=== PATIENT | female | born 1965 | race Caucasian/White ===

== ENCOUNTER → 2020-05-28 14:57 | Outpatient (BNVA) | payer MEDICAID, SELFPAY | PROVIDERS: PCP Student in an Organized Health Care Education/Training Program; Referring Provider Student in an Organized Health Care Education/Training Program; Visit Provider Nurse Practitioner | DX: R19.7 Diarrhea, unspecified (principal); R10.9 Unspecified abdominal pain; R31.9 Hematuria, unspecified; Z79.899 Other long term (current) drug therapy | CPT/HCPCS: 99212 ==

== ENCOUNTER → 2020-07-02 13:06 | Outpatient (BNVA) | payer MEDICAID, SELFPAY | PROVIDERS: PCP Student in an Organized Health Care Education/Training Program; Referring Provider Student in an Organized Health Care Education/Training Program; Visit Provider Urology | DX: R31.29 Other microscopic hematuria (principal) | CPT/HCPCS: 81002; 99202 ==

== ENCOUNTER 2020-07-02 13:30 | Outpatient (REF) | payer MEDICAID, SELFPAY | END 2020-07-02 23:59 | disposition home or self-care (01) | LOC: HO.LNP 13:30 | PROVIDERS: Visit Provider Urology | DX: R31.9 Hematuria, unspecified (principal) | CPT/HCPCS: 88112 ==

== ENCOUNTER → 2021-01-14 09:58 | Outpatient (BNVA) | payer MEDICAID, SELFPAY | PROVIDERS: PCP Student in an Organized Health Care Education/Training Program; Visit Provider Nurse Practitioner ==

== ENCOUNTER 2021-12-05 08:26 | Outpatient (REF) | payer MEDICAID, SELFPAY ==
--- NOTE | ~2021-12-05 | MM_ITS ---
EXAMINATION: MM SCREENING DIGITAL BREAST TOMOSYNTHESIS, BILATERAL CLINICAL INFORMATION: Screening. Asymptomatic. The lifetime risk of breast cancer based on the Tyrer-Cuzick Model is 16%. COMPARISON: Mammography: 01/19/2020, 04/22/2018, 10/30/2016; right breast ultrasound 05/20/2020 TECHNIQUE: Digital breast tomosynthesis is performed in both the craniocaudal and mediolateral oblique views along with computer-aided detection (CAD). Synthesized 2D images are generated from the tomosynthesis. Additional right CC view is provided. FINDINGS: There are scattered areas of fibroglandular density (ACR BI-RADS breast composition Category b). There are no significant masses, abnormal calcifications, or other abnormalities. No architectural abnormality. There is biopsy clip marker again noted central right breast. The axilla and skin contours are unremarkable. MM/MM tomosynthesis screening BI IMPRESSION: No mammographic evidence of malignancy. ASSESSMENT: BI-RADS 1: Negative RECOMMENDATION: Routine annual mammography screening. This patient's information was entered into a reminder system with a target due date for their next mammogram.
== END 2021-12-05 08:27 | disposition home or self-care (01) ==
LOC: HO.MAMMO 08:26
PROVIDERS: Visit Provider Student in an Organized Health Care Education/Training Program
DX: Z12.31 Encounter for screening mammogram for malignant neoplasm of breast (principal)
CPT/HCPCS: 77063; 77067

== ENCOUNTER 2021-12-07 09:51 | Outpatient (REF) | payer MEDICAID, SELFPAY ==
--- NOTE | ~2021-12-07 | MR_ITS ---
MR BRAIN WITHOUT AND WITH Fidel CONTRAST CLINICAL INFORMATION: Vertigo. Memory impairment. COMPARISON: None available. TECHNIQUE: Multiplanar, multisequence MRI of the brain was obtained before and after the intravenous administration of 10 mL of Gadavist. FINDINGS: There is no pathologic intracranial enhancement. There is mild chronic microangiopathy. There is global cerebral volume loss. There is no hydrocephalus, extra-axial surface collection, or herniation. The major flow voids at the skull base are preserved. There is no acute infarct on diffusion-weighted imaging. There is no intracranial hemorrhage on the gradient recalled echo acquisition. The midline structures are normal. The cerebellar tonsils are normally positioned. The cerebellum and brainstem are normal. The craniocervical junction is normal. Osseous marrow signal intensity is homogenous. The visualized soft tissues are unremarkable. MR/MR head/brain wo/w con IMPRESSION: - No acute intracranial findings. No enhancing lesions. - Mild chronic microangiopathy. There is global cerebral volume loss.
== END 2021-12-07 09:52 | disposition home or self-care (01) ==
LOC: HO.MRI 09:51
PROVIDERS: Visit Provider Family Medicine
DX: R41.3 Other amnesia (principal); R42 Dizziness and giddiness
CPT/HCPCS: 70553; A9585

== ENCOUNTER → 2021-12-12 12:49 | Outpatient (REF) | payer MEDICAID, SELFPAY ==
--- NOTE | 2021-12-12 12:53 | ECG_ITS ---
Hook-up date: 2021-12-12 12:02:00 Duration: 25:45:00 Test Indications: SVT, DIZZINESS Medications: 94645 QRS complexes 1 Ventricular ectopics which represent <1 % of total QRS comp. 1 Supraventricular ectopics which represent <1 % of total QRS comp. * Paced QRS complexs which represent % of total QRS comp. VENTRICULAR ECTOPY 1 Isolated 0 Bigeminal Cycles 0 Couplets 0 Runs 0 Beats in Runs * Beats LONGEST at * BPM at :: -- * Beats FASTEST at * BPM at :: -- SUPRAVENTRICULAR ECTOPY 1 Isolated 0 Couplets 0 Runs 0 Beats in Runs * Beats LONGEST at * BPM at :: -- * Beats FASTEST at * BPM at :: -- HEART RATES 51 MIN at 11:27:58 2021-12-13 65 AVG 90 MAX at 19:34:34 2021-12-12 LONGEST RR 1.1840 secs at 11:18:10 2021-12-13 S-T LEVELS Channel 1 - 128 mm at 12:02:00 2021-12-12 - 128 mm at 12:02:00 2021-12-12 Channel 2 - 128 mm at 12:02:00 2021-12-12 - 128 mm at 12:02:00 2021-12-12 Channel 3 - 128 mm at 03:12:11 -- - 128 mm at 03:12:11 Basic rhythm Normal sinus rhythm No long pause or profound bradycardia No dangerous dysrhythm periods Patient did not report any symptoms in the diary Referred By: Trang Philip Overread By: SULEMAN EUGENE MD
== END ==
LOC: HO.CARD 12:49
PROVIDERS: Visit Provider Family Medicine
DX: I47.1 Supraventricular tachycardia (principal)
CPT/HCPCS: 93225; 93226

== ENCOUNTER 2021-12-16 12:51 | Outpatient (REF) | payer MEDICAID, SELFPAY ==
--- NOTE | ~2021-12-16 | US_ITS ---
EXAMINATION: US ABDOMEN LIMITED CLINICAL INFORMATION: Elevated liver enzymes. COMPARISON: CT abdomen and pelvis 11/24/2019. Ultrasound abdomen complete 04/09/2013. TECHNIQUE: Real-time imaging of the right upper quadrant abdominal viscera. FINDINGS: PANCREAS: Normal. LIVER: The liver is normal in size. The liver contour is normal. Liver echotexture is increased. No focal hepatic lesion. There is no intrahepatic biliary duct dilatation seen. GALLBLADDER: There is mild ring down artifact suggestive of adenomyomatosis of the gallbladder wall. The gallbladder is physiologically distended without evidence of stones, sludge, polyps, wall thickening or pericholecystic fluid. COMMON BILE DUCT: Normal in caliber measuring 0.3 cm in diameter. RIGHT KIDNEY: Normal. No hydronephrosis. No renal calculi or focal parenchymal lesions. The kidney measures 9.1 cm in maximum dimension. FREE FLUID: None. US/US abdomen limited IMPRESSION: Echogenic liver probably representing fatty infiltration. Probable mild adenomyomatosis of the gallbladder wall.
== END 2021-12-16 12:52 | disposition home or self-care (01) ==
LOC: HO.US 12:51
PROVIDERS: Visit Provider Family Medicine
DX: E80.6 Other disorders of bilirubin metabolism (principal); R74.01 Elevation of levels of liver transaminase levels
CPT/HCPCS: 76705

== ENCOUNTER 2021-12-29 11:13 | Outpatient (REF) | payer MEDICAID, SELFPAY ==
--- NOTE | ~2021-12-29 | US_ITS ---
EXAMINATION: US VENOUS ULTRASOUND WITH DOPPLER LOWER EXTREMITY, RIGHT CLINICAL INFORMATION: Right lower extremity edema. COMPARISON: 04/14/2020. TECHNIQUE: Ultrasound of the deep veins is performed from the hip to the calf with compression sonography and color and pulse Doppler assessment. Spectral analysis with color-flow imaging is performed. FINDINGS: There is normal venous compression and respiratory variation and augmented flow. The visualized common femoral vein, superficial femoral vein, profunda femoral vein, popliteal vein, and the trifurcation region shows no evidence of deep venous thrombosis. There is no significant popliteal fossa cyst. If the patient's symptoms persist, followup ultrasound in 5 days 7 days might be of value to exclude proximal propagation from a non-visualized calf vein. US/US venous duplex LE RT IMPRESSION: No DVT demonstrated in the right lower extremity.
== END 2021-12-29 11:14 | disposition home or self-care (01) ==
LOC: HO.US 11:13
PROVIDERS: PCP Student in an Organized Health Care Education/Training Program; Visit Provider Student in an Organized Health Care Education/Training Program
DX: I83.891 Varicose veins of right lower extremity with other complications (principal); R60.0 Localized edema
CPT/HCPCS: 93971

== ENCOUNTER → 2022-01-17 09:52 | Outpatient (BNVA) | payer MEDICAID, SELFPAY | PROVIDERS: PCP Student in an Organized Health Care Education/Training Program; Visit Provider Surgery | DX: R10.11 Right upper quadrant pain (principal); K70.0 Alcoholic fatty liver | CPT/HCPCS: 99202 ==

== ENCOUNTER → 2022-02-08 07:33 | Outpatient (REF) | payer MEDICAID, SELFPAY ==
--- NOTE | ~2022-02-08 | NM_ITS ---
EXAMINATION: NM BILIARY TRACT WITH ORAL FATTY MEAL CLINICAL INFORMATION: Right upper quadrant pain. COMPARISON: No previous biliary scan is available for comparison. Abdominal ultrasound dated 12/16/[address] scan of the abdomen dated 11/24/2019 are available for comparison. TECHNIQUE: Serial gamma scintillation camera images were obtained over the abdomen for a total observation period of 120 minutes following the intravenous administration of 5 mCi Tc-99m Mebrofenin. FINDINGS: There is good concentration of activity in the liver by 5 minutes post injection. Biliary activity is visualized by 15 minutes. The gallbladder is well visualized by 30 minutes. Small bowel is well visualized by 50 minutes. At 60 minutes post Mebrofenin injection, 8 ounces of Ensure-plus Brand was administered orally and an additional 60 minutes of images were obtained. There is good emptying of the gallbladder following ingestion of the fatty meal. At the end of the study there is good clearance of activity from the liver and visualization of diffuse small bowel activity. The calculated gallbladder ejection fraction is 95% (normal gallbladder ejection fraction using Ensure supplement orally is greater than 33%). NM/NM hepatobiliary wo pharm IMPRESSION: Visualization of the gallbladder is evidence of a patent cystic duct and strong evidence against the diagnosis of acute cholecystitis. The common bile duct is patent. Gallbladder emptying and ejection fraction are normal. Liver function appears normal.
== END ==
LOC: HO.NUCMED 07:33
PROVIDERS: PCP Student in an Organized Health Care Education/Training Program; Visit Provider Surgery
DX: R10.11 Right upper quadrant pain (principal)
CPT/HCPCS: 78226; A9537

== ENCOUNTER → 2022-02-09 09:49 | Outpatient (BNVA) | payer MEDICAID, SELFPAY | PROVIDERS: PCP Student in an Organized Health Care Education/Training Program; Visit Provider Surgery | DX: R10.11 Right upper quadrant pain (principal); K70.0 Alcoholic fatty liver | CPT/HCPCS: 99212 ==

== ENCOUNTER → 2022-02-16 10:29 | Outpatient (BNVA) | payer MEDICAID, SELFPAY | PROVIDERS: PCP Student in an Organized Health Care Education/Training Program; Visit Provider Nurse Practitioner | DX: Z01.818 Encounter for other preprocedural examination (principal); I47.1 Supraventricular tachycardia; R10.9 Unspecified abdominal pain; R19.7 Diarrhea, unspecified; Z80.0 Family history of malignant neoplasm of digestive organs | CPT/HCPCS: 99202; 99212 ==

== ENCOUNTER → 2022-03-23 08:58 | Outpatient (BNVA) | payer MEDICAID, SELFPAY | PROVIDERS: PCP Student in an Organized Health Care Education/Training Program; Visit Provider Surgery Vascular Surgery | DX: I83.12 Varicose veins of left lower extremity with inflammation (principal) | CPT/HCPCS: 99202 ==

== ENCOUNTER 2022-05-22 12:55 | Outpatient (REF) | payer MEDICAID, SELFPAY ==
--- NOTE | ~2022-05-22 | US_ITS ---
EXAMINATION: US LOWER EXTREMITY VENOUS (REFLUX EXAM), BILATERAL CLINICAL INDICATION: This is a 57-year-old female with venous insufficiency and varicose veins. Leg swelling. Inflammation. COMPARISON: None. TECHNIQUE: Color flow triplex imaging and compression Doppler was performed to evaluate both the deep and the superficial systems bilaterally. To evaluate the superficial system, the examination was performed in the upright position. Color-flow Doppler ultrasound and compression ultrasound were utilized. In addition, maneuvers were utilized to demonstrate reflux. FINDINGS: 1. DEEP VENOUS ULTRASOUND OF THE RIGHT LOWER EXTREMITY: Common Femoral Vein: Compressible, normal respiratory variation and augmented flow. Femoral vein: Compressible, normal color flow and augmentation. Popliteal Vein: Compressible, normal augmentation. Deep Reflux: There is no evidence of reflux in the deep system in either the common femoral vein or the popliteal vein. There is no evidence of a Tan's cyst. 2. SUPERFICIAL ULTRASOUND WITH DOPPLER OF RIGHT LOWER EXTREMITY: GREAT SAPHENOUS VEIN: Saphenofemoral Junction: 0.6 cm. There is no reflux. Mid Thigh: 0.4 cm Above Knee: 0.4 cm. There is no reflux at this level and above. Below Knee: 0.3 cm. The reflux time is 3344 ms. Mid Calf: 0.3 cm. The reflux time is 3264 ms. Ankle: Not seen. GSV REFLUX: There is isolated reflux below the knee. DUPLICATED GREAT SAPHENOUS VEIN: There is a 0.5 cm duplicated lateral great saphenous vein without reflux. SMALL SAPHENOUS VEIN: Proximal: 0.4 cm Distal: 0.3 cm SSV REFLUX: No evidence of reflux. VEIN OF GIACOMINI: None Imaged. PERFORATORS: None Imaged VARICOSITIES: There are multiple 0.3 cm 0.4 cm varicose veins with reflux of greater than 3 seconds. 3. DEEP VENOUS ULTRASOUND OF THE LEFT LOWER EXTREMITY: Common Femoral Vein: Compressible, normal respiratory variation and augmented flow. Femoral Vein: Compressible, normal color flow and augmentation. Popliteal Vein: Compressible, normal augmentation. Deep Reflux: There is no evidence of reflux in the deep system in either the common femoral vein or the popliteal vein. There is no evidence of a Tan's cyst. 4. SUPERFICIAL ULTRASOUND WITH DOPPLER OF LEFT LOWER EXTREMITY: GREAT SAPHENOUS VEIN: Saphenofemoral Junction: 0.9 cm Mid Thigh: 0.4 cm Above Knee: 0.5 cm Below Knee: 0.4 cm. There is no reflux at this level and above. Mid Calf: 0.1 cm. The reflux time is 2768 ms. Ankle: 0.4 cm. There is no reflux. GSV REFLUX: There is isolated reflux in the mid calf but not at the junction. DUPLICATED GREAT SAPHENOUS VEIN: There is a duplicated medial great saphenous vein measuring 0.6 cm without reflux. There is a 0.4 cm duplicated lateral great saphenous vein without reflux. SMALL SAPHENOUS VEIN: Proximal: 0.4 cm Distal: 0.3 cm SSV REFLUX: No evidence of reflux. VEIN OF GIACOMINI: None Imaged. PERFORATORS: There is a 0.3 cm proximal calf clinical technologist without reflux. VARICOSITIES: There are 0.3 cm and 0.5 cm varicose veins in the calf without reflux. US/US venous duplex LE BI IMPRESSION: 1. There are patent bilateral great saphenous veins and small saphenous veins without evidence of reflux at the junctions, respectively. 2. There are bilateral varicose veins present measuring 0.3 cm, 0.47 m, 0.5 cm respectively. Reflux is seen in the right calf varicose veins.
== END 2022-05-22 12:56 | disposition home or self-care (01) ==
LOC: HO.US 12:55
PROVIDERS: Visit Provider Surgery Vascular Surgery
DX: I83.12 Varicose veins of left lower extremity with inflammation (principal)
CPT/HCPCS: 93970

== ENCOUNTER 2022-07-10 09:03 | Day surgery (SDC) | payer MEDICAID, SELFPAY ==
[2022-07-04 12:04] VITALS: BMI 37.4
--- NOTE | 2022-07-10 09:48 | P.HPSUR_ITS ---
Pre-Procedural Eval Section A Date of Service: 07/10/22 The patient is an INPATIENT: No The History & Physical has been completed within 30 days and I have reviewed it.: No Section B Chief Complaint: Colon cancer screening, diarrhea,abd pain Details of Present Illness: Colon cancer screening, abdominal pain and diarrhea Relevant Family History (Specify if Yes): No Relevant Social History: None Present Medications: see Short Stay Collaborative assessment Medical History: Significant History (Anxiety Bipolar disorder Depression P arkinson disease Recovering alcoholic) History of Previous Operations: Relevant previous surgery/procedure and date(s) (History of right breast biopsy) Allergies: Allergies Allergy/AdvReac Type Severity Reaction Status Date / Time azithromycin [From ZITHROMAX] Allergy Intermediate SWELLING Verified 02/16/22 10:38 Penicillins [PENICILLINS] Allergy Intermediate SWELLING Verified 02/16/22 10:38 Sulfa (Sulfonamide Allergy Intermediate SWELLING Verified 02/16/22 10:38 Antibiotics) [SULFA(SULFONAMIDE ANTIBIOTICS)] dicyclomine AdvReac Unknown Itching Verified 02/16/22 10:38 BLUE CAPSELS FOR ABD PAIN Allergy Unknown COULDN'T Uncoded 02/16/22 10:38 PEE Review of Systems Sugical H&P ROS: Negative: Constitution, Cardiovascular and Respiratory and Yes, Specify: Gastrointestinal (abdominal pain, diarrhea) Exam Surgical H&P Exam: Normal: Heart, Normal: Lungs, Normal: Extremities and Normal: Abdomen Plan Diagnosis/Plan: Unchanged I have reviewed the history and physical and performed a pertinent physical examination on my patient. No changes have occurred unless specified. Time Spent With Patient Time: Total time managing care of this patient today ____ minutes.
--- NOTE | 2022-07-10 09:50 | PM.OP ---
Brief Operative Note Date of Service: 07/10/22 Pre-op diagnosis: Colon cancer screening, abdominal pain, diarrhea, family history of colon cancer (sister in her 50's) Post-op diagnosis: other (Colon polyps, diverticulosis) Procedure: COLONOSCOPY TO CECUM WITH BIOPSIES Surgeon: Adelfo Pollard MD Anesthesia: MAC Was an Cable Television Line Technician used for this Procedure?: Yes Cable Television Line Technician: Emile Kathleen Estimated blood loss (mL): 0 Pathology: other (A) BX Right Colon (R/O Microscopic Colitis) B) BX Left Colon (R/O Microscopic Colitis) C) Polyp Descending Colon D) Polyp Sigmoid Colon) Condition: stable Disposition: PACU
[2022-07-10 09:53] VITALS: BP 114/61; PULSE 69; RESP 16; TEMP 36.7; O2SAT 97
--- NOTE | 2022-07-10 10:05 | W.PM.OPN ---
Operative Note Operative Note Date of Service: 07/10/22 Narrative: Pre-op diagnosis: Colon cancer screening, abdominal pain, diarrhea, family history of colon cancer (sister in her 50's) Post-op diagnosis:?other (Colon polyps, diverticulosis) Surgeon: Adelfo Pollard MD Anesthesia:?MAC COLONOSCOPY TILL CECUM WITH BIOPSIES Consent: Indications for the procedure and potential complications of bleeding, perforation, reaction to medications and missed diagnosis were discussed with the patient and informed consent was obtained. Instrument: Olympus PCF H 190 L variable stiffness pediatric colonoscope Monitoring: Vital signs and clinical assessment, intermittent blood pressure monitoring, continuous EKG monitoring, Pulse oximetry and Carbon Dioxide monitoring were done throughout the procedure. Colon withdrawl time was 17 minutes. Procedure: The patient was placed in the left lateral decubitis position and pre-procedure medications were administered. After a digital rectal examination of the ano-rectum, the video colonoscope was inserted into the rectum and advanced through the colon to the cecum. The colonoscope was slowly withdrawn in a retrograde panoramic fashion and the colon mucosa was carefully examined including a retroflexed view of the rectum. Findings and interventions are described below. Procedure Difficulty: Colon was long and tortuous and there was recurrent loop formation. Patient was placed in the supine position and LLQ pressure was applied to intubate the cecum Findings: Terminal Ileum: Not evaluated Cecum: Normal Ascending Colon: Normal Transverse Colon: Normal Descending Colon: A 6-7 mm diminutive appearing polyp - biopsied. Sigmoid Colon: A few 5-7 mm diminutive appearing polyps - one was biopsied. Moderate diverticulosis Rectum: Normal Ano-rectum: Normal Colon preparation: Good Impression and Post Procedure Diagnosis: Colonoscopy Findings: A few diminutive appearing polyps in the descending colon and rectosigmoid - two were biopsied. Moderate diverticulosis seen in the sigmoid colon Plan: Await pathology results Patient has an appointment on 07/25/22 in the [facility] with Maritza Culver NP. Repeat Colonoscopy interval based on path results - in 3-5 years if polyps are adenomatous and due to a positve family hx of colon cancer. (adult colonoscope for future colonoscopies) Colon polyps and diverticulosis handouts were given in the discharge area
--- NOTE | 2022-07-10 10:18 | P.CONAN_ITS ---
[facility] Active Problems Active Problems: All Active Problems (Updated 03/24/22 @ 16:47 by Fan Hobson MD) Varicose veins of left lower extremity with inflammation (Acute) Family history of colon cancer (Acute) SVT (supraventricular tachycardia) (Acute) Asthma (Acute) Preop examination (Acute) Fatty liver due to alcoholism (Acute) Right upper quadrant abdominal pain (Acute) Abdominal cramping (Acute) Hematuria (Acute) Diarrhea (Acute) Past Medical History Medical History Anxiety Bipolar disorder Depression Parkinson disease Recovering alcoholic Family History Family History Father Stage 4 lung cancer Alzheimer disease Dementia Mother Hypothyroid Diabetes Dementia Kidney failure A-fib Sister Breast cancer Colon cancer Surgical History Surgical History History of right breast biopsy History of Problems with Anesthesia: No Social History Social History Household Members: Significant Other Alcohol intake: current Alcohol intake frequency: does not drink Alcohol type: beer Patient Tobacco Use Status: Never used Tobacco Use of substances other than those prescribed or required for medical reasons: No Are you DNR?: No Advance Directives: No Advance Directives Information Provided: Yes Meds Allergies Allergy/AdvReac Type Severity Reaction Status Date / Time azithromycin [From ZITHROMAX] Allergy Intermediate SWELLING Verified 02/16/22 10:38 Penicillins [PENICILLINS] Allergy Intermediate SWELLING Verified 02/16/22 10:38 Sulfa (Sulfonamide Allergy Intermediate SWELLING Verified 02/16/22 10:38 Antibiotics) [SULFA(SULFONAMIDE ANTIBIOTICS)] dicyclomine AdvReac Unknown Itching Verified 02/16/22 10:38 BLUE CAPSELS FOR ABD PAIN Allergy Unknown COULDN'T Uncoded 02/16/22 10:38 PEE Home Medications Medication Instructions Recorded Confirmed Last Taken Type hyoscyamine sulfate 0.125 mg 0.125 mg PO BID-QID PRN 05/27/20 05/27/20 Unknown History tablet (Levsin) carbidopa 25 mg-levodopa 100 mg 1 tab PO BID 01/14/21 Unknown History tablet cetirizine 10 mg capsule (All Day 10 mg PO DAILY PRN 01/14/21 Unknown History Allergy (cetirizine)) clonazepam 1 mg tablet 1 mg PO BID 01/14/21 Unknown History levothyroxine 100 mcg capsule 100 mcg PO DAILY 01/14/21 Unknown History metoprolol succinate 50 mg 50 mg PO BID 01/14/21 Unknown History tablet,extended release 24 hr omeprazole 20 mg tablet,delayed 20 mg PO DAILY 01/14/21 Unknown History release risperidone 2 mg tablet 2 mg PO BEDTIME 01/14/21 Unknown History ropinirole 0.5 mg tablet 0.5 mg PO BEDTIME 01/14/21 Unknown History albuterol sulfate 90 mcg/actuation 2 puff inhalation Q6H PRN 01/17/22 02/09/22 Unknown History aerosol inhaler diclofenac sodium 1 % topical gel 2 g topical QID 01/17/22 Unknown History fluoxetine 20 mg capsule 20 mg PO QAM 01/17/22 Unknown History fluticasone propionate 220 1 puff inhalation BID 01/17/22 Unknown History mcg/actuation HFA aerosol inhaler (Flovent HFA) fluticasone propionate 50 1 spray intranasal DAILY 01/17/22 Unknown History mcg/actuation nasal spray,suspension (Flonase Allergy Relief) folic acid-vit B6-vit B12 2.2 1 tab PO DAILY 01/17/22 Unknown History mg-25 mg-1 mg tablet (FaBB) hydroxyzine HCl 10 mg tablet 10 mg PO Q12H PRN anxiety 01/17/22 Unknown History ibuprofen 400 mg tablet 400 mg PO Q6H 01/17/22 Unknown History loperamide 2 mg tablet 2 mg PO Q6H PRN 01/17/22 Unknown History meclizine 25 mg tablet 25 mg PO TID PRN 01/17/22 Unknown History nystatin 100,000 unit/gram topical topical BID 01/17/22 Unknown History cream prazosin 1 mg capsule 1 mg PO BEDTIME 01/17/22 Unknown History furosemide 20 mg tablet 20 mg PO BID 02/16/22 Unknown History Exam Exam Date and Time: July 10, 2022 1018 Height,Weight and Vital Signs: Height 5 ft 5 in Weight 102.058 kg Last Vital Signs Temp 98.1 F 07/10/22 09:53 Pulse 69 07/10/22 09:53 Resp 16 07/10/22 09:53 BP 114/61 07/10/22 09:53 Pulse Ox 97 12/12/22 09:53 O2 Del Method 07/10/22 09:53 Airway Mallampati Class: III TM Dist: >3cm Neck ROM: Full Partial: Upper Loose/Missing/Broken Teeth: Yes and Upper Heart: RRR Lungs: CTA Assessment and Plan Assessment Anesthesia Assessment: Anesthesia Plan Discussed and Chart Reviewed Final Anesthetic Review History of Problems with Anesthesia: No NPO: Yes ASA Class: III Final Preanesthetic Review: Meds/Allgs Chart Reviewed, Consent Obtained/Reviewed and Anes Risks/Benef Reviewed Patient Risk: Intermediate Procedure Risk: Low Anesthetic Plan Anesthetic Plan: MAC: Disposition: Standard PACU
[2022-07-10 10:56] VITALS: BP 108/48; PULSE 74; RESP 16; TEMP 36.6; O2SAT 96
[2022-07-10 11:11] VITALS: BP 123/63; PULSE 74; RESP 16; TEMP 36.7; O2SAT 97
== END 2022-07-10 12:02 | disposition home or self-care (01) ==
PROVIDERS: PCP Student in an Organized Health Care Education/Training Program; Visit Provider Internal Medicine Gastroenterology
PROC: 0DJD8ZZ Inspection of Lower Intestinal Tract, Via Natural or Artificial Opening Endoscopic (ICD-10-PCS; CPT 45378; principal; 2022-07-10 10:10)
DX: Z12.11 Encounter for screening for malignant neoplasm of colon (principal); R19.7 Diarrhea, unspecified; R10.9 Unspecified abdominal pain; K63.5 Polyp of colon; K57.30 Diverticulosis of large intestine without perforation or abscess without bleeding; K56.2 Volvulus; Z80.0 Family history of malignant neoplasm of digestive organs; I47.1 Supraventricular tachycardia; J45.909 Unspecified asthma, uncomplicated; Z79.899 Other long term (current) drug therapy; Z88.0 Allergy status to penicillin; Z88.2 Allergy status to sulfonamides; Z88.8 Allergy status to other drugs, medicaments and biological substances
CPT/HCPCS: 45380; 88305

== ENCOUNTER → 2022-07-25 08:06 | Outpatient (BNVA) | payer MEDICAID, SELFPAY | PROVIDERS: PCP Student in an Organized Health Care Education/Training Program; Referring Provider Student in an Organized Health Care Education/Training Program; Visit Provider Nurse Practitioner | DX: K57.30 Diverticulosis of large intestine without perforation or abscess without bleeding (principal); K63.5 Polyp of colon; K58.0 Irritable bowel syndrome with diarrhea; Z80.0 Family history of malignant neoplasm of digestive organs; Z98.890 Other specified postprocedural states | CPT/HCPCS: 99212 ==

== ENCOUNTER → 2022-09-06 08:12 | Outpatient (BNVA) | payer MEDICAID, SELFPAY | PROVIDERS: PCP Student in an Organized Health Care Education/Training Program; Referring Provider Student in an Organized Health Care Education/Training Program; Visit Provider Nurse Practitioner | DX: K58.0 Irritable bowel syndrome with diarrhea (principal) | CPT/HCPCS: 99212 ==

== ENCOUNTER 2022-10-31 09:31 | Outpatient (REF) | payer MEDICAID, SELFPAY ==
--- NOTE | ~2022-10-31 | XR_ITS ---
EXAMINATION: XR KNEE, LEFT CLINICAL INFORMATION: Pain status-post fall 2 weeks prior. COMPARISON: None available. TECHNIQUE: AP and lateral views of the left knee. FINDINGS: Bony alignment and mineralization are normal. The lateral, medial and patellofemoral joint space compartments are well-maintained. There is very mild tricompartment peripheral osteophyte formation. No fracture, dislocation or joint effusion is seen. There is no foreign body. XR/XR knee LT 2V IMPRESSION: 1. 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 2. No left knee fracture, dislocation or effusion is seen.
--- NOTE | ~2022-10-31 | XR_ITS ---
EXAMINATION: XR HIP, LEFT CLINICAL INFORMATION: Pain status-post fall 2 weeks prior. COMPARISON: None available. TECHNIQUE: AP and frog-leg lateral views of the left hip. FINDINGS: Bones and soft tissues are normal. No fracture. Alignment is anatomic. Hip joint space is maintained. XR/XR hip LT min 2V IMPRESSION: Normal left hip.
== END 2022-10-31 09:32 | disposition home or self-care (01) ==
LOC: HO.XRAY 09:31
PROVIDERS: Visit Provider Internal Medicine
DX: M25.552 Pain in left hip (principal); M25.562 Pain in left knee
CPT/HCPCS: 73502; 73560

== ENCOUNTER → 2022-11-28 12:11 | Outpatient (BNVA) | payer MEDICAID, SELFPAY | PROVIDERS: PCP Student in an Organized Health Care Education/Training Program; Visit Provider Nurse Practitioner | DX: K58.0 Irritable bowel syndrome with diarrhea (principal); K21.9 Gastro-esophageal reflux disease without esophagitis; G20 Parkinson's disease; E66.01 Morbid (severe) obesity due to excess calories; Z68.42 Body mass index [BMI] 45.0-49.9, adult | CPT/HCPCS: 99212 ==

== ENCOUNTER 2023-04-17 08:19 | Outpatient (AMB) | payer MEDICAID, SELFPAY ==
--- NOTE | 2023-04-17 08:25 | MHC.OFFVIS ---
Intake Vital Signs 04/17/23 08:28 Height 5 ft 4 in Weight 260 lb 2.327 oz BMI 44.6 BP 126/60 Blood Pressure Location Lt brachial Position Sitting Pulse 68 Intake Visit Reasons: 6 week f/u Intake Note: Judy presents in the office as a 6 week follow up. CC: States that she is having a rash on her right upper thigh/inguinal region. She states she has no more cream for that. She states that she does sometimes have the pains in her stomach - past week it has been more frequent. Material Control Clerk Required: No Allergies azithromycin [From ZITHROMAX] Allergy (Intermediate, Verified 04/17/23 08:28) SWELLING Penicillins [PENICILLINS] Allergy (Intermediate, Verified 04/17/23 08:28) SWELLING Sulfa (Sulfonamide Antibiotics) [SULFA(SULFONAMIDE ANTIBIOTICS)] Allergy (Intermediate, Verified 04/17/23 08:28) SWELLING dicyclomine Adverse Reaction (Unknown, Verified 04/17/23 08:28) Itching BLUE CAPSELS FOR ABD PAIN Allergy (Unknown, Uncoded 04/17/23 08:28) COULDN'T PEE HPI 6 week f/u HPI Details Assessment & Plan (1) Irritable bowel syndrome with diarrhea: ?Code(s): K58.0 - Irritable bowel syndrome with diarrhea ?Plan: She does not appear to be getting her Lotronex at use this 0.5 with a 1 mg dose.? She did not think to call our office so we were unaware that there was a problem.? She has been out of it for probably upwards of a month.? Obviously, she continues to have diarrhea with this situation going on.? I have my staff look into it and try to find out what the holdup is. She continues on her omeprazole with good control of her GERD. Return office visit in 6 weeks (2) GERD (gastroesophageal reflux disease): ?Code(s): K21.9 - Gastro-esophageal reflux disease without esophagitis CORRESPONDENCE On 11/29/22 @ 16:00 Amy Oneal Wrote To [place] PA approced pharmacy and PT notified. On 11/28/22 @ 14:40 Amy Oneal Wrote To Amy Oneal It seems like Pt obtained PA for Lotronex 0.5 mg but not for the 1 MG. PA submitted. On 11/28/22 @ 12:41 AbiolaMaritza Wrote To Amy Oneal The pt is here today and says she has not been getting her Lotronex filled at ANY dose! [facility] pharmacy is saying that the insurance refuses to pay. Please look in to this and advise me. TODAY'S VISIT TODAY SHE COMPLAINS OF A GROIN RASH. She usually sweats a lot and her MARKETING REPRESENTATIVE rx's a patch - but she has not been able to get in to see her. So she is sweating a great deal. The o2o is working well. However, she will have breakthrough diarrhea a couple of times a week despite taking the lotrenex bid faithfully. She is having a great deal of stress at home with her boyfriend and his son - so this is likely a c/f. I recommend OTC Imodium as needed until thing settle down. I rx nystatin powder for her rash. Rov 3 mos. PFSH Medical History Recovering alcoholic Bipolar disorder Depression Anxiety Parkinson disease Surgical History H/O colonoscopy History of right breast biopsy Family History Father Stage 4 lung cancer Alzheimer disease Dementia Mother Hypothyroid Diabetes Dementia Kidney failure A-fib Sister Breast cancer Colon cancer Social History Household Members: Significant Other Alcohol intake: current Alcohol intake frequency: does not drink Alcohol type: beer Patient Tobacco Use Status: Never used Tobacco Advance Directives: No Review of Systems Const Denies fatigue, Denies fever(s), Denies night sweats, Reports poor appetite and Denies weight loss Eyes Details: glasses Reports requires corrective lenses ENT Reports Normal hearing present, Denies dental pain, Denies dysphagia, Denies hearing loss, Denies mouth pain, Denies odynophagia, Denies throat swelling, Denies tongue swelling and Reports other (Dentition adequate) Card Reports no additional complaints Resp Reports no additional complaints GI Denies abdominal pain, Denies melena, Denies bloating, Denies hematochezia, Denies constipation, Denies GI cramping, Denies dysphagia, Denies excessive flatus, Denies early satiety, Reports heartburn, Reports diarrhea, Denies nausea, Denies odynophagia, Denies vomiting and Denies hematemesis Skin/Breast Reports pruritus, Reports lesions, Reports rash and Denies jaundice Neuro Reports Normal hearing present and Denies Abnormal speech present Psych Reports anxiety and Reports change in appetite Endo Denies fatigue Aller/Immun Denies throat swelling and Denies tongue swelling Physical Exam Vital Signs: Last Vital Signs Pulse 68 04/17/23 08:28 BP 126/60 04/17/23 08:28 BMI result Body Mass Index 44.6 Const General: cooperative, no acute distress, well developed and well groomed Nutritional Appearance: well nourished and obese Orientation/consciousness: oriented to person, oriented to place and oriented to time Limitations: No language barrier HEENT Head: Yes normocephalic and Yes atraumatic Eyes General: appearance normal, both eyes and all related structures Pupils: Equal, round and reactive pupils present Neck Neck: Yes normal visual inspection and Yes no lymphadenopathy Thyroid: Thyroid normal Resp Effort & Inspection: normal respiratory effort and able to speak in complete sentences Auscultation: clear to auscultation bilaterally Cardio Rate: regular rate Rhythm: regular rhythm Heart sounds: Normal, physiologic split S2 sound present Peripheral pulses: radial pulses present and posterior tibial pulses present GI Inspection: No distended, Yes Abdominal panniculus present and Yes obesity Palpation (GI): Soft to palpation, nontender, no guarding, not rigid and No hepatosplenomegaly present Percussion: Yes normal to percussion Auscultation: normal bowel sounds Rectal Exam - Female: deferred Skin General skin exam: no rashes or lesions noted, turgor normal, skin not dry, no jaundice, No spider nevi and no striae Rashes: rashes noted (bilateral groins c/w odalis) Nails: normal Neuro General: oriented to person, oriented to place and oriented to time Cranial nerves: Yes Equal, round and reactive pupils present and Yes Normal hearing present Speech: No Abnormal speech present Extrem General: Yes normal to inspection, No clubbing, No cyanosis and No edema Psych Appearance: grossly normal and well kempt Mental Status: mental status grossly normal Speech and movement: Normal speech and movement present Affect: normal affect Attitude: cooperative Thought process: Normal thought process present and not confabulating Thought content: Normal thought content present Insight: Limited insight present (Psych) Judgement: Limited judgement present (Psych) Assessment & Plan Assessment & Plan (1) GERD (gastroesophageal reflux disease): Code(s): K21.9 - Gastro-esophageal reflux disease without esophagitis Plan: TODAY SHE COMPLAINS OF A GROIN RASH. She usually sweats a lot and her MARKETING REPRESENTATIVE rx's a patch - but she has not been able to get in to see her. So she is sweating a great deal. The o2o is working well. However, she will have breakthrough diarrhea a couple of times a week despite taking the lotrenex bid faithfully. She is having a great deal of stress at home with her boyfriend and his son - so this is likely a c/f. I recommend OTC Imodium as needed until thing settle down. I rx nystatin powder for her rash. Rov 3 mos. (2) Irritable bowel syndrome with diarrhea: Code(s): K58.0 - Irritable bowel syndrome with diarrhea (3) Odalis albicans infection: Code(s): B37.9 - Candidiasis, unspecified Medications: New alosetron (Lotronex) 1 mg PO BID 60 tabs 6RF K58.0 - Irritable bowel syndrome with diarrhea nystatin 1 appl topical TID 60 grams 3RF B37.9 - Candidiasis, unspecified Refilled omeprazole 40 mg PO DAILY 30 caps 6RF 30 days Discontinued cholestyramine (with sugar) 4 gram administer w/meal; avoid other meds within 1hr before or 4-6hr after dose Discontinued Reason: Doctor's Order 4 grams PO BID 378 grams 6RF K58.0 - Irritable bowel syndrome with diarrhea Coding Level of Care Code Est Pt Level 3 (95140) Diagnoses GERD (gastroesophageal reflux disease) K21.9 Irritable bowel syndrome with diarrhea K58.0 Odalis albicans infection B37.9
[2023-04-17 08:28] VITALS: BP 126/60; PULSE 68; BMI 44.6
== END 2023-04-17 08:47 | disposition home or self-care (01) ==
PROVIDERS: Visit Provider Nurse Practitioner
DX: K21.9 Gastro-esophageal reflux disease without esophagitis (principal); K58.0 Irritable bowel syndrome with diarrhea; B37.9 Candidiasis, unspecified
CPT/HCPCS: 99213

== ENCOUNTER → 2023-04-17 08:19 | Outpatient (BNVA) | payer MEDICAID, SELFPAY | PROVIDERS: Visit Provider Nurse Practitioner | DX: K21.9 Gastro-esophageal reflux disease without esophagitis (principal); K58.0 Irritable bowel syndrome with diarrhea; B37.9 Candidiasis, unspecified | CPT/HCPCS: 99212 ==

== ENCOUNTER 2023-04-23 12:47 | Emergency (ER) | payer MEDICAID, SELFPAY ==
--- NOTE | ~2023-04-23 | XR_ITS ---
EXAMINATION: XR CHEST CLINICAL INFORMATION: Chest pain. COMPARISON: 12/05/2019 TECHNIQUE: 2 views of the chest were obtained. FINDINGS: The lungs are moderately expanded. No focal consolidation. No pleural effusion. Cardiac silhouette is within normal limits. XR/XR chest 2V IMPRESSION: No acute abnormality.
--- NOTE | 2023-04-23 12:54 | ECG_ITS ---
Test Reason : CHEST PAIN Blood Pressure : / mmHG Vent. Rate : 063 BPM Atrial Rate : 063 BPM P-R Int : 146 ms QRS Dur : 090 ms QT Int : 430 ms P-R-T Axes : 057 003 016 degrees QTc Int : 440 ms Normal sinus rhythm Cannot rule out Anterior infarct , age undetermined Abnormal ECG When compared with ECG of 04-JAN-2020 23:47, Poor R wave progression Referred By: Sasha Bauman Electronically Signed By:GEOVANNI MOTTA
[2023-04-23 13:11] VITALS: BP 105/70; BP 138/84; PULSE 66; RESP 16; TEMP 36.8; O2SAT 97; BMI 44.6
--- NOTE | 2023-04-23 13:29 | ED_ITS ---
HPI - Chest Pain General Chief Complaint: Chest Pain Stated Complaint: CHEST PAIN Time Seen by Provider: 04/23/23 12:58 Source: patient and family Mode of arrival: wheelchair Limitations: no limitations History of Present Illness HPI narrative: Patient comes to the emergency room via ambulance complaining of chest pain. Patient states that she has been having constant chest pain for 18 hours. Patient states that when she called the ambulance today, EMS gave her 325 mg of aspirin and now she is asymptomatic. Patient denies shortness of breath, no nausea vomiting diarrhea, patient complaining of constant GERD Related Data Home Medications Medication Instructions Recorded Confirmed carbidopa 25 mg-levodopa 100 mg 1 tab PO BID 01/14/21 tablet cetirizine 10 mg capsule (All Day 10 mg PO DAILY PRN 01/14/21 Allergy (cetirizine)) clonazepam 1 mg tablet 1 mg PO BID 01/14/21 risperidone 2 mg tablet 2 mg PO BEDTIME 01/14/21 ropinirole 0.5 mg tablet 0.5 mg PO BEDTIME 01/14/21 diclofenac sodium 1 % topical gel 2 g topical QID 01/17/22 fluticasone propionate 220 1 puff inhalation BID 01/17/22 mcg/actuation HFA aerosol inhaler (Flovent HFA) fluticasone propionate 50 1 spray intranasal DAILY 01/17/22 mcg/actuation nasal spray,suspension (Flonase Allergy Relief) hydroxyzine HCl 10 mg tablet 10 mg PO Q12H PRN anxiety 01/17/22 loperamide 2 mg tablet 2 mg PO Q6H PRN 01/17/22 meclizine 25 mg tablet 25 mg PO TID PRN 01/17/22 nystatin 100,000 unit/gram topical topical BID 01/17/22 cream furosemide 20 mg tablet 20 mg PO BID 02/16/22 amitriptyline 25 mg tablet 25 mg PO BEDTIME 04/17/23 fluoxetine 40 mg capsule 40 mg PO QAM 04/17/23 gabapentin 300 mg capsule 300 mg PO 04/17/23 levothyroxine 100 mcg tablet 100 mcg PO QAM 04/17/23 metoprolol tartrate 50 mg tablet 50 mg PO 04/17/23 prazosin 2 mg capsule 2 mg PO BEDTIME 04/17/23 Previous Rx's Medication Instructions Recorded alosetron 1 mg tablet (Lotronex) 1 mg PO BID #60 tabs 04/17/23 nystatin 100,000 unit/gram topical 1 appl topical TID #60 grams 04/17/23 powder omeprazole 40 mg capsule,delayed 40 mg PO DAILY 30 days #30 caps 04/17/23 release Allergies Allergy/AdvReac Type Severity Reaction Status Date / Time azithromycin [From ZITHROMAX] Allergy Intermediate SWELLING Verified 04/17/23 08:28 Penicillins [PENICILLINS] Allergy Intermediate SWELLING Verified 04/17/23 08:28 Sulfa (Sulfonamide Allergy Intermediate SWELLING Verified 04/17/23 08:28 Antibiotics) [SULFA(SULFONAMIDE ANTIBIOTICS)] dicyclomine AdvReac Unknown Itching Verified 04/17/23 08:28 BLUE CAPSELS FOR ABD PAIN Allergy Unknown COULDN'T Uncoded 04/17/23 08:28 PEE Review of Systems 2 Review of Systems: Constitutional : No Weight loss, No Fever, No Chills, No Night Sweats, No Fatigue, No Malaise ENT/Mouth : No Hearing loss, No Ear Pain, No Nasal Congestion, No Sinus Pain, No Hoarseness, No sore throat, No Rhinorrhea, No Swallowing Difficulty Eyes: No Eye Pain, No Swelling, No Redness, No Foreign Body, No Discharge, No Vision Changes Cardiovascular : Complaining of 18 hours of sharp chest pain nonradiating, No SOB, No Dyspnea on Exertion, No Orthopnea, No Edema, No Palpitations Respiratory : No Cough, No Sputum, No Wheezing, No Smoke Exposure, No Dyspnea Gastrointestinal : Complaining of constant GERD, No Nausea, No Vomiting, No Diarrhea, No Constipation, No abdominal Pain, No Hematochezia, No Melena Genitourinary : no irregular bleeding, No Dysuria, No Urinary Frequency, No Hematuria, No Urinary Incontinence, No Urgency, No Flank Pain, No Urinary Flow Changes, No Hesitancy Musculoskeletal : No joint pain, No Myalgias, No Joint Swelling Skin : No Skin Lesions, No rash Neuro : No Weakness, No Numbness, No Paresthesias, No Loss of Consciousness, No Dizziness, No Headache Psych : No Anxiety/Panic, No Depression, No SI/HI/AH/VH, No Social Issues, Heme/Lymph: No Bruising, No Bleeding,No Lymphadenopathy Endocrine : No Polyuria, No Polydipsia, No Temperature Intolerance [facility] Past Medical History Medical History Recovering alcoholic Bipolar disorder Depression Anxiety Parkinson disease Surgical History H/O colonoscopy History of right breast biopsy Family History Family History Father Stage 4 lung cancer Alzheimer disease Dementia Mother Hypothyroid Diabetes Dementia Kidney failure A-fib Sister Breast cancer Colon cancer Social History Social History Household Members: Significant Other Alcohol intake: current Alcohol intake frequency: does not drink Alcohol type: beer Patient Tobacco Use Status: Never used Tobacco Advance Directives: No Physical Exam 2 Vital Signs: Vital Signs: Last Vital Signs Temp 98.4 F 04/23/23 14:35 Pulse 68 04/23/23 14:35 Resp 18 04/23/23 14:35 BP 144/58 H 04/23/23 14:35 Pulse Ox 90 L 04/23/23 14:35 O2 Del Method Room Air 04/23/23 14:35 BMI result Body Mass Index 44.6 Const: Other: Appearance: Alert. Oriented X3. No acute distress. Eyes: Pupils equal, round and reactive to light. ENT: Pharynx normal. Neck: Normal inspection. Neck supple. No lymph nodes noted. No crepitus CVS: Normal heart rate and rhythm. Pulses normal. Normal S1 and S2 Respiratory: No respiratory distress. Breath sounds normal. No Wheezing. No rales Abdomen: Soft and nontender. No rigidity. No distention. Skin: Skin warm and dry. Normal skin color. Normal skin turgor. Extremities: No lower extremity edema. No Lacerations. No Rash Neuro: Oriented X 3. No motor deficit. No sensory deficit. Moving all extremities. No slurred speech. CN 2 through 12 grossly intact Psych: calm, cooperative, normal affect Course Course Course Narrative: -all of patient's labs, EKG and imaging pending -vital stable, blood pressure 105/70, heart rate 66, oxygen saturation 97% on room air, no fever Medical Decision Making Medical Decision Making MDM Narrative: -patient is asymptomatic -patient reported having chest pain for 18+ hours, troponin negative -my interpretation of EKG: Normal sinus rhythm, heart rate 63, no ST segment depression or elevation, nonspecific T-wave inversion in III, QTC 440 -patient likely has GERD symptoms. Differential Diagnosis Differential Diagnoses: The differential diagnosis associated with the presentation includes (ACS, pleurisy, costochondritis, GERD) Admission/Observation Consideration of admission/observation: Escalation of care including admission/observation considered (Given patient's history, on arrival admission was considered) Lab Data MDM Lab Attestation statement: I reviewed the patient's lab results. 04/23/23 14:25 04/23/23 14:25 Labs: Lab Results 04/23/23 04/23/23 Range/Units 14:15 14:25 WBC 8.6 (4.8-10.8) X10*3/uL RBC 4.51 (4.20-5.50) X10*6/uL Hgb 13.9 (12.0-16.0) g/dl Hct 41.4 (37.0-47.0) % MCV 91.8 (80.0-98.0) fL MCH 30.8 (27.0-33.0) pg MCHC 33.6 (31.0-35.0) g/dl RDW 15.0 (11.0-16.0) % Plt Count 198 (160-400) X10*3/uL MPV 10.8 (9.4-12.3) fL Immature Gran % (Auto) 0.3 (0.0-0.4) % Neut % (Auto) 61.1 (45-73) % Lymph % (Auto) 27.3 (20-40) % [place] % (Auto) 9.3 (2-11) % Eos % (Auto) 1.7 (0-4) % Baso % (Auto) 0.3 (0-2) % Lymph # (Auto) 2.4 (1.2-4.9) X10*3/uL [place] # (Auto) 0.8 (0.1-1.2) X10*3/uL Eos # (Auto) 0.2 (0.0-0.4) X10*3/uL Baso # (Auto) 0.0 (0.0-0.2) X10*3/uL Abs Immat Gran (auto) 0.03 (0.00-0.03) X10*3/uL Absolute Neuts (auto) 5.3 (2.0-8.3) x10*3/uL Absolute Nucleated RBC 0.000 (0.0-0.012) X10*3/uL Nucleated RBC % (auto) 0.0 (0.0-0.2) /100WBC PT 12.0 (11.1-13.3) SEC INR 1.0 (0.9-1.1) APTT 30.2 (26.0-36.4) SEC Sodium 139 (135-145) mmol/L Potassium 3.4 (3.3-5.1) mmol/L Chloride 107 (96-108) mmol/L Carbon Dioxide 23 (22-29) mmol/L Anion Gap 12 (12-20) BUN 9 (9-16) mg/dL Creatinine 0.83 (0.5-1.4) mg/dL Estim Creat Clear Calc 92.1 Estimated GFR > 60 Random Glucose 118 H (60-115) mg/dL Calcium 8.5 (8.4-10.2) mg/dL Magnesium 1.8 (1.6-2.6) mg/dL Total Bilirubin 1.6 H (0.0-1.0) mg/dL AST 81 H (5-31) U/L ALT 64 H (0-31) U/L Alkaline Phosphatase 99 (39-117) U/L Troponin I High Sens < 2.7 (<3.5-17.0) ng/L Total Protein 6.2 L (6.5-8.0) g/dL Albumin 3.5 (3.5-5.0) g/dL Influenza Type A (PCR) NEGATIVE (Negative) Influenza Type B (PCR) NEGATIVE (Negative) RSV RNA Qual (PCR) NEGATIVE (Negative) SARS-CoV-2 RNA (RT-PCR) NEGATIVE (Negative) Independent Interpretation I performed an independent interpretation of an: EKG and Plain X-Ray (My interpretation of chest x-ray: No rib fractures or pneumonia) Radiology Impression Discussion of test interpretation with radiology: I have reviewed the radiologist's reading. Radiologist Impression: FINDINGS: The lungs are moderately expanded. No focal consolidation. No pleural effusion. Cardiac silhouette is within normal limits. XR/XR chest 2V IMPRESSION: No acute abnormality. Scores Heart Score History: -0- slightly suspicious ECG: -0- normal Age: -1- >45 - <65 Risk factory: -0- no risk factors known Troponin: -0- < or = normal limit Score: 1 Risk: 1.7% Critical Care Time Critical Care Time Critical Care Time: Yes Total Critical Care Time: 60 Attestation: I have personally provided critical care time. Time includes review of lab data, radiology results, discussion with consultants, and monitoring for potential decompensation. Intervention performed as documented. Discharge Plan Discharge Clinical Impression: Atypical chest pain Patient Disposition: Home, Self-Care Instructions: Chest Pain (ED) Additional Instructions: If you continue having intermittent chest pain, please discussed with her primary care physician sending you to stress test. Please follow-up with your primary care physician tomorrow. If you have any worsening or new symptoms, please return to the emergency room or call 911 Prescriptions: No Action carbidopa-levodopa 25-100 mg tablet 1 tab PO BID All Day Allergy (cetirizine) 10 mg capsule 10 mg PO DAILY PRN clonazepam 1 mg tablet 1 mg PO BID risperidone 2 mg tablet 2 mg PO BEDTIME ropinirole 0.5 mg tablet 0.5 mg PO BEDTIME Rx Instructions: administer 1-3 hours before bedtime diclofenac sodium 1 % gel 2 g topical QID Rx Instructions: apply to single elbow, wrist or hand; for hand includes palm/fingers/back of hand nystatin 100,000 unit/gram cream topical BID meclizine 25 mg tablet 25 mg PO TID PRN hydroxyzine HCl 10 mg tablet 10 mg PO Q12H PRN (Reason: anxiety) loperamide 2 mg tablet 2 mg PO Q6H PRN fluticasone propionate [Flovent HFA] 220 mcg/actuation HFA aerosol inhaler 1 puff inhalation BID fluticasone propionate [Flonase Allergy Relief] 50 mcg/actuation spray,suspension 1 spray intranasal DAILY Rx Instructions: administer into each nostril furosemide 20 mg tablet 20 mg PO BID gabapentin 300 mg capsule 300 mg PO metoprolol tartrate 50 mg tablet 50 mg PO amitriptyline 25 mg tablet 25 mg PO BEDTIME levothyroxine 100 mcg tablet 100 mcg PO QAM fluoxetine 40 mg capsule 40 mg PO QAM prazosin 2 mg capsule 2 mg PO BEDTIME nystatin 100,000 unit/gram powder 1 appl topical TID Qty: 60 3RF alosetron [Lotronex] 1 mg tablet 1 mg PO BID Qty: 60 6RF omeprazole 40 mg capsule,delayed release(DR/EC) 40 mg PO DAILY 30 Days Qty: 30 6RF
[2023-04-23 14:29] LABS: MANUAL DIFF FLAG NO
[2023-04-23 14:32] LABS: Basophils Percent Auto 0.3 % (0-2); Eosinophils Absolute Auto 0.2 X10*3/uL (0.0-0.4); Eosinophils Percent Auto 1.7 % (0-4); Hematocrit 41.4 % (37.0-47.0); Hemoglobin 13.9 g/dl (12.0-16.0); Imm Gran Abs Auto 0.03 X10*3/uL (0.00-0.03); Imm Gran Pct Auto 0.3 % (0.0-0.4); Lymphocytes Absolute Auto 2.4 X10*3/uL (1.2-4.9); Lymphocytes Percent Auto 27.3 % (20-40); Mean Corpuscular HGB Conc 33.6 g/dl (31.0-35.0); Mean Corpuscular Hemoglobin 30.8 pg (27.0-33.0); Mean Corpuscular Volume 91.8 fL (80.0-98.0); Mean Platelet Volume 10.8 fL (9.4-12.3); Monocytes Absolute Auto 0.8 X10*3/uL (0.1-1.2); Monocytes Percent Auto 9.3 % (2-11); Neutrophils Absolute Auto 5.3 x10*3/uL (2.0-8.3); Neutrophils Percent Auto 61.1 % (45-73); Platelet Count 198 X10*3/uL (160-400); Red Blood Count 4.51 X10*6/uL (4.20-5.50); White Blood Count 8.6 X10*3/uL (4.8-10.8)
[2023-04-23 14:35] VITALS: BP 144/58; PULSE 68; RESP 18; TEMP 36.9; O2SAT 90
[2023-04-23 14:39] LABS: Partial Thromboplastin Time 30.2 SEC (26.0-36.4)
[2023-04-23 14:47] LABS: Alanine Aminotransferase 64 U/L (0-31); Albumin Level 3.5 g/dL (3.5-5.0); Alkaline Phosphatase 99 U/L (39-117); Anion Gap 12 (12-20); Aspartate Amino Transferase 81 U/L (5-31); Bilirubin Total 1.6 mg/dL (0.0-1.0); Blood Urea Nitrogen 9 mg/dL (9-16); Calcium 8.5 mg/dL (8.4-10.2); Carbon Dioxide 23 mmol/L (22-29); Chloride 107 mmol/L (96-108); Creatinine Clr Calc Pharmacy 92.1; Estimated Glomerular Filt Rate > 60; Glucose Random 118 mg/dL (60-115); Magnesium 1.8 mg/dL (1.6-2.6); Potassium 3.4 mmol/L (3.3-5.1); Sodium 139 mmol/L (135-145); Total Protein 6.2 g/dL (6.5-8.0)
[2023-04-23 14:55] LABS: Troponin-I High Sensitivity < 2.7 ng/L (<3.5-17.0)
--- NOTE | 2023-04-23 14:59 | PC.NURSE ---
patient is pain free at this time. aox4
[2023-04-23 15:07] LABS: Influenza A PCR NEGATIVE (Negative); Influenza B PCR NEGATIVE (Negative); Resp Syncy Virus RNA Qual PCR NEGATIVE (Negative); SARS COV2 PCR INHOUSE NEGATIVE (Negative)
== END 2023-04-23 15:37 | disposition home or self-care (01) ==
PROVIDERS: Physician Assistant Medical; Emergency Provider Emergency Medicine; PCP Student in an Organized Health Care Education/Training Program
DX: R07.89 Other chest pain (principal); Z20.822 Contact with and (suspected) exposure to COVID-19; Z20.828 Contact with and (suspected) exposure to other viral communicable diseases; G20 Parkinson's disease; E66.9 Obesity, unspecified; Z68.41 Body mass index [BMI] 40.0-44.9, adult; Z79.899 Other long term (current) drug therapy
CPT/HCPCS: 0241U; 36415; 71046; 80053; 83735; 84484; 85025; 85610; 85730; 93005; 99284

== ENCOUNTER 2023-11-09 08:51 | Inpatient (IN) | payer MEDICAID, SELFPAY ==
--- NOTE | 2023-11-09 | ECG_ITS ---
Test Reason : FOR BASELINE Blood Pressure : / mmHG Vent. Rate : 105 BPM Atrial Rate : 105 BPM P-R Int : 134 ms QRS Dur : 086 ms QT Int : 394 ms P-R-T Axes : 060 013 036 degrees QTc Int : 520 ms Sinus tachycardia Nonspecific ST abnormality Prolonged QT Abnormal ECG When compared with ECG of 23-APR-2023 14:03, Vent. rate has increased BY 42 BPM T wave amplitude has increased in Anterior leads QT has lengthened Referred By: Patrica Vu Electronically Signed By:Dougie Zapata
--- NOTE | ~2023-11-09 | XR_ITS ---
EXAMINATION: XR CHEST CLINICAL INFORMATION: Shortness of breath COMPARISON: Chest x-ray 04/23/2023 TECHNIQUE: 2 views of the chest were obtained. FINDINGS: Cardiac silhouette is normal in size. The lungs are well aerated. There is no lobar consolidation. No pleural effusion or pneumothorax. No acute osseous abnormality. XR/XR chest 2V IMPRESSION: No acute pulmonary pathology.
--- NOTE | ~2023-11-09 | US_ITS ---
EXAMINATION: US VENOUS ULTRASOUND WITH DOPPLER LOWER EXTREMITY, BILATERAL CLINICAL INFORMATION: Edema history of DVT COMPARISON: 01/28/2022, 04/14/2020 TECHNIQUE: Ultrasound of the deep veins is performed from the hip to the calf with compression sonography and color and pulse Doppler assessment. Spectral analysis with color-flow imaging is performed. FINDINGS: Examination technically limited due to patient's body habitus and bilateral veins below the knees are not clearly seen RIGHT: There is normal venous compression and respiratory variation and augmented flow. The visualized common femoral vein, superficial femoral vein, profunda femoral vein, popliteal vein shows no evidence of deep venous thrombosis. There is no significant popliteal fossa cyst. LEFT: There is normal venous compression and respiratory variation and augmented flow. The visualized common femoral vein, superficial femoral vein, profunda femoral vein, popliteal vein shows no evidence of deep venous thrombosis. There is no significant popliteal fossa cyst. If the patient's symptoms persist, followup ultrasound in 5 days 7 days might be of value to exclude proximal propagation from a non-visualized calf vein. US/US venous duplex LE BI IMPRESSION: No DVT demonstrated in lower extremities bilaterally.
[2023-11-09 09:06] VITALS: BP 180/103; PULSE 111; RESP 18; TEMP 37.2; O2SAT 100; BMI 47.2
[2023-11-09 10:40] LABS: MANUAL DIFF FLAG NO
[2023-11-09 10:43] LABS: Basophils Absolute Auto 0.1 X10*3/uL (0.0-0.2); Basophils Percent Auto 0.4 % (0-2); Eosinophils Percent Auto 0.2 % (0-4); Hematocrit 43.3 % (37.0-47.0); Hemoglobin 14.7 g/dl (12.0-16.0); Imm Gran Abs Auto 0.08 X10*3/uL (0.00-0.03); Imm Gran Pct Auto 0.6 % (0.0-0.4); Lymphocytes Absolute Auto 1.9 X10*3/uL (1.2-4.9); Lymphocytes Percent Auto 14.6 % (20-40); Mean Corpuscular HGB Conc 33.9 g/dl (31.0-35.0); Mean Corpuscular Hemoglobin 32.5 pg (27.0-33.0); Mean Corpuscular Volume 95.6 fL (80.0-98.0); Mean Platelet Volume 10.4 fL (9.4-12.3); Monocytes Percent Auto 7.5 % (2-11); Neutrophils Percent Auto 76.7 % (45-73); Platelet Count 231 X10*3/uL (160-400); Red Blood Count 4.53 X10*6/uL (4.20-5.50); Red Cell Distribution Width 14.9 % (11.0-16.0)
[2023-11-09 11:09] LABS: Alanine Aminotransferase 79 U/L (0-31); Albumin Level 3.8 g/dL (3.5-5.0); Alkaline Phosphatase 177 U/L (39-117); Anion Gap 17 (12-20); Aspartate Amino Transferase 112 U/L (5-31); Bilirubin Direct 0.6 mg/dL (0.0-0.5); Bilirubin Total 1.7 mg/dL (0.0-1.0); Blood Urea Nitrogen 6 mg/dL (9-16); Calcium 8.9 mg/dL (8.4-10.2); Carbon Dioxide 23 mmol/L (22-29); Chloride 105 mmol/L (96-108); Creatinine Clr Calc Pharmacy 101.3; Estimated Glomerular Filt Rate > 60; Glucose Random 118 mg/dL (60-115); Magnesium 1.9 mg/dL (1.6-2.6); Potassium 3.8 mmol/L (3.3-5.1); Sodium 141 mmol/L (135-145); Total Protein 7.3 g/dL (6.5-8.0)
[2023-11-09 11:11] LABS: B Type Natriuretic Peptide < 10 pg/mL (<100)
[2023-11-09 11:29] VITALS: BP 157/77; PULSE 102; RESP 19; TEMP 37.2; O2SAT 94
--- NOTE | 2023-11-09 11:29 | ED.GENADULT ---
HPI - General Adult General Chief complaint: General Medical Stated complaint: legs swollen Time Seen by Provider: 11/09/23 11:29 Source: patient Mode of arrival: ambulatory Limitations: no limitations History of Present Illness HPI narrative: 58-year-old female with a history of hypertension, asthma, GERD, SVT, chronic lower extremity edema who presents emergency department for evaluation of increased swelling of her lower extremities, left greater than right with new erythema to the left lower extremity. She states that her symptoms have gotten worse over the past 3 days. The patient also states that she had a long period of sobriety but started drinking again 1 month prior. She states she is drinking 30 shots of vodka per day with her last drink being yesterday evening. The patient denies any history of delirium tremens, alcohol withdrawal or alcohol withdrawal seizures. The patient has prescribed furosemide 40 mg daily but she stop this medication 2 months prior without consulting with her providers. She denied fever, chills, cough, chest pain. She states she does have shortness of breath and dyspnea on exertion. She denied nausea, vomiting, diarrhea, frequency, urgency or dysuria. Related Data Home Medications ?Medication ?Instructions ?Recorded ?Confirmed carbidopa 25 mg-levodopa 100 mg 1 tab PO BID 01/14/21 tablet cetirizine 10 mg capsule (All Day 10 mg PO DAILY PRN 01/14/21 Allergy (cetirizine)) clonazepam 1 mg tablet 1 mg PO BID 01/14/21 risperidone 2 mg tablet 2 mg PO BEDTIME 01/14/21 ropinirole 0.5 mg tablet 0.5 mg PO BEDTIME 01/14/21 diclofenac sodium 1 % topical gel 2 g topical QID 01/17/22 fluticasone propionate 220 1 puff inhalation BID 01/17/22 mcg/actuation HFA aerosol inhaler (Flovent HFA) fluticasone propionate 50 1 spray intranasal DAILY 01/17/22 mcg/actuation nasal spray,suspension (Flonase Allergy Relief) hydroxyzine HCl 10 mg tablet 10 mg PO Q12H PRN anxiety 01/17/22 loperamide 2 mg tablet 2 mg PO Q6H PRN 01/17/22 meclizine 25 mg tablet 25 mg PO TID PRN 01/17/22 nystatin 100,000 unit/gram topical topical BID 01/17/22 cream furosemide 20 mg tablet 20 mg PO BID 02/16/22 amitriptyline 25 mg tablet 25 mg PO BEDTIME 04/17/23 fluoxetine 40 mg capsule 40 mg PO QAM 04/17/23 gabapentin 300 mg capsule 300 mg PO 04/17/23 levothyroxine 100 mcg tablet 100 mcg PO QAM 04/17/23 metoprolol tartrate 50 mg tablet 50 mg PO 04/17/23 prazosin 2 mg capsule 2 mg PO BEDTIME 04/17/23 Previous Rx's ?Medication ?Instructions ?Recorded alosetron 1 mg tablet (Lotronex) 1 mg PO BID #60 tabs 04/17/23 nystatin 100,000 unit/gram topical 1 appl topical TID #60 grams 04/17/23 powder omeprazole 40 mg capsule,delayed 40 mg PO DAILY 30 days #30 caps 04/17/23 release Allergies Allergy/AdvReac Type Severity Reaction Status Date / Time azithromycin [From ZITHROMAX] Allergy Intermediate SWELLING Verified 11/09/23 09:07 Penicillins [PENICILLINS] Allergy Intermediate SWELLING Verified 11/09/23 09:07 Sulfa (Sulfonamide Allergy Intermediate SWELLING Verified 11/09/23 09:07 Antibiotics) [SULFA(SULFONAMIDE ANTIBIOTICS)] dicyclomine AdvReac Unknown Itching Verified 11/09/23 09:07 BLUE CAPSELS FOR ABD PAIN Allergy Unknown COULDN'T Uncoded 11/09/23 09:07 PEE Review of Systems Review of Systems: Yes all other systems are reviewed and are negative [facility] Past Medical History [facility] Narrative: Social history: She is and her is here in the emergency department with her. The patient denies tobacco use. She does drink 30 shots of vodka per day with her last drink being last night. She denies drug use. Medical History Recovering alcoholic Bipolar disorder Depression Anxiety Parkinson disease Surgical History H/O colonoscopy History of right breast biopsy Family History Family History Father Stage 4 lung cancer Alzheimer disease Dementia Mother Hypothyroid Diabetes Dementia Kidney failure A-fib Sister Breast cancer Colon cancer Social History Social History Household Members: Significant Other Alcohol intake: current Alcohol intake frequency: does not drink Alcohol type: hard liquor Patient Tobacco Use Status: Never used Tobacco Substance Use Type: Other Physical Exam ED Vital Signs: Vital Signs - 24 hr 11/09/23 09:06 Temperature 98.9 F Pulse Rate 111 H Respiratory Rate 18 Blood Pressure 180/103 H Pulse Oximetry 100 Oxygen Delivery Method Room Air BMI result Body Mass Index 47.2 Vital signs revealed an elevated heart rate of 111 and elevated blood pressure of 180/130 otherwise unremarkable. Exam: General: Awake, alert in no distress Head: Normocephalic, atraumatic EENT: PERRL, Lids normal, sclera normal, conjunctiva normal, nose normal , ears normal, throat without erythema or exudates Neck: Supple, no adenopathy Lung: breath sounds symmetric, no wheezing, rales or rhonchi Chest: symmetric movement, nontender Heart: regular rate and rhythm, normal S1, S2 no murmurs or rubs Abdomen: soft, non-tender, nondistended, normal bowel sounds Back: no vertebral tenderness, no CVAT Extremities: Patient has trace to 1+ pitting edema in both lower extremities, the left lower extremity is larger than the right with erythema the left lower extremity extending from the foot to just below the knee. The erythema is warm to the touch. Neuro: Awake, alert, oriented, normal speech, cranial nerves intact, moves all extremities symmetrically Psych: Pleasant, cooperative Medical Decision Making Medical Decision Making MDM Narrative: 58-year-old female with a history of hypertension, asthma, GERD, SVT, chronic lower extremity edema who presents emergency department for evaluation of increased swelling of her lower extremities, left greater than right with new erythema to the left lower extremity with symptoms getting worse over 2-3 days. Patient had no systemic symptoms such as fever chills but did complain of shortness of breath and dyspnea on exertion. The patient is drinking 30 shots of vodka per day but has no history of alcohol withdrawal, alcohol withdrawal seizures or delirium tremens. Vital signs did reveal an elevated blood pressure and elevated heart rate. Exam did reveal lower extremity pitting edema with erythema to the left foot extending to just below the ankle. Differential diagnosis: ?Includes but is not limited to bilateral DVTs, cellulitis, peripheral edema, congestive heart failure, pneumonia, alcohol withdrawal Following evaluation was ordered: CBC, BMP, liver panel, magnesium, BNP, chest x-ray two view, duplex venous ultrasound bilateral lower extremities Patient was initially treated with the following: Lasix 40 mg IV and Ancef 2 g IV Course: 12:05 My interpretation patient's laboratory evaluation as follows: WBC elevated 13,000. H&H was normal 1443.7. BUN creatinine were normal 6 and 0.78. Glucose elevated 118. AST and ALT elevated 112 and 79. Alk-phos elevated 177. Total bilirubin elevated 1.7. Direct bilirubin slightly elevated at 0.6. BNP below detectable limits. Chest x-ray revealed no evidence of congestive heart failure Duplex venous ultrasound bilateral lower extremities no DVT. Patient's symptoms are consistent with worsening peripheral edema most likely secondary to noncompliance with Lasix and cellulitis of the right lower extremities Patient was treated with Ancef 2 g IV and furosemide 40 mg IV. Patient was also placed on a CIWA protocol I did discuss the admission over tiger text with the covering hospitalist, physician costumer assistant Chichi Ibarra. Admission/Observation Consideration of admission/observation: Escalation of care including admission/observation considered Lab Data MDM Lab Attestation statement: I reviewed the patient's lab results. 11/09/23 10:36 11/09/23 10:36 Labs: Lab Results 11/09/23 Range/Units 10:36 WBC 13.0 H (4.8-10.8) X10*3/uL RBC 4.53 (4.20-5.50) X10*6/uL Hgb 14.7 (12.0-16.0) g/dl Hct 43.3 (37.0-47.0) % MCV 95.6 (80.0-98.0) fL MCH 32.5 (27.0-33.0) pg MCHC 33.9 (31.0-35.0) g/dl RDW 14.9 (11.0-16.0) % Plt Count 231 (160-400) X10*3/uL MPV 10.4 (9.4-12.3) fL Immature Gran % (Auto) 0.6 H (0.0-0.4) % Neut % (Auto) 76.7 H (45-73) % Lymph % (Auto) 14.6 L (20-40) % [place] % (Auto) 7.5 (2-11) % Eos % (Auto) 0.2 (0-4) % Baso % (Auto) 0.4 (0-2) % Lymph # (Auto) 1.9 (1.2-4.9) X10*3/uL [place] # (Auto) 1.0 (0.1-1.2) X10*3/uL Eos # (Auto) 0.0 (0.0-0.4) X10*3/uL Baso # (Auto) 0.1 (0.0-0.2) X10*3/uL Abs Immat Gran (auto) 0.08 H (0.00-0.03) X10*3/uL Absolute Neuts (auto) 10.0 H (2.0-8.3) x10*3/uL Absolute Nucleated RBC 0.000 (0.0-0.012) X10*3/uL Nucleated RBC % (auto) 0.0 (0.0-0.2) /100WBC Sodium 141 (135-145) mmol/L Potassium 3.8 (3.3-5.1) mmol/L Chloride 105 (96-108) mmol/L Carbon Dioxide 23 (22-29) mmol/L Anion Gap 17 (12-20) BUN 6 L (9-16) mg/dL Creatinine 0.78 (0.5-1.4) mg/dL Estim Creat Clear Calc 101.3 Estimated GFR > 60 Random Glucose 118 H (60-115) mg/dL Calcium 8.9 (8.4-10.2) mg/dL Magnesium 1.9 (1.6-2.6) mg/dL Total Bilirubin 1.7 H (0.0-1.0) mg/dL Direct Bilirubin 0.6 H (0.0-0.5) mg/dL AST 112 H (5-31) U/L ALT 79 H (0-31) U/L Alkaline Phosphatase 177 H (39-117) U/L B-Natriuretic Peptide < 10 (<100) pg/mL Total Protein 7.3 (6.5-8.0) g/dL Albumin 3.8 (3.5-5.0) g/dL Independent Interpretation I performed an independent interpretation of an: EKG and Plain X-Ray Interpretation: My interpretation patient's two view chest x-ray is as follows: No acute disease Radiology Impression Discussion of test interpretation with radiology: I have reviewed the radiologist's reading. Radiologist Impression: US venous duplex LE BI IMPRESSION: No DVT demonstrated in lower extremities bilaterally. Dictated By: Bianca Hernandez MD XR chest 2V IMPRESSION: No acute pulmonary pathology. Dictated By: Rogelio Shah MD Independent Historian Clinical information obtained from an independent historian. History obtained from or confirmed by: Spouse Chronic Conditions Patient?s care impacted by: Other (Hypertension, peripheral edema) Discharge Plan Discharge Patient Disposition: Admitted As Inpatient Prescriptions: No Action carbidopa-levodopa 25-100 mg tablet 1 tab PO BID All Day Allergy (cetirizine) 10 mg capsule 10 mg PO DAILY PRN clonazepam 1 mg tablet 1 mg PO BID risperidone 2 mg tablet 2 mg PO BEDTIME ropinirole 0.5 mg tablet 0.5 mg PO BEDTIME Rx Instructions: administer 1-3 hours before bedtime diclofenac sodium 1 % gel 2 g topical QID Rx Instructions: apply to single elbow, wrist or hand; for hand includes palm/fingers/back of hand nystatin 100,000 unit/gram cream topical BID meclizine 25 mg tablet 25 mg PO TID PRN hydroxyzine HCl 10 mg tablet 10 mg PO Q12H PRN (Reason: anxiety) loperamide 2 mg tablet 2 mg PO Q6H PRN fluticasone propionate [Flovent HFA] 220 mcg/actuation HFA aerosol inhaler 1 puff inhalation BID fluticasone propionate [Flonase Allergy Relief] 50 mcg/actuation spray,suspension 1 spray intranasal DAILY Rx Instructions: administer into each nostril furosemide 20 mg tablet 20 mg PO BID gabapentin 300 mg capsule 300 mg PO metoprolol tartrate 50 mg tablet 50 mg PO amitriptyline 25 mg tablet 25 mg PO BEDTIME levothyroxine 100 mcg tablet 100 mcg PO QAM fluoxetine 40 mg capsule 40 mg PO QAM prazosin 2 mg capsule 2 mg PO BEDTIME nystatin 100,000 unit/gram powder 1 appl topical TID Qty: 60 3RF alosetron [Lotronex] 1 mg tablet 1 mg PO BID Qty: 60 6RF omeprazole 40 mg capsule,delayed release(DR/EC) 40 mg PO DAILY 30 Days Qty: 30 6RF Print Language: Belarusian
[2023-11-09] MEDS: Furosemide 40 MG/4 ML VIAL IVPUSH (12:17)
--- NOTE | 2023-11-09 12:29 | PC.NURSE ---
patient a&ox3, iv inserted, labs previously drawn in triage, per provider pt has lle cellulitis and blood cultures/lactic are not needed. pt admits to drinking excessively daily- denies wanting help at this time and states she can stop when she wants to stop. denies history of ETOH withdrawal symptoms. iv inserted, pt medicated with lasix and abx per order, lungs diminished, BLE edema- lle red/hot to touch, no c/o pain/discomfort, call anderson within reach, will continue to monitor
[2023-11-09] MEDS: ondansetron HCL 4 MG/2 ML VIAL IVPUSH (12:46)
--- NOTE | 2023-11-09 12:47 | PC.NURSE ---
pt felt like she was going to vomit, provider notified and verbal order for zofran was put in, pt was medicated with zofran per order, bedside commode also obtained, call anderson within reach, will continue to monitor
--- NOTE | 2023-11-09 12:52 | PM.IMHP ---
History of Present Illness Date of Service: 11/09/23 Attending physician on admission: Dimitrios Yanez Chief Complaint: Swollen legs Pt is a 58-year-old female with a PMH significant for?HTN, mild intermittent asthma, hx of SVT, Parkinson's disorder, alcohol use disorder, chronic lower extremity edema, PTSD, and bipolar disorder who presents to the ED for evaluation of?left lower extremity swelling and redness. Patient reports she has had increased lower leg edema for approximately 6 months. Was previously on furosemide 40 mg p.o. daily, but stopped taking around 6 months ago because she ?could not remember to take it?. Did not tell her provider. Yesterday patient noticed that left leg had increased swelling and was read up to the knee. Denies any known cut or trauma to the area. Leg is non painful. Patient also reports resuming drinking after a 2+ year period of sobriety. Has been drinking 3 sleeves of vodka daily for ?many months? now. Last drink last night. Denies hx of alcohol withdrawal. Reports increased anxiety and nausea and vomiting while in the ED. States has been feeling more short of breath recently, especially with activity. No chest pain/pressure or palpitations. Denies fever, chills, abd pain. No auditory or visual hallucinations. In the ED pt was afebrile but tachycardic up to 111 and hypertensive up to 180/103. Labs were significant for leukocytosis of 13.0, bilirubin 1.7, AST 112, ALT 79, alk-phos 177. BNP negative. CXR showed no acute pulmonary pathology. Venous duplex of bilateral lower extremity showed no DVT demonstrated. Pt was treated with ondansetron, cefazolin, and furosemide. Pt will be admitted to the hospital for treatment and further evaluation of left leg cellulitis with sepsis and acute alcohol withdrawal. Review of Systems Review of Systems: Left leg redness up to knee and increased swelling Chronic lower leg edema bilaterally Nausea, vomiting Increased anxiety SOB with exertion past few weeks No auditory or visual hallucinations Denies lower extremity pain No chest pain/pressure or palpitations [facility] Medical History Recovering alcoholic Bipolar disorder Depression Anxiety Parkinson disease Family History Father Stage 4 lung cancer Alzheimer disease Dementia Mother Hypothyroid Diabetes Dementia Kidney failure A-fib Sister Breast cancer Colon cancer Surgical History H/O colonoscopy History of right breast biopsy Social History Household Members: Significant Other Alcohol intake: current Alcohol intake frequency: does not drink Alcohol type: hard liquor Patient Tobacco Use Status: Never used Tobacco Smoked in Last 30 Days: No Use of substances other than those prescribed or required for medical reasons: Yes Substance Use Type: Other Advance Directives: No Advance Directives Information Provided: Yes Patient : No Meds Allergies Allergy/AdvReac Type Severity Reaction Status Date / Time azithromycin [From ZITHROMAX] Allergy Intermediate SWELLING Verified 11/09/23 09:07 Penicillins [PENICILLINS] Allergy Intermediate SWELLING Verified 11/09/23 09:07 Sulfa (Sulfonamide Allergy Intermediate SWELLING Verified 11/09/23 09:07 Antibiotics) [SULFA(SULFONAMIDE ANTIBIOTICS)] dicyclomine AdvReac Unknown Itching Verified 11/09/23 09:07 BLUE CAPSELS FOR ABD PAIN Allergy Unknown COULDN'T Uncoded 11/09/23 09:07 PEE Home Medications ?Medication ?Instructions ?Recorded ?Confirmed ?Last Taken ?Type carbidopa 25 mg-levodopa 100 mg 1 tab PO BID 01/14/21 Unknown History tablet clonazepam 1 mg tablet 1 mg PO BID 01/14/21 Unknown History risperidone 2 mg tablet 2 mg PO BEDTIME 01/14/21 Unknown History ropinirole 0.5 mg tablet 0.5 mg PO BEDTIME 01/14/21 Unknown History diclofenac sodium 1 % topical gel 2 g topical QID 01/17/22 Unknown History fluticasone propionate 220 1 puff inhalation BID 01/17/22 Unknown History mcg/actuation HFA aerosol inhaler (Flovent HFA) fluticasone propionate 50 1 spray intranasal DAILY 01/17/22 Unknown History mcg/actuation nasal spray,suspension (Flonase Allergy Relief) hydroxyzine HCl 10 mg tablet 10 mg PO Q12H PRN anxiety 01/17/22 Unknown History loperamide 2 mg tablet 2 mg PO Q6H PRN 01/17/22 Unknown History meclizine 25 mg tablet 25 mg PO TID PRN 01/17/22 Unknown History nystatin 100,000 unit/gram topical topical BID 01/17/22 Unknown History cream furosemide 20 mg tablet 20 mg PO BID 02/16/22 Unknown History amitriptyline 25 mg tablet 25 mg PO BEDTIME 04/17/23 Unknown History fluoxetine 40 mg capsule 40 mg PO QAM 04/17/23 Unknown History gabapentin 300 mg capsule 300 mg PO 04/17/23 Unknown History levothyroxine 100 mcg tablet 100 mcg PO QAM 04/17/23 Unknown History metoprolol tartrate 50 mg tablet 50 mg PO 04/17/23 Unknown History prazosin 2 mg capsule 2 mg PO BEDTIME 04/17/23 Unknown History cetirizine 10 mg tablet 10 mg PO BEDTIME 11/09/23 Unknown History vitamin B complex 1 tab PO DAILY 11/09/23 Unknown History Physical Exam Vital Signs and Narrative: Vital Signs: Last Vital Signs Temp 98.9 F 11/09/23 11:29 Pulse 102 H 11/09/23 11:29 Resp 19 11/09/23 11:29 BP 157/77 H 11/09/23 11:29 Pulse Ox 94 11/09/23 11:29 O2 Del Method Room Air 11/09/23 11:29 BMI result Body Mass Index 47.2 Constitutional: Alert, in no acute distress. Mental Status: Oriented to person, place and time. Eyes: Pupils are equal, round, and reactive to light. Ear, Nose, and Throat: Oropharynx clear, mucous membranes moist. Ears and nose without deformities. Trachea midline. Respiratory: Clear to auscultation bilaterally. No wheezing, rales, or rhonchi. Cardiovascular: S1, S2, tachy. No murmurs, rubs, or gallops. Gastrointestinal: Abdomen soft, non-tender, obese. Normal bowel sounds. Neurologic: Cranial nerves II-XII are grossly intact bilaterally. No focal neurological deficits. Moves all extremities spontaneously. Skin: Warm, dry. Extremities: Bilateral 1+ pitting edema, left >right. Left lower extremity with and erythema extending from ankle to knee. As pictured below Psychiatric: Normal mood and affect. Results Labs 11/09/23 10:36 11/09/23 10:36 Labs: Laboratory Results - last 24 hr 11/09/23 10:36 MCV 95.6 MCH 32.5 MCHC 33.9 RDW 14.9 Plt Count 231 MPV 10.4 Immature Gran % (Auto) 0.6 H Neut % (Auto) 76.7 H Lymph % (Auto) 14.6 L [place] % (Auto) 7.5 Eos % (Auto) 0.2 Baso % (Auto) 0.4 Lymph # (Auto) 1.9 [place] # (Auto) 1.0 Eos # (Auto) 0.0 Baso # (Auto) 0.1 Abs Immat Gran (auto) 0.08 H Absolute Neuts (auto) 10.0 H Absolute Nucleated RBC 0.000 Nucleated RBC % (auto) 0.0 Anion Gap 17 Estim Creat Clear Calc 101.3 Estimated GFR > 60 Random Glucose 118 H Calcium 8.9 Magnesium 1.9 Total Bilirubin 1.7 H Direct Bilirubin 0.6 H AST 112 H ALT 79 H Alkaline Phosphatase 177 H B-Natriuretic Peptide < 10 Total Protein 7.3 Albumin 3.8 Imaging Radiologist's Impressions: Impressions Chest X-Ray 11/09/23 09:48 IMPRESSION: No acute pulmonary pathology. Venous Duplex 11/09/23 10:10 IMPRESSION: No DVT demonstrated in lower extremities bilaterally. Assessment and Plan (1) Cellulitis of left lower leg: Status: Acute (2) Alcohol use disorder: Status: Acute Plan Pt is a 58-year-old female with a PMH significant for?HTN, mild intermittent asthma, hx of SVT, Parkinson's disorder, alcohol use disorder, chronic lower extremity edema, PTSD, and bipolar disorder who presents to the ED for evaluation of?left lower extremity swelling and redness. Pt will be admitted to the hospital for treatment and further evaluation of left leg cellulitis with sepsis and acute alcohol withdrawal. Left lower extremity cellulitis Patient with erythema, warmth, swelling of LLE from ankle to knee since yesterday Patient meets sepsis criteria: Tachycardia, leukocytosis Will check lactic acid Patient is started on broad-spectrum antibiotics in the ED Will treat with vancomycin, started 11/09/2023 Follow cultures Acute alcohol withdrawal Patient drinking 3 sleeves of vodka daily, last drink last night Pt with N/V, increased anxiety, mild upper extremity tremors; no auditory or visual hallucinations Daily multivitamin, folic acid, Thiamine Famotidine p.o. Follow lytes, Mag, BMP CIWA scale Addiction medicine consult Monitor on telemetry Chronic lower extremity edema Stopped home furosemide 40 mg p.o. on own 6+ months ago Venous duplex negative for DVT Will treat with furosemide 40 mg IV b.i.d. Patient should likely resume home p.o. Lasix Transaminitis Likely secondary to alcohol use disorder Alcohol cessation counseled Parkinson's disorder Continue carbidopa-levodopa HTN Continue home meds HLD Continue home meds Hypothyroidism Continue levothyroxine Mood disorder Continue home meds Full Code Attending:?Dr. Yanez DVT Prophylaxis: Lovenox Pt will require a hospitalization of at least two nights for treatment of left lower extremity cellulitis with sepsis and likely impending acute alcohol withdrawal. Patient will require hospitalization for administration IV antibiotics, phenobarb protocol, and close monitoring of labs and cardiac functioning. Quality Stroke Does the patient have a stroke diagnosis?: No VTE Prior VTE?: No VTE Risk Level:: Medical - moderate - high VTE Device Contraindication: Treatment Not Indicated VTE Drug Contraindication: N/A - Med Ordered
[2023-11-09 13:04] VITALS: PULSE 76
--- NOTE | 2023-11-09 13:09 | PC.NURSE ---
hospitalist at bedside speaking with patient
[2023-11-09 14:02] LABS: Lactic Acid 3.2 mmol/L (0.5-2.0)
--- NOTE | 2023-11-09 14:21 | PHA.MEDREC ---
Pharmacy Consult ? Medication Reconciliation Pharmacy has completed the medication reconciliation. Patient confirmed medications from previous histry and claim history. Contact pharmacy as well. Levothyroxine and ripseridone were put on hold 10/18/23, however patient reported taking medications, patient might still have supply since the med were put on hold. Patient report prazosin was outside of her med box. Pharmacy did not report Fluoxetine, but medication is recently filled on claim history and patient reported taking the medication. Lindsey Larose, PharmD
[2023-11-09] MEDS: PHENobarbitaL sodium 130 MG/ML IM ONCE 175.5 MG IM (14:59)
[2023-11-09] MEDS: Thiamine HCL 100 MG TABLET PO (15:00)
[2023-11-09] MEDS: Multivitamin TABLET 1 TAB PO (15:00)
[2023-11-09] MEDS: Folic Acid 1 MG TABLET PO (15:00)
[2023-11-09] MEDS: 0.9 % Sodium Chloride 500 ML IV (15:02)
--- NOTE | 2023-11-09 15:07 | PC.NURSE ---
pt medicated per order, vanco is warming up before infusing it.
[2023-11-09 15:45] LABS: Reflex Lactate? Lactic Acid Added
[2023-11-09 16:15] VITALS: BP 150/66; PULSE 100; RESP 16; TEMP 37; O2SAT 94
[2023-11-09 16:21] LABS: ~Lactic Acid-LAB USE ONLY 2.5 mmol/L (0.5-2.0)
--- NOTE | 2023-11-09 16:23 | PC.NURSE ---
this nurse noted that the hospitalist had order lactic draws, prior to hanging second dose of abx, this nurse contacted the hospitalist Patrica melton and he decided he DID want blood cultures BEFORE vanco is hung. This nurse is awaiting both sets of blood cultures to be drawn as the hospitalist put in the orders.
[2023-11-09 16:27] LABS: Cancel Lactic Acid Canceled
[2023-11-09] MEDS: vancomycin/NS 2,000 MG/500 ML PLAST..BAG 250 MG IV (17:03)
[2023-11-09] MEDS: 0.9 % Sodium Chloride Flush 3 ML SYRINGE IVFLUSH ×2 (17:03→21:37)
--- NOTE | 2023-11-09 19:02 | MHC.EDTECH ---
[facility] care @1900, received report from [employer] Diana
--- NOTE | 2023-11-09 19:45 | PHA.PROG ---
Admission Date/Time: November 09, 2023 13:29 Indication: Cellulitis Weight in k.7 kg Adjusted body weight in K.7 kg [place] body weight in K.7 kg Obesity Dosing Indication % IBW: 226% Serum Creatinine - Last 168 Hours 11/09/23 10:36 Creatinine 0.78 Estimated CrCl and GFR - Last 168 Hours 11/09/23 10:36 Estim Creat Clear Calc 101.3 Estimated GFR > 60 Vancomycin Loading Dose: 2000 mg Current Vancomycin Dosing Regimen: 1000 mg Q12H Date and Time for next Vancomycin Level to be drawn: 11/09 @ 1500 Pharmacist Comments on Vancomycin Plan: Patient received an adequate load dose in the ER on 11/08 @ 1703 Maintenance dose vancomycin 1000 mg Q12H is scheduled to start 11/09 @ 0500. Predicted AUC 532 with a trough of 16.1. Patient is morbdily obese therefore careful monitor is required due to vancomycin high volume of distribution Level will be drawn prior to 3rd dose to access for safety Pharmacy will monitor renal function daily. Lindsey Larose, Daron Vancomycin dosing will take advantage of ezzai - how to [place] as a clinical decision support tool that uses Bayesian modeling to calculate individual patient's pharmacokinetic parameters and forecast the patient's drug concentration time course with the target goal AUC 24 range of 400 - 600 mg/L/hr.
[2023-11-09 20:00] VITALS: BP 140/61; PULSE 107; RESP 19; TEMP 37.7; O2SAT 94
[2023-11-09] MEDS: Carbidopa/Levodopa 25/100 TABLET 1 TAB PO (21:29)
[2023-11-09] MEDS: rOPINIRole HCL 0.5 MG TABLET PO (21:29)
[2023-11-09] MEDS: Loratadine 10 MG TABLET PO (21:29)
[2023-11-09] MEDS: Prazosin HCL 1 MG CAPSULE 2 MG PO (21:29)
[2023-11-09] MEDS: Enoxaparin Sodium 40 MG/0.4 ML SYRINGE SUBCUT (21:29)
[2023-11-09] MEDS: risperiDONE 2 MG TABLET PO (21:29)
[2023-11-09] MEDS: Gabapentin 300 MG CAPSULE PO (21:30)
[2023-11-09] MEDS: PHENobarbitaL sodium 130 MG/ML VIAL IM Q3Hx2 IM (21:30)
[2023-11-09] MEDS: Metoprolol Tartrate 50 MG TABLET PO (21:33)
[2023-11-09 21:39] VITALS: BMI 47.3
[2023-11-10] VITALS (8 sets, daily range): BP systolic 106–127; BP diastolic 51–68; PULSE 75–94; RESP 16–20; TEMP 36.1–36.8; O2SAT 94–97
[2023-11-10] MEDS: PHENobarbitaL sodium 130 MG/ML VIAL IM Q3Hx2 IM (01:05)
[2023-11-10] MEDS: vancomycin HCL 1,000 MG in 0.9 % Sodium Chloride 250 ML 270 MG IV (05:00)
[2023-11-10] MEDS: Omeprazole 40 MG CAPSULE.DR PO (05:37)
[2023-11-10] MEDS: Levothyroxine Sodium 100 MCG TABLET PO (05:37)
[2023-11-10 05:57] LABS: Hematocrit 41.9 % (37.0-47.0); Hemoglobin 13.8 g/dl (12.0-16.0); Mean Corpuscular HGB Conc 32.9 g/dl (31.0-35.0); Mean Corpuscular Hemoglobin 32.8 pg (27.0-33.0); Mean Corpuscular Volume 99.5 fL (80.0-98.0); Mean Platelet Volume 10.7 fL (9.4-12.3); Platelet Count 177 X10*3/uL (160-400); Red Blood Count 4.21 X10*6/uL (4.20-5.50); Red Cell Distribution Width 15.2 % (11.0-16.0); White Blood Count 9.7 X10*3/uL (4.8-10.8)
[2023-11-10 06:13] LABS: Anion Gap 15 (12-20); Blood Urea Nitrogen 7 mg/dL (9-16); Calcium 8.4 mg/dL (8.4-10.2); Carbon Dioxide 21 mmol/L (22-29); Chloride 104 mmol/L (96-108); Creatinine Clr Calc Pharmacy 113.1; Estimated Glomerular Filt Rate > 60; Glucose Random 114 mg/dL (60-115); Magnesium 2.1 mg/dL (1.6-2.6); Potassium 4.1 mmol/L (3.3-5.1); Sodium 136 mmol/L (135-145)
[2023-11-10] MEDS: Albuterol/Iprat 2.5/0.5MG 3 ML AMPUL.NEB INHALE ×2 (06:41→19:15)
[2023-11-10] MEDS: Furosemide 40 MG/4 ML VIAL IVPUSH ×2 (08:10→08:19)
[2023-11-10] MEDS: 0.9 % Sodium Chloride Flush 3 ML SYRINGE IVFLUSH ×2 (08:18→17:28)
[2023-11-10] MEDS: PHENobarbitaL 15 MG TABLET 45 MG PO ×2 (08:19→19:45)
[2023-11-10] MEDS: Gabapentin 300 MG CAPSULE PO ×2 (08:19→19:44)
[2023-11-10] MEDS: FLUoxetine HCl 20 MG CAPSULE 40 MG PO (08:20)
[2023-11-10] MEDS: Multivitamin TABLET 1 TAB PO (08:20)
[2023-11-10] MEDS: Metoprolol Tartrate 50 MG TABLET PO ×2 (08:20→19:44)
[2023-11-10] MEDS: Carbidopa/Levodopa 25/100 TABLET 1 TAB PO ×2 (08:20→19:46)
[2023-11-10] MEDS: FLUoxetine HCl 10 MG CAPSULE PO (08:21)
[2023-11-10] MEDS: Thiamine HCL 100 MG TABLET PO (08:21)
[2023-11-10] MEDS: Folic Acid 1 MG TABLET PO (08:24)
[2023-11-10] MEDS: Acetaminophen 325 MG TABLET 650 MG PO (10:56)
--- NOTE | 2023-11-10 11:01 | HO.SKINPHOTO ---
Location: Category: Stage: Length: Width: Depth: cm Location: Category: Stage: Length: Width: Depth: cm from infiltrated IV. Outlined 11/10/23 Location: Category: Stage: Length: Width: Depth: cm Location: Category: Stage: Length: Width: Depth: cm Location: Category: Stage: Length: Width: Depth: cm Location: Category: Stage: Length: Width: Depth: cm
--- NOTE | 2023-11-10 11:13 | MHC.CM.PN ---
Pt self-care, lives at home with her fiance. Pt will transport herself home (car is in lot). HCP completed with pt, now on file. Pt uses a cane and has grab bars in the bathroom/shower area. PCP: Dr. Silva Light
[2023-11-10] MEDS: PHENobarbitaL sodium 130 MG/ML VIAL IM (12:20)
[2023-11-10] MEDS: ondansetron HCL 4 MG/2 ML VIAL IVPUSH (12:21)
[2023-11-10] MEDS: oxyCODONE HCl Immed Release 5 MG TABLET PO (13:08)
--- NOTE | 2023-11-10 13:17 | P.PNIM_ITS ---
Subjective Subjective Date of Service: 11/10/23 Interval History: CIWA scale 11 this morning. Require additional phenobarb dose IM. CIWA increased overnight Review of Systems Denies chest pain Denies shortness of breath Denies nausea vomiting diarrhea Denies fever chills Physical Exam 2 Vital Signs: Vital Signs: Last Vital Signs Temp 98.3 F 11/10/23 11:53 Pulse 75 11/10/23 11:53 Resp 16 11/10/23 11:53 BP 108/51 L 11/10/23 11:53 Pulse Ox 94 11/10/23 11:53 O2 Del Method Room Air 11/10/23 11:53 BMI result Body Mass Index 47.3 Const: Other: Awake alert no acute distress Resp: Other: Clear to auscultation bilaterally no rales rhonchi or wheezes Cardio: Other: No S4; positive S1-S2; no S3 murmurs rubs or gallops GI: Other: Soft nontender nondistended normoactive bowel sounds Neuro: Other: Cranial nerves 2-12 grossly intact as tested. Motor is 5/5 all extremities. Sensory is intact. Cognition appropriate Extrem: Other: No edema bilaterally. Erythema left lower extremity improved Objective Data Active Medications Acetaminophen (Acetaminophen 325 Mg Tablet) 650 mg PO Q6H PRN PRN Reason: Pain, Mild (Pain Scale 1-3) Last Admin: 11/10/23 10:56 Dose: 650 mg Documented By: CHACE Albuterol/Ipratropium (Albuterol/Iprat 2.5/0.5mg 3 Ml Ampul.Neb) 3 ml INHALE Q4H PRN PRN Reason: Wheezing Last Admin: 11/10/23 06:41 Dose: 3 ml Documented By: GHULAM Benzonatate (Benzonatate 100 Mg Capsule) 100 mg PO TID PRN PRN Reason: Cough Carbidopa/Levodopa (Carbidopa/Levodopa 25/100 Tablet) 1 tab PO BID [facility] Last Admin: 11/10/23 08:20 Dose: 1 tab Documented By: CHACE Docusate Sodium (Docusate Sodium 100 Mg Capsule) 100 mg PO DAILY PRN PRN Reason: Constipation Enoxaparin Sodium (Enoxaparin Sodium 40 Mg/0.4 Ml Syringe) 40 mg SUBCUT Q24H [facility] Last Admin: 11/09/23 21:29 Dose: 40 mg Documented By: VICKI Fluoxetine HCl (Fluoxetine Hcl 10 Mg Capsule) 10 mg PO DAILY [facility] Last Admin: 11/10/23 08:21 Dose: 10 mg Documented By: CHACE Fluoxetine HCl (Fluoxetine Hcl 20 Mg Capsule) 40 mg PO DAILY [facility] Last Admin: 11/10/23 08:20 Dose: 40 mg Documented By: CHACE Folic Acid (Folic Acid 1 Mg Tablet) 1 mg PO DAILY [facility] Stop: 11/12/23 13:59 Last Admin: 11/10/23 08:24 Dose: 1 mg Documented By: CHACE Furosemide (Furosemide 40 Mg/4 Ml Vial) 40 mg IVPUSH DAILY [facility]; Protocol Last Admin: 11/10/23 08:19 Dose: 40 mg Documented By: CHACE Gabapentin (Gabapentin 300 Mg Capsule) 300 mg PO BID [facility] Last Admin: 11/10/23 08:19 Dose: 300 mg Documented By: CHACE Vancomycin HCl 1,000 mg/ (Sodium Chloride) 270 mls @ 270 mls/hr IV Q12H [facility] Last Infusion: 11/10/23 07:12 Dose: Infused Documented By: CHACE Levothyroxine Sodium (Levothyroxine Sodium 100 Mcg Tablet) 100 mcg PO DAILY@0600 [facility] Last Admin: 11/10/23 05:37 Dose: 100 mcg Documented By: VICKI Loratadine (Loratadine 10 Mg Tablet) 10 mg PO BEDTIME [facility] Last Admin: 11/09/23 21:29 Dose: 10 mg Documented By: VICKI Melatonin (Melatonin 3 Mg Tablet) 6 mg PO BEDTIME PRN PRN Reason: Insomnia Metoprolol Tartrate (Metoprolol Tartrate 50 Mg Tablet) 50 mg PO BID [facility]; Protocol Last Admin: 11/10/23 08:20 Dose: 50 mg Documented By: CHACE Multivitamins/Vitamin C (Multivitamin Tablet) 1 tab PO DAILY [facility] Stop: 11/12/23 13:59 Last Admin: 11/10/23 08:20 Dose: 1 tab Documented By: CHACE Omeprazole (Omeprazole 40 Mg Capsule.) 40 mg PO DAILY@0630 [facility] Last Admin: 11/10/23 05:37 Dose: 40 mg Documented By: VICKI Ondansetron HCl (Ondansetron Hcl 4 Mg/2 Ml Vial) 4 mg IVPUSH Q8H PRN PRN Reason: Nausea and Vomiting Last Admin: 11/10/23 12:21 Dose: 4 mg Documented By: CHACE Oxycodone HCl (Oxycodone Hcl Immed Release 5 Mg Tablet) 5 mg PO Q4H PRN PRN Reason: Pain, Moderate(Pain Scale 4-6) Last Admin: 11/10/23 13:08 Dose: 5 mg Documented By: CHACE Pharmacy Consult (Consult Rx Vancomycin Dosing) 1 each MISCELLANE DAILY PRN PRN Reason: Consult order Pharmacy Consult (Consult Rx Etoh Phenob Im/Po) 1 each MISCELLANE ONCE PRN; Protocol PRN Reason: Consult order Phenobarbital (Phenobarbital 15 Mg Tablet) 45 mg PO BID [facility]; Protocol Stop: 11/11/23 21:01 Last Admin: 11/10/23 08:19 Dose: 45 mg Documented By: CHACE Phenobarbital (Phenobarbital 15 Mg Tablet) 15 mg PO BID [facility]; Protocol Stop: 11/13/23 21:01 Phenobarbital (Phenobarbital 15 Mg Tablet) 15 mg PO DAILY [facility]; Protocol Stop: 11/15/23 09:01 Prazosin HCl (Prazosin Hcl 1 Mg Capsule) 2 mg PO BEDTIME [facility]; Protocol Last Admin: 11/09/23 21:29 Dose: 2 mg Documented By: VICKI Risperidone (Risperidone 2 Mg Tablet) 2 mg PO BEDTIME [facility] Last Admin: 11/09/23 21:29 Dose: 2 mg Documented By: VICKI Ropinirole HCl (Ropinirole Hcl 0.5 Mg Tablet) 0.5 mg PO BEDTIME [facility] Last Admin: 11/09/23 21:29 Dose: 0.5 mg Documented By: VICKI Sodium Chloride (0.9 % Sodium Chloride Flush 3 Ml Syringe) 3 ml IVFLUSH [facility] Last Admin: 11/10/23 08:18 Dose: 3 ml Documented By: CHACE Thiamine HCl (Thiamine Hcl 100 Mg Tablet) 100 mg PO DAILY [facility] Stop: 11/12/23 13:59 Last Admin: 11/10/23 08:21 Dose: 100 mg Documented By: CHACE Labs 11/10/23 05:27 11/10/23 05:27 Labs: Laboratory Results - last 24 hr 11/09/23 11/09/23 11/10/23 13:41 16:03 05:27 MCV 99.5 H MCH 32.8 MCHC 32.9 RDW 15.2 Plt Count 177 MPV 10.7 Absolute Nucleated RBC 0.000 Nucleated RBC % (auto) 0.0 Anion Gap 15 Estim Creat Clear Calc 113.1 Estimated GFR > 60 Random Glucose 114 Lactic Acid 3.2 H* Lactic Acid F/U @ 2Hr 2.5 H* Calcium 8.4 Magnesium 2.1 Assessment and Plan (1) Cellulitis of left lower leg: Status: Acute (2) Alcohol use disorder: Status: Acute Plan Pt is a 58-year-old female with a PMH significant for?HTN, mild intermittent asthma, hx of SVT, Parkinson's disorder, alcohol use disorder, chronic lower extremity edema, PTSD, and bipolar disorder who presents to the ED for evaluation of?left lower extremity swelling and redness. CIWA remains elevated 1.Left lower extremity cellulitis -vancomycin (2) -follow renals/ LFTs 2.Acute alcohol withdrawal -CIWA elevated; required additional dose of IM phenobarb -continue protocol as ordered -follow on CIWA scale -follow renals/divalents 3.Chronic lower extremity edema -Lasix 40 IV b.i.d. while in-house -follow renals/divalents 4.Transaminitis -improving -Follow clinically 5.Parkinson's disorder Continue carbidopa-levodopa Full Code Lovenox Pt will require ongoing hospitalization for treatment of left lower extremity cellulitis with sepsis and acute alcohol withdrawal. CIWA remains too elevated for discharge at this time Quality Stroke Does the patient have a stroke diagnosis?: No VTE Prior VTE?: No VTE Risk Level:: Medical - moderate - high VTE Device Contraindication: Treatment Not Indicated VTE Drug Contraindication: N/A - Med Ordered
[2023-11-10 16:03] LABS: Vancomycin Random 10.9 mcg/mL (15-20)
--- NOTE | 2023-11-10 16:12 | HE.PHANOTE ---
Random is only 10.9 after 2 doses. Expected auc and trough may not achieve desired level with current regimen. Will increase dose to 1250 q12 for 2 doses then obtain another level to assess safety and efficacy. Continue daily renal monitoring. May need to consider dose decrease back to 1000 q12 if renal function declines or vancomycin level rises too fast.
[2023-11-10] MEDS: Enoxaparin Sodium 40 MG/0.4 ML SYRINGE SUBCUT (17:27)
[2023-11-10] MEDS: vancomycin HCL 1,250 MG in 0.9 % Sodium Chloride 250 ML 166.67 MG IV (17:27)
[2023-11-10] MEDS: rOPINIRole HCL 0.5 MG TABLET PO (19:44)
[2023-11-10] MEDS: Prazosin HCL 1 MG CAPSULE 2 MG PO (19:44)
[2023-11-10] MEDS: risperiDONE 2 MG TABLET PO (19:44)
[2023-11-10] MEDS: Loratadine 10 MG TABLET PO (19:46)
[2023-11-11] VITALS: BP 116/64; PULSE 78; RESP 20; TEMP 36.1; O2SAT 94
[2023-11-11] MEDS: 0.9 % Sodium Chloride Flush 3 ML SYRINGE IVFLUSH ×2 (00:46→08:10)
[2023-11-11 03:34] VITALS: BP 114/68; PULSE 78; RESP 20; TEMP 36.1; O2SAT 93
[2023-11-11] MEDS: vancomycin HCL 1,250 MG in 0.9 % Sodium Chloride 250 ML 166.67 MG IV (05:55)
[2023-11-11] MEDS: oxyCODONE HCl Immed Release 5 MG TABLET PO (05:59)
[2023-11-11] MEDS: Levothyroxine Sodium 100 MCG TABLET PO (06:00)
[2023-11-11] MEDS: Omeprazole 40 MG CAPSULE.DR PO (06:00)
[2023-11-11 07:20] VITALS: BP 116/75; PULSE 83; RESP 16; TEMP 37.1; O2SAT 90
[2023-11-11 07:55] LABS: Anion Gap 15 (12-20); Blood Urea Nitrogen 9 mg/dL (9-16); Calcium 8.6 mg/dL (8.4-10.2); Carbon Dioxide 26 mmol/L (22-29); Chloride 101 mmol/L (96-108); Creatinine Clr Calc Pharmacy 102.8; Estimated Glomerular Filt Rate > 60; Glucose Random 104 mg/dL (60-115); Potassium 3.5 mmol/L (3.3-5.1); Sodium 138 mmol/L (135-145)
[2023-11-11] MEDS: Furosemide 40 MG/4 ML VIAL IVPUSH (07:59)
[2023-11-11] MEDS: FLUoxetine HCl 20 MG CAPSULE 40 MG PO (08:00)
[2023-11-11] MEDS: Acetaminophen 325 MG TABLET 650 MG PO (08:00)
[2023-11-11] MEDS: PHENobarbitaL 15 MG TABLET 45 MG PO (08:00)
[2023-11-11] MEDS: FLUoxetine HCl 10 MG CAPSULE PO (08:01)
[2023-11-11] MEDS: Multivitamin TABLET 1 TAB PO (08:02)
[2023-11-11] MEDS: Folic Acid 1 MG TABLET PO (08:02)
[2023-11-11] MEDS: Gabapentin 300 MG CAPSULE PO (08:02)
[2023-11-11] MEDS: Metoprolol Tartrate 50 MG TABLET PO (08:02)
[2023-11-11] MEDS: Carbidopa/Levodopa 25/100 TABLET 1 TAB PO (08:02)
[2023-11-11] MEDS: Thiamine HCL 100 MG TABLET PO (08:02)
[2023-11-11] MEDS: diphenhydrAMINE HCL 25 MG CAPSULE PO (08:17)
[2023-11-11 11:30] VITALS: BP 109/58; PULSE 72; RESP 16; TEMP 36.3; O2SAT 94
--- NOTE | 2023-11-11 11:33 | PM.DS ---
DS: Providers Provider Date of Service: 11/11/23 Date of admission: 11/09/23 13:29 Date of discharge: 11/11/23 Primary care physician: Unknown Physician Consults: 11/09/23 13:36 Addiction Medicine Routine Consulting Provider: Rosalba Martin Reason for consultation: Alcohol use disorder, 3 sleeves of vodka daily DS: Diagnosis Discharge Diagnosis (1) Cellulitis of left lower leg: Status: Acute (2) Alcohol use disorder: Status: Acute DS: Summary Hospital Course Hospital Course: 58-year-old female with a PMH significant for?HTN, mild intermittent asthma, hx of SVT, Parkinson's disorder, alcohol use disorder, chronic lower extremity edema, PTSD, and bipolar disorder who presents to the ED for evaluation of?left lower extremity swelling and redness. Patient reports she has had increased lower leg edema for approximately 6 months. Was previously on furosemide 40 mg p.o. daily, but stopped taking around 6 months ago because she ?could not remember to take it?. Did not tell her provider. Yesterday patient noticed that left leg had increased swelling and was read up to the knee. Denies any known cut or trauma to the area. Leg is non painful. Patient also reports resuming drinking after a 2+ year period of sobriety. Has been drinking 3 sleeves of vodka daily for ?many months? now. Last drink last night. Denies hx of alcohol withdrawal. Reports increased anxiety and nausea and vomiting while in the ED. States has been feeling more short of breath recently, especially with activity. No chest pain/pressure or palpitations. Denies fever, chills, abd pain. No auditory or visual hallucinations. In the ED pt was afebrile but tachycardic up to 111 and hypertensive up to 180/103. Labs were significant for leukocytosis of 13.0, bilirubin 1.7, AST 112, ALT 79, alk-phos 177. BNP negative. CXR showed no acute pulmonary pathology. Venous duplex of bilateral lower extremity showed no DVT demonstrated. Pt was treated with ondansetron, cefazolin, and furosemide. Pt will be admitted to the hospital for treatment and further evaluation of left leg cellulitis with sepsis and acute alcohol withdrawal. Hospital course Patient was admitted to telemetry and maintained on the phenobarb protocol. She was seen in consultation prior to discharge by addiction Medicine and naltrexone will be added to her regimen she will be followed up as an outpatient. She was treated with vancomycin for her cellulitis and had rapid resolution of left lower leg cellulitis. At this point in time her CIWA has been 0 x 24 hours and she is requesting discharge; she is medically acceptable for same. She will be discharged home to complete a course of oral doxycycline and follow-up with PCP. She has been instructed on absolute abstinence from alcohol Time Attestation Discharge Coordination Time (in mins): 35 Quality: Safe Use of Opioids Does Pt have an Active Cancer Diagnosis on the Problem List?: No Quality: Stroke Does the patient have a stroke diagnosis?: No Physical Exam Vital Signs: Vital Signs: Last Vital Signs Temp 98.8 F 11/11/23 07:20 Pulse 83 11/11/23 07:20 Resp 16 11/11/23 07:20 BP 116/75 11/11/23 07:20 Pulse Ox 90 L 11/11/23 07:20 O2 Del Method Room Air 11/11/23 07:20 BMI result Body Mass Index 47.3 Const: Other: Awake alert no acute distress Resp: Other: Clear to auscultation bilaterally no rales rhonchi or wheezes Cardio: Other: No S4; positive S1-S2; no S3 murmurs rubs or gallops GI: Other: Soft nontender nondistended normoactive bowel sounds Neuro: Other: Cranial nerves 2-12 grossly intact as tested. Motor is 5/5 all extremities. Sensory is intact. Cognition appropriate Extrem: Other: No edema bilaterally. Erythema left lower extremity improved DS: Data Data Completed and Pending Labs on day of discharge: Laboratory Results - last 24 hr 11/10/23 11/11/23 15:38 06:26 Hold Purple Top SEE NOTE Sodium 138 Potassium 3.5 Chloride 101 Carbon Dioxide 26 Anion Gap 15 BUN 9 Creatinine 0.77 Estim Creat Clear Calc 102.8 Estimated GFR > 60 Random Glucose 104 Calcium 8.6 Magnesium 2.0 Random Vancomycin 10.9 L Preliminary micro results at discharge 11/09/23 16:34 Blood Culture - Preliminary Blood - Venous No growth after 24 hours. 11/09/23 16:22 Blood Culture - Preliminary Blood - Venous No growth after 24 hours. Discharge Plan Discharge Anticipated Discharge Date/Time: 11/11/23 11:29 Patient Disposition: Home, Self-Care Discharge Diagnosis: Cellulitis left lower extremity Referrals: Physician,Unknown J [Primary Care Provider] - 1 Week Discharge Medications: New doxycycline hyclate 100 mg tablet 100 mg PO BID Qty: 14 0RF Continued cetirizine 10 mg tablet 10 mg PO BEDTIME vitamin B complex Tablet 1 tab PO DAILY nystatin 100,000 unit/gram powder 1 appl topical TID PRN (Reason: Rash) fluoxetine 10 mg capsule 10 mg PO QAM multivitamin Tablet 1 tab PO DAILY cyanocobalamin (vitamin B-12) 1,000 mcg Tablet 1,000 mcg PO DAILY carbidopa-levodopa 25-100 mg tablet 1 tab PO BID clonazepam 1 mg tablet 1 mg PO BID risperidone 2 mg tablet 2 mg PO BEDTIME ropinirole 0.5 mg tablet 0.5 mg PO BEDTIME Rx Instructions: administer 1-3 hours before bedtime nystatin 100,000 unit/gram cream 1 appl topical TID PRN (Reason: Rash) gabapentin 300 mg capsule 300 mg PO BID metoprolol tartrate 50 mg tablet 50 mg PO BID levothyroxine 100 mcg tablet 100 mcg PO QAM fluoxetine 40 mg capsule 40 mg PO QAM prazosin 2 mg capsule 2 mg PO BEDTIME omeprazole 40 mg capsule,delayed release(DR/EC) 40 mg PO DAILY 30 Days Qty: 30 6RF Discharge Orders: Discharge Order (Routine); Ordered 11/11/23 Ordered By: Kevin Wong Diet: Advance to usual diet Activity on Discharge: As tolerated Stand Alone Forms: Patient Portal Discharge page Print Language: Mongolian Care Plan Goals: Resume all medicines as taken prior to hospital Health Concerns: Complete doxycycline twice daily for 1 week for the infection in your left leg Plan of Treatment: Follow-up with PCP next available. Absolutely no alcohol Assessment: See discharge summary
--- NOTE | 2023-11-11 12:00 | MHC.CM.PN ---
Pt is medically cleared for D/C home self-care, pt will transport herself home.
--- NOTE | 2023-11-11 12:49 | HO.ADDICT_ITS ---
History of Present Illness Date of Service: 11/11/23 Chief Complaint: Left Leg cellulitis alcohol withdrawal Reason for Consult: AUD Sources of Information: patient interviewed and chart reviewed HPI Narrative: Patient is a 58 year old female medically admitted with cellulitis of the lower leg and alcohol withdrawal. Seen in room 446, she was awake, alert, pleasant and engaged in interview. She reports drinking on and off since she was 17 years old. Denies any history of treatment for alcohol use at any level--no ATS, CSS, mutual support groups, or medications for AUD. She states that up until 6 months or so ago she and her had not had any alcohol for 2 years. Then they began drinking nips--and she quickly progressed to a sleeve (10 nips) a day. Prior to admission she reports drinking 3 sleeves. Denies any other substance use. She reports cravings for alcohol are very strong and she will likely stop at the package store on the way home once discharged. Discussed strategies for safer drinking and provided information in writing as well. Discussed medications for AUD and questions answered. Review of Systems Constitutional: Reports as per HPI and Reports no additional constitutional complaints Diagnostics Vital Signs (24Hr): Vital Signs - 24 hr 11/10/23 15:48 11/10/23 19:01 11/10/23 19:16 Temperature 98.3 F 96.9 F Pulse Rate 87 82 79 Respiratory Rate 16 20 18 Blood Pressure 109/66 127/58 L Pulse Oximetry 96 96 Oxygen Delivery Method Room Air Room Air 11/11/23 00:00 11/11/23 03:34 11/11/23 07:20 Temperature 96.9 F 97.0 F 98.8 F Pulse Rate 78 78 83 Respiratory Rate 20 20 16 Blood Pressure 116/64 114/68 116/75 Pulse Oximetry 94 93 90 L Oxygen Delivery Method Room Air Room Air Room Air 11/11/23 11:30 Temperature 97.4 F Pulse Rate 72 Respiratory Rate 16 Blood Pressure 109/58 L Pulse Oximetry 94 Oxygen Delivery Method Room Air BMI result Body Mass Index 47.3 Labs 11/10/23 05:27 11/11/23 06:26 Labs: Laboratory Results - last 48 hr 11/09/23 11/09/23 11/10/23 13:41 16:03 05:27 WBC 9.7 RBC 4.21 Hgb 13.8 Hct 41.9 MCV 99.5 H MCH 32.8 MCHC 32.9 RDW 15.2 Plt Count 177 MPV 10.7 Absolute Nucleated RBC 0.000 Nucleated RBC % (auto) 0.0 Hold Purple Top Sodium 136 Potassium 4.1 Chloride 104 Carbon Dioxide 21 L Anion Gap 15 BUN 7 L Creatinine 0.70 Estim Creat Clear Calc 113.1 Estimated GFR > 60 Random Glucose 114 Lactic Acid 3.2 H* Lactic Acid F/U @ 2Hr 2.5 H* Calcium 8.4 Magnesium 2.1 Random Vancomycin 11/10/23 11/11/23 15:38 06:26 WBC RBC Hgb Hct MCV MCH MCHC RDW Plt Count MPV Absolute Nucleated RBC Nucleated RBC % (auto) Hold Purple Top SEE NOTE Sodium 138 Potassium 3.5 Chloride 101 Carbon Dioxide 26 Anion Gap 15 BUN 9 Creatinine 0.77 Estim Creat Clear Calc 102.8 Estimated GFR > 60 Random Glucose 104 Lactic Acid Lactic Acid F/U @ 2Hr Calcium 8.6 Magnesium 2.0 Random Vancomycin 10.9 L Imaging Radiology Impressions: ITS Impressions Chest X-Ray 11/09/23 09:48 IMPRESSION: No acute pulmonary pathology. Venous Duplex 11/09/23 10:10 IMPRESSION: No DVT demonstrated in lower extremities bilaterally. Mental Status Exam Mental Status Exam Patient Appearance: Well Grooomed and Appropriate Level of Consciousness: Awake and Appropriate Patient Behavior: Talkative and Anxious Medications Allergies Allergies Allergy/AdvReac Type Severity Reaction Status Date / Time azithromycin [From ZITHROMAX] Allergy Intermediate SWELLING Verified 11/09/23 09:07 Penicillins [PENICILLINS] Allergy Intermediate SWELLING Verified 11/09/23 09:07 Sulfa (Sulfonamide Allergy Intermediate SWELLING Verified 11/09/23 09:07 Antibiotics) [SULFA(SULFONAMIDE ANTIBIOTICS)] dicyclomine AdvReac Unknown Itching Verified 11/09/23 09:07 BLUE CAPSELS FOR ABD PAIN Allergy Unknown COULDN'T Uncoded 11/09/23 09:07 PEE Assessment & Plan Assessment & Plan (1) Alcohol use disorder: Status: Acute Code(s): F10.90 - Alcohol use, unspecified, uncomplicated Assessment and Plan: * naltrexone rx sent to patients pharmacy as requested * resources and risk redcution information provided to patient * patient to call her PCP at [facility] on Sunday to continue AUD medications Total time managing care of this patient today __35__ minutes. PMFSH Past Medical History Medical History Recovering alcoholic Bipolar disorder Depression Anxiety Parkinson disease Family History Family History Father Stage 4 lung cancer Alzheimer disease Dementia Mother Hypothyroid Diabetes Dementia Kidney failure A-fib Sister Breast cancer Colon cancer Surgical History Surgical History H/O colonoscopy History of right breast biopsy Social History Social History Household Members: Spouse Housing: Condominium Alcohol intake: current Alcohol intake frequency: does not drink Alcohol type: hard liquor Patient Tobacco Use Status: Never used Tobacco Substance Use Type: Marijuana service: No
== END 2023-11-11 12:41 | disposition home or self-care (01) | DRG 383 ==
LOC: HO.ED 12:11 → HO.EDOVER 14:03 → HO.IMC 17:33
PROVIDERS: Physician Assistant; Admitting Provider Student in an Organized Health Care Education/Training Program; Emergency Provider Emergency Medicine Emergency Medical Services; PCP Student in an Organized Health Care Education/Training Program; Visit Provider Hospitalist
DX: L03.116 Cellulitis of left lower limb (principal); G20.A1 Parkinson's disease without dyskinesia, without mention of fluctuations; E03.9 Hypothyroidism, unspecified; E78.5 Hyperlipidemia, unspecified; R60.0 Localized edema; I10 Essential (primary) hypertension; J45.20 Mild intermittent asthma, uncomplicated; F10.239 Alcohol dependence with withdrawal, unspecified; Z79.890 Hormone replacement therapy; Z79.899 Other long term (current) drug therapy
CPT/HCPCS: 36415; 71046; 80048; 80076; 80202; 83605; 83735; 83880; 85025; 85027; 87040; 93005; 93970; 94640; 99222; 99285; J0690; J1650; J1940; J2405; J2560; J3370; J3371

== ENCOUNTER 2023-11-09 13:29 | Outpatient (BNV) | payer MEDICAID, SELFPAY | END 2023-11-09 14:29 | PROVIDERS: Admitting Provider Student in an Organized Health Care Education/Training Program; Emergency Provider Emergency Medicine Emergency Medical Services; Visit Provider Internal Medicine Cardiovascular Disease | DX: R94.31 Abnormal electrocardiogram [ECG] [EKG] (principal) | CPT/HCPCS: 93010 ==

== ENCOUNTER → 2023-11-09 13:29 | Outpatient (BNV) | payer MEDICAID, SELFPAY | PROVIDERS: Admitting Provider Student in an Organized Health Care Education/Training Program; Emergency Provider Emergency Medicine Emergency Medical Services; Visit Provider Student in an Organized Health Care Education/Training Program | DX: L03.116 Cellulitis of left lower limb (principal); F10.90 Alcohol use, unspecified, uncomplicated | CPT/HCPCS: 99223; 99233; 99239 ==

== ENCOUNTER → 2023-11-09 13:29 | Outpatient (BNV) | payer OTHER, SELFPAY | PROVIDERS: Admitting Provider Student in an Organized Health Care Education/Training Program; Emergency Provider Emergency Medicine Emergency Medical Services; Visit Provider Nurse Practitioner Psychiatric/Mental Health | DX: F10.90 Alcohol use, unspecified, uncomplicated (principal) | CPT/HCPCS: 99221 ==

== ENCOUNTER 2023-12-13 17:51 | Emergency (ER) | payer MEDICAID, SELFPAY ==
--- NOTE | ~2023-12-13 | XR_ITS ---
EXAMINATION: XR SHOULDER, RIGHT CLINICAL INFORMATION: Pain injury COMPARISON: None available. TECHNIQUE: Three views of the right shoulder. FINDINGS: No acute visible fracture or dislocation. Degenerative changes of the glenohumeral and acromioclavicular joint. Joint space alignment otherwise maintained. Soft tissues are unremarkable. Visualized portions of the chest are unremarkable. XR/XR shoulder RT min 2V IMPRESSION: 1. No acute visible fracture or dislocation. 2. Degenerative changes of the glenohumeral and acromioclavicular joint.
--- NOTE | ~2023-12-13 | XR_ITS ---
EXAMINATION: XR KNEE, RIGHT CLINICAL INFORMATION: Pain injury COMPARISON: None available. TECHNIQUE: AP and lateral views of the right knee. FINDINGS: No acute visible fracture or dislocation. Multi compartment arthritic changes. Joint space alignment otherwise maintained. Small knee joint effusion. Soft tissues are unremarkable. XR/XR knee RT 2V IMPRESSION: 1. No acute visible fracture or dislocation. 2. Multi compartment arthritic changes. 3. Small knee joint effusion.
[2023-12-13 18:03] VITALS: BP 124/67; PULSE 78; RESP 18; TEMP 37.1; O2SAT 95; BMI 44.6
--- NOTE | 2023-12-13 18:04 | ED.GENADULT ---
HPI - General Adult General Chief complaint: Extremity Injury, Upper Stated complaint: fell, R arm inj Time Seen by Provider: 12/13/23 22:15 Source: patient, RN notes reviewed and old records reviewed Mode of arrival: ambulatory Limitations: no limitations History of Present Illness HPI narrative: 58-year-old female presents for evaluation of right shoulder pain. Reports that she tripped over something in her yd earlier today. She landed on her right shoulder. She reports when she moves her right arm she feels a popping sensation in the shoulder She denies hitting her head or losing consciousness. She has not on a blood thinner she also complains of right knee pain but states this is less severe than her shoulder pain Related Data Home Medications ?Medication ?Instructions ?Recorded ?Confirmed carbidopa 25 mg-levodopa 100 mg 1 tab PO BID 01/14/21 11/09/23 tablet clonazepam 1 mg tablet 1 mg PO BID anxiety 01/14/21 11/09/23 risperidone 2 mg tablet 2 mg PO BEDTIME 01/14/21 11/09/23 ropinirole 0.5 mg tablet 0.5 mg PO BEDTIME 01/14/21 11/09/23 nystatin 100,000 unit/gram topical 1 appl topical TID PRN Rash 01/17/22 11/09/23 cream fluoxetine 40 mg capsule 40 mg PO QAM 04/17/23 11/09/23 gabapentin 300 mg capsule 300 mg PO BID 04/17/23 11/09/23 levothyroxine 100 mcg tablet 100 mcg PO QAM 04/17/23 11/09/23 metoprolol tartrate 50 mg tablet 50 mg PO BID 04/17/23 11/09/23 prazosin 2 mg capsule 2 mg PO BEDTIME 04/17/23 11/09/23 cetirizine 10 mg tablet 10 mg PO BEDTIME 11/09/23 11/09/23 cyanocobalamin (vitamin B-12) 1,000 mcg PO DAILY 11/09/23 11/09/23 1,000 mcg tablet fluoxetine 10 mg capsule 10 mg PO QAM 11/09/23 11/09/23 multivitamin 1 tab PO DAILY 11/09/23 11/09/23 nystatin 100,000 unit/gram topical 1 appl topical TID PRN Rash 11/09/23 11/09/23 powder vitamin B complex 1 tab PO DAILY 11/09/23 11/09/23 Previous Rx's ?Medication ?Instructions ?Recorded omeprazole 40 mg capsule,delayed 40 mg PO DAILY 30 days #30 caps 04/17/23 release doxycycline hyclate 100 mg tablet 100 mg PO BID #14 tabs 11/11/23 naltrexone 50 mg tablet 50 mg PO DAILY #30 tabs 11/11/23 ibuprofen 600 mg tablet 600 mg PO QID PRN pain #20 tabs 12/13/23 Allergies Allergy/AdvReac Type Severity Reaction Status Date / Time azithromycin [From ZITHROMAX] Allergy Intermediate SWELLING Verified 12/13/23 18:06 Penicillins [PENICILLINS] Allergy Intermediate SWELLING Verified 12/13/23 18:06 Sulfa (Sulfonamide Allergy Intermediate SWELLING Verified 12/13/23 18:06 Antibiotics) [SULFA(SULFONAMIDE ANTIBIOTICS)] dicyclomine AdvReac Unknown Itching Verified 12/13/23 18:06 BLUE CAPSELS FOR ABD PAIN Allergy Unknown COULDN'T Uncoded 11/09/23 09:07 PEE Review of Systems Constitutional: Constitutional: Denies body ache(s), Denies chills, Denies fever(s) and Denies headache(s) Eyes: Eyes: Denies blurry vision ENT: Denies headache(s) and Denies sore throat Cardiovascular: Cardiovascular: Denies chest pain and Denies dyspnea Respiratory: Respiratory: Denies cough and Denies dyspnea Gastrointestinal: Gastrointestinal: Denies abdominal pain, Denies nausea and Denies vomiting Musculoskeletal: Musculoskeletal: Reports arthralgias, Denies joint swelling and Reports limited range of motion Integumentary/Breasts: Skin/Breast: Denies rash Neurologic: Denies headache(s) [facility] Past Medical History Medical History Recovering alcoholic Bipolar disorder Depression Anxiety Parkinson disease Surgical History H/O colonoscopy History of right breast biopsy Family History Family History Father Stage 4 lung cancer Alzheimer disease Dementia Mother Hypothyroid Diabetes Dementia Kidney failure A-fib Sister Breast cancer Colon cancer Social History Social History Household Members: Spouse Housing: Condominium Alcohol intake: current Alcohol intake frequency: does not drink Alcohol type: hard liquor Patient Tobacco Use Status: Never used Tobacco Substance Use Type: Marijuana Advance Directives: Yes Advance Directives on File: Yes Advance Directives Date on File: 11/13/23 Do you have a plan to hurt others: No Plan service: No Physical Exam ED Vital Signs: Vital Signs - 24 hr 12/13/23 18:03 12/13/23 21:45 Temperature 98.8 F 98.3 F Pulse Rate 78 75 Respiratory Rate 18 19 Blood Pressure 124/67 139/77 Pulse Oximetry 95 97 Oxygen Delivery Method Room Air Room Air BMI result Body Mass Index 44.6 Const General: healthy appearing, comfortable, no acute distress, alert and awake Nutritional Appearance: well nourished Orientation/consciousness: patient oriented x3 HENMT Head: Yes normocephalic and Yes atraumatic Eyes Eyelids: Yes eyelids normal Conjunctivae: conjunctivae normal Sclerae: sclerae normal Corneas: corneas normal Pupils: Equal, round and reactive pupils present EOM: EOMs intact bilaterally Neck Neck: Yes full ROM Resp Effort & Inspection: normal respiratory effort, able to speak in complete sentences and not labored GI Inspection: No distended Palpation (GI): Soft to palpation, not firm, nontender, no guarding and not rigid Skin General skin exam: elasticity normal Neuro General: patient oriented x3 Cranial nerves: Yes Equal, round and reactive pupils present and Yes Bilaterally intact EOM present Cognition (Neuro): normal cognition Extrem Other: Patient has no visual or palpable deformity to the right shoulder. She has tenderness over the right acromioclavicular joint. She has slightly limited range of motion with abduction of the right upper extremity. There is no right elbow tenderness or deformity. There is no tenderness to the right knee on exam. She has full range of motion flexion and extension. No significant edema or effusion on exam Course Course Course Narrative: RME performed by Sasha Bauman PA-C. Patient is a 58 year old assigned female at presenting to the emergency department with right shoulder pain and right knee pain after a fall. Patient states she tripped and fell, landing on her right knee and right shoulder. Patient denies any head strike or loss of consciousness. Detailed physical exam and review of systems are deferred to the nurse executive. Imaging ordered. Patient placed back in the waiting room pending room availability and results. Medical Decision Making Medical Decision Making [facility] Narrative: 58-year-old female presents for evaluation of right knee and shoulder pain after falling. This was a nonsyncopal fall. She reports tripping on something in her yd. X-rays are negative for fracture. She will be treated conservatively Differential Diagnosis Differential Diagnoses: The differential diagnosis associated with the presentation includes Arthritis Shoulder fracture Shoulder dislocation Knee pain Shoulder pain Bursitis Independent Interpretation I performed an independent interpretation of an: Plain X-Ray Interpretation: No obvious fracture of the right shoulder or knee Radiology Impression Discussion of test interpretation with radiology: I have reviewed the radiologist's reading. Radiologist Impression: XR/XR shoulder RT min 2V IMPRESSION: 1. No acute visible fracture or dislocation. 2. Degenerative changes of the glenohumeral and acromioclavicular joint. XR/XR knee RT 2V IMPRESSION: 1. No acute visible fracture or dislocation. 2. Multi compartment arthritic changes. 3. Small knee joint effusion. Discharge Plan Discharge Clinical Impression: Acute pain of right shoulder, Acute pain of right knee Patient Disposition: Home, Self-Care Instructions: Knee Pain (ED), Shoulder Pain (ED) Additional Instructions: Your x-ray did not show any fractures. Use ibuprofen as needed for pain. You may apply ice to the sore area You may use the sling when you are out walking around. Do not use it when you are sleeping or home relaxing Follow-up with your primary doctor Prescriptions: New ibuprofen 600 mg tablet 600 mg PO QID PRN (Reason: pain) Qty: 20 0RF No Action cetirizine 10 mg tablet 10 mg PO BEDTIME vitamin B complex Tablet 1 tab PO DAILY nystatin 100,000 unit/gram powder 1 appl topical TID PRN (Reason: Rash) fluoxetine 10 mg capsule 10 mg PO QAM multivitamin Tablet 1 tab PO DAILY cyanocobalamin (vitamin B-12) 1,000 mcg Tablet 1,000 mcg PO DAILY doxycycline hyclate 100 mg tablet 100 mg PO BID Qty: 14 0RF naltrexone 50 mg tablet 50 mg PO DAILY Qty: 30 0RF Rx Instructions: take 1/2 tab daily for 3 days then increase to one tab daily carbidopa-levodopa 25-100 mg tablet 1 tab PO BID clonazepam 1 mg tablet 1 mg PO BID risperidone 2 mg tablet 2 mg PO BEDTIME ropinirole 0.5 mg tablet 0.5 mg PO BEDTIME Rx Instructions: administer 1-3 hours before bedtime nystatin 100,000 unit/gram cream 1 appl topical TID PRN (Reason: Rash) gabapentin 300 mg capsule 300 mg PO BID metoprolol tartrate 50 mg tablet 50 mg PO BID levothyroxine 100 mcg tablet 100 mcg PO QAM fluoxetine 40 mg capsule 40 mg PO QAM prazosin 2 mg capsule 2 mg PO BEDTIME omeprazole 40 mg capsule,delayed release(DR/EC) 40 mg PO DAILY 30 Days Qty: 30 6RF Print Language: Ethiopian
[2023-12-13 21:45] VITALS: BP 139/77; PULSE 75; RESP 19; TEMP 36.8; O2SAT 97
[2023-12-13 22:49] VITALS: BP 138/78; PULSE 74; RESP 19; TEMP 36.6; O2SAT 97
== END 2023-12-13 22:51 | disposition home or self-care (01) ==
PROVIDERS: Emergency Provider Internal Medicine; PCP Student in an Organized Health Care Education/Training Program
DX: M25.511 Pain in right shoulder (principal); M25.561 Pain in right knee; G20.A1 Parkinson's disease without dyskinesia, without mention of fluctuations; Z91.81 History of falling
CPT/HCPCS: 73030; 73560; 99282; 99283

== ENCOUNTER 2024-01-09 11:02 | Outpatient (AMB) | payer MEDICAID, SELFPAY ==
--- NOTE | 2024-01-09 11:28 | A.OFFVISCC_ITS ---
Vital Signs 01/09/24 13:41 BP 140/90 H Blood Pressure Location Rt brachial Position Sitting Respiration 19 Pulse 80 Pulse Source Pulse Oximeter Pulse Oximetry (%) 99 Intake Visit Reasons: Intake/walk in Allergies azithromycin [From ZITHROMAX] Allergy (Intermediate, Verified 12/13/23 18:06) SWELLING Penicillins [PENICILLINS] Allergy (Intermediate, Verified 12/13/23 18:06) SWELLING Sulfa (Sulfonamide Antibiotics) [SULFA(SULFONAMIDE ANTIBIOTICS)] Allergy (Intermediate, Verified 12/13/23 18:06) SWELLING dicyclomine Adverse Reaction (Unknown, Verified 12/13/23 18:06) Itching BLUE CAPSELS FOR ABD PAIN Allergy (Unknown, Uncoded 11/09/23 09:07) COULDN'T PEE Medication List - Last Reconciled 01/09/24 by Siri Carrillo, KEITH carbidopa-levodopa 25-100 mg 1 tab PO BID cetirizine 10 mg PO BEDTIME clonazepam 1 mg PO BID cyanocobalamin (vitamin B-12) 1,000 mcg PO DAILY fluoxetine 10 mg PO QAM fluoxetine 40 mg PO QAM gabapentin 300 mg PO BID ibuprofen 600 mg PO QID PRN levothyroxine 100 mcg PO QAM metoprolol tartrate 50 mg PO BID multivitamin 1 tab PO DAILY naltrexone 50 mg PO DAILY nystatin 1 appl topical TID PRN omeprazole 40 mg PO DAILY 30 days prazosin 1 mg PO BEDTIME risperidone 2 mg PO BEDTIME ropinirole 0.5 mg PO BEDTIME vitamin B complex 1 tab PO DAILY HPI HPI Intake/walk in: Details: Patient is a 58 year old female who presents as a walk in for evaluation and treatment of AUD She reports that she has been drinking since age 17 Started off with wine then progressed to hard liquor most recently has been drinking 4-5 sleeves vodka daily recurrence in early Spring following 2 years of abstaining from alcohol She reports her last drink was one week ago Sunday (10 days ago) and she had 2 sleeves reporting some nausea and tremor tremor still present--but patient also has dx of Parkinsons no history of alcohol withdrawal seizure Treatment History -no ATS admissions -no [facility] Patient was seen by this advertising writer during recent admission and was prescribed Naltrexone at time of discharge, however she reports she never started them She was originally going to follow up with her PCP office to continue care, but was unable to Her partner is currently admitted with alcohol related illness and this was a motivator for her to seek treatment. Medical History: -numerous comorbid conditions which she is unable to report, however notes from previous admission reviewed -medication list obtained from her pharmacy and updated--she receives a prefilled med box [facility] Medical History (Updated 01/11/24 @ 15:41 by Siri Carrillo CNP) Alcohol use disorder Recovering alcoholic Bipolar disorder Depression Anxiety Parkinson disease Surgical History H/O colonoscopy History of right breast biopsy Family History Father Stage 4 lung cancer Alzheimer disease Dementia Mother Hypothyroid Diabetes Dementia Kidney failure A-fib Sister Breast cancer Colon cancer Social History Household Members: Spouse Housing: Condominium Alcohol intake: current Alcohol intake frequency: does not drink Alcohol type: hard liquor Patient Tobacco Use Status: Never used Tobacco Substance Use Type: Marijuana Advance Directives Date on File: 11/13/23 service: No Review of Systems Const Reports as per HPI Psych Reports anxiety Physical Exam Vital Signs: Last Vital Signs Pulse 80 01/09/24 13:41 Resp 19 01/09/24 13:41 BP 140/90 H 01/09/24 13:41 Pulse Ox 99 01/09/24 13:41 Const General: cooperative and anxious Nutritional Appearance: overweight Orientation/consciousness: patient oriented x3 Limitations: no limitations Neuro General: patient oriented x3 Psych Appearance: grossly normal Speech and movement: Clear speech present Affect: Anxious affect present Attitude: cooperative Thought process: Circumstantial thought process present Insight: Fair insight present (Psych) Judgement: Fair judgement present (Psych) Assessment & Plan Assessment & Plan (1) Alcohol use disorder: Code(s): F10.90 - Alcohol use, unspecified, uncomplicated Category: Medical Plan: * naltrexone 50mg daily (patient has medication at home) * provided with recovery support information, including [facility] * follow up 2 weeks telehealth Orders: Orders AMB 14 Panel Urine Drug Screen 01/09/24 F10.90 - Alcohol use, unspecified, uncomplicated Medications: New furosemide (Lasix) 20 mg PO BID MAT Intake Nursing Intake Reason for visit: I need that shot for drinking Are you currently using?: Yes What are you taking?: Alcohol When was your last use?: Last week How much?: 10 nips What is your source of income?: None What is your current relationship status?: Live in boyfriend Referral Source: [facility] Substance Abuse History Substance Abuse History (includes route, frequency and quantity): Alcohol Social History Domestic Violence concerns: Denies Children: No Do you have a support system?: States her fiance Current mode of transportation?: Car Where are you currently residing?: In a condo Are you using contraception?: No IV Drug Use Have you ever shared needles?: No Have you ever belonged to a needle exchange program?: No Do you buy needles at a pharmacy?: No Have you ever overdosed?: No Have you ever been hospitalized for an overdose?: No Was Naloxone administered?: No Recovery History Have you had any periods of recovery?: Yes What is your longest time in recovery?: 4 years When was the last time you were in recovery?: States just relapsed this past month Have you ever had inpatient treatment for your substance abuse disorder?: No Have you been in an inpatient detoxification program?: Yes Have you been in an inpatient Rehab/[place] house?: No Have you been in an outpatient Methadone Maintenance program?: No Have you been in an outpatient Suboxone Maintenance program?: No Have you been in an AA/NA support program?: Yes Have you had a Recovery Support Machining Associate?: Yes Have you had Peer Support?: Yes Medical Conditions Endocarditis?: No Skin Infection: No Seizure related to withdrawal or overdose: No Head or brain injury: No Hepatitis A (if yes, have you been treated?): No Hepatitis B (if yes, have you been treated?): No Hepatitis C (if yes, have you been treated?): No HIV (if yes, have you been treated?): No TB (if yes, have you been treated?): No Other: No Legal History History of incarceration: No Currently on parole or probation: No Court mandated programs: No Pending court cases: No DCF involvement: No
[2024-01-09 13:41] VITALS: BP 140/90; PULSE 80; RESP 19; O2SAT 99
== END 2024-01-09 11:47 | disposition home or self-care (01) ==
PROVIDERS: PCP Student in an Organized Health Care Education/Training Program; Visit Provider Nurse Practitioner Psychiatric/Mental Health
DX: F10.90 Alcohol use, unspecified, uncomplicated (principal)
CPT/HCPCS: 99214

== ENCOUNTER → 2024-01-09 11:02 | Outpatient (BNVA) | payer MEDICAID, SELFPAY | PROVIDERS: PCP Student in an Organized Health Care Education/Training Program; Visit Provider Nurse Practitioner Psychiatric/Mental Health | DX: F10.90 Alcohol use, unspecified, uncomplicated (principal); G20.A1 Parkinson's disease without dyskinesia, without mention of fluctuations | CPT/HCPCS: 99212 ==

== ENCOUNTER → 2024-01-11 15:50 | Outpatient (BNV) | payer MEDICAID, SELFPAY | PROVIDERS: PCP Student in an Organized Health Care Education/Training Program; Visit Provider Nurse Practitioner Psychiatric/Mental Health | DX: F10.90 Alcohol use, unspecified, uncomplicated (principal) | CPT/HCPCS: 80305 ==

== ENCOUNTER 2024-01-15 08:49 | Outpatient (AMB) | payer MEDICAID, SELFPAY ==
--- NOTE | 2024-01-15 08:49 | MHC.AM.SUB ---
Intake Visit Reasons: MAT tele Allergies azithromycin [From ZITHROMAX] Allergy (Intermediate, Verified 12/13/23 18:06) SWELLING Penicillins [PENICILLINS] Allergy (Intermediate, Verified 12/13/23 18:06) SWELLING Sulfa (Sulfonamide Antibiotics) [SULFA(SULFONAMIDE ANTIBIOTICS)] Allergy (Intermediate, Verified 12/13/23 18:06) SWELLING dicyclomine Adverse Reaction (Unknown, Verified 12/13/23 18:06) Itching BLUE CAPSELS FOR ABD PAIN Allergy (Unknown, Uncoded 11/09/23 09:07) COULDN'T PEE HPI HPI MAT tele: Details: Patient presents for follow up via telehealth Taking Naltrexone 50mg daily --tolerating medication Still having cravings-frustrated by this, I guess I was hoping for a quick fix Discussed AUD and different strategies to address cravings and increasing thoughts to drink Reinforced that medications are usually more effective when additional recovery strategies/supports are put in place. Patient verbalized understanding and stated that she is still thinking about the strategies we had previously discussed. doing better and going to [facility] today. [facility] Medical History (Updated 01/11/24 @ 15:41 by Siri Carrillo CNP) Alcohol use disorder Recovering alcoholic Bipolar disorder Depression Anxiety Parkinson disease Surgical History H/O colonoscopy History of right breast biopsy Family History Father Stage 4 lung cancer Alzheimer disease Dementia Mother Hypothyroid Diabetes Dementia Kidney failure A-fib Sister Breast cancer Colon cancer Social History Household Members: Spouse Housing: Condominium Alcohol intake: current Alcohol intake frequency: does not drink Alcohol type: hard liquor Patient Tobacco Use Status: Never used Tobacco Substance Use Type: Marijuana Advance Directives Date on File: 11/13/23 service: No Review of Systems Const Reports as per [facility] Telehealth Telehealth Telehealth Platform: Telephone Location of provider rendering services: practice address Location of patient: other Patient Identification confirmed using: Name, : Yes Telehealth method: voice only Patient verbally consented to treatment: Yes Patient verbally consented to billing insurance company: Yes Minutes spent on Phone/Video with Pt.: 15 Assessment & Plan Assessment & Plan (1) Alcohol use disorder: Code(s): F10.90 - Alcohol use, unspecified, uncomplicated Category: Medical Plan: continue naltrexone follow up one week risk reduction discussion
== END 2024-01-15 09:22 | disposition home or self-care (01) ==
PROVIDERS: PCP Student in an Organized Health Care Education/Training Program; Visit Provider Nurse Practitioner Psychiatric/Mental Health
DX: F10.90 Alcohol use, unspecified, uncomplicated (principal)
CPT/HCPCS: 99213

== ENCOUNTER → 2024-01-15 08:49 | Outpatient (BNVA) | payer MEDICAID, SELFPAY | PROVIDERS: PCP Student in an Organized Health Care Education/Training Program; Visit Provider Nurse Practitioner Psychiatric/Mental Health ==

== ENCOUNTER 2024-04-16 12:01 | Outpatient (REF) | payer MEDICAID, SELFPAY ==
[2024-04-16 15:03] LABS: Alanine Aminotransferase 41 U/L (0-31); Albumin Level 3.9 g/dL (3.5-5.0); Alkaline Phosphatase 137 U/L (39-117); Anion Gap 16 (12-20); Aspartate Amino Transferase 89 U/L (5-31); Bilirubin Direct 0.8 mg/dL (0.0-0.5); Bilirubin Total 2.6 mg/dL (0.0-1.0); Blood Urea Nitrogen 7 mg/dL (9-16); Calcium 9.3 mg/dL (8.4-10.2); Carbon Dioxide 22 mmol/L (22-29); Chloride 107 mmol/L (96-108); Cholesterol 232 mg/dL (<200); Estimated Glomerular Filt Rate > 60; Glucose Random 109 mg/dL (60-115); HDL Cholesterol 33 mg/dL (>40); LDL Cholesterol Calculated 160 mg/dL (<100); Potassium 3.2 mmol/L (3.3-5.1); Sodium 142 mmol/L (135-145); TSH reflex Free T4 3.53 uIU/mL (0.32-4.0); Total Protein 7.3 g/dL (6.5-8.0); Triglycerides 195 mg/dL (<150)
== END 2024-04-16 12:02 | disposition home or self-care (01) ==
LOC: HO.CHCLDS 12:01
PROVIDERS: Visit Provider Student in an Organized Health Care Education/Training Program
DX: E03.9 Hypothyroidism, unspecified (principal); F10.10 Alcohol abuse, uncomplicated
CPT/HCPCS: 36415; 80048; 80061; 80076; 84443

== ENCOUNTER 2024-08-25 12:13 | Outpatient (REF) | payer MEDICAID, SELFPAY ==
[2024-08-25 14:29] LABS: MANUAL DIFF FLAG NO
[2024-08-25 14:35] LABS: Basophils Percent Auto 0.4 % (0-2); Eosinophils Absolute Auto 0.1 X10*3/uL (0.0-0.4); Eosinophils Percent Auto 1.5 % (0-4); Hematocrit 44.4 % (37.0-47.0); Hemoglobin 14.6 g/dl (12.0-16.0); Imm Gran Abs Auto 0.01 X10*3/uL (0.00-0.03); Imm Gran Pct Auto 0.1 % (0.0-0.4); Lymphocytes Absolute Auto 2.1 X10*3/uL (1.2-4.9); Lymphocytes Percent Auto 31.4 % (20-40); Mean Corpuscular HGB Conc 32.9 g/dl (31.0-35.0); Mean Corpuscular Hemoglobin 31.5 pg (27.0-33.0); Mean Corpuscular Volume 95.7 fL (80.0-98.0); Mean Platelet Volume 11.5 fL (9.4-12.3); Monocytes Absolute Auto 0.4 X10*3/uL (0.1-1.2); Monocytes Percent Auto 5.7 % (2-11); Neutrophils Absolute Auto 4.1 x10*3/uL (2.0-8.3); Neutrophils Percent Auto 60.9 % (45-73); Platelet Count 231 X10*3/uL (160-400); Red Blood Count 4.64 X10*6/uL (4.20-5.50); Red Cell Distribution Width 15.7 % (11.0-16.0); White Blood Count 6.7 X10*3/uL (4.8-10.8)
[2024-08-25 14:37] LABS: INTERNATIONAL NORM RATIO 1.1 (0.9-1.1); Prothrombin Time 12.9 SEC (10.9-12.4)
[2024-08-25 14:44] LABS: Alanine Aminotransferase 27 U/L (0-31); Alkaline Phosphatase 104 U/L (39-117); Aspartate Amino Transferase 62 U/L (5-31); Bilirubin Direct 0.8 mg/dL (0.0-0.5); Total Protein 7.4 g/dL (6.5-8.0)
--- OUTSIDE RECORDS SUMMARY | 2024-08-25 17:03 | XMS_ITS | Encounter Summary ---
Author Organization [employer] Address [address] [place] [address] [place] [address] Care Team Providers Care Front End Alignment Specialist Name Role Phone Silva Light MD Primary Care Provider [phone] Encounter Details Date Type Department Care Team (Late Contact Info) Description 11/08/2022 Orders Only [facility] [address] [place] [address] Sanju Mcgee MD [address] [place] [address] Primary osteoarthritis of left knee (Primary Dx) Social History Tobacco Use Types Packs/Day Years Used Date Smoking Tobacco: Never Smokeless Tobacco: Never Alcohol Use Standard Drinks/Week Comments Never 0 (1 standard drink = 0.6 oz pur e alcohol) Comments Unknown Sex and Gender Information Value Date Recorded Sex Assigned at Female 05/29/2022 10:20 AM EDT Legal Sex Female 10:20 AM EDT Gender Identity Female 05/29/2022 10:20 AM EDT Sexual Orientation Straight 05/29/2022 10 :20 AM EDT COVID-19 Exposure Response Date Recorded In the last 10 days, have yo u been in contact with someone who was confirmed or suspected to have Coronavirus/COVID-19? No / Unsure 10/30/2022 3:42 PM EDT documented as of this encounter Plan of Treatment Upcoming Encounters Date Type Department Care Team (Late Contact Info) Description 09/08/2024 10:00 AM EST Telemedicine [facility] [address] [place], [place] [id number] Walter Bar MD [address] [place] [address] 10/14/2024 8:30 AM EDT Office Visit [facility] [address] [place] [address] Silva Light MD [address] [place] [address] documented as of this encounter Visit Diagnoses Diagnosis Primary osteoarthritis of left knee- Primary documented in this encounter Care Teams Front End Alignment Specialist Relationship Specialty Start Date End Date Silva Light MD [address] [place] [address] PCP - General Family Medicine 08/06/13 documented as of this encounter
--- OUTSIDE RECORDS SUMMARY | 2024-08-25 17:03 | XMS_ITS | Encounter Summary ---
Author Organization [employer] Address [address] [place] [address] Care Team Providers Care Roving Hand Name Role Phone Silva Light MD Primary Care Provider Reason for Visit * Reason Comments Care Coordination Outreach Encounter Details Date Type Department Care Team (Latest Contact Info) Description 08/11/2024 Patient Outreach [facility] [address] [place], [place] [id number] Silva Light MD [address] [place] [address] Care Coordination (Outreach) Social History Tobacco Use Types Packs/Day Years Used Date Smoking Tobacco: Never Smokeless Tobacco: Never Alcohol Use Standard Drinks/Week Comments Yes 21 (1 standard drink = 0.6 oz pu re alcohol) Housing Stability Answer Date Recorded What is your housing situation today? I have yasemin soriano 04/16/[address] you li ve. Do you have problems with any of the following? None of the above 04/16/2024 Food Insecurity Answer Date Recorded Within the past 12 months, y ou worried that your food would run out before you got money to buy more: Often true 08/08/2024 Within the past 12 months,th e food you bought just didn't last and you didn't have enough money to get more: Often true 04/2025 Transportation Answer Date Recorded In the past 12 months, has l ack of transportation kept you from medical appts, meetings, work or from getting things needed for daily living? No 04/16/2024 Utilities Answer Date Recorded In the past 12 months, has t he electric, gas, oil or water company threatened to shut off services in your home? No 04/16/2024 Depression Answer Date Recorded Patient Health Questionnaire-2 Score 6 04/16/2024 Internet Access Answer Date Recorded Internet Access Q1 Yes 08/08/2024 Internet Access Q2 I do not want or need it 07/30 Comments Unknown Sex and Gender Information Value Date Recorded Sex Assigned at Female 05/29/2022 10:20 AM EDT Legal Sex Female 10:20 AM EDT Gender Identity Female 05/29/2022 10:20 AM EDT Sexual Orientation Straight 05/29/2022 10 :20 AM EDT documented as of this encounter Progress Notes * Georgia Vazquez - 08/11/2024 1:51 PM EST CHW Georgia Vazquez , placed outbound call to patient in regards to offer services. CHW introducing herself from [facility] CM Department with CHW's name, department and direct contact [phone] requesting call back. Will re-attempt to contact within 5 days. and address not confirmed. documented in this encounter Plan of Treatment Upcoming Encounters Date Type Department Care Team (Late st Contact Info) Description 09/08/2024 10:00 AM EST Telemedicine [facility] MED & PEDS [address] [place] [address] Walter Bar MD [address] [place] [address] 10/14/2024 8:30 AM EDT Office Visit [facility] MED & PEDS [address] [place] [address] Silva Light MD [address] [place] [address] documented as of this encounter Visit Diagnoses Not on filedocumented in this encounter Care Teams Roving Hand Relationship Specialty Start Date End Date Silva Light MD [address] [place] [address] PCP - General Family Medicine 08/06/13 documented as of this encounter
--- OUTSIDE RECORDS SUMMARY | 2024-08-25 17:03 | XMS_ITS | Encounter Summary ---
Author Organization [employer] Address [address] [place] [address] Care Team Providers Care Staff Climate Scientist Name Role Phone Silva Light MD Primary Care Provider [phone] Encounter Details Date Type Department Care Team (Latest Contact Info) Description 08/15/2024 Travel Social History Tobacco Use Types Packs/Day Years Used Date Smoking Tobacco: Never Smokeless Tobacco: Never Alcohol Use Standard Drinks/Week Comments Yes 21 (1 standard drink = 0.6 oz pu re alcohol) Housing Stability Answer Date Recorded What is your housing situation today? I have yasemin christie 04/16/[address] you li [...] I do not want or need it 01/1 Comments Unknown Sex and Gender Information Value Date Recorded Sex Assigned at Female 05/29/2022 10:20 AM EDT Legal Sex Female 10:20 AM EDT Gender Identity Female 05/29/2022 10:20 AM EDT Sexual Orientation Straight 05/29/2022 10 :20 AM EDT documented as of this encounter Plan of Treatment Upcoming Encounters Date Type Department Care Team (Late st Contact Info) Description 09/08/2024 10:00 AM EST Telemedicine [facility] MED & PEDS [address] [place] [address] Walter Bar MD [address] [place] [address] 10/14/2024 8:30 AM EDT Office Visit [facility] MED & PEDS [address] [place] [address] Silva Light MD [address] [place] [address] documented as of this encounter Visit Diagnoses Not on filedocumented in this encounter Care Teams Staff Climate Scientist Relationship Specialty Start Date End Date Silva Light MD [address] [place] [address] PCP - General Family Medicine 08/06/13 documented as of this encounter
--- OUTSIDE RECORDS SUMMARY | 2024-08-25 17:03 | XMS_ITS | Clinical Summary ---
Author Organization [id number] | [employer] Address [address] [facility] 7t [place] [address] Care Team Providers Care Traverse Rod Assembler Name Role Phone Silva Light MD Primary Care Provider [phone] Allergies Active Allergy Reactions Criticality Noted Date Comments Azithromycin Rash Low 03/09/2022 Latex 04/25/2022 Penicillins 02/19/2013 Sulfa Antibiotics 02/19/2013 Medications hydrOXYzine HCl (Atarax) 10 MG tablet TAKE ONE TABLET BY MOUTH EVERY TWELVE HOURS NEEDED FOR ANXIETY. 11/04/19 22 Active omeprazole (PriLOSEC) [address] capsule Take 40 mg by mouth in the morning. 09/08/19 23 Active prazosin (Minipress) 2 MG capsuleIndicatio ns:Post-traumati c stress disorder, unspecified TAKE ONE CAPSULE AT BEDTIME 90 capsule 1 01/18/20 23 Active FLUoxetine (PROzac) 40 MG capsuleIndicatio ns:Menopausal and female climacteric states TAKE ONE CAPSULE EVERY MORNING 30 capsule 6 04/17/20 23 Active clonazePAM (KlonoPIN) 1 MG tabletIndication s:Post-traumatic stress disorder, unspecified TAKE ONE TABLET TWICE DAILY IN THE MORNING AND AT BEDTIME NEEDED 60 tablet 05/28/20 23 Active amitriptyline (Elavil) 25 MG tabletIndication s:Major depressive disorder, recurrent, mild (CMS/HCC) TAKE ONE TABLET EVERY NIGHT AT BEDTIME 30 tablet 3 06/19/20 23 Active risperiDONE (RisperDAL) 2 MG tabletIndication s:Post-traumatic stress disorder, unspecified TAKE ONE TABLET EVERY NIGHT AT BEDTIME 30 tablet 07/31/19 24 Active cetirizine (ZyrTEC) 10 MG tabletIndication s:Allergy, sequela TAKE ONE TABLET EVERY NIGHT AT BEDTIME 30 tablet 11 10/18/19 24 Active metoprolol tartrate (Lopressor) 50 MG tabletIndication s:Primary hypertension TAKE 1 TABLET TWICE DAILY IN THE MORNING AND AT BEDTIME 120 tablet 11 10/18/19 24 Active gabapentin (Neurontin) 300 MG capsuleIndicatio ns:Post-traumati c stress disorder, unspecified TAKE ONE CAPSULE TWICE DAILY IN THE MORNING AND AT BEDTIME 60 capsule 11 10/18/19 24 Active meclizine (Antivert) 25 MG tablet Take 1 tablet (25 mg) by mouth if needed in the morning, at noon, and at bedtime for dizziness. TAKE ONE TABLET THREE TIMES DAILY NEEDED 30 tablet 3 11/29/19 24 Active B-Complex, Folic Acid, tablet Take 1 tablet by mouth in the morning. 10/19/19 24 Active naltrexone (Depade) 50 MG tablet TAKE 1/2 TABLET EVERY DAY FOR THREE DAYS THEN INCREASE TO ONE TABLET EVERY DAY 11/13/19 24 Active FLUoxetine (PROzac) 10 MG capsule TAKE ONE CAPSULE EVERY MORNING WITH 40mg CAPSULE 08/17/19 24 Active risperiDONE (RisperDAL) 1 MG tablet TAKE ONE-HALF TO ONE TABLET AT BEDTIME NEEDED FOR MOOD 08/17/19 24 Active Multiple Vitamin (multivitamin) tablet Take 1 tablet by mouth Once per day. Active furosemide (Lasix) 20 MG tablet Take 1 tablet (20 mg) by mouth 2 times daily. 30 tablet 3 11/30/19 24 Active levothyroxine (Synthroid, Levoxyl) 100 MCG tabletIndication s:Hypothyroidism , unspecified type TAKE ONE TABLET EVERY MORNING 90 tablet 08/08/19 25 Active carbidopa-levodo pa (Sinemet) 25-100 MG tablet TAKE 1 TABLET TWICE DAILY IN THE MORNING AND AT BEDTIME 60 tablet 08/08/19 25 Active naltrexone (Depade) 50 MG tabletIndication s:Alcohol use disorder, severe, dependence (CMS/HCC) Take 1 tablet (50 mg) by mouth Once per day. Start with 1/2 tab (=25mg) PO DAILY for 4 days, then increase to 1 tab daily. 30 tablet 08/25/19 25 025 Active levothyroxine (Synthroid, Levoxyl) 100 MCG tabletIndication s:Hypothyroidism , unspecified type Take 1 tablet (100 mcg) by mouth in the morning. 90 tablet 10/18/19 24 025 Discontinued carbidopa-levodo pa (Sinemet) 25-100 MG tablet TAKE ONE TABLET TWICE DAILY IN THE MORNING AND AT BEDTIME 60 tablet 05/09/20 24 025 Discontinued Active Problems Problem Noted Date Diagnosed Date Alcohol abuse 11/30/2023 Menopausal and female climacteric states 023 Cobalamin deficiency 02/03/2016 Paroxysmal supraventricular tachycardia 06/09/20 13 Schizophrenia 04/29/2013 Hypothyroidism 02/19/2013 Obesity 02/19/2013 Encounters Date Type Department Care Team Description 08/25/2024 10:45 AM EST Office Visit [facility] [address] [place] [address] Walter Bar MD Alcohol use disorder, severe, dependence (CMS/HCC) (Primary Dx); Elevated liver enzymes 08/25/2024 Travel 08/20/2024 Patient Outreach [facility] [address] [place] [address] Silva Light MD Care Coordination (Outreach) 08/15/2024 10:00 AM EST Telemedicine [facility] [address] [place] [address] Silva Light MD Bilateral leg edema (Primary Dx); Hypothyroidism, unspecified type; Alcohol abuse 08/15/2024 Travel 08/14/2024 Telephone [facility] [address] [place] [address] Silva Light MD Chart Prep 08/11/2024 Patient Outreach [facility] [address] [place] [address] Silva Light MD Care Coordination (Outreach) 08/08/2024 Refill [facility] [address] [place] [address] Silva Light MD Hypothyroidism, unspecified type 08/08/2024 Patient Outreach [facility] [address] [place] [address] Silva Light MD Pre-visit Planning (SDOH positive, Tobacco screening negative. ) from Last 3 Months Immunizations Name Administration Dates Next Due Influenza injectable quadriv alent IIV4 with preservative 06/24/2018,04/28/2016,07/13/2015 Influenza injectable quadriv alent preservative free 07/11/2023,04/25/2022,04/02/2021,2019 Influenza, IIV3, injectable 05/27/2014, 1 Influenza, Split (incl. tita fied surface antigen) 05/15/2013 Influenza, seasonal, injecta ble, preservative free 04/16/2024,03/27/2017 TD (adult), 2 Lf tetanus tox oid, preservative free, adsorbed 11/30/2021 Tdap 07/11/2011 Zoster, Recombinant 12/05/2021,04/02/2021 Social History Tobacco Use Types Packs/Day Years Used Date Smoking Tobacco: Never Smokeless Tobacco: Never Tobacco Cessation:Counseling Given: No Alcohol Use Standard Drinks/Week Comments Yes 21 [...] Orientation Straight 05/29/2022 10 :20 AM EDT Last Filed Vital Signs Vital Sign Reading Time Taken Comments Blood Pressure 117/67 08/25/2024 11:20 AM EST Pulse 67 08/25/2024 11:20 AM EST Temperature 36.6 ??C (97.8 ??F) 08/25/2024 11:[address] Respiratory Rate 16 08/25/2024 11:20 AM EST Oxygen Saturation - - Inhaled Oxygen Concentration - - Weight 106 kg (234 lb) 04/16/2024 11:13 AM EDT Height 167.6 cm (5' 6 ) 04/16/2024 11:13 AM EDT Body Mass Index 37.77 04/16/2024 11:13 AM EDT Plan of Treatment Upcoming Encounters Date Type Department Care Team (Late st Contact Info) Description 09/08/2024 10:00 AM EST Telemedicine [facility] [address] [place] [address] Walter Bar MD [address] [place] [address] 10/14/2024 8:30 AM EDT Office Visit [facility] [address] [place] [address] Silva Light MD [address] [place] [address] Health Maintenance Due Date Last Done Comments CT Colonography 1964 FIT DNA/Cologuard 1964 FIT 1964 FOBT 1964 HIV Screening 1964 Sigmoidoscopy 1964 Alcohol/Substance Use Screening 1976 Hepatitis A Vaccines (1 of 2 - Risk 2-dose series) 1983 Dental X-Ray: Bitewings 09/09/2010 09/08/2009 Dental Oral Exam 03/07/2011 09/06/2010, 11/26/2009 Dental Prophylaxis 03/07/2011 09/06/2010 Mammogram 12/06/2023 12/05/2021, 12/29, 04/23/2018 COVID-19 Vaccine ( season) 2024 05/25/2022, 01/16/2022, 08/30/2021, Additional history exists Hepatitis B Vaccines (1 of 3 - Risk 3-dose series) 2024 RSV Patients and Patients Aged 60 years or older (1 - Risk 60-74 years 1-dose series) 2024 Cervical Cancer Screening 12/20/2024 HPV/Cotest 12/20/2024 12/20/2021, 12/31/2018 Pap Smear 12/20/2024 12/20/2021, 11/28, 12/30/2019, Additional history exists Depression Screening 04/16/2025 04/16/2024, 04/16/20 SDOH Screening 08/08/2025 08/08/2024 Tobacco Screening 08/25/2025 08/25/2024 Dental X-Ray: Full Mouth 05/22/2027 05/21/2024, 08/30 Colonoscopy 07/10/2027 07/10/2022 Colorectal Cancer Screening 07/10/2027 Lipid Panel 04/16/2029 04/16/2024, 11/18/2021 DTaP/Tdap/Td Vaccines (3 - Td or Tdap) 12/01/2031 11/30/2021, 07/11/2011 Hepatitis C Screening Completed 11/18/2021 Zoster Vaccines Completed 12/05/2021, 04/02/2021 Influenza Vaccine Completed 04/16/2024, , 04/25/2022, Additional history exists HIB Vaccines Aged Out No longer eligi ble based on patient's age to complete this topic HPV Vaccines Aged Out No longer eligi ble based on patient's age to complete this topic IPV Vaccines Aged Out No longer eligi ble based on patient's age to complete this topic Meningococcal Vaccine Aged Out No bam jarret eligible based on patient's age to complete this topic Pneumococcal Vaccine: Pediatrics (0 to 5 Years) and At-Risk Patients (6 to 64 Years) Aged Out No longer eligible based on patient's age to complete this topic RSV under 20 months Aged Out No longe r eligible based on patient's age to complete this topic Rotavirus Vaccines Aged Out No longer eligible based on patient's age to complete this topic Procedures Procedure Name Priority Date/Time Associated Diagnosis Comments PROTHROMBIN TIME-INR Routine 08/25/2024 12:15 PM EST Alcohol use disorder, severe, dependence (CMS/HCC) CBC WITH AUTO DIFFERENTIAL Routine 08/25/2024 12:15 PM EST Alcohol use disorder, severe, dependence (CMS/HCC) HEPATIC FUNCTION PANEL Routine 12:15 PM EST Alcohol use disorder, severe, dependence (CMS/HCC) POCT VANESSA-14 URINE DRUG SCREEN Routine 08/25/2024 11:55 AM EST Alcohol use disorder, severe, dependence (CMS/HCC) PANORAMIC RADIOGRAPHIC IMAGE Routine 05/21/2024 11:00 AM EDT Dental abscess Severe dental caries LIPID PANEL, STANDARD Routine 04/16/2024 12:03 PM EDT Hypothyroidism, unspecified type Alcohol abuse HM COLONOSCOPY Routine 07/10/2022 THINPREP IMAGING PAP AND HPV MRNA E6/E7 WITH REFLEX TO HPV 16,18/45 Routine 12/20/2021 2:15 PM EDT PAP SMEAR Routine 12/20/2021 12:00 AM EDT MAMMOGRAM GENERIC Routine 12/05/2021 8:4 2 AM EDT ZZZ HISTORICAL HEPATITIS C AB W/REFL TO HCV RNA, QN, PCR Routine 11/18/2021 10:29 AM EDT PROPHYLAXIS - ADULT Routine 09/06/2010 1 2:00 AM EST PERIODIC ORAL EVALUATION - ESTABLISHED PATIENT Routine 09/06/2010 12:00 AM EST DIAGNOSTIC - DIAGNOSTIC IMAGING - INTRAORAL - COMPREHENSIVE SERIES OF RADIOGRAPHIC IMAGES Routine 09/08/2009 12:00 AM EST from Last 3 Months or Most Recently Relevant to Health Maintenance Results * CBC auto differential (08/25/2024 12:15 PM EST) White Blood Count 6.7 4.8 - 10.8 X10*3/uL [facility] Red Blood Count 4.64 4.20 - 5.50 X10*6/uL [facility] Hemoglobin 14.6 12.0 - 16.0 g/dl [facility] Hematocrit 44.4 37.0 - 47.0 % [facility] Mean Corpuscular Volume 95.7 80.0 - 98.0 fL [facility] Mean Corpuscular Hemoglobin 31.5 27.0 - 33.0 pg [facility] Mean Corpuscular HGB Conc 32.9 31.0 - 35.0 g/dl [facility] Red Cell Distribution Width 15.7 11.0 - 16.0 % [facility] Platelet Count 231 160 - 400 X10*3/uL [facility] Mean Platelet Volume 11.5 9.4 - 12.3 fL [facility] Neutrophils Percent Auto 60.9 45 - 73 % [facility] Imm Gran Pct Auto 0.1 0.0 - 0.4 % [facility] Lymphocytes Percent Auto 31.4 20 - 40 % [facility] Monocytes Percent Auto 5.7 2 - 11 % [facility] Eosinophils Percent Auto 1.5 0 - 4 % [facility] Basophils Percent Auto 0.4 0 - 2 % [facility] NRBC Pct Auto 0.0 0.0 - 0.2 /100WBC [facility] Neutrophils Absolute Auto 4.1 2.0 - 8.3 x10*3/uL [facility] Imm Gran Abs Auto 0.01 0.00 - 0.03 X10*3/uL [facility] Lymphocytes Absolute Auto 2.1 1.2 - 4.9 X10*3/uL [facility] Monocytes Absolute Auto 0.4 0.1 - 1.2 X10*3/uL [facility] Eosinophils Absolute Auto 0.1 0.0 - 0.4 X10*3/uL [facility] Basophils Absolute Auto 0.0 0.0 - 0.2 X10*3/uL [facility] NRBC Abs Auto 0.000 0.0 - 0.012 X10*3/uL [facility] Blood Venous blood specimen / Unknown 08/25/2024 12:15 PM EST 08/25/2024 2:21 PM EST Walter Bar MD LAB BLOOD ORDERABLES Final Resul t Performing Organization Address [facility] Co de Phone Number [facility] [address] [place] [address] [phone] * (ABNORMAL) Prothrombin Time-INR (08/25/2024 12:15 PM EST) Prothrombin Time 12.9(H) 10.9 - 12.4 SEC [facility] INTERNATIONAL NORM RATIO 1.1 0.9 - 1.1 [facility] Comment:INTERNATIONAL NORMAL IZED RATIO (INR) REFERENCE RANGES Reference RangeFor patients not on anticoagulant therapy: 0.9 - 1.1INR ranges for oral anticoagulanttherapy:For prevention and treatment of venous thrombosis and pulmonary embolism: 2.0 - 3.0For acute myocardial infarction with aspirin therapy: 2.0 - 3.0For acute myocardial infarction without aspirin therapy: 3.0 - 4.0For patients with mechanical prosthetic heart valves: 2.5 - 3.5 Blood Venous blood specimen / Unknown 08/25/2024 12:15 PM EST 08/25/2024 2:21 PM EST us Walter Bar MD LAB BLOOD ORDERABLES Final Resul t Performing Organization Address [facility] Co de Phone Number [facility] [address] [place] [address] [phone] * (ABNORMAL) Hepatic Function Panel (08/25/2024 12:15 PM EST) Bilirubin, Total 3.0(H) 0.0 - 1.0 mg/dL [facility] Comment:Slight Icterus. Bilirubin, Direct 0.8(H) 0.0 - 0.5 mg/dL [facility] Comment:Slight Icterus. Aspartate Amino Transferase 62(H) 5 - 31 U/L [facility] Alanine Aminotransferase 27 0 - 31 U/L [facility] Total Protein 7.4 6.5 - 8.0 g/dL [facility] Albumin Level 4.0 3.5 - 5.0 g/dL [facility] Alkaline Phosphatase 104 39 - 117 U/L [facility] Blood Venous blood specimen / Unknown 08/25/2024 12:15 PM EST 08/25/2024 2:21 PM EST us Walter Bar MD LAB BLOOD ORDERABLES Final Resul t [facility] [address] [place] [phone] * POCT VANESSA-14 Urine Drug Screen (08/25/2024 11:55 AM EST) THC Positive Cocaine Screen, Urine Negative Opiate Screen, Urine Negative Methamphetamine Screen Urine Negative Amphetamine Screen, Urine Negative Benzodiazepines Screen, Urine Negative Barbiturate Screen, Urine Negative Methadone Screen, Urine Negative Buprenophine Screen, Urine Negative TCA, Urine Positive MDMA Urine Negative ng/mL Oxycodone Screen, Urine Negative Phencyclidine (PCP), Urine Negative Propoxyphene, Urine Negative Fentanyl, Urine Negative Urine Urine specimen obtained by clean catch procedure / Unknown 08/25/2024 11:55 AM EST us Walter Bar MD POINT OF CARE TEST ENTER/EDIT OR DERABLES Final Result * (ABNORMAL) Lipid Panel, Standard (04/16/2024 12:03 PM EDT) Triglycerides 195(H) <150 mg/dL [facility] Comment:Desirable Triglyceri de: less than 150 mg/dLBorderline High Triglyceride 150-199 mg/dLHigh Triglyceride: 200-499 mg/dLVery High Triglyceride: greater than or equal to 5OO mg/dL Cholesterol 232(H) <200 mg/dL [facility] Comment:Desirable Cholestero l: less than 200 mg/dLBorderline High Cholesterol: 200-239 mg/dLHigh Cholesterol: greater than 239 mg/dL LDL Cholesterol Calculated 160(H) <100 mg/dL [facility] Comment:Desirable LDL: less than 100 mg/dLNear Optimal/Above Optimal LDL: 110- 129 mg/dLBorderline High LDL: 130-159 mg/dLHigh LDL: 160-189 mg/dLVery High LDL: greater than or equal to 190 mg/dL HDL Cholesterol 33(L) >40 mg/dL [facility] Comment:Desirable HDL: great er than 40 mg/dL Note: This HDL assay may give artificially low results in patients with liver disease. Blood Venous blood specimen / Unknown 04/16/2024 12:03 PM EDT 04/16/2024 2:13 PM EDT Silva Light MD LAB BLOOD ORDERABLES Final Resul t [facility] [address] [place] [phone] * Colonoscopy (07/10/2022) Colonoscopy Normal Normal Historical Provider HEALTH MAINTENANCE Final Result * THINPREP TIS PAP AND HPV mRNA E6/E7 WITH REFLEX TO HPV 16,18/45 (12/20/2021 2:15 PM EDT) Clinical Information: None given [facility] COMMENT SEE COMMENT [facility] Comment: EXPLANATORY NOTE: ? The Pap is a screening test for cervical cancer. It is ?? not a diagnostic test and is subject to false negative ?? and false positive results. It is most reliable when a ?? satisfactory sample, regularly obtained, is submitted ?? with relevant clinical findings and history, and when ?? the Pap result is evaluated along with historic and ?? current clinical information. ?? COMMENT: This Pap test has been evaluated with computer assisted technology. [facility] Brass Cleaner: SEE COMMENT [facility] Comment: DMM, CT(ASCP) CT screening location: [address] ??[address] HPV nRNA E6/E7 Not Detected Not Detected [facility] Comment: Methodology: Melting Furnace Skimmer-Mediated Amplification This assay detects E6/E7 viral messenger RNA (mRNA) from 14 high-risk HPV types (16,18,31,33,35,39,45,51,52,56,58,59,66,68). ? The analytical performance characteristics of this assay have been determined by [employer]. The modifications have not been cleared or approved by the FDA. This assay has been validated pursuant to the CLIA regulations and is used for clinical purposes. ?? For additional information, please refer to http://education.[employer]/faq/ISQ740g0 (This link if provided for information/ educational purposes only.) Interpretation/Re sult: Negative for intraepithelial lesion or malignancy. [facility] LMP: NONE GIVEN [facility] Prev. BX: COLP NEG 2018/2019 [facility] Prev. PAP: ASCUS HPV NEG 2020 LSIL HPV NEG 2018 [facility] Review Brass Cleaner: SEE COMMENT [facility] Comment: MAA CT(ASCP) CT screening location: [address] ??[address] SOURCE: None given [facility] Statement Of Adequacy: SEE COMMENT [facility] Comment: Satisfactory for evaluation. Endocervical/transformation zone component present. 12/20/2021 2:15 PM EDT [facility] ORDERABLES Final Result [facility] [address] * Pap Smear (12/20/2021 12:00 AM EDT) Swab [facility] CYTOLOGY ORDERABLES F inal Result [address], [place] [phone] * Mammography Report 1 (12/05/2021 8:42 AM EDT) Anatomical Region Laterality Modality Breast Bilateral Mammography 12/05/2021 8:42 AM EDT Narrative 12/06/2021 8:25 AM EDT Refer to the Notes tab for result details [facility] Procedure: Mammography Report 1 Procedure Note Provider, Cinthya, - 10/22/2022 Refer to the Notes tab for result details [facility] Procedure: Mammography Report 1 us Silva Light MD IMG BI PROCEDURES Final Result * HEPATITIS C AB W/REFL TO HCV RNA, QN, PCR (11/18/2021 10:29 AM EDT) HEPATITIS C ANTIBODY NON-REACT ARELI NON-REACT ARELI [facility] INDEX 0.02 <1.00 [facility] Comment: ?? HCV antibody was non-reactive. There is no laboratory ?? evidence of HCV infection. ?? In most cases, no further action is required. However, if recent HCV exposure is suspected, a test for HCV RNA (test code 88501) is suggested. ?? For additional information please refer to http://education.[employer]/faq/UFK53v6 (This link is being provided for informational/ educational purposes only.) ?? 11/18/2021 10:2 9 AM EDT us Trang Philip MD HISTORICAL/NON ORDERABLE LABS Final Result [facility] [address] from Last 3 Months or Most Recently Relevant to Health Maintenance Insurance [facility] ST[facility] ADULT Care Teams Traverse Rod Assembler Relationship Specialty Start Date End Date Silva Light MD [address] [place] [phone] PCP - General Family Medicine 08/06/13"
--- OUTSIDE RECORDS SUMMARY | 2024-08-25 17:03 | XMS_ITS | Encounter Summary ---
Author Organization [employer] Address [address] [facility] [address] [place] [address] Care Team Providers Care Steel Burner Name Role Phone Silva Light MD Primary Care Provider [phone] Encounter Details Date Type Department Care Team (Latest Contact Info) Description 08/25/2024 Travel Social History Tobacco Use Types Packs/Day [...] Info) Description 09/08/2024 10:00 AM EST Telemedicine [facility] [address] [place] [address] Walter Bar MD [address] [place] [address] 10/14/2024 8:30 AM EDT Office Visit [facility] [address] [place] [address] Silva Light MD [address] [place] [address] documented as of this encounter Visit Diagnoses Not on filedocumented in this encounter Care Teams Steel Burner Relationship Specialty Start Date End Date Silva Light MD [address] [place] [address] PCP - General Family Medicine 08/06/13 documented as of this encounter
--- OUTSIDE RECORDS SUMMARY | 2024-08-25 17:03 | XMS_ITS | Encounter Summary ---
Author Organization [employer] Address [address] [facility] [address] [place] [address] Care Team Providers Care Mini Baccarat Dealer Name Role Phone Silva Light MD Primary Care Provider [phone] Reason for Visit * Reason Comments Pre-visit Planning SDOH positive, Tobac co screening negative. Encounter Details Date Type Department Care Team ([facility] Contact Info) Description 08/08/2024 Patient Outreach [facility] [address] [place] [address] Silva Light MD [address] [place] [address] Pre-visit Planning (SDOH positive, Tobacco screening negative. ) Social History Tobacco Use Types Packs/Day Years [...] as of this encounter Progress Notes * Jackie Trujillo - 08/08/2024 1:42 PM EST CC Jackie S. placed successful outbound call to patient for pre-visit planning. Patient name and confirmed. Patient confirms appt date and time, and has transportation arrangements. Biggest concern for appointment at this time is unable to sleep and no appetite. Appropriate screenings completed in anticipation of appointment. SDOH positive. Patient needs assistance with food insecurities. documented in this encounter Plan of Treatment Upcoming Encounters Date Type Department Care Team ([facility] st Contact Info) Description 09/08/2024 10:00 AM EST Telemedicine [facility] [address] [place] [address] Walter Bar MD [address] [place] [phone] 10/14/2024 8:30 AM EDT Office Visit [facility] [address] [place] [address] Silva Light MD [address] [place] [address] documented as of this encounter Visit Diagnoses Not on filedocumented in this encounter Care Teams Mini Baccarat Dealer Relationship Specialty Start Date End Date Silva Light MD [address] [place] [phone] PCP - General Family Medicine 08/06/13 documented as of this encounter
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
--- OUTSIDE RECORDS SUMMARY | 2024-08-25 17:03 | XMS_ITS | Encounter Summary ---
Author Organization [employer] Address [address] [place] [address] 7 [place] [address] Care Team Providers Care Cylinder Devalver Name Role Phone Silva Light MD Primary Care Provider [phone] Reason for Visit * Reason Comments Med Refill Encounter Details Date Type Department Care Team (Late st Contact Info) Description 03/26/2023 Refill [facility] MED & PEDS [address] [place] [address] Silva Light MD 505 [place] [address] Post-traumatic stress disorder, unspecified Social History Tobacco Use Types Packs/Day Years [...] Info) Description 09/08/2024 10:00 AM EST Telemedicine [facility] MED & PEDS [address] [place] [address] Walter Bar MD 230 [place] [address] 10/14/2024 8:30 AM EDT Office Visit [facility] MED & PEDS [address] [place] [address] Silva Light MD [address] [place] [address] documented as of this encounter Visit Diagnoses Diagnosis Post-traumatic stress disorder, unspecified documented in this encounter Care Teams Cylinder Devalver Relationship Specialty Start Date End Date Silva Light MD [address] [place] [address] PCP - General Family Medicine 08/06/13 documented as of this encounter
--- OUTSIDE RECORDS SUMMARY | 2024-08-25 17:03 | XMS_ITS | Encounter Summary ---
Author Organization [employer] Address [address] [facility] 7t [place] [address] Care Team Providers Care Flat Sorting Machine Clerk Name Role Phone Silva Light MD Primary Care Provider [phone] Reason for Visit * Reason Onset Date Comments Chart Prep 08/14/2024 Encounter Details Date Type Department Care Team ([facility] Contact Info) Description 08/14/2024 Telephone [facility] MED & PEDS [address] [place], [place] [phone] Silva Light MD 505 [place] [address] Chart Prep Social History Tobacco Use Types Packs/Day Years [...] encounter Miscellaneous Notes * Telephone Encounter - Tanisha Martínez MA - 08/14/2024 2:53 PM EST Chart Prep Labs: done Images: done Vaccines due: yes Referrals: complete Screenings: mammogram Overdue care gaps: none documented in this encounter Plan of Treatment Upcoming Encounters Date Type Department Care Team (Late st Contact Info) Description 09/08/2024 10:00 AM EST Telemedicine [facility] MED & PEDS [address] [place] [address] Walter Bar MD [address] [place] [address] 10/14/2024 8:30 AM EDT Office Visit [facility] MED & PEDS [address] [place] [address] Silva Light MD [address] [place] [address] documented as of this encounter Visit Diagnoses Not on filedocumented in this encounter Care Teams Flat Sorting Machine Clerk Relationship Specialty Start Date End Date Silva Light MD [address] [place] [address] PCP - General Family Medicine 08/06/13 documented as of this encounter
--- OUTSIDE RECORDS SUMMARY | 2024-08-25 17:03 | XMS_ITS | Encounter Summary ---
Author Organization [email or web address] Address [address] [facility] 7t [place] [address] Care Team Providers Care Plant Physiologist Name Role Phone Silva Light MD Primary Care Provider [phone] Reason for Visit * Reason Onset Date Comments Medication Question 05/28/2023 Encounter Details Date Type Department Care Team ([facility] st Contact Info) Description 05/28/2023 Telephone [facility] MEDICINE [address] [place] [address] Silva Light MD [address] [place] [address] Medication Question Social History Tobacco Use Types Packs/Day Years [...] encounter Miscellaneous Notes * Telephone Encounter - Silva Light MD - 05/29/2023 11:12 AM EDT Sent 1 mnth supply.Pt needs to follow up with Neuro * Telephone Encounter - Gina Vazquez LPN - 05/28/2023 3:13 PM EDT Please review message below * Telephone Encounter - Lexi Treviño - 05/28/2023 3:04 PM EDT Tc from pt requesting for a new scripts on rOPINIRole (Requip) 0.5 MG tablet & carbidopa-levodopa (Sinemet) 25-100 MG tablet. Pt stated scripts are prescribed by [place]rolog[place] [facility] [place]. Melendez however due to missing several appt , states pt needs to be seen with a new neurologist & will notfill medication. Please contact at [phone] documented in this encounter Plan of Treatment Upcoming Encounters Date Type Department Care Team ([facility] st Contact Info) Description 09/08/2024 10:00 AM EST Telemedicine [facility] MED & PEDS [address] [place] [address] Walter Bar MD [address] [place] [address] 10/14/2024 8:30 AM EDT Office Visit [facility] MED & PEDS [address] [place] [address] Silva Light MD 505 [place] [address] documented as of this encounter Visit Diagnoses Not on filedocumented in this encounter Care Teams Plant Physiologist Relationship Specialty Start Date End Date Silva Light MD [address] [place] [address] PCP - General Family Medicine 08/06/13 documented as of this encounter
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
--- OUTSIDE RECORDS SUMMARY | 2024-08-25 17:03 | XMS_ITS | Encounter Summary ---
Author Organization [employer] Address [address] [place] [address] [address] [place] [address] Care Team Providers Care Machine Repairer Maintenance Name Role Phone Silva Light MD Primary Care Provider [phone] Reason for Visit * Reason Onset Date Comments Nurse Triage 11/14/2023 Encounter Details Date Type Department Care Team ([facility] st Contact Info) Description 11/14/2023 Telephone [facility] MEDICINE [address] [place] [address] Silva Light MD [address] [place] [address] Nurse Triage Social History Tobacco Use Types [...] Telephone Encounter - Wing Amanda RN - 11/20/2023 10:46 AM EDT Tc to pt regarding message from PCP about starting zofran. Unable to reach pt and voice mail is full so unable to leave message. * Telephone Encounter - Saira Frazier RN - 11/19/2023 2:01 PM EDT TC X1 to pt regarding message below. Unable to LVM as VM is full. Will reattempt x2. * Telephone Encounter - Silva Light MD - 11/19/2023 1:50 PM EDT Pt allergic to Bactrim . Started on zofran to be taken with Doxy * Telephone Encounter - Silva Light MD - 11/19/2023 1:48 PM EDT Change to Bactrim * Telephone Encounter - Tonia Lopes RN - 11/14/2023 3:18 PM EDT Triage call Pt reports was discharged from [facility] 11/09/23 with prescription for doxycycline 100mg 2x/ daily for left leg cellulitis. Pt reports every time Pt takes the medication even with food Pt vomits. Pt is requesting a different medication. Pt has apt with PCP 11/30/23. Advised Pt will send this request to PCP and nursing staff at [facility] for follow up. Pt agreed with this disposition. Protocol Used: Medication Question Call (Adult) Protocol-Based Disposition: Discuss with PCP and Callback by Nurse within 1 Hour Video visit not offered Positive Triage Question: * Caller has URGENT medicine question about med that PCP or specialist prescribed and triager unable to answer question * All higher-acuity triage questions were negative Care Advice Discussed: * Reasons To Call Back - You have any more questions - You become worse * Telephone Encounter - Cherie Celestin - 11/14/2023 2:51 PM EDT Symptoms: Medication Reaction, Vomiting Outcome: Schedule an urgent appointment (within 1 hour) or talk to a nurse or provider soon Reason: Caller denied all higher acuity questions The caller accepted this outcome documented in this encounter Plan of Treatment Upcoming Encounters Date Type Department Care Team (Late st Contact Info) Description 09/08/2024 10:00 AM EST Telemedicine [facility] MED & PEDS [address] [place] [address] Walter Bar MD [address] [place] [address] 10/14/2024 8:30 AM EDT Office Visit [facility] MED & PEDS [address] [place] [address] Silva Light MD [address] [place] [address] documented as of this encounter Visit Diagnoses Not on filedocumented in this encounter Care Teams Machine Repairer Maintenance Relationship Specialty Start Date End Date Silva Light MD [address] [place] [address] PCP - General Family Medicine 08/06/13 documented as of this encounter
--- OUTSIDE RECORDS SUMMARY | 2024-08-25 17:03 | XMS_ITS | Encounter Summary ---
Author Organization [employer] Address [address] [facility] [address] [place] [address] Care Team Providers Care Kitchen Steward Name Role Phone Silva Light MD Primary Care Provider [phone] Reason for Visit * Reason Comments Med Refill Encounter Details Date Type Department Care Team ([facility] Contact Info) Description 08/08/2024 Refill [facility] MED & PEDS [address] [place], [place] [phone] Silva Light MD [address] [place] [address] Hypothyroidism, unspecified type Social History Tobacco Use Types Packs/Day Years [...] [facility] [address] [place] [address] Walter Bar MD [address] [place] [address] 10/14/2024 8:30 AM EDT Office Visit [facility] MED & PEDS [address] [place] [address] Silva Light MD [address] [place] [address] documented as of this encounter Visit Diagnoses Diagnosis Hypothyroidism, unspecified type documented in this encounter Care Teams Kitchen Steward Relationship Specialty Start Date End Date Silva Light MD [address] [place] [address] PCP - General Family Medicine 08/06/13 documented as of this encounter
--- OUTSIDE RECORDS SUMMARY | 2024-08-25 17:03 | XMS_ITS | Encounter Summary ---
Author Organization [employer] Address [address] [place] [address] [address] [place] [address] Care Team Providers Care Manager Security Name Role Phone Silva Light MD Primary Care Provider [phone] Reason for Referral * Consultation (STAT) - Closed Specialty Diagnoses / Procedures Referred By Andre t Referred To Contact Addiction Medicine Diagnoses Alcohol abuse Silva Light MD [address] [place] [address] Phone: tel: fax: Referral ID Status Reason Start Date Expiration Date V isits Requested Visits Authorized [id number] Closed Specialty Services Required 08/15/2024 08/15/2025 1 1 Scheduling Instructions GETTING WORSE Reason for Visit * Reason Comments Edema fu Encounter Details Date Type Department Care Team ([facility] st Contact Info) Description 08/15/2024 10:00 AM EST Telemedicine [facility] MED & PEDS [address] [place] [address] Silva Light MD [address] [place] [address] Bilateral leg edema (Primary Dx); Hypothyroidism, unspecified type; Alcohol abuse Social History Tobacco Use Types Packs/Day Years [...] as of this encounter Progress Notes * Silva Light MD - 08/15/2024 10:00 AM EST Subjective Patient ID: Judy Alexander is a 59 y.o. female who presents for Edema (fu). Edema Presents with chronic edema. The current episode started more than 1 month ago. The onset of the episode was gradual. The problem presents itself constantly. The problem has been gradually improving.The edema is present on the both side(s). Pertinent negative symptoms include no abdominal pain, no abdominal swelling, no chest pain, no hemoptysis, no nausea, no nocturia, no orthopnea, no palpitations and no PND. Alcohol Problem Pertinent negatives include no agitation, confusion, delusions, hallucinations, intoxication, loss of consciousness, seizures, self-injury, somnolence, violence or weakness. The problem has been gradually worsening since onset. Suspected agents include alcohol. Pertinent negatives include no nausea. Past treatments include nothing. Review of Systems Constitutional: Negative. Respiratory: Negative. Negative for hemoptysis and shortness of breath. Cardiovascular: Positive for leg swelling. Negative for chest pain, palpitations and PND. Gastrointestinal: Negative. Negative for abdominal pain and nausea. Genitourinary: Negative. Negative for nocturia. Musculoskeletal: Negative for neck pain. Neurological: Negative for seizures, loss of consciousness, weakness and headaches. Psychiatric/Behavioral: Negative for agitation, confusion, hallucinations and self-injury. Objective Physical Exam Psychiatric: Mood and Affect: Mood normal. Behavior: Behavior normal. Thought Content: Thought content normal. Judgment: Judgment normal. Assessment/Plan Diagnoses and all orders for this visit: Bilateral leg edema Comments: Much Improved Cont LAsix Advised low salt diet and avoid junk food Orders: - Basic Metabolic Panel; Future - Lipid Panel, Standard; Future - Hepatic Function Panel; Future Hypothyroidism, unspecified type Comments: Labs ordered Stable for now Orders: - TSH with Reflex to Free T4; Future Alcohol abuse Comments: Referred to [facility] stat .Spoke [facility] Rip who will call pt and teresa for a appt with Orders: - Basic Metabolic Panel; Future - Lipid Panel, Standard; Future - Hepatic Function Panel; Future - Referral to [facility] Alcohol Use Disease; Future documented in this encounter Plan of Treatment Upcoming Encounters Date Type Department Care Team (Late st Contact Info) Description 09/08/2024 10:00 AM EST Telemedicine [facility] MED & PEDS [address] [place] [address] Walter Bar MD [address] [place] [id number] 10/14/2024 8:30 AM EDT Office Visit [facility] MED & PEDS [address] [place] [address] Silva Light MD [address] [place] [address] Scheduled Orders Name Type Priority Associated Diagnoses Orde r Schedule Basic Metabolic Panel Lab Routine Bilateral leg edema Alcohol abuse Expected: 08/15/2024 (Approximate), Expires: 08/15/2025 Lipid Panel, Standard Lab Routine Bilateral leg edema Alcohol abuse Expected: 08/15/2024 (Approximate), Expires: 08/15/2025 Hepatic Function Panel Lab Routine Bilateral leg edema Alcohol abuse Expected: 08/15/2024 (Approximate), Expires: 08/15/2025 TSH with Reflex to Free T4 Lab Routine Hypothyroidism, unspecified type Expected: 08/15/2024 (Approximate), Expires: 08/15/2025 Scheduled Referrals Name Type Priority Associated Diagnoses Orde r Schedule Referral to [facility] Alcohol Use Disease Outpatient Referral STAT Alcohol abuse Expected: 08/15/2024 (Approximate), Expires: 08/15/2025 documented as of this encounter Visit Diagnoses Diagnosis Bilateral leg edema- Primary Edema Hypothyroidism, unspecified type Alcohol abuse Nondependent alcohol abuse, unspecified drinking behavior documented in this encounter Care Teams Manager Security Relationship Specialty Start Date End Date Silva Light MD [address] [place] [id number] PCP - General Family Medicine 08/06/13 documented as of this encounter
--- OUTSIDE RECORDS SUMMARY | 2024-08-25 17:03 | XMS_ITS | Encounter Summary ---
Author Organization [employer] Address [address] [facility] [address] [place] [address] Care Team Providers Care Health Services Coordinator Name Role Phone Silva Light MD Primary Care Provider [phone] Reason for Visit * Reason Comments Care Coordination Outreach Encounter Details Date Type Department Care Team (Latest Contact Info) Description 08/20/2024 Patient Outreach [facility] MED & PEDS [address] [place], [place] [phone] Silva Light MD [address] [place] [address] Care Coordination (Outreach) Social History Tobacco Use [...] encounter Progress Notes * Georgia Vazquez - 08/20/2024 2:10 PM EST CHW Georgia Vazquez , placed outbound call to patient in regards to offer services. CHW introducing herself from [facility] CM Department with CHW's name, department and direct contact [phone] requesting call back. Will re-attempt to contact within 5 days. and address not confirmed. documented in this encounter Plan of Treatment Upcoming Encounters Date Type Department Care Team (Late st Contact Info) Description 09/08/2024 10:00 AM EST Telemedicine [facility] MED & PEDS [address] [place] [address] Walter Bar MD [address] [place] [address] 10/14/2024 8:30 AM EDT Office Visit [facility] MED & PEDS [address] [place] [address] Silva Light MD [address] [place] [address] documented as of this encounter Visit Diagnoses Not on filedocumented in this encounter Care Teams Health Services Coordinator Relationship Specialty Start Date End Date Silva Light MD [address] [place] [address] PCP - General Family Medicine 08/06/13 documented as of this encounter
[2024-08-26 08:34] LABS: HBc Num1 0.11 S/CO (0.00-0.79); HBsAGNum1 0.39 S/CO (0.00-0.99); Hepatitis B Core Antibody Nonreactive (Nonreactive); Hepatitis B Surface Antigen Negative (Negative); ~HepC Num1 0.12 S/CO (0.00-0.79); ~Hepatitis B Surface Antibody NONREACTIVE (Nonreactive); ~Hepatitis C Antibody Nonreactive (Nonreactive)
[2024-08-26 08:37] LABS: Hepatitis A Antibody IgG Nonreactive (Nonreactive); ~Hepatitis A Antibody IgG 0.59 S/CO (0.00-0.99)
== END 2024-08-25 12:14 | disposition home or self-care (01) ==
LOC: HO.CHCLDS 12:13
PROVIDERS: Visit Provider Family Medicine
DX: F10.20 Alcohol dependence, uncomplicated (principal)
CPT/HCPCS: 36415; 80076; 85025; 85610; 86704; 86706; 86708; 86803; 87340

== ENCOUNTER 2024-09-09 08:44 | Outpatient (REF) | payer MEDICAID, SELFPAY ==
--- NOTE | ~2024-09-09 | US_ITS ---
CLINICAL HISTORY: Patient with elevated TBili and AST ALT. Underlying alcohol use disorder. US abdomen complete with color Doppler Comparison: None Findings: The visualized pancreas, aorta, and inferior vena cava are unremarkable. Liver normal size and diffusely echogenic. Right lobe 16.6 cm length. No focal hepatic masses. Common duct 7.2 mm diameter. Physiologic distention of the gallbladder. No gallstones or sludge. Mild adenomyomatosis. No pericholecystic fluid. No sonographic Hickey sign. Main portal vein antegrade. Right kidney normal size, 9.9 cm in length. Normal cortical width and echotexture. No solid or cystic renal masses. No nephrolithiasis or hydronephrosis. Left kidney normal, 12.0 cm in length. Normal cortical width and echotexture. No solid or cystic renal masses. Nephrolithiasis or hydronephrosis. Spleen measures 11.4 cm. No splenic masses. No ascites. No lymphadenopathy. Impression: 1. Normal-sized liver mildly echogenic reflecting hepatic steatosis or diffuse hepatocellular disease. 2. No gallstones or evidence of cholecystitis. Subtle gallbladder adenomyomatosis may be present. 3. Mild dilatation of the common bile duct no sonographic evidence of choledocholithiasis. MRCP would be confirmatory. This document has been electronically signed by: Mark Acuña MD on 09/09/2024 10:36:46
--- OUTSIDE RECORDS SUMMARY | 2024-09-09 09:06 | XMS_ITS | Clinical Summary ---
Author Organization [employer] Address [address] [place] [address] 7 [place] [address] Care Team Providers Care Tennis Coach Name Role Phone Silva Light MD Primary Care Provider [phone] Allergies Active Allergy Reactions Criticality Noted Date Comments Azithromycin Rash Low 03/09/2022 Latex 04/25/2022 Penicillins 02/19/2013 Sulfa Antibiotics 02/19/2013 Medications hydrOXYzine HCl (Atarax) 10 MG tablet TAKE ONE TABLET BY MOUTH EVERY TWELVE HOURS NEEDED FOR ANXIETY. 2 Active omeprazole (PriLOSEC) [address] capsule Take 40 mg by mouth in the morning. 3 Active prazosin (Minipress) 2 MG capsuleIndication s:Post-traumatic stress disorder, unspecified TAKE ONE CAPSULE AT BEDTIME 90 capsule 1 3 Active FLUoxetine (PROzac) 40 MG capsuleIndication s:Menopausal and female climacteric states TAKE ONE CAPSULE EVERY MORNING 30 capsule 6 3 Active clonazePAM (KlonoPIN) 1 MG tabletIndications :Post-traumatic stress disorder, unspecified TAKE ONE TABLET TWICE DAILY IN THE MORNING AND AT BEDTIME NEEDED 60 tablet 3 Active amitriptyline (Elavil) 25 MG tabletIndications :Major depressive disorder, recurrent, mild (CMS/HCC) TAKE ONE TABLET EVERY NIGHT AT BEDTIME 30 tablet 3 3 Active risperiDONE (RisperDAL) 2 MG tabletIndications :Post-traumatic stress disorder, unspecified TAKE ONE TABLET EVERY NIGHT AT BEDTIME 30 tablet 4 Active cetirizine (ZyrTEC) 10 MG tabletIndications :Allergy, sequela TAKE ONE TABLET EVERY NIGHT AT BEDTIME 30 tablet 11 4 Active metoprolol tartrate (Lopressor) 50 MG tabletIndications :Primary hypertension TAKE 1 TABLET TWICE DAILY IN THE MORNING AND AT BEDTIME 120 tablet 11 4 Active gabapentin (Neurontin) 300 MG capsuleIndication s:Post-traumatic stress disorder, unspecified TAKE ONE CAPSULE TWICE DAILY IN THE MORNING AND AT BEDTIME 60 capsule 11 4 Active meclizine (Antivert) 25 MG tablet Take 1 tablet (25 mg) by mouth if needed in the morning, at noon, and at bedtime for dizziness. TAKE ONE TABLET THREE TIMES DAILY NEEDED 30 tablet 3 4 Active B-Complex, Folic Acid, tablet Take 1 tablet by mouth in the morning. 4 Active naltrexone (Depade) 50 MG tablet TAKE 1/2 TABLET EVERY DAY FOR THREE DAYS THEN INCREASE TO ONE TABLET EVERY DAY 4 Active FLUoxetine (PROzac) 10 MG capsule TAKE ONE CAPSULE EVERY MORNING WITH 40mg CAPSULE 4 Active risperiDONE (RisperDAL) 1 MG tablet TAKE ONE-HALF TO ONE TABLET AT BEDTIME NEEDED FOR MOOD 4 Active Multiple Vitamin (multivitamin) tablet Take 1 tablet by mouth Once per day. Active furosemide (Lasix) 20 MG tablet Take 1 tablet (20 mg) by mouth 2 times daily. 30 tablet 3 4 Active levothyroxine (Synthroid, Levoxyl) 100 MCG tabletIndications :Hypothyroidism, unspecified type TAKE ONE TABLET EVERY MORNING 90 tablet 5 Active carbidopa-levodop a (Sinemet) 25-100 MG tablet TAKE 1 TABLET TWICE DAILY IN THE MORNING AND AT BEDTIME 60 tablet 5 Active naltrexone (Depade) 50 MG tabletIndications :Alcohol use disorder, severe, dependence (CMS/HCC) Take 1 tablet (50 mg) by mouth Once per day. Start with 1/2 tab (=25mg) PO DAILY for 4 days, then increase to 1 tab daily. 30 tablet 5 09/24/19 25 Active Active Problems Problem Noted Date Diagnosed Date Alcohol abuse 11/30/2023 Menopausal and female climacteric states 023 Cobalamin deficiency 02/03/2016 Paroxysmal supraventricular tachycardia 06/09/20 13 Schizophrenia 04/29/2013 Hypothyroidism 02/19/2013 Obesity 02/19/2013 Encounters Date Type Department Care Team Description 09/05/2024 Patient Outreach [facility] [address] [place] [address] Jeff Weeks Recovery Supports 09/03/2024 Patient Outreach [facility] [address] [place] [address] Silva Light MD Care Coordination (SDOH) 09/01/2024 Patient Outreach [facility] [address] [place] [address] Jeff Weeks Recovery Supports 08/27/[address] [address] Walter Bar MD 08/27/2024 Patient Outreach [facility] [address] [place] [address] Silva Light MD Care Coordination (SDOH) 08/25/2024 10:45 AM EST Office Visit [facility] [address] [place] [address] Walter Bar MD Alcohol use disorder, severe, dependence (CMS/HCC) (Primary Dx); Elevated liver enzymes 08/25/2024 Travel 08/20/2024 Patient Outreach [facility] [address] [place] [address] Silva Light MD Care Coordination (Outreach) 08/15/2024 10:00 AM EST Telemedicine [facility] [address] [place] [address] Silva Light MD Bilateral leg edema (Primary Dx); Hypothyroidism, unspecified type; Alcohol abuse 08/15/2024 Travel 08/14/2024 Telephone [facility] [address] [place] [address] Silva Light MD Chart Prep 08/11/2024 Patient Outreach [facility] [address] [place] [address] Silva Light MD Care Coordination (Outreach) 08/08/2024 Refill [facility] [address] [place] [address] Silva Light MD Hypothyroidism, unspecified type 08/08/2024 Patient Outreach [facility] [address] [place] [address] Silva Light MD Pre-visit Planning (SDOH positive, [...] Care Team (Late st Contact Info) Description 10/14/2024 8:30 AM EDT Office Visit [facility] [address] [place] [address] Silva Light MD [address] [place] [address] Health Maintenance Due Date Last Done Comments CT Colonography 1964 FIT DNA/Cologuard 1964 FIT 1964 FOBT 1964 HIV Screening 1964 Sigmoidoscopy 1964 Alcohol/Substance Use Screening 1976 Hepatitis A Vaccines (1 of 2 - Risk 2-dose series) 1983 Dental X-Ray: Bitewings 09/09/2010 09/08/2009 Dental Oral Exam 03/07/2011 09/06/2010, 11/26/2009 Dental Prophylaxis 03/07/2011 09/06/2010 Pneumococcal Vaccine: 50+ Years (1 of 1 - PCV) 2014 Mammogram 12/06/2023 12/05/2021, 12/29, 04/23/2018 COVID-19 Vaccine [...] - Td or Tdap) 12/01/2031 11/30/2021, 07/11/2011 Zoster Vaccines Completed 12/05/2021, 04/02/2021 Influenza Vaccine Completed 04/16/2024, , 04/25/2022, Additional history exists Hepatitis C Screening Completed 08/25/2024, 022 HIB Vaccines Aged Out No longer eligi [...] EST Alcohol use disorder, severe, dependence (CMS/HCC) HEPATITIS C AB W/REFL TO HCV RNA, QN, PCR Routine 08/25/2024 12:15 PM EST Alcohol use disorder, severe, dependence (CMS/HCC) HEPATITIS B SURFACE ANTIGEN, EIA Routine 08/25/2024 12:15 PM EST Alcohol use disorder, severe, dependence (CMS/HCC) HEPATITIS B SURFACE ANTIBODY, QUALITATIVE Routine 08/25/2024 12:15 PM EST Alcohol use disorder, severe, dependence (CMS/HCC) HEPATITIS B CORE AB TOTAL Routine 08/25/2024 12:15 PM EST Alcohol use disorder, severe, dependence (CMS/HCC) HEPATITIS A ANTIBODY, TOTAL Routine 08/25/2024 12:15 PM EST Alcohol use [...] GENERIC Routine 12/05/2021 8:4 2 AM EDT PROPHYLAXIS - ADULT Routine 09/06/2010 [...] Blood Count 6.7 4.8 - 10.8 X10*3/uL [facility] Red Blood Count 4.64 4.20 - 5.50 X10*6/uL [facility] Hemoglobin 14.6 12.0 - 16.0 g/dl [facility] Hematocrit 44.4 37.0 - 47.0 % [facility] Mean Corpuscular Volume 95.7 80.0 - 98.0 fL [facility] Mean Corpuscular Hemoglobin 31.5 27.0 - 33.0 pg [facility] Mean Corpuscular HGB Conc 32.9 31.0 - 35.0 g/dl [facility] Red Cell Distribution Width 15.7 11.0 - 16.0 % [facility] Platelet Count 231 160 - 400 X10*3/uL [facility] Mean Platelet Volume 11.5 9.4 - 12.3 fL [facility] Neutrophils Percent Auto 60.9 45 - 73 % [facility] Imm Gran Pct Auto 0.1 0.0 - 0.4 % [facility] Lymphocytes Percent Auto 31.4 20 - 40 % [facility] Monocytes Percent Auto 5.7 2 - 11 % [facility] Eosinophils Percent Auto 1.5 0 - 4 % [facility] Basophils Percent Auto 0.4 0 - 2 % [facility] NRBC Pct Auto 0.0 0.0 - 0.2 /100WBC [facility] Neutrophils Absolute Auto 4.1 2.0 - 8.3 x10*3/uL [facility] Imm Gran Abs Auto 0.01 0.00 - 0.03 X10*3/uL [facility] Lymphocytes Absolute Auto 2.1 1.2 - 4.9 X10*3/uL [facility] Monocytes Absolute Auto 0.4 0.1 - 1.2 X10*3/uL [facility] Eosinophils Absolute Auto 0.1 0.0 - 0.4 X10*3/uL [facility] Basophils Absolute Auto 0.0 0.0 - 0.2 X10*3/uL [facility] NRBC Abs Auto 0.000 0.0 - 0.012 X10*3/uL [facility] Blood Venous blood specimen / Unknown 08/25/2024 12:15 PM EST 08/25/2024 2:21 PM EST us Walter Bar MD LAB BLOOD ORDERABLES Final Resul t Performing Organization Address City/[facility]/ZIP Co de Phone Number [facility] [address] [place] [phone] * Hepatitis C Antibody with Reflex to HCV, RNA, Quantitative, Real-Time PCR (08/25/2024 12:15 PM EST) Hepatitis C Antibody Nonreactive Nonreactive [facility] Comment:Antibodies to HCV no t detected; does not exclude early acuteHCV infection. Blood Venous blood specimen / Unknown 08/25/2024 12:15 PM EST 08/25/2024 2:21 PM EST us Walter Bar MD LAB BLOOD ORDERABLES Final Resul t Performing Organization Address City/[facility]/ZIP Co de Phone Number [facility] [address] [place] [phone] * Hepatitis A Antibody, Total (08/25/2024 12:15 PM EST) Hepatitis A Antibody IgG Nonreactive Nonreactive [facility] Blood Venous blood specimen / Unknown 08/25/2024 12:15 PM EST 08/25/2024 2:21 PM EST Walter Bar MD LAB BLOOD ORDERABLES Final Resul t Performing Organization Address City/[facility]/ZIP Co de Phone Number [facility] [address] [place] [phone] * Hepatitis B surface antigen, EIA (08/25/2024 12:15 PM EST) Hepatitis B Surface Ag Negative Negative [facility] Blood Venous blood specimen / Unknown 08/25/2024 12:15 PM EST 08/25/2024 2:21 PM EST us Walter Bar MD LAB BLOOD ORDERABLES Final Resul t Performing Organization Address [facility] Co de Phone Number [facility] [address] [place] [phone] * Hepatitis B Core Antibody, Total (08/25/2024 12:15 PM EST) Hepatitis B Core Antibody Nonreactive Nonreactive [facility] Blood Venous blood specimen / Unknown 08/25/2024 12:15 PM EST 08/25/2024 2:21 PM EST us Walter Bar MD LAB BLOOD ORDERABLES Final Resul t Performing Organization Address [facility] Co de Phone Number [facility] [address] [place] [phone] * Hepatitis B Surface Antibody, Qualitative (08/25/2024 12:15 PM EST) ~Hepatitis B Surface Antibody NONREACTIVE Nonreactive [facility] Comment:Nonreactive: < 8.00 mIU/mL Blood Venous blood specimen / Unknown 08/25/2024 12:15 PM EST 08/25/2024 2:21 PM EST Walter Bar MD LAB BLOOD ORDERABLES Final Resul t Performing Organization Address [facility] Co de Phone Number [facility] [address] [place] [phone] * (ABNORMAL) Prothrombin Time-INR (08/25/2024 12:15 PM EST) Prothrombin Time 12.9(H) 10.9 - 12.4 SEC [facility] INTERNATIONAL NORM RATIO 1.1 0.9 - 1.1 [facility] Comment:INTERNATIONAL NORMAL IZED RATIO (INR) [...] ORDERABLES Final Resul t Performing Organization Address [facility] Co de Phone Number [facility] [address] [place] [phone] * (ABNORMAL) Hepatic Function Panel (08/25/2024 12:15 PM EST) Bilirubin, Total 3.0(H) 0.0 - 1.0 mg/dL [facility] Comment:Slight Icterus. Bilirubin, Direct 0.8(H) 0.0 - 0.5 mg/dL [facility] Comment:Slight Icterus. Aspartate Amino Transferase 62(H) 5 - 31 U/L [facility] Alanine Aminotransferase 27 0 - 31 U/L [facility] Total Protein 7.4 6.5 - 8.0 g/dL [facility] Albumin Level 4.0 3.5 - 5.0 g/dL [facility] Alkaline Phosphatase 104 39 - 117 U/L [facility] Blood Venous blood specimen / Unknown 08/25/2024 12:15 PM EST 08/25/2024 2:21 PM EST Walter Bar MD LAB BLOOD ORDERABLES Final Resul t [facility] [address] [place] [phone] * POCT VANESSA-14 Urine Drug Screen [...] 12:03 PM EDT) Triglycerides 195(H) <150 mg/dL [facility] Comment:Desirable Triglyceri de: less than 150 mg/dLBorderline High Triglyceride 150-199 mg/dLHigh Triglyceride: 200-499 mg/dLVery High Triglyceride: greater than or equal to 5OO mg/dL Cholesterol 232(H) <200 mg/dL [facility] Comment:Desirable Cholestero l: less than 200 mg/dLBorderline High Cholesterol: 200-239 mg/dLHigh Cholesterol: greater than 239 mg/dL LDL Cholesterol Calculated 160(H) <100 mg/dL [facility] Comment:Desirable LDL: less than 100 mg/dLNear Optimal/Above Optimal LDL: 110- 129 mg/dLBorderline High LDL: 130-159 mg/dLHigh LDL: 160-189 mg/dLVery High LDL: greater than or equal to 190 mg/dL HDL Cholesterol 33(L) >40 mg/dL [facility] Comment:Desirable HDL: great er than 40 mg/dL Note: This HDL assay may give artificially low results in patients with liver disease. Blood Venous blood specimen / Unknown 04/16/2024 12:03 PM EDT 04/16/2024 2:13 PM EDT Silva Light MD LAB BLOOD ORDERABLES Final Resul t [facility] [address] [place] [phone] * Hm Colonoscopy (07/10/2022) Colonoscopy Normal Normal Historical Provider [...] has been evaluated with computer assisted technology. [facility] Jig Boring Machine Operator For Metal: SEE COMMENT [facility] Comment: DMM, CT(ASCP) CT screening location: [address] ??[phone] HPV nRNA E6/E7 Not Detected Not Detected [facility] Comment: Methodology: Tube Blower-Mediated Amplification This assay detects E6/E7 viral messenger RNA (mRNA) from 14 high-risk HPV types (16,18,31,33,35,39,45,51,52,56,58,59,66,68). ? The analytical performance characteristics of this assay have been determined by [employer]. The modifications have not been cleared or approved by the FDA. This assay has been validated pursuant to the CLIA regulations and is used for clinical purposes. ?? For additional information, please refer to http://education.[employer]/faq/QHM635a7 (This link if provided for information/ educational purposes only.) Interpretation/Re sult: Negative for intraepithelial lesion or malignancy. [facility] LMP: NONE GIVEN [facility] Prev. BX: COLP NEG 2018/2019 [facility] Prev. PAP: ASCUS HPV NEG 2019 LSIL HPV NEG 2018 [facility] Review Jig Boring Machine Operator For Metal: SEE COMMENT [facility] Comment: KHUSHBU MARIA(ASCP) CT screening location: [address] ??[phone] SOURCE: None given [facility] Statement Of Adequacy: SEE COMMENT [facility] Comment: Satisfactory for evaluation. Endocervical/transformation zone component present. 12/20/2021 2:15 PM EDT [facility] ORDERABLES Final Result Performing Organization Address City/[facility]/ZIP Co de Phone Number [facility] [address] * Pap Smear (12/20/2021 12:00 AM EDT) Swab [facility] ORDERABLES F inal Result Performing Organization Address City/[facility]/ZIP Co de Phone Number [address], [place] [phone] * Mammography Report 1 (12/05/2021 8:42 AM EDT) Anatomical Region Laterality Modality Breast Bilateral Mammography 12/05/2021 8:42 AM EDT Narrative 12/06/2021 8:25 AM EDT Refer to the Notes tab for result details [facility] Procedure: Mammography Report 1 Procedure Note Provider, MD Cinthya - 10/22/2022 Refer to the Notes tab for result details [facility] Procedure: Mammography Report 1 Silva Light MD IMG BI PROCEDURES Final Result from Last 3 Months or Most Recently Relevant to Health Maintenance Insurance [facility] [address] [place] [id number] DENTAL-[facility] MEDICAID STAND ADULT * Guarantor: Judy Alexander Account Type Relation to Patient Date of Phone Billing Address Personal/Family Self [address] ID Care Teams Tennis Coach Relationship Specialty Start Date End Date Silva Light MD [address] [place] [phone] PCP - General Family Medicine 08/06/13
--- OUTSIDE RECORDS SUMMARY | 2024-09-09 09:06 | XMS_ITS | Encounter Summary ---
Author Organization [employer] Address [address] [facility] [address]t [place] [address] Care Team Providers Care Press Operator [employer] Print Shop Name Role Phone Silva Light MD Primary Care Provider [phone] Reason for Visit * Reason Comments Care Coordination Outreach Encounter Details Date Type Department Care Team (Latest Contact Info) Description 08/11/2024 Patient Outreach [facility] [address] [place], [place] [phone] Silva Light MD [address] [place] [address] Care Coordination (Outreach) Social History Tobacco Use [...] to offer services. CHW introducing herself from [facility] Department with CHW's name, department and direct contact [phone] requesting call back. Will re-attempt to contact within 5 days. and address not confirmed. documented in this encounter Plan of Treatment Upcoming Encounters Date Type Department Care Team (Late st Contact Info) Description 10/14/2024 8:30 AM EDT Office Visit [facility] [address] [place] [address] Silva Light MD [address] [place] [address] documented as of this encounter Visit Diagnoses Not on filedocumented in this encounter Care Teams Press Operator Instant Print Shop Relationship Specialty Start Date End Date Silva Light MD [address] [place] [address] PCP - General Family Medicine 08/06/13 documented as of this encounter
--- OUTSIDE RECORDS SUMMARY | 2024-09-09 09:06 | XMS_ITS | Encounter Summary ---
Author Organization [employer] Address [address] [facility] 7t [place] [address] Care Team Providers Care Printed Circuit Board Pcb Draftsman Name Role Phone Silva Light MD Primary Care Provider [phone] Reason for Visit * Reason Onset Date Comments Nurse Triage 09/28/2023 Encounter Details Date Type Department Care Team ([facility] st Contact Info) Description 09/28/2023 Telephone [facility] [address] [place] [address] Silva Light MD [address] [place] [address] Nurse Triage Social History Tobacco Use Types [...] t he electric, gas, oil or water [place] threatened to shut off services in your [...] weight. Pt advised of disposition, agrees to [facility] now for exam. Sent to team [...] caller accepted this outcome Please contact at [phone] documented in this encounter Plan of Treatment Upcoming Encounters Date Type Department Care Team ([facility] st Contact Info) Description 10/14/2024 8:30 AM EDT Office Visit [facility]S [address] [place] [address] Silva Light MD [address] [place] [address] documented as of this encounter Visit Diagnoses Not on filedocumented in this encounter Care Teams Printed Circuit Board Pcb Draftsman Relationship Specialty Start Date End Date Silva Light MD [address] [place] [phone] PCP - General Family Medicine 08/06/13 documented as of this encounter
--- OUTSIDE RECORDS SUMMARY | 2024-09-09 09:06 | XMS_ITS | Encounter Summary ---
Author Organization [employer] Address [address] [place] [address] [address] [place] [address] Care Team Providers Care Director Council On Aging Name Role Phone Silva Light MD Primary Care Provider [phone] Reason for Referral * Consultation (STAT) - Closed Specialty Diagnoses / Procedures Referred By Andre t Referred To Contact Addiction Medicine Diagnoses Alcohol abuse Silva Light MD [address] [place] [address] Phone: tel: fax: Referral ID Status Reason Start Date Expiration Date V isits Requested Visits Authorized [id number] Closed Specialty Services Required 08/15/2024 08/15/2025 1 1 Scheduling Instructions GETTING WORSE Reason for Visit * Reason Comments Edema fu Encounter Details Date Type Department Care Team ([facility] st Contact Info) Description 08/15/2024 10:00 AM EST Telemedicine [facility] [address] [place] [address] Silva Light MD [address] [place] [address] Bilateral leg edema (Primary Dx); Hypothyroidism, unspecified [...] abuse Comments: Referred to [facility] stat .Spoke [facility] Rip who will call pt and teresa for a appt with Orders: - Basic Metabolic Panel; Future - Lipid Panel, Standard; Future - Hepatic Function Panel; Future - Referral to [facility] Alcohol Use Disease; Future documented in this encounter Plan of Treatment Upcoming Encounters Date Type Department Care Team (Late st Contact Info) Description 10/14/2024 8:30 AM EDT Office Visit [facility] [address] [place] [address] Silva Light MD [address] [place] [address] Scheduled Orders Name Type Priority Associated Diagnoses [...] Associated Diagnoses Orde r Schedule Referral to [facility]S Alcohol Use Disease Outpatient Referral STAT Alcohol abuse Expected: 08/15/2024 (Approximate), Expires: 08/15/2025 documented as of this encounter Visit Diagnoses Diagnosis Bilateral leg edema- Primary Edema Hypothyroidism, unspecified type Alcohol abuse Nondependent alcohol abuse, unspecified drinking behavior documented in this encounter Care Teams Director Council On Aging Relationship Specialty Start Date End Date Silva Light MD [address] [place] [phone] PCP - General Family Medicine 08/06/13 documented as of this encounter
--- OUTSIDE RECORDS SUMMARY | 2024-09-09 09:06 | XMS_ITS | Encounter Summary ---
Author Organization [employer] Address [address] [place] [address] [address] [place] [address] Care Team Providers Care Rheostat Assembler Name Role Phone Silva Light MD Primary Care Provider [phone] Reason for Visit * Reason Onset Date Comments Nurse Triage 11/14/2023 Encounter Details Date Type Department Care Team ([facility] st Contact Info) Description 11/14/2023 Telephone [facility] MEDICINE [address] [place] [address] Silva Light MD [address] [place] [address] Nurse Triage Social History Tobacco Use Types [...] Triage call Pt reports was discharged from [facility] 11/09/23 with prescription for doxycycline 100mg 2x/ daily for left leg cellulitis. Pt reports every time Pt takes the medication even with food Pt vomits. Pt is requesting a different medication. Pt has apt with PCP 11/30/23. Advised Pt will send this request to PCP and nursing staff at [facility] for follow up. Pt agreed with this [...] Description 10/14/2024 8:30 AM EDT Office Visit [facility] [address] [place] [address] Silva Light MD [address] [place] [address] documented as of this encounter Visit Diagnoses Not on filedocumented in this encounter Care Teams Rheostat Assembler Relationship Specialty Start Date End Date Silva Light MD [address] [place] [phone] PCP - General Family Medicine 08/06/13 documented as of this encounter
--- OUTSIDE RECORDS SUMMARY | 2024-09-09 09:06 | XMS_ITS | Encounter Summary ---
Author Organization [employer] Address [address] [facility] 7t [place] [address] Care Team Providers Care Jewel Bearing Grinder Name Role Phone Silva Light MD Primary Care Provider [phone] Reason for Visit * Reason Onset Date Comments Chart Prep 08/14/2024 Encounter Details Date Type Department Care Team ([facility] Contact Info) Description 08/14/2024 Telephone [facility] CHC MED & PEDS [address] [place], [place] [phone] Silva Light MD [address] [place] [address] Chart Prep Social History Tobacco Use Types [...] Description 10/14/2024 8:30 AM EDT Office Visit [facility] CHC MED & PEDS [address] [place] [address] Silva Light MD [address] [place] [address] documented as of this encounter Visit Diagnoses Not on filedocumented in this encounter Care Teams Jewel Bearing Grinder Relationship Specialty Start Date End Date Silva Light MD [address] [place] [address] PCP - General Family Medicine 08/06/13 documented as of this encounter
--- OUTSIDE RECORDS SUMMARY | 2024-09-09 09:06 | XMS_ITS | Encounter Summary ---
Author Organization [employer] Address [address] [place] [address] 7t [place] [address] Care Team Providers Care Billboard Poster Helper Name Role Phone Silva Light MD Primary Care Provider [phone] Reason for Referral * Consultation (Routine) - Closed Specialty Diagnoses / Procedures Referred By Contac t Referred To Contact Gastroenterology Diagnoses Alcohol use disorder, severe, dependence (CMS/HCC) Elevated liver enzymes Walter Bar MD [address] [place] [address] Phone: tel: fax: [address] Phone: tel: fax: Referral ID Status Reason Start Date Expiration Date V isits Requested Visits Authorized [id number] Closed Specialty Services Required 08/25/2024 08/25/2025 6 6 * Imaging (Routine) - Authorized Specialty Diagnoses / Procedures Referred By Contac t Referred To Contact Radiology Diagnoses Alcohol use disorder, severe, dependence (CMS/HCC) Elevated liver enzymes Procedures US Abdomen Complete Walter Bar MD [address] [place] [address] Phone: tel: fax: [address] Phone: tel: fax: Referral ID Status Reason Start Date Expiration Date V isits Requested Visits Authorized [id number] Authorized 08/25/2024 08/25/2025 1 1 Reason for Visit * Reason Comments AUD DIESEL RETROFIT INSTALLER Encounter Details Date Type Department Care Team (Late st Contact Info) Description 08/25/2024 10:45 AM EST Office Visit [facility] MED & PEDS [address] [place] [address] Walter Bar MD [address] [place] [address] Alcohol use disorder, severe, dependence (CMS/HCC) (Primary [...] detox or residential rehab. Was seen at [facility] program briefly last year. Was prescribed [...] Parkinson's disease, Schizophrenia, and anxiety. Followed by [facility]. Her long-term therapist just [...] normal. Judy was seen today for aud palliative senior np. Diagnoses and all orders for this visit: [...] today Also informed about group meetings at [facility] Interested in starting Naltrexone PO treatment Encouraged to check lab work Referral to GI and Abdominal U/S Discussed potential adverse effects of the medication Will follow up in 2 weeks (Tele-Visit) for a re-evaluation Discussed about the risks of alcohol withdrawal in a home setting, including DT, seizure and Gradual taper of alcohol recommended BH and AA support recommended Indications for ER [...] Description 10/14/2024 8:30 AM EDT Office Visit [facility] CHC MED & PEDS [address] [place], [place] [phone] Silva Light MD [address] [place], [place] [phone] Scheduled Orders Name Type Priority Associated Diagnoses Orde r Schedule US Abdomen Complete Imaging Routine Alcohol use [...] Prothrombin Time 12.9(H) 10.9 - 12.4 SEC [facility] INTERNATIONAL NORM RATIO 1.1 0.9 - 1.1 [facility] Comment:INTERNATIONAL NORMAL IZED RATIO (INR) [...] MD LAB BLOOD ORDERABLES Final Resul t [facility] [address] [place] [phone] * CBC auto differential (08/25/2024 12:15 PM EST) White Blood Count 6.7 4.8 - 10.8 X10*3/uL [facility] Red Blood Count 4.64 4.20 - 5.50 X10*6/uL [facility] Hemoglobin 14.6 12.0 - 16.0 g/dl [facility] Hematocrit 44.4 37.0 - 47.0 % [facility] Mean Corpuscular Volume 95.7 80.0 - 98.0 fL [facility] Mean Corpuscular Hemoglobin 31.5 27.0 - 33.0 pg [facility] Mean Corpuscular HGB Conc 32.9 31.0 - 35.0 g/dl [facility] Red Cell Distribution Width 15.7 11.0 - 16.0 % [facility] Platelet Count 231 160 - 400 X10*3/uL [facility] Mean Platelet Volume 11.5 9.4 - 12.3 fL [facility] Neutrophils Percent Auto 60.9 45 - 73 % [facility] Imm Gran Pct Auto 0.1 0.0 - 0.4 % [facility] Lymphocytes Percent Auto 31.4 20 - 40 % [facility] Monocytes Percent Auto 5.7 2 - 11 % [facility] Eosinophils Percent Auto 1.5 0 - 4 % [facility] Basophils Percent Auto 0.4 0 - 2 % [facility] NRBC Pct Auto 0.0 0.0 - 0.2 /100WBC [facility] Neutrophils Absolute Auto 4.1 2.0 - 8.3 x10*3/uL [facility] Imm Gran Abs Auto 0.01 0.00 - 0.03 X10*3/uL [facility] Lymphocytes Absolute Auto 2.1 1.2 - 4.9 X10*3/uL [facility] Monocytes Absolute Auto 0.4 0.1 - 1.2 X10*3/uL [facility] Eosinophils Absolute Auto 0.1 0.0 - 0.4 X10*3/uL [facility] Basophils Absolute Auto 0.0 0.0 - 0.2 X10*3/uL [facility] NRBC Abs Auto 0.000 0.0 - 0.012 X10*3/uL [facility] Blood Venous blood specimen / Unknown 08/25/2024 12:15 PM EST 08/25/2024 2:21 PM EST us Walter Bar MD LAB BLOOD ORDERABLES Final Resul t Performing Organization Address City/[facility] Co de Phone Number [facility] [address] [place] [phone] * Hepatitis C Antibody with Reflex to HCV, RNA, Quantitative, Real-Time PCR (08/25/2024 12:15 PM EST) Hepatitis C Antibody Nonreactive Nonreactive [facility] Comment:Antibodies to HCV no t detected; does not exclude early acuteHCV infection. Blood Venous blood specimen / Unknown 08/25/2024 12:15 PM EST 08/25/2024 2:21 PM EST us Walter Bar MD LAB BLOOD ORDERABLES Final Resul t Performing Organization Address [facility] Co de Phone Number [facility] [address] [place] [phone] * Hepatitis B surface antigen, EIA (08/25/2024 12:15 PM EST) Hepatitis B Surface Ag Negative Negative [facility] Blood Venous blood specimen / Unknown 08/25/2024 12:15 PM EST 08/25/2024 2:21 PM EST us Walter Bar MD LAB BLOOD ORDERABLES Final Resul t Performing Organization Address [facility] Co de Phone Number [facility] [address] [place] [phone] * Hepatitis B Surface Antibody, Qualitative (08/25/2024 12:15 PM EST) ~Hepatitis B Surface Antibody NONREACTIVE Nonreactive [facility] Comment:Nonreactive: < 8.00 mIU/mL Blood Venous blood specimen / Unknown 08/25/2024 12:15 PM EST 08/25/2024 2:21 PM EST us Walter Bar MD LAB BLOOD ORDERABLES Final Resul t Performing Organization Address [facility] de Phone Number [facility] [address] [place] [phone] * Hepatitis B Core Antibody, Total (08/25/2024 12:15 PM EST) Hepatitis B Core Antibody Nonreactive Nonreactive [facility] Blood Venous blood specimen / Unknown 08/25/2024 12:15 PM EST 08/25/2024 2:21 PM EST us Waltre Bar MD LAB BLOOD ORDERABLES Final Resul t Performing Organization Address [facility] de Phone Number [facility] [address] [place] [phone] * Hepatitis A Antibody, Total (08/25/2024 12:15 PM EST) Hepatitis A Antibody IgG Nonreactive Nonreactive [facility] Blood Venous blood specimen / Unknown 08/25/2024 12:15 PM EST 08/25/2024 2:21 PM EST us Walter Bar MD LAB BLOOD ORDERABLES Final Resul t Performing Organization Address [facility] Phone Number [facility] [address] [place] [phone] * (ABNORMAL) Hepatic Function Panel (08/25/2024 12:15 PM EST) Bilirubin, Total 3.0(H) 0.0 - 1.0 mg/dL [facility] Comment:Slight Icterus. Bilirubin, Direct 0.8(H) 0.0 - 0.5 mg/dL [facility] Comment:Slight Icterus. Aspartate Amino Transferase 62(H) 5 - 31 U/L [facility] Alanine Aminotransferase 27 0 - 31 U/L [facility] Total Protein 7.4 6.5 - 8.0 g/dL [facility] Albumin Level 4.0 3.5 - 5.0 g/dL [facility] Alkaline Phosphatase 104 39 - 117 U/L [facility] Blood Venous blood specimen / Unknown 08/25/2024 12:15 PM EST 08/25/2024 2:21 PM EST us Walter Bar MD LAB BLOOD ORDERABLES Final Resul t Performing Organization Address City/State/[facility] Co de Phone Number [facility] [address] [place] [phone] * POCT VANESSA-14 Urine Drug Screen [...] levels documented in this encounter Care Teams Billboard Poster Helper Relationship Specialty Start Date End Date Silva Light MD [address] [place] [address] PCP - General Family Medicine 08/06/13 documented as of this encounter
--- OUTSIDE RECORDS SUMMARY | 2024-09-09 09:06 | XMS_ITS | Encounter Summary ---
Author Organization [employer] Address [address] [facility] [address] [facility] [address] 7t [place] [address] Care Team Providers Care Marketing Regional Consultant Name Role Phone Silva Light MD Primary Care Provider [phone] Encounter Details Date Type Department Care Team [...] Description 10/14/2024 8:30 AM EDT Office Visit [facility] MED & PEDS [address] [place] [address] Silva Light MD [address] [place] [address] documented as of this encounter Visit Diagnoses Not on filedocumented in this encounter Care Teams Marketing Regional Consultant Relationship Specialty Start Date End Date Silva Light MD [address] [place] [phone] PCP - General Family Medicine 08/06/13 documented as of this encounter
--- OUTSIDE RECORDS SUMMARY | 2024-09-09 09:06 | XMS_ITS | Encounter Summary ---
Author Organization [employer] Address [address] [facility] 7t [place] [address] Care Team Providers Care Field Technician Name Role Phone Silva Light MD Primary Care Provider [phone] Reason for Visit * Reason Comments Care Coordination Outreach Encounter Details Date Type Department Care Team (Latest Contact Info) Description 08/20/2024 Patient Outreach [facility] CHC MED & PEDS [address] [place], [place] [phone] Silva Light MD [address] [place] [address] Care Coordination (Outreach) Social History Tobacco Use [...] - 08/20/2024 2:10 PM EST CHW Georgia Vazquze , placed outbound call to patient in regards to offer services. CHW introducing herself from [facility] Department with CHW's name, department and direct contact [phone] requesting call back. Will re-attempt to contact within 5 days. and address not confirmed. documented in this encounter Plan of Treatment Upcoming Encounters Date Type Department Care Team (Late st Contact Info) Description 10/14/2024 8:30 AM EDT Office Visit [facility] CHC MED & PEDS [address] [place] [address] Silva Light MD [address] [place] [address] documented as of this encounter Visit Diagnoses Not on filedocumented in this encounter Care Teams Field Technician Relationship Specialty Start Date End Date Silva Light MD [address] [place] [address] PCP - General Family Medicine 08/06/13 documented as of this encounter
--- OUTSIDE RECORDS SUMMARY | 2024-09-09 09:06 | XMS_ITS | Encounter Summary ---
Author Organization [employer] Address [address] [facility] [address] 7t [place] [address] Care Team Providers Care Seed Service Advisor Name Role Phone Silva Light MD Primary Care Provider [phone] Encounter Details Date Type Department Care Team [...] Description 10/14/2024 8:30 AM EDT Office Visit [facility] MED & PEDS [address] [place] [address] Silva Light MD [address] [place] [address] documented as of this encounter Visit Diagnoses Not on filedocumented in this encounter Care Teams Seed Service Advisor Relationship Specialty Start Date End Date Silva Light MD [address] [place] [address] PCP - General Family Medicine 08/06/13 documented as of this encounter
--- OUTSIDE RECORDS SUMMARY | 2024-09-09 09:07 | XMS_ITS | Encounter Summary ---
Author Organization [employer] Address [address] [place] [address] 7 [place] [address] Care Team Providers Care Desk Monitor Name Role Phone Silva Light MD Primary Care Provider [phone] Encounter Details Date Type Department Care Team (Late Contact Info) Description 11/08/2022 Orders Only [facility] MED & PEDS [address] [place], [place] [phone] Sanju Mcgee MD [address] [place] [address] Primary osteoarthritis of left knee (Primary Dx) [...] 8:30 AM EDT Office Visit [facility] MED & PEDS [address] [place], [place] [phone] Silva Light MD [address] [place] [address] documented as of this encounter Visit Diagnoses Diagnosis Primary osteoarthritis of left knee- Primary documented in this encounter Care Teams Desk Monitor Relationship Specialty Start Date End Date Silva Light MD [address] [place] [address] PCP - General Family Medicine 08/06/13 documented as of this encounter
--- OUTSIDE RECORDS SUMMARY | 2024-09-09 09:07 | XMS_ITS | Encounter Summary ---
Author Organization [employer] Address [address] [facility] 7t [place] [address] Care Team Providers Care Sausage Smoker Name Role Phone Silva Light MD Primary Care Provider [phone] Reason for Visit * Reason Onset Date Comments Medication Question 05/28/2023 Encounter Details Date Type Department Care Team ([facility] st Contact Info) Description 05/28/2023 Telephone [facility] MEDICINE [address] [place] [address] Silva Light MD [address] [place] [address] Medication Question Social History Tobacco Use Types [...] stated scripts are prescribed by Neurologist @ [facility] , Dr. Melendez however due to missing several appt , states pt needs to be seen with a new neurologist & will notfill medication. Please contact at [phone] documented in this encounter Plan of Treatment Upcoming Encounters Date Type Department Care Team ([facility] st Contact Info) Description 10/14/2024 8:30 AM EDT Office Visit [facility] MED & PEDS [address] [place] [address] Silva Light MD [address] [place] [address] documented as of this encounter Visit Diagnoses Not on filedocumented in this encounter Care Teams Sausage Smoker Relationship Specialty Start Date End Date Silva Light MD [address] [place] [address] PCP - General Family Medicine 08/06/13 documented as of this encounter
--- OUTSIDE RECORDS SUMMARY | 2024-09-09 09:07 | XMS_ITS | Encounter Summary ---
Author Organization [employer] Address [address] [facility] 7t [place] [address] Care Team Providers Care Human Development Professor Name Role Phone Silva Light MD Primary Care Provider [phone] Reason for Visit * Reason Comments Care Coordination SDOH Encounter Details Date Type Department Care Team (Latest Contact Info) Description 08/27/2024 Patient Outreach [facility] CHC MED & PEDS [address] [place], [place] [phone] Silva Light MD [address] [place] [address] Care Coordination (SDOH) Social History Tobacco Use Types Packs/Day Years [...] as of this encounter Progress Notes * Rossy Louie - 08/27/2024 11:18 AM EST CHW Rossy Louie placed outbound call to patient to follow up on SDOH needs. Patient's name, and address confirmed. Patient states is doing well. Patient is looking for help with food resources. CHW will mail out an updated food pantry list and any other resources needed. Patient agreed. No further questions or concerns. CHW reinforced direct contact information or CM for any additional questions or concerns and extended clinic hours on Mondays and Wednesdays, and Walk-In Urgent Care Located in [facility] of [facility]. Patient provided with after-hours line for [facility], , which offer night time triage service and option to transfer to environmental compliance engineer provider if needed. Patient verbalizes understanding, and able to repeat back to junior copywriter. A follow up call willbe placed within 10 days, patient agrees with plan. documented in this encounter Plan of Treatment Upcoming Encounters Date Type Department Care Team ([facility] st Contact Info) Description 10/14/2024 8:30 AM EDT Office Visit [facility] CHC MED & PEDS [address] [place] [address] Silva Light MD [address] [place] [address] documented as of this encounter Visit Diagnoses Not on filedocumented in this encounter Care Teams Human Development Professor Relationship Specialty Start Date End Date Silva Light MD [address] [place] [address] PCP - General Family Medicine 08/06/13 documented as of this encounter
--- OUTSIDE RECORDS SUMMARY | 2024-09-09 09:07 | XMS_ITS | Encounter Summary ---
Author Organization [employer] Address [address] [facility] [address] 7t [place] [address] Care Team Providers Care Vp Platforms Name Role Phone Silva Light MD Primary Care Provider [phone] Reason for Visit * Reason Comments Recovery Supports Encounter Details Date Type Department Care Team ([facility] st Contact Info) Description 09/05/2024 Patient Outreach [facility] MEDICINE [address] [place] [address] Jeff Weeks Recovery Supports Social History Tobacco Use Types Packs/Day Years [...] as of this encounter Progress Notes * Jeff Weeks - 09/05/2024 11:36 AM EST I met with Judy today. Setting: by phone Recovery Wellness Goals worked on: Physical Health/Mental Health Action taken/next steps: Offered person centered recovery support Additional comments: financial wellness coach connected with the participant by phone for a follow up. Participant stated she is doing well she still coping with the of her she also has remain sober after her husbandlost. financial wellness coach encourage her reach out for to the tin recovery worker or others professional assist luisa Weeks documented in this encounter Plan of Treatment Upcoming Encounters Date Type Department Care Team (Late st Contact Info) Description 10/14/2024 8:30 AM EDT Office Visit [facility] CHC MED & PEDS [address] [place] [address] Silva Light MD [address] [place] [address] documented as of this encounter Visit Diagnoses Not on filedocumented in this encounter Care Teams Vp Platforms Relationship Specialty Start Date End Date Silva Light MD [address] [place] [address] PCP - General Family Medicine 08/06/13 documented as of this encounter
--- OUTSIDE RECORDS SUMMARY | 2024-09-09 09:07 | XMS_ITS | Encounter Summary ---
Author Organization [employer] Address [address] [facility] 7t [place] [address] Care Team Providers Care Program Management Professional Name Role Phone Silva Light MD Primary Care Provider [phone] Reason for Visit * Reason Comments Care Coordination SDOH Encounter Details Date Type Department Care Team (Latest Contact Info) Description 09/03/2024 Patient Outreach [facility] CHC MED & PEDS [address] [place], [place] [phone] Silva Light MD [address] [place] [address] Care Coordination (SDOH) Social History Tobacco Use [...] encounter Progress Notes * Rossy Louie - 09/03/2024 9:22 AM EST CHW Rossy Louie mailed out an updated food pantry list, CHW will follow up with patient within 10 days. documented in this encounter Plan of Treatment Upcoming Encounters Date Type Department Care Team (Late st Contact Info) Description 10/14/2024 8:30 AM EDT Office Visit [facility] CHC MED & PEDS [address] [place] [address] Silva Light MD [address] [place] [address] documented as of this encounter Visit Diagnoses Not on filedocumented in this encounter Care Teams Program Management Professional Relationship Specialty Start Date End Date Silva Light MD [address] [place] [phone] PCP - General Family Medicine 08/06/13 documented as of this encounter
--- OUTSIDE RECORDS SUMMARY | 2024-09-09 09:07 | XMS_ITS | Encounter Summary ---
Author Organization [employer] Address [address] [place] [address] Care Team Providers Care Pressure Dispatcher Name Role Phone Silva Light MD Primary Care Provider [phone] Reason for Visit * Reason Comments Recovery Supports Encounter Details Date Type Department Care Team ([facility] st Contact Info) Description 09/01/2024 Patient Outreach [facility] [address] [place] [address] Jeff Weeks Recovery Supports Social History Tobacco [...] encounter Progress Notes * Jeff Weeks - 09/01/2024 10:27 AM EST I met with Judy today. Setting: BY PHONE Recovery Wellness Goals worked on: Social Stability /Mental Stability Action taken/next steps: Offered person centered recovery support and Attended alcohol and drug free activity Additional comments: The recovery room nurse reached out to the participant to check in regarding her mental health and emotional well-being. The participant shared that she has been dealing with personal and family issues, which have led her to use alcohol as a coping mechanism. The recovery room nurse encouraged the participant to seek professional assistance, such as seeing a therapist and a psychiatrist, as well as exploring other available resources for support. The diving coach emphasized the importance of reaching out for help to manage her mental health challenges. Jeff Weeks * Jeff Weeks - 09/01/2024 10:27 AM EST I met with Judy today. Setting: by phone Recovery Wellness Goals worked on: Social Stability Action taken/next steps: Offered person centered recovery support Additional comments: assistant field hockey coach reach out to the participant this morning by phone. During the conversation the participant was expressing her emotions and feelings pertaining to her situation. assistant field hockey coach encourage the participant to reach out to help professional assistance and to attend support group. Jeff Weeks documented in this encounter Plan of Treatment Upcoming Encounters Date Type Department Care Team ([facility] st Contact Info) Description 10/14/2024 8:30 AM EDT Office Visit [facility] [address] [place] [address] Silva Light MD [address] [place] [id number] documented as of this encounter Visit Diagnoses Not on filedocumented in this encounter Care Teams Pressure Dispatcher Relationship Specialty Start Date End Date Silva Light MD [address] [place] [id number] PCP - General Family Medicine 08/06/13 documented as of this encounter
--- OUTSIDE RECORDS SUMMARY | 2024-09-09 09:07 | XMS_ITS | Encounter Summary ---
Author Organization [employer] Address [address] [place] [address] Care Team Providers Care Broker Associate Name Role Phone Silva Light MD Primary Care Provider [phone] Encounter Details Date Type Department Care Team (Late st Contact Info) Description 08/27/2024 Telephone [facility] [address] [place], [place] [phone] Walter Bar MD [address] [place], [place] [phone] Social History Tobacco Use Types Packs/Day Years [...] encounter Miscellaneous Notes * Telephone Encounter - Walter Bar MD - 08/27/2024 11:38 AM EST Lab results reviewed. Discussed elevated AST and TBili result. Scheduled for Abdominal U/S on 09/09/2024. documented in this encounter Plan of Treatment Upcoming Encounters Date Type Department Care Team (Late st Contact Info) Description 10/14/2024 8:30 AM EDT Office Visit [facility] [address] [place] [address] Silva Light MD [address] [place] [address] documented as of this encounter Visit Diagnoses Not on filedocumented in this encounter Care Teams Broker Associate Relationship Specialty Start Date End Date Silva Light MD [address] [place] [id number] PCP - General Family Medicine 08/06/13 documented as of this encounter
--- OUTSIDE RECORDS SUMMARY | 2024-09-09 09:07 | XMS_ITS | Encounter Summary ---
Author Organization [employer] Address [address] [place] [address] [place] [address] Care Team Providers Care Geospatial Information Technologist Name Role Phone Silva Light MD Primary Care Provider [phone] Reason for Visit * Reason Comments Med Refill Encounter Details Date Type Department Care Team (Late st Contact Info) Description 03/26/2023 Refill [facility] [address] [place] [address] Silva Light MD [address] [place] [address] Post-traumatic stress disorder, unspecified Social History Tobacco [...] 10/14/2024 8:30 AM EDT Office Visit [facility] [address] [place] [address] Silva Light MD [address] [place] [address] documented as of this encounter Visit Diagnoses Diagnosis Post-traumatic stress disorder, unspecified documented in this encounter Care Teams Geospatial Information Technologist Relationship Specialty Start Date End Date Silva Light MD [address] [place] [id number] PCP - General Family Medicine 08/06/13 documented as of this encounter
== END 2024-09-09 08:45 | disposition home or self-care (01) ==
LOC: HO.HMGCX 08:44
PROVIDERS: PCP Student in an Organized Health Care Education/Training Program; Visit Provider Family Medicine
DX: R74.8 Abnormal levels of other serum enzymes (principal); F10.20 Alcohol dependence, uncomplicated
CPT/HCPCS: 76700

== ENCOUNTER → 2024-09-09 08:47 | Outpatient (BNV) | payer MEDICAID, SELFPAY | PROVIDERS: PCP Student in an Organized Health Care Education/Training Program; Visit Provider Radiology Diagnostic Radiology | DX: F10.20 Alcohol dependence, uncomplicated (principal); R74.8 Abnormal levels of other serum enzymes | CPT/HCPCS: 76700 ==

== ENCOUNTER 2024-10-28 10:30 | Emergency (ER) | payer MEDICAID, SELFPAY ==
[2024-10-28 10:44] VITALS: BP 110/62; PULSE 61; O2SAT 98
[2024-10-28 10:56] VITALS: BP 102/76; PULSE 56; RESP 18; TEMP 36.4; O2SAT 96; BMI 36.0
--- NOTE | 2024-10-28 11:05 | ED_ITS ---
HPI - Dizziness General Chief Complaint: Dizziness Stated Complaint: DIZZY,BP 100/67 PER EMS Time Seen by Provider: 10/28/24 10:59 Source: patient and EMS Mode of arrival: EMS Limitations: no limitations History of Present Illness ED Provider: GURVIDNER VICKERS Narrative: 59 yo female with PMH of GERD, SVT, asthma, fatty liver, ETOH use disorder, chronic leg edema on lasix 40mg daily, bipolar disorder, PTSD she comes in today with c/o feeling fuzzy and weak for 5 days. She reports she went to the PCP today they drained a boil on her LLQ and dx her with fluid in ears so they were supposed to start her on doxy. She denies fevers, n/v/d. GI bleed symptoms. She told them she felt weak and her bP was 76/41. She tells me no new meds or changes but she stopped her lasix 3 weeks ago and hasn't taken her metoprolol in a few days. She has no CP/SOB. She is drinking a lot of soda and craving salt. She ate an orange with salt. She has no other complaints MD elicited complaint: other (fuzziness) Onset (ago): day(s) (5) Timing: gradual onset Severity: mild Description: lightheadedness Context: change in body position History of similar symptoms: No Exacerbating factors: movement/ambulation and change in body position Relieving factors: remaining still Associated symptoms: other (sinus congestion) Related Data Home Medications ?Medication ?Instructions ?Recorded ?Confirmed carbidopa 25 mg-levodopa 100 mg 1 tab PO BID 01/14/21 01/09/24 tablet clonazepam 1 mg tablet 1 mg PO BID anxiety 01/14/21 11/09/23 risperidone 2 mg tablet 2 mg PO BEDTIME 01/14/21 01/09/24 ropinirole 0.5 mg tablet 0.5 mg PO BEDTIME 01/14/21 01/09/24 fluoxetine 40 mg capsule 40 mg PO QAM 04/17/23 01/09/24 gabapentin 300 mg capsule 300 mg PO BID 04/17/23 01/09/24 levothyroxine 100 mcg tablet 100 mcg PO QAM 04/17/23 01/09/24 metoprolol tartrate 50 mg tablet 50 mg PO BID 04/17/23 01/09/24 cetirizine 10 mg tablet 10 mg PO BEDTIME 11/09/23 01/09/24 cyanocobalamin (vitamin B-12) 1,000 mcg PO DAILY 11/09/23 11/09/23 1,000 mcg tablet fluoxetine 10 mg capsule 10 mg PO QAM 11/09/23 01/09/24 multivitamin 1 tab PO DAILY 11/09/23 01/09/24 nystatin 100,000 unit/gram topical 1 appl topical TID PRN Rash 11/09/23 01/09/24 powder vitamin B complex 1 tab PO DAILY 11/09/23 01/09/24 furosemide 20 mg tablet (Lasix) 20 mg PO BID 01/09/24 01/09/24 prazosin 2 mg capsule 1 mg PO BEDTIME 01/09/24 01/09/24 Previous Rx's ?Medication ?Instructions ?Recorded omeprazole 40 mg capsule,delayed 40 mg PO DAILY 30 days #30 caps 04/17/23 release naltrexone 50 mg tablet 50 mg PO DAILY #30 tabs 11/11/23 ibuprofen 600 mg tablet 600 mg PO QID PRN pain #20 tabs 12/13/23 doxycycline hyclate 100 mg capsule 100 mg PO BID 7 days #14 caps 10/28/24 Allergies Allergy/AdvReac Type Severity Reaction Status Date / Time azithromycin [From ZITHROMAX] Allergy Intermediate SWELLING Verified 10/28/24 10:57 Penicillins [PENICILLINS] Allergy Intermediate SWELLING Verified 10/28/24 10:57 Sulfa (Sulfonamide Allergy Intermediate SWELLING Verified 10/28/24 10:57 Antibiotics) [SULFA(SULFONAMIDE ANTIBIOTICS)] dicyclomine AdvReac Unknown Itching Verified 10/28/24 10:57 BLUE CAPSELS FOR ABD PAIN Allergy Unknown COULDN'T Uncoded 11/09/23 09:07 PEE Review of Systems 2 Review of Systems: Constitutional : No Fever, No Chills, No Fatigue ENT/Mouth : No sore throat, No Rhinorrhea, pos sinus congestion Eyes: No Eye Pain, No Swelling, No Redness Cardiovascular : No Chest Pain, No SOB, No Dyspnea on Exertion Respiratory : No Cough, No Sputum Gastrointestinal : No Nausea, No Vomiting, No Diarrhea, No abdominal Pain Genitourinary : No Dysuria, No Urinary Frequency, No Hematuria, Musculoskeletal : No joint pain, No Myalgias, No Joint Swelling Skin : No Skin Lesions, No rash Neuro : No Weakness, No Numbness, pos Dizziness, no Headache Psych : No Anxiety/Panic, No Depression All other systems reviewed and are negative [facility] Past Medical History Attestation statement: The following information was validated with the patient. Source: old records reviewed Medical History Alcohol use disorder Recovering alcoholic Bipolar disorder Depression Anxiety Parkinson disease Surgical History H/O colonoscopy History of right breast biopsy Family History Family History Father Stage 4 lung cancer Alzheimer disease Dementia Mother Hypothyroid Diabetes Dementia Kidney failure A-fib Sister Breast cancer Colon cancer Social History Social History Household Members: Spouse [facility] Alcohol intake: former Patient Tobacco Use Status: Never used Tobacco Smoked in Last 30 Days: No Substance Use Type: Marijuana Advance Directives: Yes Advance Directives on File: Yes Advance Directives Date on File: 11/13/23 Do you have a plan to hurt others: No Plan service: No Physical Exam 2 Vital Signs: Vital Signs: Last Vital Signs Temp 97.6 F 10/28/24 10:56 Pulse 59 10/28/24 12:10 Resp 14 10/28/24 11:56 BP 110/69 10/28/24 12:10 Pulse Ox 96 10/28/24 11:56 O2 Del Method Room Air 10/28/24 11:56 BMI result Body Mass Index 36.0 Appearance: Alert. Oriented X3. No acute distress. Eyes: Pupils equal, round and reactive to light. ENT: Pharynx normal. Neck: Normal inspection. Neck supple. CVS: Normal heart rate and rhythm. Pulses normal. Respiratory: No respiratory distress. Breath sounds normal. Abdomen: Soft and nontender. LLQ small uninflammed boil Skin: Skin warm and dry. Normal skin color. Normal skin turgor. Extremities: No lower extremity edema. No calf ttp Neuro: Oriented X 3. No motor deficit. No sensory deficit. CN2-12 intact Medications Administered Discontinued Medications Generic Name Dose Route Start Last Admin Trade Name Freq PRN Reason Stop Dose Admin Sodium Chloride 1,000 mls @ 999 mls/hr 10/28/24 11:00 10/28/24 12:03 Ns IV 10/28/24 12:00 999 mls/hr .Q1H1M ONE Administration Medical Decision Making Medical Decision Making [facility] Narrative: 59 yo female with PMH of GERD, SVT, asthma, fatty liver, ETOH use disorder, chronic leg edema on lasix 40mg daily, bipolar disorder, PTSD here with c/o sinus congestion here with c/o low BP but states her BP meds have been held, no fevers, no n/v/d, no GIB symptoms. At this time basic labs, EKG, ortho VS. She has no symptoms to suggest VTE and her BP is stable on arrival. 1L NS ordered Differential Diagnosis Differential Diagnoses: The differential diagnosis associated with the presentation includes orthostatics, dehydration, hypoNa, med reaction, anemia Admission/Observation Consideration of admission/observation: Escalation of care including admission/observation considered LFTs at baseline no symptoms ortho negative no hypotension here at this time DC stop lasix and metoprolol follow up with PCP in 48 hours return for worsening symptoms Lab Data [facility] Lab Attestation statement: I reviewed the patient's lab results. 10/28/24 12:18 10/28/24 12:18 Labs: Lab Results 10/28/24 Range/Units 12:18 WBC 8.5 (4.8-10.8) X10*3/uL RBC 5.16 (4.20-5.50) X10*6/uL Hgb 16.1 H (12.0-16.0) g/dl Hct 46.0 (37.0-47.0) % MCV 89.1 (80.0-98.0) fL MCH 31.2 (27.0-33.0) pg MCHC 35.0 (31.0-35.0) g/dl RDW 14.2 (11.0-16.0) % Plt Count 166 D (160-400) X10*3/uL MPV 11.6 (9.4-12.3) fL Immature Gran % (Auto) 0.2 (0.0-0.4) % Neut % (Auto) 66.8 (45-73) % Lymph % (Auto) 25.5 (20-40) % [place] % (Auto) 6.3 (2-11) % Eos % (Auto) 0.8 (0-4) % Baso % (Auto) 0.4 (0-2) % Lymph # (Auto) 2.2 (1.2-4.9) X10*3/uL [place] # (Auto) 0.5 (0.1-1.2) X10*3/uL Eos # (Auto) 0.1 (0.0-0.4) X10*3/uL Baso # (Auto) 0.0 (0.0-0.2) X10*3/uL Abs Immat Gran (auto) 0.02 (0.00-0.03) X10*3/uL Absolute Neuts (auto) 5.7 (2.0-8.3) x10*3/uL Absolute Nucleated RBC 0.000 (0.0-0.012) X10*3/uL Nucleated RBC % (auto) 0.0 (0.0-0.2) /100WBC Sodium 140 (135-145) mmol/L Potassium 3.7 (3.3-5.1) mmol/L Chloride 110 H (96-108) mmol/L Carbon Dioxide 24 (22-29) mmol/L Anion Gap 10 L (12-20) BUN 14 (9-16) mg/dL Creatinine 0.84 (0.5-1.4) mg/dL Estim Creat Clear Calc 79.6 Estimated GFR > 60 Random Glucose 94 (60-115) mg/dL Calcium 9.7 (8.4-10.2) mg/dL Magnesium 2.0 (1.6-2.6) mg/dL Total Bilirubin 2.7 H (0.0-1.0) mg/dL Direct Bilirubin 0.8 H (0.0-0.5) mg/dL AST 43 H (5-31) U/L ALT 12 (0-31) U/L Alkaline Phosphatase 93 (39-117) U/L Total Protein 7.0 (6.5-8.0) g/dL Albumin 3.9 (3.5-5.0) g/dL Lipase 31 (8-78) U/L Independent Interpretation I performed an independent interpretation of an: EKG Interpretation: Rate: 55 Rhythm: sinus bradycardia Twain: normal Normal P waves. Normal NICOL. Normal QRS complex. ST T wave : normal no LEIGHTON qTC: 453 prior studies: no acute ischemia The study has been interpreted contemporaneously by me. . Independent Historian Clinical information obtained from an independent historian. History obtained from or confirmed by: EMS External Record Review External record reviewed: Inpatient record and Outpatient record Prescription Management I considered prescription management with: Antibiotic Discharge Plan Discharge Clinical Impression: Acute hypotension Patient Disposition: Home, Self-Care Instructions: Hypotension (ED) Additional Instructions: stop your lasix and metoprolol follow up with your doctor in 48 hours return for dizziness, bleeding, weakness, chest pain or trouble breathing, any other concerns rest and stay hydrated. On doxycycline, do not take pills immediately before going to bed and swallow pills with plenty of water. Avoid direct sunlight, iron, antacids, and Pepto Bismol. Call your provider if you develop new ringing in your ears, new problems hearing, dizziness, difficulty swallowing, rash, abdominal discomfort, nausea, or diarrhea.? Prescriptions: New doxycycline hyclate 100 mg capsule 100 mg PO BID 7 Days Qty: 14 0RF No Action cetirizine 10 mg tablet 10 mg PO BEDTIME vitamin B complex Tablet 1 tab PO DAILY nystatin 100,000 unit/gram powder 1 appl topical TID PRN (Reason: Rash) fluoxetine 10 mg capsule 10 mg PO QAM multivitamin Tablet 1 tab PO DAILY cyanocobalamin (vitamin B-12) 1,000 mcg Tablet 1,000 mcg PO DAILY naltrexone 50 mg tablet 50 mg PO DAILY Qty: 30 0RF Rx Instructions: take 1/2 tab daily for 3 days then increase to one tab daily ibuprofen 600 mg tablet 600 mg PO QID PRN (Reason: pain) Qty: 20 0RF carbidopa-levodopa 25-100 mg tablet 1 tab PO BID clonazepam 1 mg tablet 1 mg PO BID risperidone 2 mg tablet 2 mg PO BEDTIME ropinirole 0.5 mg tablet 0.5 mg PO BEDTIME Rx Instructions: administer 1-3 hours before bedtime furosemide [Lasix] 20 mg tablet 20 mg PO BID gabapentin 300 mg capsule 300 mg PO BID metoprolol tartrate 50 mg tablet 50 mg PO BID levothyroxine 100 mcg tablet 100 mcg PO QAM fluoxetine 40 mg capsule 40 mg PO QAM omeprazole 40 mg capsule,delayed release(DR/EC) 40 mg PO DAILY 30 Days Qty: 30 6RF prazosin 2 mg capsule 1 mg PO BEDTIME Print Language: Gibraltarian
--- NOTE | 2024-10-28 11:48 | ECG_ITS ---
Test Reason : dizziness Blood Pressure : */* mmHG Vent. Rate : 55 BPM Atrial Rate : 55 BPM P-R Int : 152 ms QRS Dur : 96 ms QT Int : 474 ms P-R-T Axes : 69 4 29 degrees QTcB Int : 453 ms Sinus bradycardia Otherwise normal ECG When compared with ECG of 09-Nov-2023 14:29, Vent. rate has decreased by 50 bpm QT has shortened Referred By: Perlita Vogt Electronically Signed By: DORIAN SYLVESTER
[2024-10-28 11:56] VITALS: BP 117/64; PULSE 59; RESP 14; O2SAT 96
[2024-10-28] MEDS: 0.9 % Sodium Chloride 1,000 ML 999 ML IV (12:03)
[2024-10-28 12:09] VITALS: BP 116/55; PULSE 60
--- NOTE | 2024-10-28 12:09 | PC.NURSE ---
Patient presents from her PCP's office with hypotension and feeling off. Patient has been off her antiypertensives for the past 2 months. Hypotension resolved while in route via EMS. residential monitor applied and NSR noted. Lungs clear bilat. Respirations even and non-labored. Abdomen soft, non-tender with positive bowel sounds. Positive pedal pulses with no edema noted. Fluids initiated.
[2024-10-28 12:10] VITALS: BP 110/69; BP 119/64; PULSE 57; PULSE 59
[2024-10-28 12:21] LABS: MANUAL DIFF FLAG NO
[2024-10-28 12:27] LABS: Basophils Percent Auto 0.4 % (0-2); Eosinophils Absolute Auto 0.1 X10*3/uL (0.0-0.4); Eosinophils Percent Auto 0.8 % (0-4); Hemoglobin 16.1 g/dl (12.0-16.0); Imm Gran Abs Auto 0.02 X10*3/uL (0.00-0.03); Imm Gran Pct Auto 0.2 % (0.0-0.4); Lymphocytes Absolute Auto 2.2 X10*3/uL (1.2-4.9); Lymphocytes Percent Auto 25.5 % (20-40); Mean Corpuscular Hemoglobin 31.2 pg (27.0-33.0); Mean Corpuscular Volume 89.1 fL (80.0-98.0); Mean Platelet Volume 11.6 fL (9.4-12.3); Monocytes Absolute Auto 0.5 X10*3/uL (0.1-1.2); Monocytes Percent Auto 6.3 % (2-11); Neutrophils Absolute Auto 5.7 x10*3/uL (2.0-8.3); Neutrophils Percent Auto 66.8 % (45-73); Platelet Count 166 X10*3/uL (160-400); Red Blood Count 5.16 X10*6/uL (4.20-5.50); Red Cell Distribution Width 14.2 % (11.0-16.0); White Blood Count 8.5 X10*3/uL (4.8-10.8)
[2024-10-28 12:40] LABS: Alanine Aminotransferase 12 U/L (0-31); Albumin Level 3.9 g/dL (3.5-5.0); Alkaline Phosphatase 93 U/L (39-117); Anion Gap 10 (12-20); Aspartate Amino Transferase 43 U/L (5-31); Bilirubin Direct 0.8 mg/dL (0.0-0.5); Bilirubin Total 2.7 mg/dL (0.0-1.0); Blood Urea Nitrogen 14 mg/dL (9-16); Calcium 9.7 mg/dL (8.4-10.2); Carbon Dioxide 24 mmol/L (22-29); Chloride 110 mmol/L (96-108); Creatinine Clr Calc Pharmacy 79.6; Estimated Glomerular Filt Rate > 60; Glucose Random 94 mg/dL (60-115); Lipase 31 U/L (8-78); Potassium 3.7 mmol/L (3.3-5.1); Sodium 140 mmol/L (135-145)
[2024-10-28 13:36] VITALS: BP 110/69; PULSE 59; RESP 16; TEMP 36.5; O2SAT 96
== END 2024-10-28 13:38 | disposition home or self-care (01) ==
PROVIDERS: Emergency Provider Emergency Medicine; PCP Student in an Organized Health Care Education/Training Program
DX: I95.9 Hypotension, unspecified (principal); R42 Dizziness and giddiness
CPT/HCPCS: 36415; 80048; 80076; 83690; 83735; 85025; 93005; 99283; 99285

== ENCOUNTER → 2024-10-28 11:48 | Outpatient (BNV) | payer MEDICAID, SELFPAY | PROVIDERS: Emergency Provider Emergency Medicine; PCP Student in an Organized Health Care Education/Training Program; Visit Provider Internal Medicine | DX: R00.1 Bradycardia, unspecified (principal) | CPT/HCPCS: 93010 ==

== ENCOUNTER 2024-10-30 16:07 | Outpatient (AMB) | payer MEDICAID, SELFPAY ==
--- NOTE | 2024-10-30 16:09 | MHC.OFFVIS ---
Vital Signs 10/30/24 16:12 Height 5 ft 4 in Weight 196 lb 3.382 oz BMI 33.7 BP 119/63 Blood Pressure Location Lt brachial Position Sitting Intake Visit Reasons: Alcohol Dependece/Perlita. temo. enzymes Intake Note: Judy presents in office today in follow up of elevated liver enzymes. CC: Patient c/o very soft stools lately every time she has a BM, and a lot of acid reflux. Patient states that she lost her in August this year only a month after getting . She was seen in the ER on 10/28 for low blood pressure. Windchill Administrator Required: No Accompanied by: Self / Same As Patient Allergies azithromycin [From ZITHROMAX] Allergy (Intermediate, Verified 10/30/24 16:14) SWELLING Penicillins [PENICILLINS] Allergy (Intermediate, Verified 10/30/24 16:14) SWELLING Sulfa (Sulfonamide Antibiotics) [SULFA(SULFONAMIDE ANTIBIOTICS)] Allergy (Intermediate, Verified 10/30/24 16:14) SWELLING dicyclomine Adverse Reaction (Unknown, Verified 10/30/24 16:14) Itching BLUE CAPSELS FOR ABD PAIN Allergy (Unknown, Uncoded 11/09/23 09:07) COULDN'T PEE HPI HPI Alcohol Dependece/Perlita. temo. enzymes: Details: Assessment & Plan (1) GERD (gastroesophageal reflux disease): Code(s): K21.9 - Gastro-esophageal reflux disease without esophagitis Plan: TODAY SHE COMPLAINS OF A GROIN RASH. She usually sweats a lot and her MARKETING COMMUNICATIONS MANAGER rx's a patch - but she has not been able to get in to see her. So she is sweating a great deal. The o2o is working well. However, she will have breakthrough diarrhea a couple of times a week despite taking the lotrenex bid faithfully. She is having a great deal of stress at home with her boyfriend and his son - so this is likely a c/f. I recommend OTC Imodium as needed until thing settle down. I rx nystatin powder for her rash. Rov 3 mos. (2) Irritable bowel syndrome with diarrhea: Code(s): K58.0 - Irritable bowel syndrome with diarrhea (3) Jesi albicans infection: Code(s): B37.9 - Candidiasis, unspecified Medications: New alosetron (Lotronex) 1 mg PO BID 60 tabs 6RF K58.0 - Irritable bowel syndrome with diarrhea nystatin 1 appl topical TID 60 grams 3RF B37.9 - Candidiasis, unspecified Refilled omeprazole 40 mg PO DAILY 30 caps 6RF 30 days Discontinued cholestyramine (with sugar) 4 gram administer w/meal; avoid other meds within 1hr before or 4-6hr after dose Discontinued Reason: Doctor's Order 4 grams PO BID 378 grams 6RF K58.0 - Irritable bowel syndrome with diarrhea LABS: Laboratory Tests 04/16/24 08/25/24 10/28/24 12:03 12:15 12:18 Total Bilirubin 2.6 H 3.0 H 2.7 H Direct Bilirubin 0.8 H 0.8 H 0.8 H AST 89 H 62 H 43 H ALT 41 H 27 12 Alkaline Phosphatase 137 H 104 93 ULTRASOUND OF THE ABDOMEN -09/09/2024 Findings: The visualized pancreas, aorta, and inferior vena cava are unremarkable. Liver normal size and diffusely echogenic. Right lobe 16.6 cm length. No focal hepatic masses. Common duct 7.2 mm diameter. Physiologic distention of the gallbladder. No gallstones or sludge. Mild adenomyomatosis. No pericholecystic fluid. No sonographic Hickey sign. Main portal vein antegrade. Right kidney normal size, 9.9 cm in length. Normal cortical width and echotexture. No solid or cystic renal masses. No nephrolithiasis or hydronephrosis. Left kidney normal, 12.0 cm in length. Normal cortical width and echotexture. No solid or cystic renal masses. Nephrolithiasis or hydronephrosis. Spleen measures 11.4 cm. No splenic masses. No ascites. No lymphadenopathy. Impression: 1. Normal-sized liver mildly echogenic reflecting hepatic steatosis or diffuse hepatocellular disease. 2. No gallstones or evidence of cholecystitis. Subtle gallbladder adenomyomatosis may be present. 3. Mild dilatation of the common bile duct no sonographic evidence of choledocholithiasis. MRCP would be confirmatory. TODAY'S VISIT I have not seen this patient since 03/2023 it appears she is being referred for new diagnosis of alcohol use disorder and elevated liver function tests. Apparently she just lost her shortly after their wedding (they had been together for years but recently ). She is going through multiple personal stressers with her living situation as she used to live with her 's family and they want her to move out. Apparently he of cirrhosis from alcohol and the family blames her for his lapse in sobriety. She admits she was drinking heavily but she has been sober for 5 mos. I also encouraged her to remain sober as given the bilirubin elevations it is likely that she would decompensate quickly if she began drinking again. Right now her transaminases at least a trending down and will keep an eye on the bilirubin. In order to make sure there is nothing else that needs to be addressed we will also do hepatitis ABC panel with an HIV and an autoimmune liver workup to make sure there is no confounding secondary disease driving the liver problems. She has lost weight, but her IBS is out of control - she admits to not eating well or taking care of herself. ROV 8 weeks. [facility] Medical History (Updated 10/30/24 @ 16:56 by MAKEDA Macedo) Jesi albicans infection Preop examination Right upper quadrant abdominal pain Alcohol use disorder Recovering alcoholic Bipolar disorder Depression Anxiety Parkinson disease Surgical History H/O colonoscopy History of right breast biopsy Family History Father Stage 4 lung cancer Alzheimer disease Dementia Mother Hypothyroid Diabetes Dementia Kidney failure A-fib Sister Breast cancer Colon cancer Social History Household Members: Spouse Housing: Condominium Alcohol intake: former Patient Tobacco Use Status: Never used Tobacco Substance Use Type: Marijuana Advance Directives Date on File: 11/13/23 service: No Review of Systems Const Denies fatigue, Denies fever(s), Denies night sweats, Denies poor appetite and Denies weight loss Eyes Details: glasses Reports requires corrective lenses ENT Reports Normal hearing present, Denies dental pain, Denies dysphagia, Denies hearing loss, Denies mouth pain, Denies odynophagia, Denies throat swelling, Denies tongue swelling and Reports other (Dentition adequate) Card Reports no additional complaints Resp Reports no additional complaints GI Details: Denies abdominal pain, Denies melena, Denies bloating, Denies hematochezia, Denies constipation, Reports GI cramping, Denies dysphagia, Denies excessive flatus, Denies early satiety, Reports heartburn, Reports diarrhea, Denies nausea, Denies odynophagia, Denies vomiting and Denies hematemesis Musc Reports arthralgias (Right shoulder status post fall) and Reports radiating pain into limb Skin/Breast Denies pruritus, Denies lesions, Denies rash and Denies jaundice Neuro Reports Normal hearing present and Denies Abnormal speech present Psych Reports anxiety Endo Denies fatigue Aller/Immun Denies throat swelling and Denies tongue swelling Physical Exam Vital Signs: Last Vital Signs BP 119/63 10/30/24 16:12 BMI result Body Mass Index 33.7 Const General: cooperative, no acute distress, well developed and well groomed Nutritional Appearance: well nourished and obese Orientation/consciousness: oriented to person, oriented to place and oriented to time Limitations: No language barrier HEENT Head: Yes normocephalic and Yes atraumatic Eyes General: appearance normal, both eyes and all related structures Pupils: Equal, round and reactive pupils present Neck Neck: Yes normal visual inspection and Yes no lymphadenopathy Thyroid: Thyroid normal Resp Effort & Inspection: normal respiratory effort and able to speak in complete sentences Auscultation: clear to auscultation bilaterally Cardio Rate: regular rate Rhythm: regular rhythm Heart sounds: Normal, physiologic split S2 sound present Peripheral pulses: radial pulses present and posterior tibial pulses present GI Inspection: No distended, Yes Abdominal panniculus present and Yes obesity Palpation (GI): Soft to palpation, nontender, no guarding, not rigid and Hepatomegaly present Percussion: Yes normal to percussion Auscultation: normal bowel sounds Rectal Exam - Female: deferred Skin General skin exam: no rashes or lesions noted, turgor normal, skin not dry, no jaundice, No spider nevi and no striae Rashes: no rashes Nails: normal Neuro General: oriented to person, oriented to place and oriented to time Cranial nerves: Yes Equal, round and reactive pupils present and Yes Normal hearing present Speech: No Abnormal speech present Extrem General: Yes normal to inspection, No clubbing, No cyanosis and Yes edema (non pitting of LE's) Psych Appearance: grossly normal and well kempt Mental Status: mental status grossly normal Speech and movement: Normal speech and movement present Affect: normal affect Attitude: cooperative Thought process: Normal thought process present and not confabulating Thought content: Normal thought content present Insight: Limited insight present (Psych) Judgement: Limited judgement present (Psych) Assessment & Plan Assessment & Plan (1) Fatty liver due to alcoholism: Comment: Baseline Laboratory Tests 04/16/2401/ 12:0312:1512:18 Total Bilirubin 2.6 H 3.0 H 2.7 H Direct Bilirubin 0.8 H 0.8 H 0.8 H AST 89 H 62 H 43 H ALT 41 H 27 12 Alkaline Phosphatase 137 H 104 93 Current labs ULTRASOUND OF THE ABDOMEN -09/09/2024 Findings: The visualized pancreas, aorta, and inferior vena cava are unremarkable. Liver normal size and diffusely echogenic. Right lobe 16.6 cm length. No focal hepatic masses. Common duct 7.2 mm diameter. Physiologic distention of the gallbladder. No gallstones or sludge. Mild adenomyomatosis. No pericholecystic fluid. No sonographic Hickey sign. Main portal vein antegrade. Right kidney normal size, 9.9 cm in length. Normal cortical width and echotexture. No solid or cystic renal masses. No nephrolithiasis or hydronephrosis. Left kidney normal, 12.0 cm in length. Normal cortical width and echotexture. No solid or cystic renal masses. Nephrolithiasis or hydronephrosis. Spleen measures 11.4 cm. No splenic masses. No ascites. No lymphadenopathy. Impression: 1. Normal-sized liver mildly echogenic reflecting hepatic steatosis or diffuse hepatocellular disease. 2. No gallstones or evidence of cholecystitis. Subtle gallbladder adenomyomatosis may be present. 3. Mild dilatation of the common bile duct no sonographic evidence of choledocholithiasis. MRCP would be confirmatory. Code(s): K70.0 - Alcoholic fatty liver Category: Medical (2) Alcohol use disorder: Code(s): F10.90 - Alcohol use, unspecified, uncomplicated Category: Medical (3) Irritable bowel syndrome with diarrhea: Code(s): K58.0 - Irritable bowel syndrome with diarrhea Category: Medical (4) GERD (gastroesophageal reflux disease): Code(s): K21.9 - Gastro-esophageal reflux disease without esophagitis Category: Medical Plan I have not seen this patient since 03/2023 it appears she is being referred for new diagnosis of alcohol use disorder and elevated liver function tests. Apparently she just lost her shortly after their wedding (they had been together for years but recently ). She is going through multiple personal stressers with her living situation as she used to live with her 's family and they want her to move out. Apparently he of cirrhosis from alcohol and the family blames her for his lapse in sobriety. She admits she was drinking heavily but she has been sober for 5 mos. I also encouraged her to remain sober as given the bilirubin elevations it is likely that she would decompensate quickly if she began drinking again. Right now her transaminases at least a trending down and will keep an eye on the bilirubin. In order to make sure there is nothing else that needs to be addressed we will also do hepatitis ABC panel with an HIV and an autoimmune liver workup to make sure there is no confounding secondary disease driving the liver problems. She has lost weight, but her IBS is out of control - she admits to not eating well or taking care of herself. We will restart her Lotronex but at the lower dose of 0.5 mg since alcohol frequently worsens diarrhea due to the irritation of the GI tract. She continues on her omeprazole 40 mg daily. ROV 8 weeks. Orders: Orders Smooth Muscle Antibody Today F10.90 - Alcohol use, unspecified, uncomplicated, K70.0 - Alcoholic fatty liver Mitochondrial Antibody Today F10.90 - Alcohol use, unspecified, uncomplicated, K70.0 - Alcoholic fatty liver Ammonia Today F10.90 - Alcohol use, unspecified, uncomplicated, K70.0 - Alcoholic fatty liver Alpha Fetoprotein Today F10.90 - Alcohol use, unspecified, uncomplicated, K70.0 - Alcoholic fatty liver KETTY Reflex Titer and Pattern Today F10.90 - Alcohol use, unspecified, uncomplicated, K70.0 - Alcoholic fatty liver Hepatitis A,B,C Profile Today - Alcohol use, unspecified, uncomplicated, K70.0 - Alcoholic fatty liver HIV Ab/Ag Today - Alcohol use, unspecified, uncomplicated, K70.0 - Alcoholic fatty liver Liver Fibrosis Pnl Today - Alcohol use, unspecified, uncomplicated, K70.0 - Alcoholic fatty liver Phosphatidylethanol, Blood Today - Alcohol use, unspecified, uncomplicated, K70.0 - Alcoholic fatty liver Medications: New alosetron (Lotronex) 0.5 mg PO BID 60 tabs 3RF K21.9 - Gastro-esophageal reflux disease without esophagitis, K58.0 - Irritable bowel syndrome with diarrhea Coding Level of Care Code Est Pt Level 4 (37496) Diagnoses Fatty liver due to alcoholism K70.0 Alcohol use disorder Irritable bowel syndrome with diarrhea K58.0 GERD (gastroesophageal reflux disease) K21.9 Time Spent (min) 34
[2024-10-30 16:12] VITALS: BP 119/63; BMI 33.7
--- OUTSIDE RECORDS SUMMARY | 2024-10-30 17:06 | XMS_ITS | Encounter Summary ---
Author Organization [employer] Address [address] [facility] [address] [place] [address] Care Team Providers Care Salvage Laborer Name Role Phone Silva Light MD Primary Care Provider [phone] Reason for Visit * Reason Comments Care Coordination C3CM chart review Encounter Details Date Type Department Care Team (Latest Contact Info) Description 10/29/2024 Patient Outreach [facility] [address] [place] [address] Silva Light MD [address] [place] [address] Care Coordination (C3CM chart review) Social History Tobacco Use Types Packs/Day Years Used Date Smoking Tobacco: Never Smokeless Tobacco: Never Alcohol Use Standard Drinks/Week Comments Yes 21 (1 standard drink = 0.6 oz pu re alcohol) Depression Answer Date Recorded Patient Health Questionnaire-9 Score 0 10/28/2024 Patient Health Questionnaire-9 Score 0 10/28/2024 Last PHQ-9: Questionnaire Data Not on file 0 10/28/2024 Housing Stability Answer Date Recorded What is your housing situation today? I have yasemin soriano 10/28/[address] you li ve. Do you have problems with any of the following? None of the above 10/28/2024 Food Insecurity Answer Date Recorded Within the past 12 months, y ou worried that your food would run out before you got money to buy more: Never True 10/28/2024 Within the past 12 months,th e food you bought just didn't last and you didn't have enough money to get more: Never True 07/2024 Transportation Answer Date Recorded In the past [...] Answer Date Recorded Patient Health Questionnaire-2 Score 0 10/28/2024 Internet Access Answer Date Recorded Internet Access [...] as of this encounter Progress Notes * Tamy Gonzalez RN - 10/29/2024 10:36 AM EDT KAYKAY Gonzalez RN, performed chart review, in anticipation of initial assessment with patient, as patient has stratified for Adult Complex Care. History significant for obesity, alcohol abuse, schizophrenia. . Specialists include GI and addiction medicine ED visits within the last 12 months include 2 visits. Last appointment in PCP office on 10/28/2024. Next appointment scheduled for 11/03/2024. documented in this encounter Plan of Treatment Upcoming Encounters Date Type Department Care Team (Late st Contact Info) Description 11/03/2024 1:15 PM EDT Office Visit [facility] [address] [place] [address] Walter Bar MD [address] [place] [address] 11/19/2024 8:45 AM EDT Office Visit [facility] [address] [place] [address] Silva Light MD [address] [place] [address] documented as of this encounter Visit Diagnoses Not on filedocumented in this encounter Additional Health Concerns Assessment Noted Time PHQ-9 Depression Total Score: 0 10/29/19 25 9:22 AM EDT documented as of this encounter Care Teams Salvage Laborer Relationship Specialty Start Date End Date Silva Light MD [address] [place] [address] PCP - General Family Medicine 08/06/13 documented as of this encounter
--- OUTSIDE RECORDS SUMMARY | 2024-10-30 17:06 | XMS_ITS | Encounter Summary ---
Author Organization [employer] Address [address] [facility] [address] [place] [address] Care Team Providers Care Completions Engineer Name Role Phone Silva Light MD Primary Care Provider [phone] Encounter Details Date Type Department Care Team ([facility] st Contact Info) Description 10/28/2024 9:15 AM EDT Office Visit [facility] [address] [place], [place] [phone] Silva Light MD [address] [place], [place] [phone] Folliculitis (Primary Dx); Hypotension, unspecified hypotension type Social History Tobacco Use Types Packs/Day [...] enough money to get more: Never True 04/ 07/2024 Transportation Answer Date Recorded In the [...] Sign Reading Time Taken Comments Blood Pressure 90/58 10/28/2024 9:22 AM EDT Pulse 62 10/28/2024 9:22 AM EDT Temperature 36.4 ??C (97.5 ??F) 10/28/2024 9:22 AM ED T Respiratory Rate 20 10/28/2024 9:22 AM EDT Oxygen Saturation 99% 10/28/2024 9:22 AM EDT Inhaled Oxygen Concentration - - Weight 89.9 kg (198 lb 3.2 oz) 10/28/2024 9:22 A M EDT Height 167.6 cm (5' 6 ) 10/28/2024 9:22 AM EDT Body Mass Index 31.99 10/28/2024 9:22 AM EDT documented in this encounter Progress Notes * Silva Light MD - 10/28/2024 9:15 AM EDT Images from the original note were not included. Subjective Patient ID: Judy Alexander is a 59 y.o. female who presents for No chief complaint on file.. Edema Presents with chronic edema. The onset of the episode was gradual. These episodes happen throughoutthe day. The problem presents itself constantly. The edema is present on the both side(s). Pertinent negative symptoms include no chest pain and no palpitations. Treatments tried include diuretics. Pt has not taken her meds since jul Review of Systems Constitutional: Negative. Respiratory: Negative. Negative for shortness of breath. Cardiovascular: Negative for chest pain and palpitations. Gastrointestinal: Negative. Genitourinary: Negative. Musculoskeletal: Negative for neck pain. Neurological: Negative for headaches. Objective Physical Exam Constitutional: Appearance: Normal appearance. Cardiovascular: Rate and Rhythm: Normal rate and regular rhythm. Pulses: Normal pulses. Heart sounds: Normal heart sounds. Pulmonary: Effort: Pulmonary effort is normal. Abdominal: General: Abdomen is flat. Skin: Comments: folliculitis Neurological: Mental Status: She is alert. Assessment/Plan Diagnoses and all orders for this visit: Folliculitis Comments: Started on Doxycyclin BID advised t keep area clean and dry Hypotension, unspecified hypotension type Comments: Pt sent to ER for further eval Other orders - doxycycline (Vibra-Tabs) 100 MG tablet; Take 1 tablet (100 mg) by mouth 2 times daily for 5 days.Take with a full glass of water and do not lie down for at least 30 minutes after. documented in this encounter Plan of Treatment Upcoming Encounters Date Type Department Care Team (Late st Contact Info) Description 11/03/2024 1:15 PM EDT Office Visit [facility]ED[facility] [address] [place] [address] Walter Bar MD [address] [place] [address] 11/19/2024 8:45 AM EDT Office Visit [facility] [address] [place] [address] Silva Light MD [address] [place] [address] documented as of this encounter Visit Diagnoses Diagnosis Folliculitis- Primary Other specified disease of hair and hair follicles Hypotension, unspecified hypotension type documented in this encounter Additional Health Concerns Assessment Noted Time PHQ-9 Depression Total Score: 0 10/29/19 25 9:22 AM EDT documented as of this encounter Care Teams Completions Engineer Relationship Specialty Start Date End Date Silva Light MD [address] [place] [address] PCP - General Family Medicine 08/06/13 documented as of this encounter
--- OUTSIDE RECORDS SUMMARY | 2024-10-30 17:06 | XMS_ITS ---
Author Organization [employer] Address [address] [facility] [address] [place] [address] Care Team Providers Care Weatherstrip Machine Operator Name Role Phone Silva Light MD Primary Care Provider [phone] CM Complex Status:Identified (Enrolling) Start date:10/29/2024 Enrollment reason:ADT Feed Overview ED- Pt went to [facility] ED on 10/28/24. Rossy already has her enrolled in CHW program in [place]. Have her schedule initial assessment with you. Case Team Name Relationship Phone Tamy Gonzalez RN Registered Nurse(Responsible S taff) Continued Care and Services Coordination
--- OUTSIDE RECORDS SUMMARY | 2024-10-30 17:06 | XMS_ITS | Encounter Summary ---
Author Organization [employer] Address [address] [facility] [address] [place] [address] Care Team Providers Care Pasta Maker Name Role Phone Silva Light MD Primary Care Provider [phone] Reason for Visit * Reason Comments Care Coordination CM/CHW outreach Encounter Details Date Type Department Care Team (Latest Contact Info) Description 10/29/2024 Patient Outreach [facility] [address] [place] [address] Silva Light MD [address] [place] [address] Care Coordination (CM/CHW outreach) Social History Tobacco Use Types Packs/Day Years [...] encounter Progress Notes * Rossy Louie - 10/29/2024 1:23 PM EDT CHW Rossy Louie, placed outbound call to patient introducing herself from [facility] CM Department, in regards to offering services. Patient's name and was confirmed. Patient agreesto participate in program. Appt. for initial assessment scheduled for 11/18/24 @1PM tele with KAYKAY aRvi RN. CHW reinforced direct contact information or CM for any additional questions or concerns and extended clinic hours on Mondays and Wednesdays, and [facility] Located in [facility]. Patient provided with after-hours line for [facility], , which offer night time triage service and option to transfer to retail wireless sales consultant provider if needed. Patient verbalizes understanding, and able to repeat back to newswriter. documented in this encounter Plan of Treatment Upcoming Encounters Date Type Department Care Team (Late st Contact Info) Description 11/03/2024 1:15 PM EDT Office Visit [facility] [address] [place] [address] Walter Bar MD [address] [place] [address] 11/19/2024 8:45 AM EDT Office Visit [facility] [address] [place] [address] Silva Light MD [address] [place] [address] documented as of this encounter Visit Diagnoses Not on filedocumented in this encounter Additional Health Concerns Assessment Noted Time PHQ-9 Depression Total Score: 0 10/29/19 25 9:22 AM EDT documented as of this encounter Care Teams Pasta Maker Relationship Specialty Start Date End Date Silva Light MD [address] [place] [address] PCP - General Family Medicine 08/06/13 documented as of this encounter
--- OUTSIDE RECORDS SUMMARY | 2024-10-30 17:06 | XMS_ITS | Encounter Summary ---
Author Organization [employer] Address [address] [facility] 7t [place] [address] Care Team Providers Care High School History Teacher Name Role Phone Silva Light MD Primary Care Provider [phone] Encounter Details Date Type Department Care Team (Latest Contact Info) Description 10/28/2024 Travel Social History Tobacco Use Types Packs/Day [...] Description 11/03/2024 1:15 PM EDT Office Visit [facility] MED & PEDS [address] [place] [address] Walter Bar MD [address] [place] [address] 11/19/2024 8:45 AM EDT Office Visit [facility] [address] [place] [address] Silva Light MD 505 [place] [address] documented as of this encounter Visit Diagnoses Not on filedocumented in this encounter Additional Health Concerns Assessment Noted Time PHQ-9 Depression Total Score: 0 10/29/19 25 9:22 AM EDT documented as of this encounter Care Teams High School History Teacher Relationship Specialty Start Date End Date Silva Light MD [address] [place] [address] PCP - General Family Medicine 08/06/13 documented as of this encounter
--- OUTSIDE RECORDS SUMMARY | 2024-10-30 17:06 | XMS_ITS | Encounter Summary ---
Author Organization [employer] Address [address] [facility] 7t [place] [address] Care Team Providers Care Knotter Hand Name Role Phone Silva Light MD Primary Care Provider [phone] Encounter Details Date Type Department Care Team ([facility] st Contact Info) Description 10/29/2024 Patient Outreach [facility] [address] [place] [address] Silva Light MD [address] [place] [address] Social History Tobacco Use Types Packs/Day Years [...] Description 11/03/2024 1:15 PM EDT Office Visit [facility] MED & PEDS [address] [place] [address] Walter Bar MD [address] [place] [address] 11/19/2024 8:45 AM EDT Office Visit [facility] MED [facility] PED[facility] [address] [place] [address] Silva Light MD [address] [place] [address] documented as of this encounter Visit Diagnoses Not on filedocumented in this encounter Additional Health Concerns Assessment Noted Time PHQ-9 Depression Total Score: 0 10/29/19 9:22 AM EDT documented as of this encounter Care Teams Knotter Hand Relationship Specialty Start Date End Date Silva Light MD [address] [place] [address] PCP - General Family Medicine 08/06/13 documented as of this encounter
--- OUTSIDE RECORDS SUMMARY | 2024-10-30 17:06 | XMS_ITS | Encounter Summary ---
Author Organization [employer] Address [address] [place] [address] 7 [place] [address] Care Team Providers Care Healthcare Social Worker Name Role Phone Silva Light MD Primary Care Provider [phone] Reason for Visit * Reason Comments Med Refill Encounter Details Date Type Department Care Team (Late st Contact Info) Description 03/26/2023 Refill [facility] MED & PEDS [address] [place] [address] Silva Light MD [address] [place] [address] Post-traumatic stress disorder, unspecified Social History Tobacco [...] Description 11/03/2024 1:15 PM EDT Office Visit [facility]S [address] [place] [address] Walter Bar MD [address] [place], [place] [phone] 11/19/2024 8:45 AM EDT Office Visit [facility] & PEDS [address] [place] [address] Silva Light MD [address] [place] [address] documented as of this encounter Visit Diagnoses Diagnosis Post-traumatic stress disorder, unspecified documented in this encounter Care Teams Healthcare Social Worker Relationship Specialty Start Date End Date Silva Light MD [address] [place] [address] PCP - General Family Medicine 08/06/13 documented as of this encounter
--- OUTSIDE RECORDS SUMMARY | 2024-10-30 17:06 | XMS_ITS | Encounter Summary ---
Author Organization [employer] Address [address] [facility] 7t [place] [address] Care Team Providers Care Shot Blaster Name Role Phone Silva Light MD Primary Care Provider [phone] Encounter Details Date Type Department Care Team (Late st Contact Info) Description 10/28/2024 Orders Only GENERIC EXTERNAL DATA DEPARTMENT Provider, Generic External Data Social History Tobacco Use Types Packs/Day Years [...] 1:15 PM EDT Office Visit [facility] MED & PEDS [address] [place] [address] Walter Bar MD [address] [place] [address] 11/19/2024 8:45 AM EDT Office Visit [facility] MED & PEDS [address] [place] [address] Silva Light MD 505 [place] [address] documented as of this encounter Procedures Procedure Name Priority Date/Time Associated Diagnosis Comments CBC WITH AUTO DIFFERENTIAL Routine 10/28/2024 12:18 PM EDT MAGNESIUM Routine 10/28/2024 12:18 PM EDT LIPASE Routine 10/28/2024 12:18 PM EDT HEPATIC FUNCTION PANEL Routine 10/28/2024 12:18 PM EDT BASIC METABOLIC PANEL Routine 10/28/2024 12:18 PM EDT documented in this encounter Results * Lipase (10/28/2024 12:18 PM EDT) Lipase 31 8 - 78 U/L [facility] 10/28/2024 12:1 8 PM EDT 10/28/2024 12:20 PM EDT us Generic External Data Provider LAB BLOOD ORDERAB LES Final Result Performing Organization Address City/[facility]/ZIP Co de Phone Number [facility] [address] [place] [address] [phone] * Magnesium (10/28/2024 12:18 PM EDT) Magnesium 2.0 1.6 - 2.6 mg/dL [facility] 10/28/2024 12:1 8 PM EDT 10/28/2024 12:20 PM EDT us Generic External Data Provider LAB BLOOD ORDERAB LES Final Result Performing Organization Address [facility]/ZIP Co de Phone Number [facility] [address] [place] [phone] * (ABNORMAL) Basic Metabolic Panel (10/28/2024 12:18 PM EDT) Sodium 140 135 - 145 mmol/L [facility] Potassium 3.7 3.3 - 5.1 mmol/L [facility] Chloride 110(H) 96 - 108 mmol/L [facility] Carbon Dioxide 24 22 - 29 mmol/L [facility] Anion Gap 10(L) 12 - 20 [facility] Urea Nitrogen (BUN) 14 9 - 16 mg/dL [facility] Creatinine, Serum 0.84 0.5 - 1.4 mg/dL [facility] Creatinine Clr Calc Pharmacy 79.6 [facility] Comment:Provided height and weight: 162.56 cm,95.2 kg.eGFR (calculated from the MDRD study equation) and eCrCl(calculated from the Cockcroft-Gault equation) are based ondifferent parameters and may not yield comparable results.If eCrCl result is absurd, please check patient'sheight/weight. Estimated Glomerular Filt Rate >60 [facility] Comment:Chronic Kidney Disea se: Estimated GFR < 60 mL/min/1.83z6Heuknx Kidney Disease: Estimated GFR < 15 mL/min/1.73m2 Glucose 94 60 - 115 mg/dL [facility] Calcium 9.7 8.4 - 10.2 mg/dL [facility] 10/28/2024 12:1 8 PM EDT 10/28/2024 12:20 PM EDT Generic External Data Provider LAB BLOOD ORDERAB LES Final Result Performing Organization Address [facility] de Phone Number [facility] [address] [place] [address] [phone] * (ABNORMAL) Hepatic Function Panel (10/28/2024 12:18 PM EDT) Bilirubin, Total 2.7(H) 0.0 - 1.0 mg/dL [facility] Comment:Slight Icterus. Bilirubin, Direct 0.8(H) 0.0 - 0.5 mg/dL [facility] Comment:Slight Icterus. Aspartate Amino Transferase 43(H) 5 - 31 U/L [facility] Alanine Aminotransferase 12 0 - 31 U/L [facility] Total Protein 7.0 6.5 - 8.0 g/dL [facility] Albumin Level 3.9 3.5 - 5.0 g/dL [facility] Alkaline Phosphatase 93 39 - 117 U/L [facility] 10/28/2024 12:1 8 PM EDT 10/28/2024 12:20 PM EDT us Generic External Data Provider LAB BLOOD ORDERAB LES Final Result Performing Organization Address [facility] Co de Phone Number [facility] [address] [place] [address] [phone] * (ABNORMAL) CBC auto differential (10/28/2024 12:18 PM EDT) White Blood Count 8.5 4.8 - 10.8 X10*3/uL [facility] Red Blood Count 5.16 4.20 - 5.50 X10*6/uL [facility] Hemoglobin 16.1(H) 12.0 - 16.0 g/dl [facility] Hematocrit 46.0 37.0 - 47.0 % [facility] Mean Corpuscular Volume 89.1 80.0 - 98.0 fL [facility] Mean Corpuscular Hemoglobin 31.2 27.0 - 33.0 pg [facility] Mean Corpuscular HGB Conc 35.0 31.0 - 35.0 g/dl [facility] Red Cell Distribution Width 14.2 11.0 - 16.0 % [facility] Platelet Count 166 160 - 400 X10*3/uL [facility] Mean Platelet Volume 11.6 9.4 - 12.3 fL [facility] Neutrophils Percent Auto 66.8 45 - 73 % [facility] Imm Gran Pct Auto 0.2 0.0 - 0.4 % [facility] Lymphocytes Percent Auto 25.5 20 - 40 % [facility] Monocytes Percent Auto 6.3 2 - 11 % [facility] Eosinophils Percent Auto 0.8 0 - 4 % [facility] Basophils Percent Auto 0.4 0 - 2 % [facility] NRBC Pct Auto 0.0 0.0 - 0.2 /100WBC [facility] Neutrophils Absolute Auto 5.7 2.0 - 8.3 x10*3/uL [facility] Imm Gran Abs Auto 0.02 0.00 - 0.03 X10*3/uL [facility] Lymphocytes Absolute Auto 2.2 1.2 - 4.9 X10*3/uL [facility] Monocytes Absolute Auto 0.5 0.1 - 1.2 X10*3/uL [facility] Eosinophils Absolute Auto 0.1 0.0 - 0.4 X10*3/uL [facility] Basophils Absolute Auto 0.0 0.0 - 0.2 X10*3/uL [facility] NRBC Abs Auto 0.000 0.0 - 0.012 X10*3/uL [facility] 10/28/2024 12:1 8 PM EDT 10/28/2024 12:20 PM EDT us Generic External Data Provider LAB BLOOD ORDERAB LES Final Result [facility] [address] [place] [phone] [phone] documented in this encounter Visit Diagnoses Not on filedocumented in this encounter Additional Health Concerns Assessment Noted Time PHQ-9 Depression Total Score: 0 10/29/19 25 9:22 AM EDT documented as of this encounter Care Teams Shot Blaster Relationship Specialty Start Date End Date Silva Light MD [address] [place] [address] PCP - General Family Medicine 08/06/13 documented as of this encounter
--- OUTSIDE RECORDS SUMMARY | 2024-10-30 17:06 | XMS_ITS | Encounter Summary ---
Author Organization [employer] Address [address] [place] [address] [address] [place] [address] Care Team Providers Care Emergency Care Attendant Name Role Phone Sivla Light MD Primary Care Provider [phone] Reason for Visit * Reason Onset Date Comments Nurse Triage 11/14/2023 Encounter Details Date Type Department Care Team ([facility] st Contact Info) Description 11/14/2023 Telephone [facility] MED[facility] [address] [place] [address] Silva Light MD [address] [place] [address] Nurse Triage Social History Tobacco Use Types [...] Triage call Pt reports was discharged from [facility] 11/09/23 with prescription for doxycycline 100mg 2x/ daily for left leg cellulitis. Pt reports every time Pt takes the medication even with food Pt vomits. Pt is requesting a different medication. Pt has apt with PCP 11/30/23. Advised Pt will send this request to PCP and nursing staff at [facility] for follow up. Pt agreed with this [...] Description 11/03/2024 1:15 PM EDT Office Visit [facility] MED & PEDS [address] [place] [address] Walter Bar MD [address] [place] [address] 11/19/2024 8:45 AM EDT Office Visit [facility] & PEDS [address] [place] [address] Silva Light MD [address] [place] [address] documented as of this encounter Visit Diagnoses Not on filedocumented in this encounter Care Teams Emergency Care Attendant Relationship Specialty Start Date End Date Silva Light MD [address] [place] [address] PCP - General Family Medicine 08/06/13 documented as of this encounter
--- OUTSIDE RECORDS SUMMARY | 2024-10-30 17:06 | XMS_ITS | Encounter Summary ---
Author Organization [employer] Address [address] [place] [address] [place] [address] Care Team Providers Care Livestock Feeder Name Role Phone Silva Light MD Primary Care Provider [phone] Encounter Details Date Type Department Care Team (Late Contact Info) Description 11/08/2022 Orders Only [facility] & PEDS [address] [place], [place] [phone] Sanju Mcgee MD [address] [place] [address] Primary osteoarthritis of left knee (Primary Dx) [...] 11/03/2024 1:15 PM EDT Office Visit [facility] & PED[facility] [address] [place], [place] [phone] Walter Bar MD [address] [place] [address] 11/19/2024 8:45 AM EDT Office Visit [facility]EDS [address] [place] [address] Silva Light MD [address] [place] [address] documented as of this encounter Visit Diagnoses Diagnosis Primary osteoarthritis of left knee- Primary documented in this encounter Care Teams Livestock Feeder Relationship Specialty Start Date End Date Silva Light MD [address] [place] [address] PCP - General Family Medicine 08/06/13 documented as of this encounter
--- OUTSIDE RECORDS SUMMARY | 2024-10-30 17:06 | XMS_ITS | Encounter Summary ---
Author Organization [email or web address] Address [address] [facility] 7t [place] [address] Care Team Providers Care Bond Analyst Name Role Phone Silva Light MD Primary Care Provider [phone] Reason for Visit * Reason Onset Date Comments Nurse Triage 10/20/2024 Encounter Details Date Type Department Care Team ([facility] st Contact Info) Description 10/20/2024 Telephone [facility] MEDICINE [address] [place] [address] Silva Light MD [address] [place] [address] Nurse Triage Social History Tobacco Use Types Packs/Day Years Used Date Smoking Tobacco: Never Smokeless Tobacco: Never Alcohol Use Standard Drinks/Week Comments Yes 21 (1 standard drink = 0.6 oz pu re alcohol) Housing Stability Answer Date Recorded What is your housing situation today? I have housing today, but I am worried about losing housing in the future 09/10/[address] you li ve. Do you have problems with any of the following? None of the above 09/10/2024 Food Insecurity Answer Date Recorded Within the past 12 months, y ou worried that your food would run out before you got money to buy more: Sometimes True 2024 Within the past 12 months,th e food you bought just didn't last and you didn't have enough money to get more: Never True 09/10/2024 Transportation Answer Date Recorded In the past [...] encounter Miscellaneous Notes * Telephone Encounter - Tonia Lopes RN - 10/20/2024 10:16 AM EDT Triage call Pt reports skin lump located LLQ of abdomen. Pt reports noticing it last night. Area issize of nickel, has red center and is painful to touch. Neg for fever. Pt suspects possible bug bite. Pt is advised no available apts in [place] today. Offered to come [facility]. Pt agreed with disposition and will come to [facility] today. Insurance is verified as active. Protocol Used: Skin Lump or Localized Swelling (Adult) Protocol-Based Disposition: See in Office or Video Visit Today Video visit not offered Positive Triage Question: * Swelling is painful to touch and no fever * All higher-acuity triage questions were negative Care Advice Discussed: * Reasons To Call Back - Fever occurs - Spreading redness occurs - Swelling becomes painful - Swelling lasts over 1 week - You become worse * Telephone Encounter - Henrry Hernandez - 10/20/2024 9:51 AM EDT Symptom: Skin Lump Outcome: Schedule an urgent appointment (within 4 hours) or talk to a nurse or provider soon Reason: Red and larger than 1 inch The caller accepted this outcome. Contact pt at [phone] documented in this encounter Plan of Treatment Upcoming Encounters Date Type Department Care Team (Late st Contact Info) Description 11/03/2024 1:15 PM EDT Office Visit [facility] MED & PEDS [address] [place] [address] Walter Bar MD [address] [place] [address] 11/19/2024 8:45 AM EDT Office Visit [facility] MED & PEDS [address] [place] [address] Silva Light MD [address] [place] [address] documented as of this encounter Visit Diagnoses Not on filedocumented in this encounter Care Teams Bond Analyst Relationship Specialty Start Date End Date Silva Light MD [address] [place] [address] PCP - General Family Medicine 08/06/13 documented as of this encounter
--- OUTSIDE RECORDS SUMMARY | 2024-10-30 17:06 | XMS_ITS | Encounter Summary ---
Author Organization [employer] Address [address] [facility] 7t [place] [address] Care Team Providers Care Comptroller Name Role Phone Silva Light MD Primary Care Provider [phone] Reason for Visit * Reason Onset Date Comments Call Back Request 09/23/2024 Encounter Details Date Type Department Care Team ([facility] Contact Info) Description 09/23/2024 Telephone [facility] [address] [place] [address] Silva Light MD [address] [place] [address] Call Back Request Social History Tobacco Use Types Packs/Day Years [...] Telephone Encounter - Silva Light MD - 09/26/2024 11:51 AM EST Needs more info * Telephone Encounter - Quinton Delacruz - 09/25/2024 9:51 AM EST Tc from [place] from [facility] calling in requesting a status on prior message. * Telephone Encounter - Teresa Leal - 09/23/2024 11:54 AM EST Tc from [facility] with [facility] to clarify information. If the patient has capacity, was complained about medications or if the pcp has any concerns about the patient. documented in this encounter Plan of Treatment Upcoming Encounters Date Type Department Care Team (Late st Contact Info) Description 11/03/2024 1:15 PM EDT Office Visit [facility]EDS [address] [place] [address] Walter Bar MD [address] [place] [address] [phone] 11/19/2024 8:45 AM EDT Office Visit [facility] & PEDS [address] [place] [address] Silva Light MD [address] [place] [address] documented as of this encounter Visit Diagnoses Not on filedocumented in this encounter Care Teams Comptroller Relationship Specialty Start Date End Date Silva Light MD [address] [place] [address] PCP - General Family Medicine 08/06/13 documented as of this encounter
--- OUTSIDE RECORDS SUMMARY | 2024-10-30 17:06 | XMS_ITS | Clinical Summary ---
Author Organization [employer] Address [address] [facility] [address] [place] [address] Care Team Providers Care Cook Helper Dessert Name Role Phone Silva Light MD Primary Care Provider [phone] Allergies Active Allergy Reactions Criticality Noted Date [...] BEDTIME 30 tablet 11 10/18/19 24 Active gabapentin (Neurontin) [...] AT BEDTIME 60 tablet 08/08/19 25 Active bacitracin-polym yxin b (Polysporin) ointment Apply topically 2 times daily. 15 g 09/10/19 25 Active doxycycline (Vibra-Tabs) 100 MG tablet Take 1 tablet (100 mg) by mouth 2 times daily for 5 days. Take with a full glass of water and do not lie down for at least 30 minutes after. 10 tablet 10/29/19 25 025 Active metoprolol tartrate (Lopressor) 50 MG tabletIndication s:Primary hypertension TAKE 1 TABLET TWICE DAILY IN THE MORNING AND AT BEDTIME 120 tablet 11 10/18/19 24 025 Discontinued Active Problems Problem Noted Date Diagnosed Date Alcohol abuse 11/30/2023 Menopausal and female climacteric states 023 Cobalamin deficiency 02/03/2016 Paroxysmal supraventricular tachycardia 06/09/20 13 Schizophrenia 04/29/2013 Hypothyroidism 02/19/2013 Obesity 02/19/2013 Encounters Date Type Department Care Team Description 10/29/2024 Patient Outreach [facility] [address] [place] [phone] Silva Light MD Care Coordination (CM/CHW outreach) 10/29/2024 Patient Outreach [facility] [address] [place] [address] Silva Light MD Care Coordination ([facility] chart review) 10/29/2024 Patient Outreach [facility] [address] [place] [phone] Silva Light MD 10/28/2024 9:15 AM EDT Office Visit [facility] [address] [place] [address] Silva Light MD Folliculitis (Primary Dx); Hypotension, unspecified hypotension type 10/28/2024 Refill [facility] [address] [place] [address] Silva Light MD Post-traumatic stress disorder, unspecified 10/28/2024 Orders Only GENERIC EXTERNAL DATA DEPARTMENT Provider, Generic External Data 10/28/2024 Travel 10/20/2024 Telephone [facility] [address] [place] [phone] Silva Light MD Nurse Triage 10/10/2024 Population Health Risk Score [facility] Department [address] [phone] Provider, Population Health Generic 10/02/2024 Patient Outreach [facility] [address] [place] [address] Silva Light MD Care Coordination (SDOH) 09/23/2024 Telephone [facility] [place] [address] Silva Light MD Call Back Request 09/23/2024 Patient Outreach [facility] [address] [place] [address] Jeff We[facility] Supports 09/16/2024 Patient Outreach [address] [address] Jeff Weeks [facility] Supports 09/11/2024 Patient Outreach [facility] [address] [place] [address] Silva Light MD Care Coordination (SDOH) 09/11/2024 Patient Outreach [address] [address] Jeff [facility] 09/10/2024 10:20 AM EST Office Visit [facility] [address] [place] [address] Ning Hope MD Encounter for immunization (Primary Dx); Alcohol abuse; Transaminitis; Boil of buttock 09/10/2024 Telephone [facility] [address] [place] [phone] Silva Light MD 09/10/2024 Travel 09/09/[address] [address] Silva Light MD Nurse Triage 09/05/2024 Patient Outreach [address] [address] [facility] 09/03/2024 Patient Outreach [facility] [address] [place] [phone] Silva Light MD Care Coordination (SDOH) 09/01/2024 Patient Outreach [facility] [address] [place] [phone] Jeff [facility] 08/27/[address] [address] Walter Bar MD 08/27/2024 Patient Outreach [facility] [address] [place] [address] Silva Light MD Care Coordination (SDOH) 08/25/2024 10:45 AM EST Office Visit [facility] [address] [place] [address] Walter Bar MD Alcohol use disorder, severe, dependence (CMS/HCC) (Primary Dx); Elevated liver enzymes 08/25/2024 Travel 08/20/2024 Patient Outreach [facility] [address] [place] [address] Silva Light MD Care Coordination (Outreach) 08/15/2024 10:00 AM EST Telemedicine [facility] [address] [place] [address] Silva Light MD Bilateral leg edema (Primary Dx); Hypothyroidism, unspecified type; Alcohol abuse 08/15/2024 Travel 08/14/2024 Telephone [facility] [address] [place] [address] Silva Light MD Chart Prep 08/11/2024 Patient Outreach [facility] [address] [place] [address] Silva Light MD Care Coordination (Outreach) 08/08/2024 Refill [facility] [address] [place] [address] Silva Light MD Hypothyroidism, unspecified type 08/08/2024 Patient Outreach [facility] [address] [place] [address] Silva Light MD Pre-visit Planning (SDOH positive, Tobacco screening negative. ) from Last 3 Months Immunizations Name Administration Dates Next Due Influenza injectable quadriv alent IIV4 with preservative 06/24/2018,04/28/2016,07/13/2015 Influenza injectable quadriv alent preservative free 07/11/2023,04/25/2022,04/02/2021,2019 Influenza, IIV3, injectable 05/27/2014, 1 Influenza, Split (incl. tita fied surface antigen) 05/15/2013 Influenza, seasonal, injecta ble, preservative free 04/16/2024,03/27/2017 Pfizer Covid-19 Vaccine 12+ 09/10/2024 Pneumococcal Conjugate PCV 20 09/10/2024 TD (adult), 2 Lf tetanus tox oid, [...] Mass Index 31.99 10/28/2024 9:22 AM EDT Plan of Treatment Upcoming Encounters Date Type Department Care Team (Late st Contact Info) Description 11/03/2024 1:15 PM EDT Office Visit [facility] [address] [place] [address] Walter Bar MD [address] [place] [address] 11/19/2024 8:45 AM EDT Office Visit [facility] [address] [place] [address] Silva Light MD [address] [place] [address] Health Maintenance Due Date Last Done Comments CT Colonography 1965 FIT DNA/Cologuard 1965 FIT 1965 FOBT 1965 HIV Screening 1965 Sigmoidoscopy 1965 Hepatitis A Vaccines (1 of 2 - Risk 2-dose series) 1983 Dental X-Ray: Bitewings 09/09/2010 09/08/2009 Dental Oral Exam 03/07/2011 09/06/2010, 11/26/2009 Dental Prophylaxis 03/07/2011 09/06/2010 Mammogram 12/06/2023 12/05/2021, 12/29, 04/23/2018 Hepatitis B Vaccines (1 of 3 - Risk 3-dose series) 2024 RSV Patients and Patients Aged 60 years or older (1 - Risk 60-74 years 1-dose series) 2024 Cervical Cancer Screening 12/20/2024 HPV/Cotest 12/20/2024 12/20/2021, 12/31/2018 Pap Smear 12/20/2024 12/20/2021, 11/28, 12/30/2019, Additional history exists Tobacco Screening 08/25/2025 08/25/2024 Alcohol/Substance Use Screening 10/28/2025 10/28/2024 Depression Screening 10/28/2025 10/28/2024, 10/29/19 SDOH Screening 10/28/2025 10/28/2024 Dental X-Ray: Full Mouth 05/22/2027 05/21/2024, 08/30 Colonoscopy 07/10/2027 07/10/2022 Colorectal Cancer Screening 07/10/2027 Lipid Panel 04/16/2029 04/16/2024, 11/18/2021 DTaP/Tdap/Td Vaccines (3 - Td or Tdap) 12/01/2031 11/30/2021, 07/11/2011 Zoster Vaccines Completed 12/05/2021, 04/02/2021 Influenza Vaccine Completed 04/16/2024, , 04/25/2022, Additional history exists Hepatitis C Screening Completed 08/25/2024, 022 COVID-19 Vaccine Completed 09/10/2024, , 01/16/2022, Additional history exists Pneumococcal Vaccine: 50+ Years Completed 09/10/2024 HIB Vaccines Aged Out No longer eligi [...] Procedure Name Priority Date/Time Associated Diagnosis Comments LIPASE Routine 10/28/2024 12:18 PM EDT MAGNESIUM Routine 10/28/2024 12:18 PM EDT BASIC METABOLIC PANEL Routine 10/28/2024 12:18 PM EDT HEPATIC FUNCTION PANEL Routine 10/28/2024 12:18 PM EDT CBC WITH AUTO DIFFERENTIAL Routine 10/28/2024 12:18 PM EDT US ABDOMEN COMPLETE Routine 09/09/2024 1 0:36 AM EST Alcohol use disorder, severe, dependence (CMS/HCC) Elevated liver enzymes PROTHROMBIN TIME-INR Routine 08/25/2024 12:15 PM EST [...] ESTABLISHED PATIENT Routine 09/06/2010 12:00 AM EST INTRAORAL - COMPLETE SERIES OF RADIOGRAPHIC IMAGES Routine 09/08/2009 12:00 AM EST from Last 3 Months or Most Recently Relevant to Health Maintenance Results * (ABNORMAL) CBC auto differential (10/28/2024 12:18 PM EDT) Only the most recent of2 resultswithin the time period is included. White Blood Count 8.5 4.8 - 10.8 X10*3/uL [facility] Red Blood Count 5.16 4.20 - 5.50 X10*6/uL [facility] Hemoglobin 16.1(H) 12.0 - 16.0 g/dl [facility] Hematocrit 46.0 37.0 - 47.0 % [facility] Mean Corpuscular Volume 89.1 80.0 - 98.0 fL [facility] Mean Corpuscular Hemoglobin 31.2 27.0 - 33.0 pg [facility] Mean Corpuscular HGB Conc 35.0 31.0 - 35.0 g/dl [facility] Red Cell Distribution Width 14.2 11.0 - 16.0 % [facility] Platelet Count 166 160 - 400 X10*3/uL [facility] Mean Platelet Volume 11.6 9.4 - 12.3 fL [facility] Neutrophils Percent Auto 66.8 45 - 73 % [facility] Imm Gran Pct Auto 0.2 0.0 - 0.4 % [facility] Lymphocytes Percent Auto 25.5 20 - 40 % [facility] Monocytes Percent Auto 6.3 2 - 11 % [facility] Eosinophils Percent Auto 0.8 0 - 4 % [facility] Basophils Percent Auto 0.4 0 - 2 % [facility] NRBC Pct Auto 0.0 0.0 - 0.2 /100WBC [facility] Neutrophils Absolute Auto 5.7 2.0 - 8.3 x10*3/uL [facility] Imm Gran Abs Auto 0.02 0.00 - 0.03 X10*3/uL [facility] Lymphocytes Absolute Auto 2.2 1.2 - 4.9 X10*3/uL [facility] Monocytes Absolute Auto 0.5 0.1 - 1.2 X10*3/uL [facility] Eosinophils Absolute Auto 0.1 0.0 - 0.4 X10*3/uL [facility] Basophils Absolute Auto 0.0 0.0 - 0.2 X10*3/uL [facility] NRBC Abs Auto 0.000 0.0 - 0.012 X10*3/uL [facility] 10/28/2024 12:1 8 PM EDT 10/28/2024 12:20 PM EDT us Generic External Data Provider LAB BLOOD ORDERAB LES Final Result [facility] [address] [place] [phone] * Magnesium (10/28/2024 12:18 PM EDT) Magnesium 2.0 1.6 - 2.6 mg/dL [facility] 10/28/2024 12:1 8 PM EDT 10/28/2024 12:20 PM EDT us Generic External Data Provider LAB BLOOD ORDERAB LES Final Result Performing Organization Address [facility]/ZIP Co de Phone Number [facility] [address] [place] [phone] * Lipase (10/28/2024 12:18 PM EDT) Lipase 31 8 - 78 U/L [facility] 10/28/2024 12:1 8 PM EDT 10/28/2024 12:20 PM EDT Generic External Data Provider LAB BLOOD ORDERAB LES Final Result Performing Organization Address [facility] Phone Number [facility] [address] [place] [phone] * (ABNORMAL) Hepatic Function Panel (10/28/2024 12:18 PM EDT) Only the most recent of2 resultswithin the time period is included. Bilirubin, Total 2.7(H) 0.0 - 1.0 mg/dL [facility] Comment:Slight Icterus. Bilirubin, Direct 0.8(H) 0.0 - 0.5 mg/dL [facility] Comment:Slight Icterus. Aspartate Amino Transferase 43(H) 5 - 31 U/L [facility] Alanine Aminotransferase 12 0 - 31 U/L [facility] Total Protein 7.0 6.5 - 8.0 g/dL [facility] Albumin Level 3.9 3.5 - 5.0 g/dL [facility] Alkaline Phosphatase 93 39 - 117 U/L [facility] 10/28/2024 12:1 8 PM EDT 10/28/2024 12:20 PM EDT Generic External Data Provider LAB BLOOD ORDERAB LES Final Result Performing Organization Address City/[facility]/ZIP Co de Phone Number [facility] [address] [place] [phone] * (ABNORMAL) Basic Metabolic Panel (10/28/2024 12:18 PM EDT) Sodium 140 135 - 145 mmol/L [facility] Potassium 3.7 3.3 - 5.1 mmol/L [facility] Chloride 110(H) 96 - 108 mmol/L [facility] Carbon Dioxide 24 22 - 29 mmol/L [facility] Anion Gap 10(L) 12 - 20 [facility] Urea Nitrogen (BUN) 14 9 - 16 mg/dL [facility] Creatinine, Serum 0.84 0.5 - 1.4 mg/dL [facility] Creatinine Clr Calc Pharmacy 79.6 [facility] Comment:Provided height and weight: 162.56 cm,95.2 kg.eGFR (calculated from the MDRD study equation) and eCrCl(calculated from the Cockcroft-Gault equation) are based ondifferent parameters and may not yield comparable results.If eCrCl result is absurd, please check patient'sheight/weight. Estimated Glomerular Filt Rate >60 [facility] Comment:Chronic Kidney Disea se: Estimated GFR < 60 mL/min/1.02t4Rkscjb Kidney Disease: Estimated GFR < 15 mL/min/1.73m2 Glucose 94 60 - 115 mg/dL [facility] Calcium 9.7 8.4 - 10.2 mg/dL [facility] 10/28/2024 12:1 8 PM EDT 10/28/2024 12:20 PM EDT us Generic External Data Provider LAB BLOOD ORDERAB LES Final Result [facility] [address] [place] [phone] * US Abdomen Complete (09/09/2024 10:36 AM EST) Anatomical Region Laterality Modality Abdomen Ultrasound 09/09/2024 10:3 6 AM EST Narrative 09/09/2024 10:37 AM EST ? [facility] ?[address] ? [place] [address] ? Ultrasound Report ? Signed ? Patient: Benjamin,Ethalee L ?MR#: [id number] ?? [id number] ? : 1965 ?Acct:[id number] ? Age/Sex: 59 / F ?ADM Date: 09/09/24 ? Loc: HO.HMGCX ? Attending Dr: Walter Bar MD ? Ordering Physician: Walter Bar MD ?? Date of Service: 09/09/24 ?? Procedure(s): US abdomen complete ?? Accession Number(s): [id number] ? cc: Walter Bar MD; Silva Light MD ? CLINICAL HISTORY: Patient with elevated TBili and AST ALT. Underlying alcohol use disorder. ? US abdomen complete with color Doppler ? Comparison: None ? Findings: ?? The visualized pancreas, aorta, and inferior vena cava are unremarkable. ? Liver normal size and diffusely echogenic. Right lobe 16.6 cm length. No ?? focal hepatic masses. ?? Common duct 7.2 mm diameter. ?? Physiologic distention of the gallbladder. No gallstones or sludge. Mild ?? adenomyomatosis. No pericholecystic fluid. No sonographic Hickey sign. ?? Main portal vein antegrade. ? Right kidney normal size, 9.9 cm in length. Normal cortical width and ?? echotexture. No solid or cystic renal masses. No nephrolithiasis or ?? hydronephrosis. ?? Left kidney normal, 12.0 cm in length. Normal cortical width and ?? echotexture. No solid or cystic renal masses. Nephrolithiasis or ?? hydronephrosis. ? Spleen measures 11.4 cm. No splenic masses. ? No ascites. No lymphadenopathy. ? Impression: ?? 1. Normal-sized liver mildly echogenic reflecting hepatic steatosis or ?? diffuse hepatocellular disease. ?? 2. No gallstones or evidence of cholecystitis. Subtle gallbladder ?? adenomyomatosis may be present. ?? 3. Mild dilatation of the common bile duct no sonographic evidence of ?? choledocholithiasis. MRCP would be confirmatory. ? This document has been electronically signed by: Mark Acuña MD on ?? 09/09/2024 10:36:46 ? Dictated By: ?Mark Acuña MD ? Signed By: ?<Electronically signed by Mark Acuña MD in OV> ?09/09/24 1037 ? DD/ 1036 ? TD/TT: 09/09/24 1036 ? Servicing Manager: ? Procedure Note Kaden, Image - 09/09/2024 [facility] [place] [id number] Ultrasound Report Signed Patient: Judy Alexander LMR#: [id number] : 1965Acct:[id number] Age/Sex: 59 / FADM Date: 09/09/24 Loc: HO.HMGCX Attending Dr: Walter Bar MD Ordering Physician: Walter Bar MD Date of Service: 09/09/24 Procedure(s): US abdomen complete Accession Number(s): [id number] cc: Walter Bar MD; Silva Light MD CLINICAL HISTORY: Patient with elevated TBili and AST ALT. Underlyingalcohol use disorder. US abdomen complete with color Doppler Comparison: None Findings: The visualized pancreas, aorta, and inferior vena cava are unremarkable. Liver normal size and diffusely echogenic. Right lobe 16.6 cm length. No focal hepatic masses. Common duct 7.2 mm diameter. Physiologic distention of the gallbladder. No gallstones or sludge. Mild adenomyomatosis. No pericholecystic fluid. No sonographic Hickey sign. Main portal vein antegrade. Right kidney normal size, 9.9 cm in length. Normal cortical width and echotexture. No solid or cystic renal masses. No nephrolithiasis or hydronephrosis. Left kidney normal, 12.0 cm in length. Normal cortical width and echotexture. No solid or cystic renal masses. Nephrolithiasis or hydronephrosis. Spleen measures 11.4 cm. No splenic masses. No ascites. No lymphadenopathy. Impression: 1. Normal-sized liver mildly echogenic reflecting hepatic steatosis or diffuse hepatocellular disease. 2. No gallstones or evidence of cholecystitis. Subtle gallbladder adenomyomatosis may be present. 3. Mild dilatation of the common bile duct no sonographic evidence of choledocholithiasis. MRCP would be confirmatory. This document has been electronically signed by: Mark Acuña MD on 09/09/2024 10:36:46 Dictated By: Mark Acuña MD Signed By: <Electronically signed by Mark Acuña MD in OV> 09/09/24 1037 DD/ 1036 TD/TT: 09/09/24 1036 Servicing Manager: Walter Bar MD IMG US PROCEDURES Final Result * Hepatitis C Antibody with Reflex to HCV, RNA, Quantitative, Real-Time PCR (08/25/2024 12:15 PM EST) Hepatitis C Antibody Nonreactive Nonreactive [facility] Comment:Antibodies to HCV no t detected; does not exclude early acuteHCV infection. Blood Venous blood specimen / Unknown 08/25/2024 12:15 PM EST 08/25/2024 2:21 PM EST Walter Bar MD LAB BLOOD ORDERABLES Final Resul t Performing Organization Address City/[facility]/ZIP Co de Phone Number [facility] [address] [place] [phone] * Hepatitis A Antibody, Total (08/25/2024 12:15 PM EST) Hepatitis A Antibody IgG Nonreactive Nonreactive [facility] Blood Venous blood specimen / Unknown 08/25/2024 12:15 PM EST 08/25/2024 2:21 PM EST Walter Bar MD LAB BLOOD ORDERABLES Final Resul t Performing Organization Address City/[facility]/ZIP Co de Phone Number [facility] [address] [place] [phone] * Hepatitis B surface antigen, EIA (08/25/2024 12:15 PM EST) Hepatitis B Surface Ag Negative Negative [facility] Blood Venous blood specimen / Unknown 08/25/2024 12:15 PM EST 08/25/2024 2:21 PM EST us Walter Bar MD LAB BLOOD ORDERABLES Final Resul t Performing Organization Address [facility] Co de Phone Number [facility] [address] [place] [phone] * Hepatitis B Core Antibody, Total (08/25/2024 12:15 PM EST) Hepatitis B Core Antibody Nonreactive Nonreactive [facility] Blood Venous blood specimen / Unknown 08/25/2024 12:15 PM EST 08/25/2024 2:21 PM EST us Walter Bar MD LAB BLOOD ORDERABLES Final Resul t Performing Organization Address [facility] de Phone Number [facility] [address] [place] [phone] * Hepatitis B Surface Antibody, Qualitative (08/25/2024 12:15 PM EST) ~Hepatitis B Surface Antibody NONREACTIVE Nonreactive [facility] Comment:Nonreactive: < 8.00 mIU/mL Blood Venous blood specimen / Unknown 08/25/2024 12:15 PM EST 08/25/2024 2:21 PM EST us Walter Bar MD LAB BLOOD ORDERABLES Final Resul t Performing Organization Address [facility] de Phone Number [facility] [address] [place] [phone] * (ABNORMAL) Prothrombin Time-INR (08/25/2024 12:15 PM EST) Prothrombin Time 12.9(H) 10.9 - 12.4 SEC [facility] INTERNATIONAL NORM RATIO 1.1 0.9 - 1.1 [facility] Comment:INTERNATIONAL NORMAL IZED RATIO (INR) [...] MD LAB BLOOD ORDERABLES Final Resul t [facility] [address] [place] [phone] * POCT VANESSA-14 Urine Drug Screen [...] 12:03 PM EDT) Triglycerides 195(H) <150 mg/dL [facility] Comment:Desirable Triglyceri de: less than 150 mg/dLBorderline High Triglyceride 150-199 mg/dLHigh Triglyceride: 200-499 mg/dLVery High Triglyceride: greater than or equal to 5OO mg/dL Cholesterol 232(H) <200 mg/dL [facility] Comment:Desirable Cholestero l: less than 200 mg/dLBorderline High Cholesterol: 200-239 mg/dLHigh Cholesterol: greater than 239 mg/dL LDL Cholesterol Calculated 160(H) <100 mg/dL [facility] Comment:Desirable LDL: less than 100 mg/dLNear Optimal/Above Optimal LDL: 110- 129 mg/dLBorderline High LDL: 130-159 mg/dLHigh LDL: 160-189 mg/dLVery High LDL: greater than or equal to 190 mg/dL HDL Cholesterol 33(L) >40 mg/dL [facility] Comment:Desirable HDL: great er than 40 mg/dL Note: This HDL assay may give artificially low results in patients with liver disease. Blood Venous blood specimen / Unknown 04/16/2024 12:03 PM EDT 04/16/2024 2:13 PM EDT Silva Light MD LAB BLOOD ORDERABLES Final Resul t [facility] [address] [place] [phone] * Hm Colonoscopy (07/10/2022) Colonoscopy Normal Normal Historical Provider HEALTH MAINTENANCE Final Result * THINPREP TIS PAP AND HPV mRNA E6/E7 WITH REFLEX TO HPV 16,18/45 (12/20/2021 2:15 PM EDT) Clinical Information: None given [facility] COMMENT SEE COMMENT [facility] [...] has been evaluated with computer assisted technology. [facility] Operations Asst: SEE COMMENT [facility] Comment: DMM, CT(ASCP) CT screening location: [address] ??[phone] HPV nRNA E6/E7 Not Detected Not Detected [facility] Comment: Methodology: Community Service Officer Coordinator-Mediated Amplification This assay detects E6/E7 viral messenger RNA (mRNA) from 14 high-risk HPV types (16,18,31,33,35,39,45,51,52,56,58,59,66,68). ? The analytical performance characteristics of this assay have been determined by [facility]. The modifications have not been cleared or approved by the FDA. This assay has been validated pursuant to the CLIA regulations and is used for clinical purposes. ?? For additional information, please refer to http://education.[employer]/faq/CIC718e6 (This link if provided for information/ educational purposes only.) Interpretation/Re sult: Negative for intraepithelial lesion or malignancy. [facility] LMP: NONE GIVEN [facility] Prev. BX: COLP NEG 2018/2019 [facility] Prev. PAP: ASCUS HPV NEG 2019 LSIL HPV NEG 2018 [facility] Review Operations Asst: SEE COMMENT [facility] Comment: KHUSHBU MARIA(ASCP) CT screening location: [address] ??[phone] SOURCE: None given [facility] Statement Of Adequacy: SEE COMMENT [facility] Comment: Satisfactory for evaluation. Endocervical/transformation zone component present. 12/20/2021 2:15 PM EDT [facility] ORDERABLES Final Result Performing Organization Address City/[facility]/ZIP Co de Phone Number [facility] [address] * Pap Smear (12/20/2021 12:00 AM EDT) Swab [facility] CYTOLOGY ORDERABLES F inal Result Performing Organization Address City/[facility]/ZIP Co de Phone Number [address], [place] [phone] * Mammography Report 1 (12/05/2021 8:42 AM [...] Most Recently Relevant to Health Maintenance Insurance [facility] [place], [place] DENTAL-[facility] MEDICAID [facility] Care Teams Cook Helper Dessert Relationship Specialty Start Date End Date Silva Light MD [address] [place] [id number] PCP - General Family Medicine 08/06/13
--- OUTSIDE RECORDS SUMMARY | 2024-10-30 17:07 | XMS_ITS | Encounter Summary ---
Author Organization [employer] Address [address] [facility] [address] [place] [address] Care Team Providers Care Manager Council Name Role Phone Silva Light MD Primary Care Provider [phone] Reason for Visit * Reason Comments Med Refill Encounter Details Date Type Department Care Team ([facility] Contact Info) Description 10/28/2024 Refill [facility] & [facility]EDS [address] [place], [place] [phone] Silva Light MD [address] [place] [address] Post-traumatic stress disorder, unspecified Social History Tobacco [...] Description 11/03/2024 1:15 PM EDT Office Visit [facility] & [facility]EDS [address] [place] [address] Walter Bar MD [address] [place] [address] 11/19/2024 8:45 AM EDT Office Visit [facility] [address] [place] [address] Silva Light MD [address] [place] [address] documented as of this encounter Visit Diagnoses Diagnosis Post-traumatic stress disorder, unspecified documented in this encounter Additional Health Concerns Assessment Noted Time PHQ-9 Depression Total Score: 0 10/29/19 25 9:22 AM EDT documented as of this encounter Care Teams Manager Council Relationship Specialty Start Date End Date Silva Light MD [address] [place] [address] PCP - General Family Medicine 08/06/13 documented as of this encounter
== END 2024-10-30 16:45 | disposition home or self-care (01) ==
LOC: HO.HGI 16:08
PROVIDERS: PCP Student in an Organized Health Care Education/Training Program; Visit Provider Nurse Practitioner
DX: K70.0 Alcoholic fatty liver (principal); F10.90 Alcohol use, unspecified, uncomplicated; K58.0 Irritable bowel syndrome with diarrhea; K21.9 Gastro-esophageal reflux disease without esophagitis
CPT/HCPCS: 99214

== ENCOUNTER 2024-10-30 16:07 | Outpatient (REF) | payer MEDICAID, SELFPAY ==
[2024-10-30 17:20] LABS: Ammonia 32 umol/L (13-55)
[2024-10-31 08:05] LABS: HBS Num1 0.44 mIU/mL (0-7.99); HBc Num1 0.26 S/CO (0.00-0.79); HBsAGNum1 0.44 S/CO (0.00-0.99); HIV AB/AG Nonreactive (Nonreactive); HIV Num 1 0.06 S/CO (0.00-0.99); Hepatitis A Antibody IgM 0.19 Index (0-0.79); Hepatitis B Core Antibody Nonreactive (Nonreactive); Hepatitis B Surface Antigen Negative (Negative); ~HepC Num1 0.17 S/CO (0.00-0.79); ~Hepatitis A Antibody IgM Nonreactive (Nonreactive); ~Hepatitis B Surface Antibody NONREACTIVE (Nonreactive); ~Hepatitis C Antibody Nonreactive (Nonreactive)
[2024-11-04 04:54] LABS: Smooth Muscle Antibody <20 U (<20)
[2024-11-04 09:44] LABS: Mitochondrial Antibodies NEGATIVE (NEGATIVE)
[2024-11-04 12:38] LABS: Alpha Fetoprotein 4.9 ng/mL
[2024-11-06 09:38] LABS: Anti Nuclear Antibody Screen POSITIVE (NEGATIVE)
[2024-11-10 10:35] LABS: Phosphatidylethanol 16:0-18:1 NEGATIVE; Phosphatidylethanol 16:0-18:2 NEGATIVE
[2024-11-10 10:36] LABS: FIB-Alpha-2-Macroglobulin 250; Liver Fibrosis Stage F3; Nec Inflam Act Grade A0; Nec Inflam Act Score 0.12
[2024-11-10 10:37] LABS: FIB-Apolipoprotein A1 153; FIB-Haptoglobin 106; FIB-Total Bilirubin 2.6 (H)
[2024-11-10 10:38] LABS: FIB-ALT 18; FIB-GGT 73 (H); Reference ID 5427980
[2024-11-10 10:41] LABS: Liver Fibrosis Interpretation advanced fibrosis
[2024-11-10 10:42] LABS: Nec Inflam Act Interpretation no activity
== END 2024-10-30 16:08 | disposition home or self-care (01) ==
LOC: HO.LAB 16:07
PROVIDERS: PCP Student in an Organized Health Care Education/Training Program; Visit Provider Nurse Practitioner
DX: K70.0 Alcoholic fatty liver (principal); F10.90 Alcohol use, unspecified, uncomplicated; K58.0 Irritable bowel syndrome with diarrhea; K21.9 Gastro-esophageal reflux disease without esophagitis
CPT/HCPCS: 36415; 80321; 81596; 82105; 82140; 86015; 86038; 86039; 86381; 86704; 86706; 86709; 86803; 87340; 87389; 99212

== ENCOUNTER 2024-12-05 03:38 | Emergency (ER) | payer MEDICAID, SELFPAY ==
[2024-12-05] VITALS (9 sets, daily range): BP systolic 90–119; BP diastolic 40–58; PULSE 85–98; RESP 14–22; TEMP 36.4–36.7; O2SAT 94–99; BMI 33.6
--- NOTE | 2024-12-05 04:05 | ED_ITS ---
HPI - Arrhythmia/Palpitations General Chief Complaint: Arrhythmia/Palpitations Stated Complaint: Cp heart racing & Palpitations Time Seen by Provider: 12/05/24 03:55 Source: patient Mode of arrival: EMS Limitations: no limitations History of Present Illness ED Provider: HPI narrative: patient is 59 years old with history of hypertension asthma, SVT, Parkinson disorder, alcohol use disorder and chronic lower extremity edema, PTSD and bipolar disorder comes here for episodes of palpitation prior to arrival symptoms started at midnight and still feels that heart is beating fast but heart rate is only 96 patient does get panic attacks sometimes and at this time also has same in her presentation Related Data Home Medications ?Medication ?Instructions ?Recorded ?Confirmed carbidopa 25 mg-levodopa 100 mg 1 tab PO BID 01/14/21 01/09/24 tablet clonazepam 1 mg tablet 1 mg PO BID anxiety 01/14/21 11/09/23 risperidone 2 mg tablet 2 mg PO BEDTIME 01/14/21 01/09/24 ropinirole 0.5 mg tablet 0.5 mg PO BEDTIME 01/14/21 01/09/24 fluoxetine 40 mg capsule 40 mg PO QAM 04/17/23 01/09/24 gabapentin 300 mg capsule 300 mg PO BID 04/17/23 01/09/24 levothyroxine 100 mcg tablet 100 mcg PO QAM 04/17/23 01/09/24 metoprolol tartrate 50 mg tablet 50 mg PO BID 04/17/23 01/09/24 cetirizine 10 mg tablet 10 mg PO BEDTIME 11/09/23 01/09/24 cyanocobalamin (vitamin B-12) 1,000 mcg PO DAILY 11/09/23 11/09/23 1,000 mcg tablet fluoxetine 10 mg capsule 10 mg PO QAM 11/09/23 01/09/24 multivitamin 1 tab PO DAILY 11/09/23 01/09/24 nystatin 100,000 unit/gram topical 1 appl topical TID PRN Rash 11/09/23 01/09/24 powder vitamin B complex 1 tab PO DAILY 11/09/23 01/09/24 furosemide 20 mg tablet (Lasix) 20 mg PO BID 01/09/24 01/09/24 prazosin 2 mg capsule 1 mg PO BEDTIME 01/09/24 01/09/24 Previous Rx's ?Medication ?Instructions ?Recorded omeprazole 40 mg capsule,delayed 40 mg PO DAILY 30 days #30 caps 04/17/23 release naltrexone 50 mg tablet 50 mg PO DAILY #30 tabs 11/11/23 ibuprofen 600 mg tablet 600 mg PO QID PRN pain #20 tabs 12/13/23 doxycycline hyclate 100 mg capsule 100 mg PO BID 7 days #14 caps 10/28/24 alosetron 0.5 mg tablet (Lotronex) 0.5 mg PO BID #60 tabs 10/31/24 potassium chloride 20 mEq 20 meq PO DAILY #30 tabs 12/05/24 tablet,extended release(part/cryst) Allergies Allergy/AdvReac Type Severity Reaction Status Date / Time azithromycin [From ZITHROMAX] Allergy Intermediate SWELLING Verified 12/05/24 03:48 Penicillins [PENICILLINS] Allergy Intermediate SWELLING Verified 12/05/24 03:48 Sulfa (Sulfonamide Allergy Intermediate SWELLING Verified 12/05/24 03:48 Antibiotics) [SULFA(SULFONAMIDE ANTIBIOTICS)] dicyclomine AdvReac Unknown Itching Verified 12/05/24 03:48 BLUE CAPSELS FOR ABD PAIN Allergy Unknown COULDN'T Uncoded 12/05/24 03:48 PEE Review of Systems 2 Review of Systems: Yes all other systems are reviewed and are negative PMFSH Past Medical History Medical History Jesi albicans infection Preop examination Right upper quadrant abdominal pain Alcohol use disorder Recovering alcoholic Bipolar disorder Depression Anxiety Parkinson disease Surgical History H/O colonoscopy History of right breast biopsy Family History Family History Father Stage 4 lung cancer Alzheimer disease Dementia Mother Hypothyroid Diabetes Dementia Kidney failure A-fib Sister Breast cancer Colon cancer Social History Social History Household Members: Spouse Housing: Condominium Alcohol intake: former Patient Tobacco Use Status: Never used Tobacco Smoked in Last 30 Days: No Use of substances other than those prescribed or required for medical reasons: No Substance Use Type: Marijuana Advance Directives: Yes Advance Directives on File: Yes Advance Directives Date on File: 11/13/23 Patient : No service: No Physical Exam 2 Vital Signs: Vital Signs: Last Vital Signs Temp 98.1 F 12/05/24 08:34 Pulse 85 12/05/24 08:34 Resp 15 12/05/24 08:34 BP 104/55 L 12/05/24 08:34 Pulse Ox 99 12/05/24 08:34 O2 Del Method Room Air 12/05/24 08:34 BMI result Body Mass Index 33.6 Appearance: Alert. Oriented X3. No acute distress. Eyes: PERRLA, No Nystagmus ENT: Pharynx normal. Oral Mucosa moist Neck: Normal inspection. Neck supple. CVS: Normal heart rate and rhythm. Pulses normal. Respiratory: No respiratory distress. Equal air entry bilateral, no wheezing/rales/rhonchi Abdomen: Soft and nontender. Bowel sounds are present, no mass palpable, no CVA tenderness Skin: Skin warm and dry. Normal skin color. Normal skin turgor. Extremities: No lower extremity edema. No calf tenderness Neuro: Oriented X 3. No motor deficit. No sensory deficit.No cerebellar signs , cranial nerves II-XII intact Medications Administered Discontinued Medications Generic Name Dose Route Start Last Admin Trade Name Freq PRN Reason Stop Dose Admin Sodium Chloride 1,000 mls @ 999 mls/hr 12/05/24 05:07 12/05/24 07:23 Ns IV 12/05/24 06:07 Infused .Q1H1M ONE Infusion Potassium Chloride 10 meq in 100 mls @ 100 mls/hr 12/05/24 05:15 12/05/24 08:22 Potassium Chloride/H20 IV 12/05/24 07:14 Infused Q1H BREN Infusion Potassium Bicarbonate 50 meq 12/05/24 05:49 12/05/24 05:56 Potassium Bicarbonate/Cit Ac 25 Meq Tablet.Eff PO 12/05/24 05:50 50 meq ONCE ONE Administration Medical Decision Making Medical Decision Making [facility] Narrative: patient's history of anxiety panic likely had SVT episode comes here with similar episode workup is negative K was 2.7will replace potassium and re- evaluate During stay in the ER there was no episode of arrhythmia patient received potassium both oral and IV advised to take potassium tablets daily and follow with PCP Lab Data [facility] Lab Attestation statement: I reviewed the patient's lab results. 12/05/24 04:21 12/05/24 04:21 Labs: Lab Results 12/05/24 Range/Units 04:21 WBC 6.1 (4.8-10.8) X10*3/uL RBC 4.51 (4.20-5.50) X10*6/uL Hgb 13.6 (12.0-16.0) g/dl Hct 38.8 (37.0-47.0) % MCV 86.0 (80.0-98.0) fL MCH 30.2 (27.0-33.0) pg MCHC 35.1 H (31.0-35.0) g/dl RDW 15.0 (11.0-16.0) % Plt Count 179 (160-400) X10*3/uL MPV 10.6 (9.4-12.3) fL Immature Gran % (Auto) 0.2 (0.0-0.4) % Neut % (Auto) 32.1 L (45-73) % Lymph % (Auto) 56.5 H (20-40) % [place]in[place] % (Auto) 7.2 (2-11) % Eos % (Auto) 3.3 (0-4) % Baso % (Auto) 0.7 (0-2) % Lymph # (Auto) 3.5 (1.2-4.9) X10*3/uL [place]in[place] # (Auto) 0.4 (0.1-1.2) X10*3/uL Eos # (Auto) 0.2 (0.0-0.4) X10*3/uL Baso # (Auto) 0.0 (0.0-0.2) X10*3/uL Abs Immat Gran (auto) 0.01 (0.00-0.03) X10*3/uL Absolute Neuts (auto) 2.0 (2.0-8.3) x10*3/uL Absolute Nucleated RBC 0.000 (0.0-0.012) X10*3/uL Nucleated RBC % (auto) 0.0 (0.0-0.2) /100WBC PT 12.0 (10.9-12.4) SEC INR 1.0 (0.9-1.1) Sodium 141 (135-145) mmol/L Potassium 2.7 L* D (3.3-5.1) mmol/L Chloride 105 (96-108) mmol/L Carbon Dioxide 24 (22-29) mmol/L Anion Gap 15 (12-20) BUN 6 L (9-16) mg/dL Creatinine 0.90 (0.5-1.4) mg/dL Estim Creat Clear Calc 71.7 Estimated GFR > 60 Random Glucose 139 H (60-115) mg/dL Calcium 9.4 (8.4-10.2) mg/dL Magnesium 1.9 (1.6-2.6) mg/dL Total Bilirubin 1.7 H (0.0-1.0) mg/dL AST 44 H (5-31) U/L ALT 21 (0-31) U/L Alkaline Phosphatase 93 (39-117) U/L Troponin I High Sens < 2.7 (<3.5-17.0) ng/L Total Protein 6.9 (6.5-8.0) g/dL Albumin 4.0 (3.5-5.0) g/dL Ethyl Alcohol < 10 mg/dL Independent Interpretation I performed an independent interpretation of an: EKG Interpretation: Normal sinus rhythm heart rate 88 beats per minute LVH poor progression of R- wave no acute STT wave changes no acute ischemia Discharge Plan Discharge Clinical Impression: SVT (supraventricular tachycardia), Anxiety, Acute hypokalemia Patient Disposition: Home, Self-Care Instructions: Supraventricular Tachycardia (ED), Potassium Content of Foods List (ED), Hypokalemia (ED), Anxiety (ED) Additional Instructions: continue medications as prescribed by your PCP take potassium tablet daily follow with your psychiatrist Prescriptions: New potassium chloride 20 mEq tablet,ER particles/crystals 20 meq PO DAILY Qty: 30 0RF No Action alosetron [Lotronex] 0.5 mg tablet 0.5 mg PO BID Qty: 60 3RF cetirizine 10 mg tablet 10 mg PO BEDTIME vitamin B complex Tablet 1 tab PO DAILY nystatin 100,000 unit/gram powder 1 appl topical TID PRN (Reason: Rash) fluoxetine 10 mg capsule 10 mg PO QAM multivitamin Tablet 1 tab PO DAILY cyanocobalamin (vitamin B-12) 1,000 mcg Tablet 1,000 mcg PO DAILY naltrexone 50 mg tablet 50 mg PO DAILY Qty: 30 0RF Rx Instructions: take 1/2 tab daily for 3 days then increase to one tab daily ibuprofen 600 mg tablet 600 mg PO QID PRN (Reason: pain) Qty: 20 0RF doxycycline hyclate 100 mg capsule 100 mg PO BID 7 Days Qty: 14 0RF carbidopa-levodopa 25-100 mg tablet 1 tab PO BID clonazepam 1 mg tablet 1 mg PO BID risperidone 2 mg tablet 2 mg PO BEDTIME ropinirole 0.5 mg tablet 0.5 mg PO BEDTIME Rx Instructions: administer 1-3 hours before bedtime furosemide [Lasix] 20 mg tablet 20 mg PO BID gabapentin 300 mg capsule 300 mg PO BID metoprolol tartrate 50 mg tablet 50 mg PO BID levothyroxine 100 mcg tablet 100 mcg PO QAM fluoxetine 40 mg capsule 40 mg PO QAM omeprazole 40 mg capsule,delayed release(DR/EC) 40 mg PO DAILY 30 Days Qty: 30 6RF prazosin 2 mg capsule 1 mg PO BEDTIME Interventions: ED Discharge Assessment Last Done: 12/05/24 08:26 Discharge Date/Time: 12/05/24 08:48 Print Language: Stateless
--- OUTSIDE RECORDS SUMMARY | 2024-12-05 04:22 | XMS_ITS | Encounter Summary ---
Author Organization [employer] Address [address] [facility] [address] [place] [address] Care Team Providers Care Horticultural Nursery Assistant Name Role Phone Silva Light MD Primary Care Provider [phone] Reason for Visit * Reason Comments Med Refill Encounter Details Date Type Department Care Team (Late st Contact Info) Description 03/26/2023 Refill [facility] & PEDS [address] [place] [address] Silva Light MD [address] [place] [address] Post-traumatic stress disorder, unspecified Social History Tobacco [...] Care Team (Late st Contact Info) Description 01/12/2025 1:15 PM EDT Office Visit [facility] & PEDS [address] [place] [address] Walter Bar MD [address] [place] [address] 02/19/2025 9:30 AM EDT Office Visit [facility] & PED[facility] [address] [place] [address] Silva Light MD [address] [place] [address] documented as of this encounter Visit Diagnoses Diagnosis Post-traumatic stress disorder, unspecified documented in this encounter Care Teams Horticultural Nursery Assistant Relationship Specialty Start Date End Date Silva Light MD [address] [place] [phone] PCP - General Family Medicine 08/06/13 documented as of this encounter
--- OUTSIDE RECORDS SUMMARY | 2024-12-05 04:22 | XMS_ITS | Clinical Summary ---
Author Organization [employer] Address [address] [facility] [address] [place] [address] Care Team Providers Care Community Marketing Manager Name Role Phone Silva Light MD Primary Care Provider [phone] Allergies Active Allergy Reactions Criticality Noted Date Comments Azithromycin Rash Low 03/09/2022 Latex 04/25/2022 Penicillins 02/19/2013 Sulfa Antibiotics 02/19/2013 Medications hydrOXYzine HCl (Atarax) 10 MG tablet TAKE ONE TABLET BY MOUTH EVERY TWELVE HOURS NEEDED FOR ANXIETY. 11/04/19 22 Active omeprazole (PriLOSEC) [address] capsule Take 40 mg by mouth in the morning. 09/08/19 23 Active prazosin (Minipress) 2 MG capsuleIndicati ons:Post-trauma tic stress disorder, unspecified TAKE ONE CAPSULE AT BEDTIME 90 capsule 1 01/18/20 23 Active FLUoxetine (PROzac) 40 MG capsuleIndicati ons:Menopausal and female climacteric states TAKE ONE CAPSULE EVERY MORNING 30 capsule 6 04/17/20 23 Active clonazePAM (KlonoPIN) 1 MG tabletIndicatio ns:Post-traumat ic stress disorder, unspecified TAKE ONE TABLET TWICE DAILY IN THE MORNING AND AT BEDTIME NEEDED 60 tablet 05/28/20 23 Active amitriptyline (Elavil) 25 MG tabletIndicatio ns:Major depressive disorder, recurrent, mild (CMS/HCC) TAKE ONE TABLET EVERY NIGHT AT BEDTIME 30 tablet 3 06/19/20 23 Active risperiDONE (RisperDAL) 2 MG tabletIndicatio ns:Post-traumat ic stress disorder, unspecified TAKE ONE TABLET EVERY NIGHT AT BEDTIME 30 tablet 07/31/19 24 Active cetirizine (ZyrTEC) 10 MG tabletIndicatio ns:Allergy, sequela TAKE ONE TABLET EVERY NIGHT AT BEDTIME 30 tablet 11 10/18/19 24 Active meclizine (Antivert) 25 MG tablet Take 1 tablet (25 mg) by mouth if needed in the morning, at noon, and at bedtime for dizziness. TAKE ONE TABLET THREE TIMES DAILY NEEDED 30 tablet 3 11/29/19 24 Active B-Complex, Folic Acid, tablet Take 1 tablet by mouth in the morning. 10/19/19 24 Active FLUoxetine (PROzac) 10 MG capsule [...] 24 Active levothyroxine (Synthroid, Levoxyl) 100 MCG tabletIndicatio ns:Hypothyroidi sm, unspecified type TAKE ONE TABLET EVERY MORNING 90 tablet 08/08/19 25 Active bacitracin-poly myxin b (Polysporin) ointment Apply topically 2 times daily. 15 g 09/10/19 25 Active gabapentin (Neurontin) 300 MG capsuleIndicati ons:Post-trauma tic stress disorder, unspecified TAKE ONE CAPSULE TWICE DAILY IN THE MORNING AND AT BEDTIME 60 capsule 11 11/01/19 25 Active rOPINIRole (Requip) 0.5 MG tablet TAKE 1 TABLET EVERY NIGHT AT BEDTIME 30 tablet 11 11/01/19 25 Active naltrexone (Depade) 50 MG tabletIndicatio ns:Alcohol use disorder, severe, dependence (CMS/HCC) Take 1 tablet (50 mg) by mouth Once per day. 90 tablet 11/04/19 25 025 Active Blood Pressure kit Check BP daily 1 kit 11/05/19 25 Active Blood Pressure kit Check blood pressure daily 1 kit 11/20/19 25 Active carbidopa-levod opa (Sinemet) 25-100 MG tablet TAKE ONE TABLET TWICE DAILY IN THE MORNING AND AT BEDTIME 60 tablet 11/28/19 25 Active Vitamins-Lipotr opics (B Complex Formula 1, Lipotrop,) tablet TAKE ONE TABLET EVERY MORNING 30 tablet 11 11/28/19 25 Active carbidopa-levod opa (Sinemet) 25-100 MG tablet TAKE 1 TABLET TWICE DAILY IN THE MORNING AND AT BEDTIME 60 tablet 08/08/19 25 025 Discontinued Active Problems Problem Noted Date Diagnosed Date Alcohol abuse 11/30/2023 Menopausal and female climacteric states 023 Cobalamin deficiency 02/03/2016 Paroxysmal supraventricular tachycardia 06/09/20 13 Schizophrenia 04/29/2013 Hypothyroidism 02/19/2013 Obesity 02/19/2013 Encounters Date Type Department Care Team Description 11/26/2024 Refill [facility] [address] [place] [address] Silva Light MD 11/25/2024 Patient Outreach [facility] [address] [place] [address] Silva Light MD 11/20/[address] [facility] [address] [place] [address] Silva Light MD Care Coordination 11/19/2024 8:45 AM EDT Office Visit [facility] [address] [place] [address] Silva Light MD Hypotension, unspecified hypotension type (Primary Dx); Alcohol abuse 11/19/2024 Patient Outreach [facility] [address] [place] [address] Silva Light MD Care Coordination (Initial assessment- unable to reach out to patient) 11/19/2024 Travel 11/04/2024 Orders Only [facility] [address] [place] [address] Silva Light MD 11/03/2024 1:15 PM EDT Office Visit [facility] [address] [place] [address] Walter Bar MD Alcohol use disorder, severe, dependence (CMS/HCC) (Primary Dx); Encounter for immunization 11/03/2024 Travel 10/30/2024 Orders Only GENERIC EXTERNAL DATA DEPARTMENT Provider, Generic External Data 10/29/[address] [facility] [address] [place] [address] Silva Light MD Care Coordination (CM/CHW outreach) 10/29/2024 Patient Outreach [facility] [address] [place] [address] Silva Light MD Care Coordination (C3CM chart review) 10/29/[address] [facility] [address] [place] [address] Silva Light MD 10/28/2024 9:15 AM EDT Office Visit [facility] [address] [place] [address] Silva Light MD Folliculitis (Primary Dx); Hypotension, unspecified hypotension type 10/28/2024 Refill [facility] [address] [place] [address] Silva Light MD Post-traumatic stress disorder, unspecified 10/28/2024 Orders Only GENERIC EXTERNAL DATA DEPARTMENT Provider, Generic External Data 10/28/2024 Travel 10/20/[address] [facility] [address] [place] [phone] Silva Light MD Nurse Triage 10/10/2024 Population Health Risk Score [facility] (C3) Department [address] [place] [phone] Provider, Population Health Generic 10/02/2024 Patient Outreach [facility] [address] [place] [address] Silva Light MD Care Coordination (SDOH) 09/23/[address] [facility] [address] [place] [phone] Silva Light MD Call Back Request 09/23/[address] [facility] [address] [place] [address] [facility] 09/16/[address] [facility] [address] [place] [address] Jeff [facility] 09/11/2024 Patient Outreach [facility] [address] [place] [address] Silva Light MD Care Coordination (SDOH) 09/11/[address] [facility] [address] [place] [phone] [facility] 09/10/2024 10:20 AM EST Office Visit [facility] [address] [place] [address] Ning Hope MD Encounter for immunization (Primary Dx); Alcohol abuse; Transaminitis; Boil of buttock 09/10/2024 Telephone [facility] [address] [place] [address] Silva Light MD 09/10/2024 Travel 09/09/[address] [facility] [address] [place] [phone] Silva Light MD Nurse Triage from Last 3 Months Immunizations Name Administration Dates Next Due Hep A, Adult 11/03/2024 Hep B, adult 11/03/2024 Influenza injectable quadriv alent IIV4 with preservative [...] Never Smokeless Tobacco: Never Tobacco Cessation:Counseling Given: Not Answered Alcohol Use Standard Drinks/Week Comments Yes 21 [...] Sign Reading Time Taken Comments Blood Pressure 131/75 11/19/2024 8:50 AM EDT Pulse 82 11/19/2024 8:50 AM EDT Temperature 36.2 ??C (97.1 ??F) 11/19/2024 8:50 AM ED T Respiratory Rate 18 11/19/2024 8:50 AM EDT Oxygen Saturation 99% 11/19/2024 8:50 AM EDT Inhaled Oxygen Concentration - - Weight 88 kg (194 lb) 11/19/2024 8:50 AM EDT Height 167.6 cm (5' 6 ) 11/19/2024 8:50 AM EDT Body Mass Index 31.31 11/19/2024 8:50 AM EDT Plan of Treatment Upcoming Encounters Date Type Department Care Team (Late st Contact Info) Description 01/12/2025 1:15 PM EDT Office Visit [facility] [address] [place] [address] Walter Bar MD [address] [place], [place] [phone] 02/19/2025 9:30 AM EDT Office Visit [facility] [address] [place] [address] Silva Light MD [address] [place] [address] Health Maintenance Due Date Last Done Comments CT Colonography 1964 FIT DNA/Cologuard 1964 FIT 1964 FOBT 1964 Sigmoidoscopy 1964 Dental X-Ray: Bitewings 09/09/2010 09/08/2009 Dental Oral Exam 03/07/2011 09/06/2010, 11/26/2009 Dental Prophylaxis 03/07/2011 09/06/2010 Mammogram 12/06/2023 12/05/2021, 12/29, 04/23/2018 RSV Patients and Patients Aged 60 years or older (1 - Risk 60-74 years 1-dose series) 2024 Hepatitis B Vaccines (2 of 3 - Risk 3-dose series) 12/01/2024 11/03/2024 Cervical Cancer Screening 12/20/2024 HPV/Cotest 12/20/2024 12/20/2021, 12/31/2018 Pap Smear 12/20/2024 12/20/2021, 11/28, 12/30/2019, Additional history exists Hepatitis A Vaccines (2 of 2 - Risk 2-dose series) 05/05/2025 11/03/2024 Alcohol/Substance Use Screening 10/28/2025 10/28/2024 Depression Screening 10/28/2025 10/28/2024, 10/29/19 25 SDOH Screening 10/28/2025 10/28/2024 Tobacco Screening 11/19/2025 11/19/2024 Dental X-Ray: Full Mouth 05/22/2027 05/21/2024, 08/30 Colonoscopy 07/10/2027 07/10/2022 Colorectal Cancer Screening 07/10/2027 Lipid Panel 04/16/2029 04/16/2024, 11/18/2021 DTaP/Tdap/Td Vaccines (3 - Td or Tdap) 12/01/2031 11/30/2021, 07/11/2011 Zoster Vaccines Completed 12/05/2021, 04/02/2021 Influenza Vaccine Completed 04/16/2024, , 04/25/2022, Additional history exists COVID-19 Vaccine Completed 09/10/2024, , 01/16/2022, Additional history exists Pneumococcal Vaccine: 50+ Years Completed 09/10/2024 HIV Screening Completed 10/30/2024 Hepatitis C Screening Completed 10/30/2024 , 08/25/2024, 11/18/2021 HIB Vaccines Aged Out No longer eligi [...] Procedure Name Priority Date/Time Associated Diagnosis Comments DRUG MONITORING, PHOSPHATIDYLETHANOL (PETH), BLOOD Routine 10/30/2024 5:05 PM EDT LIVER FIBROSIS, FIBROTEST ACTITEST PANEL Routine 10/30/2024 5:05 PM EDT KETTY SCREEN, IFA, W/REFL TITER AND PATTERN Routine 10/30/2024 5:05 PM EDT ALPHA FETOPROTEIN, TUMOR MARKER Routine 10/30/2024 5:05 PM EDT MITOCHONDRIAL ANTIBODY WITH REFLEX TO TITER Routine 10/30/2024 5:05 PM EDT ACTIN (SMOOTH MUSCLE) ANTIBODY (IGG) Routine 10/30/2024 5:05 PM EDT HIV 1/2 ANTIGEN/ANTIBODY, FOURTH GENERATION W/RFL Routine 10/30/2024 5:05 PM EDT HEPATITIS PANEL, GENERAL Routine 025 5:05 PM EDT AMMONIA (P) Routine 10/30/2024 5:05 PM EDT LIPASE Routine 10/28/2024 12:18 PM EDT MAGNESIUM Routine 10/28/2024 12:18 PM EDT BASIC METABOLIC PANEL Routine 10/28/2024 12:18 PM EDT HEPATIC FUNCTION PANEL Routine 12:18 PM EDT CBC WITH AUTO DIFFERENTIAL Routine 10/28 12:18 PM EDT US ABDOMEN COMPLETE Routine 09/09/2024 1 0:36 AM EST Alcohol use disorder, severe, dependence (CMS/HCC) Elevated liver enzymes PANORAMIC RADIOGRAPHIC IMAGE Routine 05/21/2024 11:00 AM [...] Recently Relevant to Health Maintenance Results * Drug Monitoring, Phosphatidylethanol (PEth), Blood (10/30/2024 5:05 PM EDT) Phosphatidylethanol, Blood NEGATIVE [facility] Comment:REFERENCE RANGE: <20 ng/mL PEth 16:0/18:2 (PLPEth) NEGATIVE [facility] Comment:REFERENCE RANGE: <20 ng/mL PEth Comments SEE NOTE [facility] Comment:This drug testing is for medical treatment only. Analysiswas performed as non-forensic testing and these resultsshould be used only by healthcare providers to renderdiagnosis or treatment, or to monitor progress of medicalconditions.LDT Notes:Confirmation tests were developed and their analyticalperformance characteristics have been determined by [employer]. It has not been cleared or approved by the FDA.This assay has been validated pursuant to the CLIAregulations and is used for clinical purposes.Healthcare Providers needing Interpretation assistance,please contact us at [phone] ( ) M-F,8am to 10pm ESTTHIS TEST PERFORMED AT:[employer]/[facility] [id number] [place] [phone] DIRECTOR: ULISSES SCHMID MD, PHD 10/30/2024 5:05 PM EDT 10/30/2024 5:08 PM EDT us Generic External Data Provider LAB BLOOD ORDERAB LES Final Result [facility] [address] [place] [phone] * Liver Fibrosis (HCV), FibroTest-ActiTest Panel (10/30/2024 5:05 PM EDT) Liver Fibrosis Score 0.70 [facility] Liver Fibrosis Stage F3 [facility] Liver Fibrosis Interpretation advanced fibrosis [facility] Comment:Fibro Test Score (f) Metavir Score f>=0 and f<=0.21 : F0 (no fibrosis)f>0.21 and f<=0.27 : F0-F1 (no fibrosis)f>0.27 and f<=0.31 : F1 (minimal fibrosis)f>0.31 and f<=0.48 : F1-F2 (minimal fibrosis)f>0.48 and f<=0.58 : F2 (moderate fibrosis)f>0.58 and f<=0.72 : F3 (advanced fibrosis)f>0.72 and f<=0.74 : F3-F4 (advanced fibrosis)f>0.74 and f<=1.00 : F4 (severe fibrosis) Nec Inflam Act Score 0.12 [facility] Nec Inflam Act Grade A0 [facility] Nec Inflam Act Interpretation no activity [facility] Comment:ActiTest Score (a) M etavir Score a>=0 and a<=0.17 : A0 (no activity)a>0.17 and a<=0.29 : A0-A1 (no activity)a>0.29 and a<=0.36 : A1 (minimal activity)a>0.36 and a<=0.52 : A1-A2 (minimal activity)a>0.52 and a<=0.60 : A2 (significant activity)a>0.60 and a<=0.62 : A2-A3 (significant activity)a>0.62 and a<=1.00 : A3 (severe activity) FDJ-Tydpw-2-Macroglo bulin 250 [facility] Comment:REFERENCE RANGE: 106 -279 mg/dL FIB-Haptoglobin 106 [facility] Comment:REFERENCE RANGE: 43- 212 mg/dL FIB-Apolipoprotein A1 153 [facility] Comment:REFERENCE RANGE: 101 -198 mg/dL FIB-Total Bilirubin 2.6 (H) [facility] Comment:REFERENCE RANGE: 0.2 -1.2 mg/dL FIB-GGT 73 (H) [facility] Comment:REFERENCE RANGE: 3-6 5 U/L FIB-ALT 18 [facility] Comment:REFERENCE RANGE: 6-2 9 U/L Reference ID [id number] [facility] Footnote SEE NOTE [facility] Comment: The reliability of results is dependent on compliance withthe preanalytical and analytical conditions recommended by[employer]. The tests have to be deferred for: acutehemolysis, acute hepatitis, acute inflammation, extrahepatic cholestasis. The advice of a specialist should besought for interpretation in chronic hemolysis and Gilbert'ssyndrome. The test interpretation is not validated in livertransplant patients. Isolated extreme values of one of thecomponents should lead to caution in interpreting theresults. In case of discordance between a biopsy result andrew test, it is recommended to seek the advice of aspecialist. The causes of these discordances could be due toa flaw of the test or to a flaw in the biopsy: i.e. a liverbiopsy has a 33% variability rate for one fibrosis stage.FibroTest is interpretable for chronic hepatitis B and C,alcoholic and non alcoholic steatosis. ActiTest isinterpretable for chronic hepatitis B and C.The performance characteristics have been determined by[employer] [facility]. Ithas not been cleared or approved by the U.S. Food and DrugAdministration. Performance characteristics refer to theanalytical performance of the test.[employer], [employer], the associated logo, [employer] and all associated [employer] mina are theregistered trademarks of [employer]. All third partymarks - (R) and (TM) - are the property of their respectiveowners. (C) 9522-7425 [employer]. Allrights reserved.THIS TEST PERFORMED AT:[employer] [facility] [place] [phone] DIRECTOR: LISA CARVAJAL MD, PHD, TASIA 10/30/2024 5:05 PM EDT 10/30/2024 5:08 PM EDT us Generic External Data Provider LAB BLOOD ORDERAB LES Final Result Performing Organization Address City/[facility]/ZIP Co de Phone Number [facility] [address] [place] [phone] * Hepatitis Panel, General (10/30/2024 5:05 PM EDT) Hepatitis A IgM Nonreactive Nonreactive [facility] Comment:IgM antibodies to ZAMORA V not detected; does not exclude earlyacute or recovered HAV infection. ~Hepatitis B Surface Antibody NONREACTIVE Nonreactive [facility] Comment:Nonreactive: < 8.00 mIU/mL Hepatitis B Core Antibody Nonreactive Nonreactive [facility] Hepatitis C Antibody Nonreactive Nonreactive [facility] Comment:Antibodies to HCV no t detected; does not exclude early acuteHCV infection. Hepatitis B Surface Ag Negative Negative [facility] 10/30/2024 5:05 PM EDT 10/30/2024 5:08 PM EDT Generic External Data Provider LAB BLOOD ORDERAB LES Final Result Performing Organization Address [facility] Co de Phone Number [facility] [address] [place] [phone] * Actin (Smooth Muscle) Antibody (IgG) (10/30/2024 5:05 PM EDT) Smooth Muscle Antibody <20 <20 U [facility] Comment:Reference Range: <20 U: Negative>or=20 U: PositiveAntibodies recognizing actin are the main componentof smooth muscle antibodies associated with auto- immune liver disease. Actin antibodies are found inapproximately 75% of patients with autoimmunehepatitis (AIH) type 1, approximately 65% of patientswith autoimmune cholangitis, approximately 30% ofpatients with primary biliary cirrhosis andapproximately 2% of healthy controls. High values areclosely correlated with AIH type 1.THIS TEST WAS PERFORMED AT:[employer]/[facility] [id number] [place] [phone] SCHMID MD,PHD 10/30/2024 5:05 PM EDT 10/30/2024 5:08 PM EDT Generic External Data Provider LAB BLOOD ORDERAB LES Final Result Performing Organization Address [facility] Co de Phone Number [facility] [address] [place] [phone] * Alpha-Fetoprotein, Tumor Marker (10/30/2024 5:05 PM EDT) Alpha Fetoprotein 4.9 ng/mL [facility] Comment:Reference Range: <6. 1The use of AFP as a tumor marker in females is not recommended.This test was performed using the [employer] Coulterchemiluminescent method. Values obtained fromdifferent assay methods cannot be usedinterchangeably. AFP levels, regardless ofvalue, should not be interpreted as absoluteevidence of the presence or absence of disease.THIS TEST WAS PERFORMED AT:[employer] [place] [phone] WOLF MD 10/30/2024 5:05 PM EDT 10/30/2024 5:08 PM EDT Generic External Data Provider LAB BLOOD ORDERAB LES Final Result Performing Organization Address [facility] Co de Phone Number [facility] [address] [place] [address] [phone] * Mitochondrial Antibody with Reflex to Titer (10/30/2024 5:05 PM EDT) Mitochondrial Antibodies NEGATIVE NEGATIVE [facility] Comment:THIS TEST WAS PERFOR MED AT:[employer] [place] [phone] WOLF MD Mitochondrial Ab Titer TNP [facility] 10/30/2024 5:05 PM EDT 10/30/2024 5:08 PM EDT Generic External Data Provider LAB BLOOD ORDERAB LES Final Result Performing Organization Address [facility]/ZIP Co de Phone Number [facility] [address] [place] [phone] * HIV-1/2 Antigen and Antibodies, Fourth Generation, with Reflexes (10/30/2024 5:05 PM EDT) HIV AB/AG Nonreactive Nonreactive [facility] Comment:HIV-1 p24 Ag and/or HIV-1/HIV-2 Ab not detected.A test result that is nonreactive does not exclude thepossibility of exposure to or infection with HIV-1 and/orHIV-2. Nonreactive results in this assay for individualswith prior exposure to HIV-1 and/or HIV-2 may be due toantigen and antibody levels that are below the limit ofdetection of this assay.[employer] HIV Ag/Ab Combo assay result andsupplemental assay results should be interpreted inconjunction with the patient's clinical presentation,history and other laboratory results. If the results areinconsistent with clinical evidence, additional testing issuggested to confirm the result. 10/30/2024 5:05 PM EDT 10/30/2024 5:08 PM EDT [employer]ively External Data Provider LAB BLOOD ORDERAB LES Final Result Performing Organization Address [facility]/ZIP Co de Phone Number [facility] [address] [place] [phone] * (ABNORMAL) KETTY Screen,IFA, with Reflex to Titer and Pattern (10/30/2024 5:05 PM EDT) Anti Nuclear Antibody Screen POSITIVE (A) NEGATIVE [facility] Comment:KETTY IFA is a first l ine screen for detecting thepresence of up to approximately 150 autoantibodies invarious autoimmune diseases. A positive KETTY IFA resultis suggestive of autoimmune disease and reflexes totiter and pattern. Further laboratory testing may beconsidered if clinically indicated.For additional information, please refer tohttp://education.[employer]/faq/VPX346(This link is being provided for informational/educational purposes only.) KETTY Titer 1:80(A) titer [facility] Comment:A low level KETTY tite r may be present in pre-clinicalautoimmune diseases and normal individuals. Reference Range <1:40 Negative 1:40-1:80 Low Antibody Level >1:80 Elevated Antibody Level KETTY Pattern (A) [facility] Comment:Nuclear, Dense Fine Speckled Abnormal Flag: ADense fine speckled pattern is seen in normalindividuals and rarely associated with systemic lupuserythematosis (SLE), Sjogren's syndrome and systemicsclerosis.AC-2: Dense Fine SpeckledInternational Consensus on KETTY Patterns(https://doi.org/10.1515/qjcm-[email or web address])THIS TEST WAS PERFORMED AT:[employer] [place] [phone] WOLF MD KETTY TITER 2 (REF LAB) [facility] KETTY Pattern 2 [facility] K[facility]TY TITER 3 [facility] KETTY PATTERN 3 [facility] 10/30/2024 5:05 PM EDT 10/30/2024 5:08 PM EDT us Generic External Data Provider LAB BLOOD ORDERAB LES Final Result Performing Organization Address [facility] Co de Phone Number [facility] [address] [place] [phone] * Ammonia, Plasma (10/30/2024 5:05 PM EDT) Ammonia (P) 32 13 - 55 umol/L [facility] 10/30/2024 5:05 PM EDT 10/30/2024 5:08 PM EDT us Generic External Data Provider LAB BLOOD ORDERAB LES Final Result Performing Organization Address [facility]/ZIP Co de Phone Number [facility] [address] [place] [phone] * (ABNORMAL) CBC auto differential (10/28/2024 12:18 PM EDT) White Blood Count 8.5 4.8 - 10.8 X10*3/uL [facility] Red Blood Count 5.16 4.20 - 5.50 X10*6/uL [facility] Hemoglobin 16.1(H) 12.0 - 16.0 g/dl [facility] Hematocrit 46.0 37.0 - 47.0 % [facility] Mean Corpuscular Volume 89.1 80.0 - 98.0 fL [facility] Mean Corpuscular Hemoglobin 31.2 27.0 - 33.0 pg [facility] Mean Corpuscular HGB Conc 35.0 31.0 - 35.0 g/dl [facility] Red Cell Distribution Width 14.2 11.0 - 16.0 % [facility] Platelet Count 166 160 - 400 X10*3/uL [facility] Mean Platelet Volume 11.6 9.4 - 12.3 fL [facility] Neutrophils Percent Auto 66.8 45 - 73 % [facility] Imm Gran Pct Auto 0.2 0.0 - 0.4 % [facility] Lymphocytes Percent Auto 25.5 20 - 40 % [facility] Monocytes Percent Auto 6.3 2 - 11 % [facility] Eosinophils Percent Auto 0.8 0 - 4 % [facility] Basophils Percent Auto 0.4 0 - 2 % [facility] NRBC Pct Auto 0.0 0.0 - 0.2 /100WBC [facility] Neutrophils Absolute Auto 5.7 2.0 - 8.3 x10*3/uL [facility] Imm Gran Abs Auto 0.02 0.00 - 0.03 X10*3/uL [facility] Lymphocytes Absolute Auto 2.2 1.2 - 4.9 X10*3/uL [facility] Monocytes Absolute Auto 0.5 0.1 - 1.2 X10*3/uL [facility] Eosinophils Absolute Auto 0.1 0.0 - 0.4 X10*3/uL [facility] Basophils Absolute Auto 0.0 0.0 - 0.2 X10*3/uL [facility] NRBC Abs Auto 0.000 0.0 - 0.012 X10*3/uL [facility] 10/28/2024 12:1 8 PM EDT 10/28/2024 12:20 PM EDT us Generic External Data Provider LAB BLOOD ORDERAB LES Final Result Performing Organization Address City/[facility]/ZIP Co de Phone Number [facility] [address] [place] [phone] * Magnesium (10/28/2024 12:18 PM EDT) Magnesium 2.0 1.6 - 2.6 mg/dL [facility] 10/28/2024 12:1 8 PM EDT 10/28/2024 12:20 PM EDT Generic External Data Provider LAB BLOOD ORDERAB LES Final Result Performing Organization Address [facility] [place] Co de Phone Number [facility] [address] [place] [phone] * Lipase (10/28/2024 12:18 PM EDT) Lipase 31 8 - 78 U/L [facility] 10/28/2024 12:1 8 PM EDT 10/28/2024 12:20 PM EDT Generic External Data Provider LAB BLOOD ORDERAB LES Final Result Performing Organization Address [facility] [place]/[facility] Co de Phone Number [facility] [address] [place] [phone] * (ABNORMAL) Hepatic Function Panel (10/28/2024 12:18 PM EDT) Bilirubin, Total 2.7(H) 0.0 - 1.0 mg/dL [facility] Comment:Slight Icterus. Bilirubin, Direct 0.8(H) 0.0 - 0.5 mg/dL [facility] Comment:Slight Icterus. Aspartate Amino Transferase 43(H) 5 - 31 U/L [facility] Alanine Aminotransferase 12 0 - 31 U/L [facility] Total Protein 7.0 6.5 - 8.0 g/dL [facility] Albumin Level 3.9 3.5 - 5.0 g/dL [facility] Alkaline Phosphatase 93 39 - 117 U/L [facility] 10/28/2024 12:1 8 PM EDT 10/28/2024 12:20 PM EDT us Generic External Data Provider LAB BLOOD ORDERAB LES Final Result [facility] [address] [place] [address] [phone] * (ABNORMAL) Basic Metabolic Panel (10/28/2024 12:18 PM EDT) Sodium 140 135 - 145 mmol/L [facility] Potassium 3.7 3.3 - 5.1 mmol/L [facility] Chloride 110(H) 96 - 108 mmol/L [facility] Carbon Dioxide 24 22 - 29 mmol/L [facility] Anion Gap 10(L) 12 - 20 [facility] Urea Nitrogen (BUN) 14 9 - 16 mg/dL [facility] Creatinine, Serum 0.84 0.5 - 1.4 mg/dL [facility] Creatinine Clr Calc Pharmacy 79.6 [facility] Comment:Provided height and weight: 162.56 cm,95.2 kg.eGFR (calculated from the MDRD study equation) and eCrCl(calculated from the Cockcroft-Gault equation) are based ondifferent parameters and may not yield comparable results.If eCrCl result is absurd, please check patient'sheight/weight. Estimated Glomerular Filt Rate >60 [facility] Comment:Chronic Kidney Disea se: Estimated GFR < 60 mL/min/1.20a8Lopgit Kidney Disease: Estimated GFR < 15 mL/min/1.73m2 Glucose 94 60 - 115 mg/dL [facility] Calcium 9.7 8.4 - 10.2 mg/dL [facility] 10/28/2024 12:1 8 PM EDT 10/28/2024 12:20 PM EDT us Generic External Data Provider LAB BLOOD ORDERAB LES Final Result [facility] [address] [place] [phone] * US Abdomen Complete (09/09/2024 10:36 AM EST) Anatomical Region Laterality Modality Abdomen Ultrasound 09/09/2024 10:3 6 AM EST Narrative 09/09/2024 10:37 AM EST ? [facility] ?[address] ? [place] [address] ? Ultrasound Report ? Signed ? Patient: Benjamin,Ethalee L ?MR#: [id number] ?? [id number] ? : 1965 ?Acct:[id number] ? Age/Sex: 59 / F ?ADM Date: 09/09/24 ? Loc: HO.HMGCX ? Attending Dr: Walter Bar MD ? Ordering Physician: Walter Bar MD ?? Date of Service: 09/09/24 ?? Procedure(s): US abdomen complete ?? Accession Number(s): [id number] ? cc: Walter Bar MD; Silva Light [...] document has been electronically signed by: Mark cAuña MD on ?? 09/09/2024 10:36:46 ? Dictated By: ?Mark Acuña MD ? Signed By: ?<Electronically signed by Mark Acuña MD in OV> ?09/09/24 1037 ? DD/ 1036 ? TD/TT: 09/09/246 ? Metal Mold Dresser: ? Procedure Note Kaden, Bayron - 09/09/2024 [facility] [address] [place] [address] [place] [address] Ultrasound Report Signed Patient: Judy Alexander LMR#: [id number] : 1965Acct:[id number] Age/Sex: 59 / FADM Date: 09/09/24 Loc: HO.HMGCX Attending Dr: Walter Bar MD Ordering Physician: Walter Bar MD Date of Service: 09/09/24 Procedure(s): US abdomen complete Accession Number(s): [id number] cc: Walter Bar MD; Silva Light MD [...] document has been electronically signed by: Mark Acñua MD on 09/09/2024 10:36:46 Dictated By: Mark Acuña MD Signed By: <Electronically signed by Mark Acuña MD in OV> 09/09/24 1037 DD/ 1036 TD/TT: 09/09/24 1036 Metal Mold Dresser: us Walter Bar MD IM US PROCEDURES Final Result * (ABNORMAL) Lipid Panel, Standard (04/16/2024 12:03 PM EDT) Triglycerides 195(H) <150 mg/dL [facility] Comment:Desirable Triglyceri de: less than 150 mg/dLBorderline High Triglyceride 150-199 mg/dLHigh Triglyceride: 200-499 mg/dLVery High Triglyceride: greater than or equal to 5OO mg/dL Cholesterol 232(H) <200 mg/dL [facility] Comment:Desirable Cholestero l: less than 200 mg/dLBorderline High Cholesterol: 200-239 mg/dLHigh Cholesterol: greater than 239 mg/dL LDL Cholesterol Calculated 160(H) <100 mg/dL [facility] Comment:Desirable LDL: less than 100 mg/dLNear Optimal/Above Optimal LDL: 110- 129 mg/dLBorderline High LDL: 130-159 mg/dLHigh LDL: 160-189 mg/dLVery High LDL: greater than or equal to 190 mg/dL HDL Cholesterol 33(L) >40 mg/dL [facility] Comment:Desirable HDL: great er than 40 mg/dL Note: This HDL assay may give artificially low results in patients with liver disease. Blood Venous blood specimen / Unknown 04/16/2024 12:03 PM EDT 04/16/2024 2:13 PM EDT Silva Light MD LAB BLOOD ORDERABLES Final Resul t [facility] [address] [place] [address] [phone] * Hm Colonoscopy (07/10/2022) Colonoscopy Normal Normal Historical Provider HEALTH MAINTENANCE Final Result * THINPREP TIS PAP AND HPV mRNA E6/E7 WITH REFLEX TO HPV 16,18/45 (12/20/2021 2:15 PM EDT) Clinical Information: None given [facility] COMMENT SEE COMMENT [facility]OUND[facility] ON [...] has been evaluated with computer assisted technology. [facility] Straightening Press Operator Helper: SEE COMMENT [facility] Comment: DMM, CT(ASCP) CT screening location: [address] ??[phone] HPV nRNA E6/E7 Not Detected Not Detected [facility] Comment: Methodology: Rail Car Maintenance Mechanic-Mediated Amplification This assay detects E6/E7 viral messenger RNA (mRNA) from 14 high-risk HPV types (16,18,31,33,35,39,45,51,52,56,58,59,66,68). ? The analytical performance characteristics of this assay have been determined by [employer]. The modifications have not been cleared or approved by the FDA. This assay has been validated pursuant to the CLIA regulations and is used for clinical purposes. ?? For additional information, please refer to http://education.[employer]/faq/EIT320s4 (This link if provided for information/ educational purposes only.) Interpretation/Re sult: Negative for intraepithelial lesion or malignancy. [facility] LMP: NONE GIVEN [facility] Prev. BX: COLP NEG 2018/2019 [facility] Prev. PAP: ASCUS HPV NEG 2019 LSIL HPV NEG 2018 [facility] Review Straightening Press Operator Helper: SEE COMMENT [facility] Comment: KHUSHBU MARIA(ASCP) CT screening location: [address] ??[phone] SOURCE: None given [facility] Statement Of Adequacy: SEE COMMENT [facility] Comment: Satisfactory for evaluation. Endocervical/transformation zone component present. 12/20/2021 2:15 PM EDT [facility] PATHOLOGY ORDERABLES Final Result Performing Organization Address City/[facility]/ZIP Co de Phone Number [facility] [address] * Pap Smear (12/20/2021 12:00 AM EDT) Swab [facility] CYTOLOGY ORDERABLES F inal Result [address], [place] [phone] * Mammography Report 1 (12/05/2021 8:42 AM [...] Most Recently Relevant to Health Maintenance Insurance [place] [facility] [place] [facility] [place] STAND ADULT * Guarantor: Judy Alexander Account Type Relation to Patient Date of Phone Billing Address Personal/Family Self [place], [place] Care Teams Community Marketing Manager Relationship Specialty Start Date End Date Silva Light MD [address] [place] [phone] PCP - General Family Medicine 08/06/13
--- OUTSIDE RECORDS SUMMARY | 2024-12-05 04:22 | XMS_ITS | Encounter Summary ---
Author Organization [employer] Address [address] 7[address] [place] [address] Care Team Providers Care Digital Proofing And Platemaker Name Role Phone Silva Light MD Primary Care Provider [phone] Reason for Visit * Reason Onset Date Comments Call Back Request 09/23/2024 Encounter Details Date Type Department Care Team ([facility] Contact Info) Description 09/23/2024 Telephone [facility] MEDICINE [address] [place] [address] Silva Light MD [address] [place] [address] Call Back Request Social History Tobacco Use [...] - 09/25/2024 9:51 AM EST Tc from [facility] from [facility] calling in requesting a status on prior message. * Telephone Encounter - Teresa Leal - 09/23/2024 11:54 AM EST Tc from [place] with [facility] to clarify information. If the patient has capacity, was complained about medications or if the pcp has any concerns about the patient. documented in this encounter Plan of Treatment Upcoming Encounters Date Type Department Care Team (Late st Contact Info) Description 01/12/2025 1:15 PM EDT Office Visit [facility]C MED & PEDS [address] [place] [address] Walter Bar MD [address] [place] [address] 02/19/2025 9:30 AM EDT Office Visit [facility] MED & PEDS [address] [place] [address] Silva Light MD [address] [place] [address] documented as of this encounter Visit Diagnoses Not on filedocumented in this encounter Care Teams Digital Proofing And Platemaker Relationship Specialty Start Date End Date Silva Light MD [address] [place] [phone] PCP - General Family Medicine 08/06/13 documented as of this encounter
--- OUTSIDE RECORDS SUMMARY | 2024-12-05 04:22 | XMS_ITS ---
Author Organization [employer] Address [address] [facility] 7[address] [place] [address] Care Team Providers Care Crime Scene Analyst Name Role Phone Silva Light MD Primary Care Provider [phone] Complex Status:Outreach In Progress (Enrolling) Start date:10/29/2024 Enrollment reason:ADT Feed Overview ED- Pt went [facility]. Rossy already has her enrolled in [facility] program in [place]. Have her schedule initial assessment with you. Case Team Name Relationship Phone Tamy Gonzalez RN Registered Nurse(Responsible S taff) [phone] Continued Care and Services Coordination
--- OUTSIDE RECORDS SUMMARY | 2024-12-05 04:22 | XMS_ITS | Encounter Summary ---
Author Organization [employer] Address [address] [place] [address] Care Team Providers Care Commissions Analyst Name Role Phone Silva Light MD Primary Care Provider [phone] Reason for Visit * Reason Onset Date Comments Nurse Triage 10/20/2024 Encounter Details Date Type Department Care Team ([facility] st Contact Info) Description 10/20/2024 Telephone [facility] MEDICINE [address] [place] [address] Silva Light MD [address] [place] [address] Nurse Triage Social History Tobacco Use Types [...] in [facility] today. Offered to come to [facility]. Pt agreed with disposition and will come to [facility] today. Insurance is verified as active. Protocol [...] caller accepted this outcome. Contact pt at [phone] documented in this encounter Plan of Treatment Upcoming Encounters Date Type Department Care Team (Late st Contact Info) Description 01/12/2025 1:15 PM EDT Office Visit [facility] MED & PEDS [address] [place] [address] Walter Bar MD [address] [place] [address] 02/19/2025 9:30 AM EDT Office Visit [facility] MED & PEDS [address] [place] [address] Silva Light MD [address] [place] [address] documented as of this encounter Visit Diagnoses Not on filedocumented in this encounter Care Teams Commissions Analyst Relationship Specialty Start Date End Date Silva Light MD [address] [place] [address] PCP - General Family Medicine 08/06/13 documented as of this encounter
--- OUTSIDE RECORDS SUMMARY | 2024-12-05 04:22 | XMS_ITS | Encounter Summary ---
Author Organization [email or web address] Address [address] [facility] 7t [place] [address] Care Team Providers Care [place] Gold Attendant Name Role Phone Silva Light MD Primary Care Provider [phone] Encounter Details Date Type Department Care Team (Late Contact Info) Description 11/08/2022 Orders Only [facility] MED & PEDS [address] [place], [place] [phone] Sanju Mcgee MD [address] [place], [place] [phone] Primary osteoarthritis of left knee (Primary Dx) [...] Description 01/12/2025 1:15 PM EDT Office Visit [facility] MED & PEDS [address] [place], [place] [phone] Walter Bar MD [address] [place] [address] 02/19/2025 9:30 AM EDT Office Visit [facility] CHC MED & PEDS [address] [place] [address] Silva Light MD [address] [place] [address] documented as of this encounter Visit Diagnoses Diagnosis Primary osteoarthritis of left knee- Primary documented in this encounter Care Teams Fairmont Gold Attendant Relationship Specialty Start Date End Date Silva Light MD [address] [place] [address] PCP - General Family Medicine 08/06/13 documented as of this encounter
[2024-12-05 04:29] LABS: Basophils Percent Auto 0.7 % (0-2); Eosinophils Absolute Auto 0.2 X10*3/uL (0.0-0.4); Eosinophils Percent Auto 3.3 % (0-4); Hematocrit 38.8 % (37.0-47.0); Hemoglobin 13.6 g/dl (12.0-16.0); Imm Gran Abs Auto 0.01 X10*3/uL (0.00-0.03); Imm Gran Pct Auto 0.2 % (0.0-0.4); Lymphocytes Absolute Auto 3.5 X10*3/uL (1.2-4.9); Lymphocytes Percent Auto 56.5 % (20-40); MANUAL DIFF FLAG NO; Mean Corpuscular HGB Conc 35.1 g/dl (31.0-35.0); Mean Corpuscular Hemoglobin 30.2 pg (27.0-33.0); Mean Platelet Volume 10.6 fL (9.4-12.3); Monocytes Absolute Auto 0.4 X10*3/uL (0.1-1.2); Monocytes Percent Auto 7.2 % (2-11); Neutrophils Percent Auto 32.1 % (45-73); Platelet Count 179 X10*3/uL (160-400); Red Blood Count 4.51 X10*6/uL (4.20-5.50); White Blood Count 6.1 X10*3/uL (4.8-10.8)
[2024-12-05 04:40] LABS: Ethanol < 10 mg/dL
[2024-12-05 04:55] LABS: Troponin-I High Sensitivity < 2.7 ng/L (<3.5-17.0)
[2024-12-05 04:58] LABS: Alanine Aminotransferase 21 U/L (0-31); Alkaline Phosphatase 93 U/L (39-117); Anion Gap 15 (12-20); Aspartate Amino Transferase 44 U/L (5-31); Bilirubin Total 1.7 mg/dL (0.0-1.0); Blood Urea Nitrogen 6 mg/dL (9-16); Calcium 9.4 mg/dL (8.4-10.2); Carbon Dioxide 24 mmol/L (22-29); Chloride 105 mmol/L (96-108); Creatinine Clr Calc Pharmacy 71.7; Estimated Glomerular Filt Rate > 60; Glucose Random 139 mg/dL (60-115); Potassium 2.7 mmol/L (3.3-5.1); Sodium 141 mmol/L (135-145); Total Protein 6.9 g/dL (6.5-8.0)
[2024-12-05 05:21] LABS: Magnesium 1.9 mg/dL (1.6-2.6)
[2024-12-05] MEDS: 0.9 % Sodium Chloride 1,000 ML 999 ML IV (05:22)
[2024-12-05] MEDS: Potassium Chloride/H20 10 MEQ/100 ML PIGGYBACK 100 MEQ IV ×2 (05:22→06:23)
[2024-12-05] MEDS: Potassium Bicarbonate/Cit AC 25 MEQ TABLET.EFF 50 MEQ PO (05:56)
--- NOTE | 2024-12-05 07:54 | ECG_ITS ---
Test Reason : palpitaions Blood Pressure : */* mmHG Vent. Rate : 88 BPM Atrial Rate : 88 BPM P-R Int : 168 ms QRS Dur : 80 ms QT Int : 386 ms P-R-T Axes : 64 -5 14 degrees QTcB Int : 467 ms Normal sinus rhythm Minimal voltage criteria for LVH, may be normal variant ( R in aVL ) Septal infarct , age undetermined Inferior infarct , age undetermined Abnormal ECG When compared with ECG of 28-Oct-2024 12:05, Vent. rate has increased by 33 bpm Septal infarct is now Present Inferior infarct is now Present ST now depressed in Anterior leads Referred By: Generic ED Physician Electronically Signed By: DORIAN SYLVESTER
== END 2024-12-05 08:48 | disposition home or self-care (01) ==
PROVIDERS: Emergency Provider Internal Medicine; PCP Student in an Organized Health Care Education/Training Program
DX: I47.10 Supraventricular tachycardia, unspecified (principal); F41.9 Anxiety disorder, unspecified; E87.6 Hypokalemia; R60.0 Localized edema; I10 Essential (primary) hypertension; J45.909 Unspecified asthma, uncomplicated; F10.10 Alcohol abuse, uncomplicated; Y90.0 Blood alcohol level of less than 20 mg/100 ml; Z79.899 Other long term (current) drug therapy
CPT/HCPCS: 36415; 80053; 80307; 83735; 84484; 85025; 85610; 93005; 96361; 96365; 99284; 99285; J3480

== ENCOUNTER → 2024-12-05 07:54 | Outpatient (BNV) | payer MEDICAID, SELFPAY | PROVIDERS: Emergency Provider Internal Medicine; PCP Student in an Organized Health Care Education/Training Program; Visit Provider Internal Medicine | DX: R94.31 Abnormal electrocardiogram [ECG] [EKG] (principal); R00.2 Palpitations | CPT/HCPCS: 93010 ==

== ENCOUNTER 2024-12-08 11:28 | Outpatient (REF) | payer MEDICAID, SELFPAY ==
--- OUTSIDE RECORDS SUMMARY | 2024-12-08 12:19 | XMS_ITS | Encounter Summary ---
Author Organization [employer] Address [address] [facility] 7t [place] [address] Care Team Providers Care Commissioning Agent Name Role Phone Silva Light MD Primary Care Provider [phone] Reason for Visit * Reason Onset Date Comments ER Follow-up 12/05/2024 Encounter Details Date Type Department Care Team ([facility] Contact Info) Description 12/05/2024 Telephone [facility] CHC MED & PEDS [address] [place], [place] [phone] Silva Light MD [address] [place] [address] ER Follow-up Social History Tobacco Use Types Packs/Day Years [...] encounter Miscellaneous Notes * Telephone Encounter - Jenny Rivera RN - 12/05/2024 10:06 AM EDT Called pt. She states that she called 911 last night and was brought to [facility] ED for very low BP 76/32. Pt. [place] dizzy and tried to stand but fell back on the bed. No injury, no chest pain. ED stated pt. Was severely dehydrated and potassium level on blood work very low. Pt. Was prescribed a Potassium supplement in ED. Pt. Just went to [facility] to grinder set up operator external RX. Friend is driving pt. I gave pt. HDF appt. Slot in [facility] for 12/08/24 and advised pt. That if she has any sx. Of chest pain, jaw pain, left arm/shoulder pain, SOB, Diophoresis or BP that is less than 90/60 to go to ED or call 911 and go back to ED. I advised pt. To drink at least 12 16ounce bottles of water daily to stay hydrated. Protocol Used: Blood Pressure - Low (Adult) Protocol-Based Disposition: Call EMS 911 Now- Pt. Did call EMS at 3am 12/05/24 and was brought to [facility] Positive Triage Questions: * Systolic BP < 90 and feeling weak or lightheaded (e.g., woozy, feeling like they might faint) * Extra heartbeats, irregular heart beating, or heart is beating very fast (i.e., palpitations ) * All higher-acuity triage questions were negative * Telephone Encounter - Erica Adán - 12/05/2024 10:02 AM EDT Pt treated at [facility] ER for SVT , low blow blood pressure Today 12/05/2024 pt requesting an appt documented in this encounter Plan of Treatment Upcoming Encounters Date Type Department Care Team (Late st Contact Info) Description 01/12/2025 1:15 PM EDT Office Visit [facility] MED & PEDS [address] [place] [address] Walter Bar MD [address] [place] [address] 02/19/2025 9:30 AM EDT Office Visit [facility] MED & PEDS [address] [place] [address] Silva Light MD [address] [place] [address] documented as of this encounter Visit Diagnoses Not on filedocumented in this encounter Additional Health Concerns Assessment Noted Time PHQ-9 Depression Total Score: 0 10/29/19 25 9:22 AM EDT documented as of this encounter Care Teams Commissioning Agent Relationship Specialty Start Date End Date Silva Light MD [address] [place] [address] PCP - General Family Medicine 08/06/13 documented as of this encounter
--- OUTSIDE RECORDS SUMMARY | 2024-12-08 12:19 | XMS_ITS | Encounter Summary ---
Author Organization [employer] Address [address] [facility] [address] 7[address] [place] [address] Care Team Providers Care Supply Chain Analyst Name Role Phone Silva Light MD Primary Care Provider [phone] Reason for Visit * Reason Onset Date Comments Call Back Request 09/23/2024 Encounter Details Date Type Department Care Team ([facility] Contact Info) Description 09/23/2024 Telephone [facility] MEDICINE [address] [place] [address] Silva Light MD [address] [place] [address] Call Back Request Social History Tobacco Use [...] - 09/25/2024 9:51 AM EST Tc from [facility] calling in requesting a status on prior [...] Description 01/12/2025 1:15 PM EDT Office Visit [facility] CHC MED & PEDS [address] [place] [address] Walter Bar MD [address] [place] [address] 02/19/2025 9:30 AM EDT Office Visit [facility] MED & PEDS [address] [place] [address] Silva Light MD [address] [place] [address] documented as of this encounter Visit Diagnoses Not on filedocumented in this encounter Care Teams Supply Chain Analyst Relationship Specialty Start Date End Date Silva Light MD [address] [place] [address] PCP - General Family Medicine 08/06/13 documented as of this encounter
--- OUTSIDE RECORDS SUMMARY | 2024-12-08 12:19 | XMS_ITS | Encounter Summary ---
Author Organization [employer] Address [address] [facility] [address] [place] [address] Care Team Providers Care Clinical Transformation Specialist Name Role Phone Silva Light MD Primary Care Provider [phone] Reason for Visit * Reason Onset Date Comments Nurse Triage 10/20/2024 Encounter Details Date Type Department Care Team ([facility] st Contact Info) Description 10/20/2024 Telephone [facility] MEDICINE [address] [place] [address] Silva Light MD [address] [place] [address] Nurse Triage Social History Tobacco Use Types [...] come to [facility]. Pt agreed with disposition and will come to [facility] today. Insurance is verified as active. [...] caller accepted this outcome. Contact pt at [phone] documented in this encounter Plan of Treatment Upcoming Encounters Date Type Department Care Team (Late st Contact Info) Description 01/12/2025 1:15 PM EDT Office Visit [facility] MED & PEDS [address] [place] [address] Walter Bar MD [address] [place] [address] 02/19/2025 9:30 AM EDT Office Visit [facility] MED & PEDS [address] [place] [address] Silva Light MD [address] [place] [address] documented as of this encounter Visit Diagnoses Not on filedocumented in this encounter Care Teams Clinical Transformation Specialist Relationship Specialty Start Date End Date Silva Light MD [address] [place] [address] PCP - General Family Medicine 08/06/13 documented as of this encounter
--- OUTSIDE RECORDS SUMMARY | 2024-12-08 12:19 | XMS_ITS | Encounter Summary ---
Author Organization [employer] Address [address] [place] [address] [address] [place] [address] Care Team Providers Care Clinical Business Analyst Name Role Phone Silva Light MD Primary Care Provider [phone] Reason for Referral * Consultation (Routine) - Pending Review Specialty Diagnoses / Procedures Referred By Andre lópez Referred To Contact Physical Therapy Diagnoses Primary parkinsonism (CMS/HCC) Sanju Mcgee MD [address] [place] [id number] Phone: tel: fax: Referral ID Status Reason Start Date Expiration Date Visits Requested Visits Authorized [id number] Pending Review Specialty Services Required 12/08/2024 12/08/2025 1 1 * Consultation (Routine) - Pending Review Specialty Diagnoses / Procedures Referred By Andre lópez Referred To Contact Neurology Diagnoses Primary parkinsonism ([facility]/HCC) Sanju Mcgee MD [address] [place] [address] Phone: tel: fax: Referral ID Status Reason Start Date Expiration Date Visits Requested Visits Authorized [id number] Pending Review Specialty Services Required 12/08/2024 12/08/2025 1 1 Reason for Visit * Reason Comments Hospital discharge follow-up Encounter Details Date Type Department Care Team (Latest Contact Info) Description 12/08/2024 10:15 AM EDT Office Visit [facility] MED & PEDS [address] [place] [address] Sanju Mcgee MD [address] [place] [address] Hypothyroidism, unspecified type (Primary Dx); Paroxysmal supraventricular tachycardia (CMS/HCC); Primary parkinsonism (CMS/HCC); Chronic right shoulder pain; Hypokalemia Social History Tobacco Use Types Packs/Day Years [...] your housing situation today? I have yasemin sing 12/08/[address] you li ve. Do you have problems with any of the following? No or not working smoke detectors 12/08/2024 Food Insecurity Answer Date Recorded Within the past 12 months, y ou worried that your food would run out before you got money to buy more: Sometimes True 2024 Within the past 12 months,th e food you bought just didn't last and you didn't have enough money to get more: Sometimes True 12/08/2024 Transportation Answer Date Recorded In the past 12 months, has l ack of transportation kept you from medical appts, meetings, work or from getting things needed for daily living? Yes, it has kept me from non-medical meetings, work, or getting things that I need 12/08/2024 Utilities Answer Date Recorded In the past 12 months, has t he electric, gas, oil or water company threatened to shut off services in your home? Yes 12/08/2024 Depression Answer Date Recorded Patient Health Questionnaire-2 [...] Sign Reading Time Taken Comments Blood Pressure 137/70 12/08/2024 10:20 AM EDT Pulse 76 12/08/2024 10:20 AM EDT Temperature 36.7 ??C (98 ??F) 12/08/2024 10:20 AM EDT Respiratory Rate 20 12/08/2024 10:20 AM EDT Oxygen Saturation 96% 12/08/2024 10:20 AM EDT Inhaled Oxygen Concentration - - Weight 91.6 kg (202 lb) 12/08/2024 10:20 AM EDT Height 167.6 cm (5' 6 ) 12/08/2024 10:20 AM EDT Body Mass Index 32.6 12/08/2024 10:20 AM EDT documented in this encounter Plan of Treatment Upcoming Encounters Date Type Department Care Team (Late st Contact Info) Description 01/12/2025 1:15 PM EDT Office Visit [facility] MED & PEDS [address] [place] [address] Walter Bar MD [address] [place] [address] 02/19/2025 9:30 AM EDT Office Visit [facility] MED & PEDS [address] [place] [address] Silva Light MD [address] [place] [address] Scheduled Orders Name Type Priority Associated Diagnoses Orde r Schedule Basic Metabolic Panel Lab Routine Hypothyroidism, unspecified type Paroxysmal supraventricular tachycardia (CMS/HCC) Hypokalemia Expected: 12/08/2024 (Approximate), Expires: 12/08/2025 TSH W/Reflex to FT4 Lab Routine Hypothyroidism, unspecified type Hypokalemia Expected: 12/08/2024 (Approximate), Expires: 12/08/2025 Scheduled Referrals Name Type Priority Associated Diagnoses Orde r Schedule Referral to Neurology Outpatient Referral Routine Primary parkinsonism (CMS/HCC) Expected: 12/08/2024 (Approximate), Expires: 12/08/2025 Referral to Physical Therapy Outpatient Referral Routine Primary parkinsonism (CMS/HCC) Expected: 12/08/2024 (Approximate), Expires: 12/08/2025 documented as of this encounter Visit Diagnoses Diagnosis Hypothyroidism, unspecified type- Primary Paroxysmal supraventricular tachycardia (CMS/HCC) Paroxysmal supraventricular tachycardia Primary parkinsonism (CMS/HCC) Paralysis agitans Chronic right shoulder pain Pain in joint, shoulder region Hypokalemia Hypopotassemia documented in this encounter Additional Health Concerns Assessment Noted Time PHQ-9 Depression Total Score: 0 10/29/19 25 9:22 AM EDT documented as of this encounter Care Teams Clinical Business Analyst Relationship Specialty Start Date End Date Silva Light MD [address] [place] [phone] PCP - General Family Medicine 08/06/13 documented as of this encounter
--- OUTSIDE RECORDS SUMMARY | 2024-12-08 12:19 | XMS_ITS ---
Author Organization [employer] Address [address] [facility] [facility] [address] [place] [address] Care Team Providers Care Die Repair Machinist Name Role Phone Silva Light MD Primary Care Provider [phone] CM Complex Status:Outreach In Progress (Enrolling) Start date:10/29/2024 Enrollment reason:ADT Feed Overview ED- Pt went to [facility] on 10/28/24. [facility] already has her enrolled in [facility] program in [place]. Have her schedule initial assessment with you. Case Team Name Relationship Phone Tamy Gonzalez RN Registered Nurse(Responsible S taff) [phone] Continued Care and Services Coordination
--- OUTSIDE RECORDS SUMMARY | 2024-12-08 12:19 | XMS_ITS | Encounter Summary ---
Author Organization [employer] Address [address] [place] [address] Care Team Providers Care Hospitalist Name Role Phone Silva Light MD Primary Care Provider [phone] Encounter Details Date Type Department Care Team (Latest Contact Info) Description 12/08/2024 Travel Social History Tobacco Use Types Packs/Day [...] housing situation today? I have yasemin christie 12/08/[address] you li [...] Description 01/12/2025 1:15 PM EDT Office Visit [facility] MED & PEDS [address] [place] [address] Walter Bar MD [address] [place] [address] 02/19/2025 9:30 AM EDT Office Visit [facility] MED & PEDS [address] [place] [address] Silva Light MD [address] [place] [address] documented as of this encounter Visit Diagnoses Not on filedocumented in this encounter Additional Health Concerns Assessment Noted Time PHQ-9 Depression Total Score: 0 10/29/19 25 9:22 AM EDT documented as of this encounter Care Teams Hospitalist Relationship Specialty Start Date End Date Silva Light MD [address] [place] [address] PCP - General Family Medicine 08/06/13 documented as of this encounter
--- OUTSIDE RECORDS SUMMARY | 2024-12-08 12:19 | XMS_ITS | Clinical Summary ---
Author Organization [employer] Address [address] [place] [address] Care Team Providers Care Canadian Bacon Tier Name Role Phone Silva Light MD Primary Care Provider [phone] Allergies Active Allergy Reactions Criticality Noted Date [...] Active Problems Problem Noted Date Diagnosed Date Primary parkinsonism 12/08/2024 Alcohol abuse 11/30/2023 Menopausal and female climacteric states 023 Cobalamin deficiency 02/03/2016 Paroxysmal supraventricular tachycardia 06/09/20 13 Schizophrenia 04/29/2013 Hypothyroidism 02/19/2013 Obesity 02/19/2013 Encounters Date Type Department Care Team Description 12/08/2024 10:15 AM EDT Office Visit [facility] [address] [place] [address] Sanju Mcgee MD Hypothyroidism, unspecified type (Primary Dx); Paroxysmal supraventricular tachycardia (CMS/HCC); Primary parkinsonism (CMS/HCC); Chronic right shoulder pain; Hypokalemia 12/08/2024 Travel 12/08/2024 Patient Outreach [facility] [address] [place] [phone] Silva Light MD Care Coordination (CM/CHW appt reminder) 12/05/2024 Telephone [facility] [address] [place] [address] Silva Light MD ER Follow-up 11/26/2024 Refill [facility] [address] [place] [address] Silva Light MD 11/25/2024 Patient Outreach [facility] [address] [place] [address] Silva Light MD 11/20/2024 Patient Outreach [facility] [address] [place] [phone] Silva Light MD Care Coordination 11/19/2024 8:45 AM EDT Office Visit [facility] [address] [place] [address] Silva Light MD Hypotension, unspecified hypotension type (Primary Dx); Alcohol abuse 11/19/2024 Patient Outreach [facility] [address] [place] [address] Silva Light MD Care Coordination (Initial assessment- unable to reach out to patient) 11/19/2024 Travel 11/04/2024 Orders Only [facility] [address] [place] [address] Silva Light MD 11/03/2024 1:15 PM EDT Office Visit [facility] [address] [place] [address] Walter Bar MD Alcohol use disorder, severe, dependence (CMS/HCC) (Primary Dx); Encounter for immunization 11/03/2024 Travel 10/30/2024 Orders Only GENERIC EXTERNAL DATA DEPARTMENT Provider, Generic External Data 10/29/2024 Patient Outreach [address] [address] Silva Light MD Care Coordination (CM/CHW outreach) 10/29/2024 Patient Outreach [facility] [address] [place] [address] Silva Light MD Care Coordination (C3 chart review) 10/29/2024 Patient Outreach [address] [address] Silva Light MD 10/28/2024 9:15 AM EDT Office Visit [facility] [address] [place] [address] Silva Light MD Folliculitis (Primary Dx); Hypotension, unspecified hypotension type 10/28/2024 Refill [facility] [address] [place] [address] Silva Light MD Post-traumatic stress disorder, unspecified 10/28/2024 Orders Only GENERIC EXTERNAL DATA DEPARTMENT Provider, Generic External Data 10/28/2024 Travel 10/20/2024 Telephone [facility] [address] [place] [phone] Silva Light MD Nurse Triage 10/10/2024 Population Health Risk Score [facility] (C3) Department [address] [place] [address] [phone] Provider, Population Health [facility] 10/02/2024 Patient Outreach [facility] [address] [place] [address] Silva Light MD Care Coordination (SDOH) 09/23/2024 Telephone [facility] [address] [place] [phone] Silva Light MD Call Back Request 09/23/2024 Patient Outreach [address] [address] Jeff We[facility] 09/16/2024 Patient Outreach [address] [address] Jeff Weeks [facility] 09/11/2024 Patient Outreach [facility] [address] [place] [address] Silva Light MD Care Coordination (SDOH) 09/11/2024 Patient Outreach [address] [address] Jeff Weeks [facility] 09/10/2024 10:20 AM EST Office Visit [facility] [address] [place] [address] Ning Hope MD Encounter for immunization (Primary Dx); Alcohol abuse; Transaminitis; Boil of buttock 09/10/2024 Telephone [facility] [address] [place] [address] Silva Light MD 09/10/2024 Travel from Last 3 Months Immunizations Name Administration [...] housing situation today? I have yasemin soriano 12/08/[address] you li [...] Mass Index 32.6 12/08/2024 10:20 AM EDT Plan of Treatment Upcoming Encounters Date Type Department Care Team (Late st Contact Info) Description 01/12/2025 1:15 PM EDT Office Visit [facility] [address] [place] [address] Walter Bar MD [address] [place] [address] 02/19/2025 9:30 AM EDT Office Visit [facility] [address] [place] [address] Silva Light MD [address] [place] [address] Health Maintenance Due Date Last Done Comments [...] Depression Screening 10/28/2025 10/28/2024, 10/29/19 SDOH Screening 12/08/2025 12/08/2024 Tobacco Screening 12/08/2025 12/08/2024 Dental X-Ray: Full Mouth 05/22/2027 05/21/2024, 08/30 [...] AUTO DIFFERENTIAL Routine 10/28 12:18 PM EDT PANORAMIC RADIOGRAPHIC IMAGE Routine 05/21/2024 11:00 AM [...] (10/30/2024 5:05 PM EDT) Phosphatidylethanol, Blood NEGATIVE [facility] Comment:REFERENCE RANGE: <20 ng/mL PEth 16:0/18:2 (PLPEth) NEGATIVE [facility] Comment:REFERENCE RANGE: <20 ng/mL PEth Comments SEE NOTE [facility] Comment:This drug testing is for medical treatment only. Analysiswas performed as non-forensic testing and these resultsshould be used only by healthcare providers to renderdiagnosis or treatment, or to monitor progress of medicalconditions.LDT Notes:Confirmation tests were developed and their analyticalperformance characteristics have been determined by [employer]. It has not been cleared or approved by the FDA.This assay has been validated pursuant to the CLIAregulations and is used for clinical purposes.Healthcare Providers needing Interpretation assistance,please contact us at [phone] ( ) M-F,8am to 10pm ESTTHIS TEST PERFORMED AT:[facility] [id number] [facility] MALOU ZULETA [phone] DIRECTOR: ULISSES SCHMID MD, PHD 10/30/2024 5:05 PM EDT 10/30/2024 5:08 PM EDT us Generic External Data Provider LAB BLOOD ORDERAB LES Final Result [facility] [address] [place] [address] [phone] * Liver Fibrosis (HCV), FibroTest-ActiTest Panel (10/30/2024 5:05 PM EDT) Liver Fibrosis Score 0.70 [facility] Liver Fibrosis Stage F3 [facility] Liver Fibrosis Interpretation advanced fibrosis [facility] Comment:Fibro Test Score (f) Metavir Score f>=0 and f<=0.21 : F0 (no fibrosis)f>0.21 and f<=0.27 : F0-F1 (no fibrosis)f>0.27 and f<=0.31 : F1 (minimal fibrosis)f>0.31 and f<=0.48 : F1-F2 (minimal fibrosis)f>0.48 and f<=0.58 : F2 (moderate fibrosis)f>0.58 and f<=0.72 : F3 (advanced fibrosis)f>0.72 and f<=0.74 : F3-F4 (advanced fibrosis)f>0.74 and f<=1.00 : F4 (severe fibrosis) Nec Inflam Act Score 0.12 [facility] Nec Inflam Act Grade A0 [facility] Nec Inflam Act Interpretation no activity [facility] Comment:ActiTest Score (a) M etavir Score a>=0 and a<=0.17 : A0 (no activity)a>0.17 and a<=0.29 : A0-A1 (no activity)a>0.29 and a<=0.36 : A1 (minimal activity)a>0.36 and a<=0.52 : A1-A2 (minimal activity)a>0.52 and a<=0.60 : A2 (significant activity)a>0.60 and a<=0.62 : A2-A3 (significant activity)a>0.62 and a<=1.00 : A3 (severe activity) UOI-Wrcdr-3-Macroglo bulin 250 [facility] Comment:REFERENCE RANGE: 106 -279 mg/dL FIB-Haptoglobin 106 [facility] Comment:REFERENCE RANGE: 43- 212 mg/dL FIB-Apolipoprotein A1 153 [facility] Comment:REFERENCE RANGE: 101 -198 mg/dL FIB-Total Bilirubin 2.6 (H) [facility] Comment:REFERENCE RANGE: 0.2 -1.2 mg/dL FIB-GGT 73 (H) [facility] Comment:REFERENCE RANGE: 3-6 5 U/L FIB-ALT 18 [facility] Comment:REFERENCE RANGE: 6-2 9 U/L Reference ID [id number] [facility] Footnote SEE NOTE [facility] Comment: The reliability of results is [...] and C.The performance characteristics have been determined by[employer] [facility]. Ithas not been cleared or approved by the U.S. Food and DrugAdministration. Performance characteristics refer to theanalytical performance of the test.[employer], the associated logo, [employer] and all associated [employer] mina are theregistered trademarks of [employer]. All third partymarks - (R) and (TM) - are the property of their respectiveowners. (C) [id number] [employer]. Allrights reserved.THIS TEST PERFORMED AT:[facility]/[facility] [id number] [facility] [place] [phone] DIRECTOR: LISA CARVAJAL MD, PHD, TASIA 10/30/2024 5:05 PM EDT 10/30/2024 5:08 PM EDT Generic External Data Provider LAB BLOOD ORDERAB LES Final Result Performing Organization Address [facility] Co de Phone Number [facility] [address] [place] [phone] * Hepatitis Panel, General (10/30/2024 5:05 PM EDT) Hepatitis A IgM Nonreactive Nonreactive [facility] Comment:IgM antibodies to ZAMORA V not detected; does not exclude earlyacute or recovered HAV infection. ~Hepatitis B Surface Antibody NONREACTIVE Nonreactive [facility] Comment:Nonreactive: < 8.00 mIU/mL Hepatitis B Core Antibody Nonreactive Nonreactive [facility] Hepatitis C Antibody Nonreactive Nonreactive [facility] Comment:Antibodies to HCV no t detected; does not exclude early acuteHCV infection. Hepatitis B Surface Ag Negative Negative [facility] 10/30/2024 5:05 PM EDT 10/30/2024 5:08 PM EDT us Generic External Data Provider LAB BLOOD ORDERAB LES Final Result Performing Organization Address [facility]/ZIP Co de Phone Number [facility] [address] [place] [phone] * Actin (Smooth Muscle) Antibody (IgG) (10/30/2024 5:05 PM EDT) Smooth Muscle Antibody <20 <20 U [facility] Comment:Reference Range: <20 U: Negative>or=20 U: [...] with AIH type 1.THIS TEST WAS PERFORMED AT:[facility]/[id number] [place] [address]UNBXYCE W. MASON,MD,PHD 10/30/2024 5:05 PM EDT 10/30/2024 5:08 PM EDT Generic External Data Provider LAB BLOOD ORDERAB LES Final Result Performing Organization Address [facility]/ZIP Co de Phone Number [facility] [address] [place] [phone] * Alpha-Fetoprotein, Tumor Marker (10/30/2024 5:05 PM EDT) Alpha Fetoprotein 4.9 ng/mL [facility] Comment:Reference Range: <6. 1The use of AFP as a tumor marker in females is not recommended.This test was performed using the Trudi Coulterchemiluminescent method. Values obtained fromdifferent assay methods cannot be usedinterchangeably. AFP levels, regardless ofvalue, should not be interpreted as absoluteevidence of the presence or absence of disease.THIS TEST WAS PERFORMED AT:[facility] [address] [phone] WOLF MD 10/30/2024 5:05 PM EDT 10/30/2024 5:08 PM EDT us Generic External Data Provider LAB BLOOD ORDERAB LES Final Result Performing Organization Address [facility]/ZIP Co de Phone Number [facility] [address] [place] [phone] * Mitochondrial Antibody with Reflex to Titer (10/30/2024 5:05 PM EDT) Mitochondrial Antibodies NEGATIVE NEGATIVE [facility] Comment:THIS TEST WAS PERFOR MED AT:[facility] [address] [place] [phone] WOLF MD Mitochondrial Ab Titer TNP [facility] 10/30/2024 5:05 PM EDT 10/30/2024 5:08 PM EDT us Generic External Data Provider LAB BLOOD ORDERAB LES Final Result Performing Organization Address [facility]/ZIP Co de Phone Number [facility] [address] [place] [phone] * HIV-1/2 Antigen and Antibodies, Fourth Generation, with Reflexes (10/30/2024 5:05 PM EDT) HIV AB/AG Nonreactive Nonreactive [facility] Comment:HIV-1 p24 Ag and/or HIV-1/HIV-2 Ab not detected.A test result that is nonreactive does not exclude thepossibility of exposure to or infection with HIV-1 and/orHIV-2. Nonreactive results in this assay for individualswith prior exposure to HIV-1 and/or HIV-2 may be due toantigen and antibody levels that are below the limit ofdetection of this assay.The [employer] HIV Ag/Ab Combo assay result andsupplemental assay results should be interpreted inconjunction with the patient's clinical presentation,history and other laboratory results. If the results areinconsistent with clinical evidence, additional testing issuggested to confirm the result. 10/30/2024 5:05 PM EDT 10/30/2024 5:08 PM EDT us Generic External Data Provider LAB BLOOD ORDERAB LES Final Result Performing Organization Address [facility]/ZIP Co de Phone Number [facility] [address] [place] [phone] * (ABNORMAL) KETTY Screen,IFA, with Reflex to Titer and Pattern (10/30/2024 5:05 PM EDT) Anti Nuclear Antibody Screen POSITIVE (A) NEGATIVE [facility] Comment:KETTY IFA is a first l ine screen for detecting thepresence of up to approximately 150 autoantibodies invarious autoimmune diseases. A positive KETTY IFA resultis suggestive of autoimmune disease and reflexes totiter and pattern. Further laboratory testing may beconsidered if clinically indicated.For additional information, please refer tohttp://education.[employer]/faq/JMV057(This link is being provided for informational/educational purposes only.) KETTY Titer 1:80(A) titer [facility] Comment:A low level KETTY tite r may be present in pre-clinicalautoimmune diseases and normal individuals. Reference Range <1:40 Negative 1:40-1:80 Low Antibody Level >1:80 Elevated Antibody Level KETTY Pattern (A) [facility] Comment:Nuclear, Dense Fine Speckled Abnormal Flag: ADense fine speckled pattern is seen in normalindividuals and rarely associated with systemic lupuserythematosis (SLE), Sjogren's syndrome and systemicsclerosis.AC-2: Dense Fine SpeckledInternational Consensus on KETTY Patterns(https://doi.org/10.1515/rvuc-0169-4896)THIS TEST WAS PERFORMED AT:[facility] [address] [place] [phone] WOLF MD KETTY TITER 2 (REF LAB) [facility] KETTY Pattern 2 [facility] KETTY TITER 3 [facility] KETTY PATTERN 3 [facility] 10/30/2024 5:05 PM EDT 10/30/2024 5:08 PM EDT us Generic External Data Provider LAB BLOOD ORDERAB LES Final Result [facility] [address] [place] [phone] * Ammonia, Plasma (10/30/2024 5:05 PM EDT) Ammonia (P) 32 13 - 55 umol/L [facility] 10/30/2024 5:05 PM EDT 10/30/2024 5:08 PM EDT us Generic External Data Provider LAB BLOOD ORDERAB LES Final Result [facility] [address] [place] [phone] * (ABNORMAL) CBC auto differential (10/28/2024 12:18 PM EDT) [facility] White Blood Count 8.5 4.8 - 10.8 X10*3/uL [facility] Red Blood Count 5.16 4.20 - 5.50 X10*6/uL [facility] Hemoglobin 16.1(H) 12.0 - 16.0 g/dl [facility] Hematocrit 46.0 37.0 - 47.0 % [facility] Mean Corpuscular Volume 89.1 80.0 - 98.0 fL [facility] Mean Corpuscular Hemoglobin 31.2 27.0 - 33.0 pg [facility] Mean Corpuscular HGB Conc 35.0 31.0 - 35.0 g/dl [facility] Red Cell Distribution Width 14.2 11.0 - 16.0 % [facility] Platelet Count 166 160 - 400 X10*3/uL [facility] Mean Platelet Volume 11.6 9.4 - 12.3 fL [facility] Neutrophils Percent Auto 66.8 45 - 73 % [facility] Imm Gran Pct Auto 0.2 0.0 - 0.4 % [facility] Lymphocytes Percent Auto 25.5 20 - 40 % [facility] Monocytes Percent Auto 6.3 2 - 11 % [facility] Eosinophils Percent Auto 0.8 0 - 4 % [facility] Basophils Percent Auto 0.4 0 - 2 % [facility] NRBC Pct Auto 0.0 0.0 - 0.2 /100WBC [facility] Neutrophils Absolute Auto 5.7 2.0 - 8.3 x10*3/uL [facility] Imm Gran Abs Auto 0.02 0.00 - 0.03 X10*3/uL [facility] Lymphocytes Absolute Auto 2.2 1.2 - 4.9 X10*3/uL [facility] Monocytes Absolute Auto 0.5 0.1 - 1.2 X10*3/uL [facility] Eosinophils Absolute Auto 0.1 0.0 - 0.4 X10*3/uL [facility] Basophils Absolute Auto 0.0 0.0 - 0.2 X10*3/uL [facility] NRBC Abs Auto 0.000 0.0 - 0.012 X10*3/uL [facility] 10/28/2024 12:1 8 PM EDT 10/28/2024 12:20 PM EDT Generic External Data Provider LAB BLOOD ORDERAB LES Final Result Performing Organization Address City/[facility]/ZIP Co de Phone Number [facility] [address] [place] [phone] * Magnesium (10/28/2024 12:18 PM EDT) Magnesium 2.0 1.6 - 2.6 mg/dL [facility] 10/28/2024 12:1 8 PM EDT 10/28/2024 12:20 PM EDT Generic External Data Provider LAB BLOOD ORDERAB LES Final Result Performing Organization Address City/[facility]/ZIP Co de Phone Number [facility] [address] [place] [phone] * Lipase (10/28/2024 12:18 PM EDT) Lipase 31 8 - 78 U/L [facility] 10/28/2024 12:1 8 PM EDT 10/28/2024 12:20 PM EDT us Generic External Data Provider LAB BLOOD ORDERAB LES Final Result Performing Organization Address [facility]/ZIP Co de Phone Number [facility] [address] [place] [address] [phone] * (ABNORMAL) Hepatic Function Panel (10/28/2024 12:18 PM EDT) Bilirubin, Total 2.7(H) 0.0 - 1.0 mg/dL [facility] Comment:Slight Icterus. Bilirubin, Direct 0.8(H) 0.0 - 0.5 mg/dL [facility] Comment:Slight Icterus. Aspartate Amino Transferase 43(H) 5 - 31 U/L [facility] Alanine Aminotransferase 12 0 - 31 U/L [facility] Total Protein 7.0 6.5 - 8.0 g/dL [facility] Albumin Level 3.9 3.5 - 5.0 g/dL [facility] Alkaline Phosphatase 93 39 - 117 U/L [facility] 10/28/2024 12:1 8 PM EDT 10/28/2024 12:20 PM EDT us Generic External Data Provider LAB BLOOD ORDERAB LES Final Result Performing Organization Address [facility]/ZIP Co de Phone Number [facility] [address] [place] [phone] * (ABNORMAL) Basic Metabolic Panel (10/28/2024 12:18 PM EDT) Sodium 140 135 - 145 mmol/L [facility] Potassium 3.7 3.3 - 5.1 mmol/L [facility] Chloride 110(H) 96 - 108 mmol/L [facility] Carbon Dioxide 24 22 - 29 mmol/L [facility] Anion Gap 10(L) 12 - 20 [facility] Urea Nitrogen (BUN) 14 9 - 16 mg/dL [facility] Creatinine, Serum 0.84 0.5 - 1.4 mg/dL [facility] Creatinine Clr Calc Pharmacy 79.6 [facility] Comment:Provided height and weight: 162.56 cm,95.2 kg.eGFR (calculated from the MDRD study equation) and eCrCl(calculated from the Cockcroft-Gault equation) are based ondifferent parameters and may not yield comparable results.If eCrCl result is absurd, please check patient'sheight/weight. Estimated Glomerular Filt Rate >60 [facility] Comment:Chronic Kidney Disea se: Estimated GFR < 60 mL/min/1.30i4Dkgkzi Kidney Disease: Estimated GFR < 15 mL/min/1.73m2 Glucose 94 60 - 115 mg/dL [facility] Calcium 9.7 8.4 - 10.2 mg/dL [facility] 10/28/2024 12:1 8 PM EDT 10/28/2024 12:20 PM EDT us Generic External Data Provider LAB BLOOD ORDERAB LES Final Result [facility] [address] [place] [phone] * (ABNORMAL) Lipid Panel, Standard (04/16/2024 12:03 PM EDT) Triglycerides 195(H) <150 mg/dL [facility] Comment:Desirable Triglyceri de: less than 150 mg/dLBorderline High Triglyceride 150-199 mg/dLHigh Triglyceride: 200-499 mg/dLVery High Triglyceride: greater than or equal to 5OO mg/dL Cholesterol 232(H) <200 mg/dL [facility] Comment:Desirable Cholestero l: less than 200 mg/dLBorderline High Cholesterol: 200-239 mg/dLHigh Cholesterol: greater than 239 mg/dL LDL Cholesterol Calculated 160(H) <100 mg/dL [facility] Comment:Desirable LDL: less than 100 mg/dLNear Optimal/Above Optimal LDL: 110- 129 mg/dLBorderline High LDL: 130-159 mg/dLHigh LDL: 160-189 mg/dLVery High LDL: greater than or equal to 190 mg/dL HDL Cholesterol 33(L) >40 mg/dL [facility] Comment:Desirable HDL: great er than 40 mg/dL Note: This HDL assay may give artificially low results in patients with liver disease. Blood Venous blood specimen / Unknown 04/16/2024 12:03 PM EDT 04/16/2024 2:13 PM EDT us Silva Light MD LAB BLOOD ORDERABLES Final Resul t [facility] [address] [place] [phone] * Colonoscopy (07/10/2022) Colonoscopy Normal Normal [...] assisted technology. [facility] Metal Baler: SEE COMMENT [facility] Comment: DMM, CT(ASCP) CT screening location: [address] ??[phone] HPV nRNA E6/E7 Not Detected Not Detected [facility] Comment: Methodology: Gluing Machine Feeder-Mediated Amplification This assay detects E6/E7 viral messenger RNA (mRNA) from 14 high-risk HPV types (16,18,31,33,35,39,45,51,52,56,58,59,66,68). ? The analytical performance characteristics of this assay have been determined by [employer]. The modifications have not been cleared or approved by the FDA. This assay has been validated pursuant to the CLIA regulations and is used for clinical purposes. ?? For additional information, please refer to http://education.[employer]/faq/DHV094l6 (This link if provided for information/ educational purposes only.) Interpretation/Re sult: Negative for intraepithelial lesion or malignancy. [facility] LMP: NONE GIVEN [facility] Prev. BX: COLP NEG [facility] Prev. PAP: ASCUS HPV NEG 2019 LSIL HPV NEG 2018 [facility] Review Metal Baler: SEE COMMENT [facility] Comment: KHUSHBU MARIA(ASCP) CT screening location: [address] ??[phone] SOURCE: None given [facility] Statement Of Adequacy: SEE COMMENT [facility] Comment: Satisfactory for evaluation. Endocervical/transformation zone component present. 12/20/2021 2:15 PM EDT [facility] PATHOLOGY ORDERABLES Final Result Performing Organization Address [facility] Co de Phone Number [facility] [address] * Pap Smear (12/20/2021 12:00 AM EDT) [facility]ab [facility] ORDERABLES F inal Result Performing Organization Address City/[facility] [facility] Phone Number [address], [place] [address] * Mammography Report 1 (12/05/2021 8:42 AM [...] Most Recently Relevant to Health Maintenance Insurance [facility] C[address] [place] DENTAL-[facility] MEDICAID STAND ADULT * Guarantor: Judy Alexander Account Type Relation to Patient Date of Phone Billing Address Personal/Family Self [place], [place] * Guarantor: Judy Alexander Account Type Relation to Patient Date of Phone Billing Address Personal/Family Self [place] Care Teams [place] [employer] Tier Relationship Specialty Start Date End Date Silva Light MD [address] [place] [address] PCP - General Family Medicine 08/06/13
--- OUTSIDE RECORDS SUMMARY | 2024-12-08 12:19 | XMS_ITS | Encounter Summary ---
Author Organization [employer] Address [address] [facility] [address] [place] [address] Care Team Providers Care Cue Selector Name Role Phone Silva Light MD Primary Care Provider [phone] Reason for Visit * Reason Comments Med Refill Encounter Details Date Type Department Care Team (Late st Contact Info) Description 03/26/2023 Refill [facility] [address] [place] [address] Silva Light MD [address] [place] [address] Post-traumatic stress disorder, unspecified Social History Tobacco [...] Description 01/12/2025 1:15 PM EDT Office Visit [facility] PEDS [address] [place] [address] Walter Bar MD [address] [place] [address] 02/19/2025 9:30 AM EDT Office Visit [facility] [address] [place] [address] Silva Light MD [address] [place] [address] documented as of this encounter Visit Diagnoses Diagnosis Post-traumatic stress disorder, unspecified documented in this encounter Care Teams Cue Selector Relationship Specialty Start Date End Date Silva Light MD [address] [place] [address] PCP - General Family Medicine 08/06/13 documented as of this encounter
--- OUTSIDE RECORDS SUMMARY | 2024-12-08 12:19 | XMS_ITS | Encounter Summary ---
Author Organization [employer] Address [address] [facility] [address] [place] [address] Care Team Providers Care Java Tech Name Role Phone Silva Light MD Primary Care Provider [phone] Encounter Details Date Type Department Care Team (Late Contact Info) Description 11/08/2022 Orders Only [facility] [address] [place], [place] [phone] Sanju Mcgee MD [address] [place], [place] [phone] Primary osteoarthritis of left knee (Primary Dx) [...] 01/12/2025 1:15 PM EDT Office Visit [facility] [address] [place], [place] [phone] Walter Bar MD [address] [place] [address] 02/19/2025 9:30 AM EDT Office Visit [facility] & PEDS [address] [place] [address] Silva Light MD [address] [place] [address] documented as of this encounter Visit Diagnoses Diagnosis Primary osteoarthritis of left knee- Primary documented in this encounter Care Teams Java Tech Relationship Specialty Start Date End Date Silva Light MD [address] [place] [address] PCP - General Family Medicine 08/06/13 documented as of this encounter
--- OUTSIDE RECORDS SUMMARY | 2024-12-08 12:19 | XMS_ITS | Encounter Summary ---
Author Organization [employer] Address [address] [facility] [address] [place] [address] Care Team Providers Care Wood Floor Refinisher Name Role Phone Silva Light MD Primary Care Provider [phone] Reason for Visit * Reason Comments Care Coordination CM/CHW appt reminder Encounter Details Date Type Department Care Team (Latest Contact Info) Description 12/08/2024 Patient Outreach [facility] [address] [place] [address] Silva Light MD [address] [place] [address] Care Coordination (CM/CHW appt reminder) Social History Tobacco Use Types Packs/Day Years [...] encounter Progress Notes * Rossy Louie - 12/08/2024 9:36 AM EDT CHW Rossy Louie placed call to patient to remind of CM tele appt on 12/09/24 at 10am with CM Tamy Gonzalez. Patient has no barriers in attending. documented in this encounter Plan of Treatment Upcoming Encounters Date Type Department Care Team (Late st Contact Info) Description 01/12/2025 1:15 PM EDT Office Visit [facility] [address] [place] [address] Walter Bar MD [address] [place] [address] 02/19/2025 9:30 AM EDT Office Visit [facility] [address] [place], [place] [phone] Silva Light MD [address] [place] [address] documented as of this encounter Visit Diagnoses Not on filedocumented in this encounter Additional Health Concerns Assessment Noted Time PHQ-9 Depression Total Score: 0 10/29/19 25 9:22 AM EDT documented as of this encounter Care Teams Wood Floor Refinisher Relationship Specialty Start Date End Date Silva Light MD [address] [place] [address] PCP - General Family Medicine 08/06/13 documented as of this encounter
--- OUTSIDE RECORDS SUMMARY | 2024-12-08 12:19 | XMS_ITS | Encounter Summary ---
Author Organization [employer] Address [address] [place] [address] Care Team Providers Care Manager Property Name Role Phone Silva Light MD Primary Care Provider [phone] Reason for Visit * Reason Onset Date Comments Nurse Triage 11/14/2023 Encounter Details Date Type Department Care Team ([facility] st Contact Info) Description 11/14/2023 Telephone [facility] [address] [place] [address] Silva Light MD [address] [place] [address] Nurse Triage Social History Tobacco Use Types [...] Triage call Pt reports was discharged from [facility] 11/09/23 with prescription for doxycycline 100mg 2x/ daily for left leg cellulitis. Pt reports every time Pt takes the medication even with food Pt vomits. Pt is requesting a different medication. Pt has apt with PCP 11/30/23. Advised Pt will send this request to PCP and nursing staff at [facility] for follow up. Pt agreed with [...] 01/12/2025 1:15 PM EDT Office Visit [facility] & PED[facility] [address] [place] [address] Walter Bar MD [address] [place] [address] 02/19/2025 9:30 AM EDT Office Visit [facility] [address] [place] [address] Silva Light MD [address] [place] [address] documented as of this encounter Visit Diagnoses Not on filedocumented in this encounter Care Teams Manager Property Relationship Specialty Start Date End Date Silva Light MD [address] [place] [address] PCP - General Family Medicine 08/06/13 documented as of this encounter
[2024-12-08 14:18] LABS: MANUAL DIFF FLAG NO
[2024-12-08 14:27] LABS: Basophils Percent Auto 0.7 % (0-2); Eosinophils Absolute Auto 0.2 X10*3/uL (0.0-0.4); Eosinophils Percent Auto 3.1 % (0-4); Hematocrit 41.4 % (37.0-47.0); Hemoglobin 13.7 g/dl (12.0-16.0); Imm Gran Abs Auto 0.01 X10*3/uL (0.00-0.03); Imm Gran Pct Auto 0.2 % (0.0-0.4); Lymphocytes Absolute Auto 2.9 X10*3/uL (1.2-4.9); Lymphocytes Percent Auto 46.3 % (20-40); Mean Corpuscular HGB Conc 33.1 g/dl (31.0-35.0); Mean Corpuscular Hemoglobin 29.9 pg (27.0-33.0); Mean Corpuscular Volume 90.4 fL (80.0-98.0); Mean Platelet Volume 11.2 fL (9.4-12.3); Monocytes Absolute Auto 0.5 X10*3/uL (0.1-1.2); Monocytes Percent Auto 7.3 % (2-11); Neutrophils Absolute Auto 2.6 x10*3/uL (2.0-8.3); Neutrophils Percent Auto 42.4 % (45-73); Platelet Count 192 X10*3/uL (160-400); Red Blood Count 4.58 X10*6/uL (4.20-5.50); Red Cell Distribution Width 15.5 % (11.0-16.0); White Blood Count 6.2 X10*3/uL (4.8-10.8)
[2024-12-08 16:23] LABS: Alanine Aminotransferase 28 U/L (0-31); Albumin Level 3.8 g/dL (3.5-5.0); Aspartate Amino Transferase 39 U/L (5-31); Bilirubin Direct 0.4 mg/dL (0.0-0.5); Bilirubin Total 1.8 mg/dL (0.0-1.0); Total Protein 6.5 g/dL (6.5-8.0)
[2024-12-08 16:48] LABS: Alkaline Phosphatase 80 U/L (39-117)
== END 2024-12-08 11:29 | disposition home or self-care (01) ==
LOC: HO.CHCLDS 11:28
PROVIDERS: Family Medicine; PCP Student in an Organized Health Care Education/Training Program; Visit Provider Internal Medicine
DX: F10.20 Alcohol dependence, uncomplicated (principal)
CPT/HCPCS: 36415; 80076; 85025

== ENCOUNTER 2025-01-02 10:27 | Outpatient (AMB) | payer MEDICAID, SELFPAY ==
--- NOTE | 2025-01-02 10:29 | MHC.OFFVIS ---
Vital Signs 01/02/25 10:52 Height 5 ft 4 in Weight 189 lb 14 oz BMI 32.6 BP 96/56 L Blood Pressure Location Rt brachial Position Sitting Pulse 80 Pulse Source Pulse Oximeter Pulse Oximetry (%) 97 Oxygen Delivery Method Room Air Intake Visit Reasons: ETOH, Cirrhosis, IBS Intake Note: Established patient for mgmt of IBS + Alcholic cirrhosis. CC: C.O. GERD, lower abd pain B/L, lack of appetite, and weight loss of more than 50 lbs in the last year. Pt reports her just within the last 6 mos from complications of cirrhosis. Pt also comments that she is losing her car and her place of living and is having to move in with her sister. Brief Writer Required: No Accompanied by: Self / Same As Patient Allergies azithromycin [From ZITHROMAX] Allergy (Intermediate, Verified 01/03/25 02:20) SWELLING Penicillins [PENICILLINS] Allergy (Intermediate, Verified 01/03/25 02:20) SWELLING Sulfa (Sulfonamide Antibiotics) [SULFA(SULFONAMIDE ANTIBIOTICS)] Allergy (Intermediate, Verified 01/03/25 02:20) SWELLING dicyclomine Adverse Reaction (Unknown, Verified 01/03/25 02:20) Itching Blue capsule for abd pain Adverse Reaction (Unknown, Uncoded 01/03/25 02:20) urinary discomfort HPI HPI ETOH, Cirrhosis, IBS: Details: Assessment & Plan (1) Fatty liver due to alcoholism: Comment: Baseline Laboratory Tests 04/16/2401/ 12:0312:1512:18 Total Bilirubin 2.6 H 3.0 H 2.7 H Direct Bilirubin 0.8 H 0.8 H 0.8 H AST 89 H 62 H 43 H ALT 41 H 27 12 Alkaline Phosphatase 137 H 104 93 Current labs ULTRASOUND OF THE ABDOMEN -09/09/2024 Findings: The visualized pancreas, aorta, and inferior vena cava are unremarkable. Liver normal size and diffusely echogenic. Right lobe 16.6 cm length. No focal hepatic masses. Common duct 7.2 mm diameter. Physiologic distention of the gallbladder. No gallstones or sludge. Mild adenomyomatosis. No pericholecystic fluid. No sonographic Hickey sign. Main portal vein antegrade. Right kidney normal size, 9.9 cm in length. Normal cortical width and echotexture. No solid or cystic renal masses. No nephrolithiasis or hydronephrosis. Left kidney normal, 12.0 cm in length. Normal cortical width and echotexture. No solid or cystic renal masses. Nephrolithiasis or hydronephrosis. Spleen measures 11.4 cm. No splenic masses. No ascites. No lymphadenopathy. Impression: 1. Normal-sized liver mildly echogenic reflecting hepatic steatosis or diffuse hepatocellular disease. 2. No gallstones or evidence of cholecystitis. Subtle gallbladder adenomyomatosis may be present. 3. Mild dilatation of the common bile duct no sonographic evidence of choledocholithiasis. MRCP would be confirmatory. Code(s): K70.0 - Alcoholic fatty liver Category: Medical (2) Alcohol use disorder: Code(s): F10.90 - Alcohol use, unspecified, uncomplicated Category: Medical (3) Irritable bowel syndrome with diarrhea: Code(s): K58.0 - Irritable bowel syndrome with diarrhea Category: Medical (4) GERD (gastroesophageal reflux disease): Code(s): K21.9 - Gastro-esophageal reflux disease without esophagitis Category: Medical Plan I have not seen this patient since 03/2023 it appears she is being referred for new diagnosis of alcohol use disorder and elevated liver function tests. Apparently she just lost her shortly after their wedding (they had been together for years but recently ). She is going through multiple personal stressers with her living situation as she used to live with her 's family and they want her to move out. Apparently he of cirrhosis from alcohol and the family blames her for his lapse in sobriety. She admits she was drinking heavily but she has been sober for 5 mos. I also encouraged her to remain sober as given the bilirubin elevations it is likely that she would decompensate quickly if she began drinking again. Right now her transaminases at least a trending down and will keep an eye on the bilirubin. In order to make sure there is nothing else that needs to be addressed we will also do hepatitis ABC panel with an HIV and an autoimmune liver workup to make sure there is no confounding secondary disease driving the liver problems. She has lost weight, but her IBS is out of control - she admits to not eating well or taking care of herself. We will restart her Lotronex but at the lower dose of 0.5 mg since alcohol frequently worsens diarrhea due to the irritation of the GI tract. She continues on her omeprazole 40 mg daily. ROV 8 weeks. Orders: Orders Smooth Muscle Antibody Today F10.90 - Alcohol use, unspecified, uncomplicated, K70.0 - Alcoholic fatty liver Mitochondrial Antibody Today F1090 - Alcohol use, unspecified, uncomplicated, K70.0 - Alcoholic fatty liver Ammonia Today F1090 - Alcohol use, unspecified, uncomplicated, K70.0 - Alcoholic fatty liver Alpha Fetoprotein Today F1090 - Alcohol use, unspecified, uncomplicated, K70.0 - Alcoholic fatty liver KETTY Reflex Titer and Pattern Today F1090 - Alcohol use, unspecified, uncomplicated, K70.0 - Alcoholic fatty liver Hepatitis A,B,C Profile Today F190 - Alcohol use, unspecified, uncomplicated, K70.0 - Alcoholic fatty liver HIV Ab/Ag Today 90 - Alcohol use, unspecified, uncomplicated, K70.0 - Alcoholic fatty liver Liver Fibrosis Pnl Today - Alcohol use, unspecified, uncomplicated, K70.0 - Alcoholic fatty liver Phosphatidylethanol, Blood Today F1090 - Alcohol use, unspecified, uncomplicated, K70.0 - Alcoholic fatty liver Medications: New alosetron (Lotronex) 0.5 mg PO BID 60 tabs 3RF K21.9 - Gastro-esophageal reflux disease without esophagitis, K58.0 - Irritable bowel syndrome with diarrhea LABS Laboratory Tests 08/25/24 10/30/24 12/05/24 12:15 17:05 04:21 WBC Hgb Hct Plt Count Potassium 2.7 L* D Estimated GFR > 60 Total Bilirubin Direct Bilirubin AST ALT Alkaline Phosphatase KETTY Screen POSITIVE A KETTY Titer 1:80 H Anti-Mitochondrial Ab NEGATIVE Anti-Smooth Muscle Ab <20 PEth 16:0/18.1 (POPEth) NEGATIVE PEth 16:0/18.2 (PLPEth) NEGATIVE Hepatitis A IgG Ab Nonreactive Hep Bs Antigen Negative Hepatitis C Ab (EIA) Nonreactive HIV 1&2 Ab/P24 Ag 4thGn Nonreactive 12/08/24 11:32 WBC 6.2 Hgb 13.7 Hct 41.4 Plt Count 192 Potassium Estimated GFR Total Bilirubin 1.8 H Direct Bilirubin 0.4 AST 39 H ALT 28 Alkaline Phosphatase 80 KETTY Screen KETTY Titer Anti-Mitochondrial Ab Anti-Smooth Muscle Ab PEth 16:0/18.1 (POPEth) PEth 16:0/18.2 (PLPEth) Hepatitis A IgG Ab Hep Bs Antigen Hepatitis C Ab (EIA) HIV 1&2 Ab/P24 Ag 4thGn TODAYS VISIT She had the low k+ in the ER and she was given a month of replacement only w/o any other follow up yet, but will be seeing her PCP 01/19. I will order lytes to help out. She has lost a lot of weight, no appetite, only 1 meal a day, lost, about 80#. This is over the past month (stopped drinking 7-8 mos ago, drank Vodka). She also endorses depression since her 's . She has lower abd pain randomly, no BM in a week. May not have much fiber in the diet eats a lot of hard boiled eggs. No N/V, has not been getting omeprazole in her box (? refill turf issue? ). ROV 8 weeks. PFSH Medical History Jesi albicans infection Preop examination Right upper quadrant abdominal pain Alcohol use disorder Recovering alcoholic Bipolar disorder Depression Anxiety Parkinson disease Surgical History H/O colonoscopy History of right breast biopsy Family History Father Stage 4 lung cancer Alzheimer disease Dementia Mother Hypothyroid Diabetes Dementia Kidney failure A-fib Sister Breast cancer Colon cancer Social History Household Members: Spouse Housing: Condominium Alcohol intake: former Patient Tobacco Use Status: Never used Tobacco Smoked in Last 30 Days: No Use of substances other than those prescribed or required for medical reasons: No Substance Use Type: Marijuana Advance Directives: Yes Advance Directives on File: Yes Advance Directives Date on File: 11/13/23 service: No Review of Systems Const Denies fatigue, Denies fever(s), Denies night sweats, Denies poor appetite and Reports weight loss Eyes Details: glasses Reports requires corrective lenses ENT Reports Normal hearing present, Denies dental pain, Denies dysphagia, Denies hearing loss, Denies mouth pain, Denies odynophagia, Denies throat swelling, Denies tongue swelling and Reports other (Dentition adequate) Card Reports no additional complaints Resp Reports no additional complaints GI Details: Reports abdominal pain, Denies melena, Denies bloating, Denies hematochezia, Denies constipation, Denies GI cramping, Denies dysphagia, Denies excessive flatus, Denies early satiety, Reports heartburn, Reports diarrhea, Denies nausea, Denies odynophagia, Denies vomiting and Denies hematemesis Skin/Breast Denies pruritus, Denies lesions, Denies rash and Denies jaundice Neuro Reports Normal hearing present and Denies Abnormal speech present Psych Reports change in appetite and Reports depression Endo Denies fatigue Aller/Immun Denies throat swelling and Denies tongue swelling Physical Exam Vital Signs: Last Vital Signs Pulse 80 01/02/25 10:52 BP 96/56 L 01/02/25 10:52 Pulse Ox 97 01/02/25 10:52 Oxygen Delivery Method Room Air 01/02/25 10:52 BMI result Body Mass Index 32.6 Const General: cooperative, no acute distress, well developed and well groomed Nutritional Appearance: well nourished and obese Orientation/consciousness: oriented to person, oriented to place and oriented to time Limitations: No language barrier HEENT Head: Yes normocephalic and Yes atraumatic Eyes General: appearance normal, both eyes and all related structures Pupils: Equal, round and reactive pupils present Neck Neck: Yes normal visual inspection and Yes no lymphadenopathy Thyroid: Thyroid normal Resp Effort & Inspection: normal respiratory effort and able to speak in complete sentences Auscultation: clear to auscultation bilaterally Cardio Rate: regular rate Rhythm: regular rhythm Heart sounds: Normal, physiologic split S2 sound present Peripheral pulses: radial pulses present and posterior tibial pulses present GI Inspection: No distended, Yes Abdominal panniculus present and Yes obesity Palpation (GI): Soft to palpation, nontender, no guarding, not rigid and No hepatosplenomegaly present Percussion: Yes normal to percussion Auscultation: normal bowel sounds Rectal Exam - Female: deferred Skin General skin exam: no rashes or lesions noted, turgor normal, skin not dry, no jaundice, No spider nevi and no striae Rashes: no rashes Nails: normal Neuro General: oriented to person, oriented to place and oriented to time Cranial nerves: Yes Equal, round and reactive pupils present and Yes Normal hearing present Speech: No Abnormal speech present Extrem General: Yes normal to inspection, No clubbing, No cyanosis and No edema Psych Appearance: grossly normal and well kempt Mental Status: mental status grossly normal Speech and movement: Normal speech and movement present Affect: normal affect Attitude: cooperative Thought process: Normal thought process present and not confabulating Thought content: Normal thought content present Insight: Fair insight present (Psych) and Limited insight present (Psych) Judgement: Fair judgement present (Psych) and Limited judgement present (Psych) Results Reviewed Results Reviewed: Laboratory Tests 08/25/24 10/30/24 12/05/24 12:15 17:05 04:21 WBC Hgb Hct Plt Count Potassium 2.7 L* D Estimated GFR > 60 Total Bilirubin Direct Bilirubin AST ALT Alkaline Phosphatase KETTY Screen POSITIVE A KETTY Titer 1:80 H Anti-Mitochondrial Ab NEGATIVE Anti-Smooth Muscle Ab <20 PEth 16:0/18.1 (POPEth) NEGATIVE PEth 16:0/18.2 (PLPEth) NEGATIVE Hepatitis A IgG Ab Nonreactive Hep Bs Antigen Negative Hepatitis C Ab (EIA) Nonreactive HIV 1&2 Ab/P24 Ag 4thGn Nonreactive 12/08/24 11:32 WBC 6.2 Hgb 13.7 Hct 41.4 Plt Count 192 Potassium Estimated GFR Total Bilirubin 1.8 H Direct Bilirubin 0.4 AST 39 H ALT 28 Alkaline Phosphatase 80 KETTY Screen POSITIVE A KETTY Titer 1:80 H Anti-Mitochondrial Ab NEGATIVE Anti-Smooth Muscle Ab <20 PEth 16:0/18.1 (POPEth) NEGATIVE PEth 16:0/18.2 (PLPEth) NEGATIVE Hepatitis A IgG Ab Nonreactive Hep Bs Antigen Negative Hepatitis C Ab (EIA) Nonreactive HIV 1&2 Ab/P24 Ag 4thGn Nonreactive Ultrasound of the abdomen 08/2024 Findings: The visualized pancreas, aorta, and inferior vena cava are unremarkable. Liver normal size and diffusely echogenic. Right lobe 16.6 cm length. No focal hepatic masses. Common duct 7.2 mm diameter. Physiologic distention of the gallbladder. No gallstones or sludge. Mild adenomyomatosis. No pericholecystic fluid. No sonographic Hickey sign. Main portal vein antegrade. Right kidney normal size, 9.9 cm in length. Normal cortical width and echotexture. No solid or cystic renal masses. No nephrolithiasis or hydronephrosis. Left kidney normal, 12.0 cm in length. Normal cortical width and echotexture. No solid or cystic renal masses. Nephrolithiasis or hydronephrosis. Spleen measures 11.4 cm. No splenic masses. No ascites. No lymphadenopathy. Impression: 1. Normal-sized liver mildly echogenic reflecting hepatic steatosis or diffuse hepatocellular disease. 2. No gallstones or evidence of cholecystitis. Subtle gallbladder adenomyomatosis may be present. 3. Mild dilatation of the common bile duct no sonographic evidence of choledocholithiasis. MRCP would be confirmatory. Assessment & Plan Assessment & Plan (1) Weight loss, abnormal: Code(s): R63.4 - Abnormal weight loss Category: Medical (2) Alcohol use disorder: Code(s): F10.90 - Alcohol use, unspecified, uncomplicated Category: Medical (3) GERD (gastroesophageal reflux disease): Code(s): K21.9 - Gastro-esophageal reflux disease without esophagitis Category: Medical (4) Irritable bowel syndrome with diarrhea: Code(s): K58.0 - Irritable bowel syndrome with diarrhea Category: Medical (5) Fatty liver due to alcoholism: Comment: Baseline Laboratory Tests 04/16/2401/ 12:0312:1512:18 Total Bilirubin 2.6 H 3.0 H 2.7 H Direct Bilirubin 0.8 H 0.8 H 0.8 H AST 89 H 62 H 43 H ALT 41 H 27 12 Alkaline Phosphatase 137 H 104 93 11/2024 KETTY Screen POSITIVE A KETTY Titer 1:80 H Anti-Mitochondrial Ab NEGATIVE Anti-Smooth Muscle Ab <20 PEth 16:0/18.1 (POPEth) NEGATIVE PEth 16:0/18.2 (PLPEth) NEGATIVE Hepatitis A IgG Ab Nonreactive Hep Bs Antigen Negative Hepatitis C Ab (EIA) Nonreactive HIV 1&2 Ab/P24 Ag 4thGn Nonreactive Current labs Laboratory Tests 08/25/2503/09/2504 12:1517:0504:21 WBC Hgb Hct Plt Count Potassium 2.7 L* D Estimated GFR > 60 Total Bilirubin Direct Bilirubin AST ALT Alkaline Phosphatase KETTY Screen POSITIVE A KETTY Titer 1:80 H Anti-Mitochondrial Ab NEGATIVE Anti-Smooth Muscle Ab <20 PEth 16:0/18.1 (POPEth) NEGATIVE PEth 16:0/18.2 (PLPEth) NEGATIVE Hepatitis A IgG Ab Nonreactive Hep Bs Antigen Negative Hepatitis C Ab (EIA) Nonreactive HIV 1&2 Ab/P24 Ag 4thGn Nonreactive 12/08/24 11:32 WBC 6.2 Hgb 13.7 Hct 41.4 Plt Count 192 Total Bilirubin 1.8 H Direct Bilirubin 0.4 AST 39 H ALT 28 Alkaline Phosphatase 80 ULTRASOUND OF THE ABDOMEN -09/09/2024 Findings: The visualized pancreas, aorta, and inferior vena cava are unremarkable. Liver normal size and diffusely echogenic. Right lobe 16.6 cm length. No focal hepatic masses. Common duct 7.2 mm diameter. Physiologic distention of the gallbladder. No gallstones or sludge. Mild adenomyomatosis. No pericholecystic fluid. No sonographic Hickey sign. Main portal vein antegrade. Right kidney normal size, 9.9 cm in length. Normal cortical width and echotexture. No solid or cystic renal masses. No nephrolithiasis or hydronephrosis. Left kidney normal, 12.0 cm in length. Normal cortical width and echotexture. No solid or cystic renal masses. Nephrolithiasis or hydronephrosis. Spleen measures 11.4 cm. No splenic masses. No ascites. No lymphadenopathy. Impression: 1. Normal-sized liver mildly echogenic reflecting hepatic steatosis or diffuse hepatocellular disease. 2. No gallstones or evidence of cholecystitis. Subtle gallbladder adenomyomatosis may be present. 3. Mild dilatation of the common bile duct no sonographic evidence of choledocholithiasis. MRCP would be confirmatory. Code(s): K70.0 - Alcoholic fatty liver Category: Medical (6) Hypokalemia: Code(s): E87.6 - Hypokalemia Category: Medical (7) Abdominal pain: Code(s): R10.9 - Unspecified abdominal pain Category: Medical Plan She had the low k+ in the ER and she was given a month of replacement only w/o any other follow up yet, but will be seeing her PCP 01/19. I will order lytes to help out. She has lost a lot of weight, no appetite, only 1 meal a day, lost, about 80#. This is over the past month (stopped drinking 7-8 mos ago, drank Vodka). She also endorses depression since her 's . She has lower abd pain randomly, no BM in a week. May not have much fiber in the diet eats a lot of hard boiled eggs. No N/V, has not been getting omeprazole in her box (? refill turf issue? ). ROV 8 weeks. Orders: Orders Electrolytes 01/02/25 E87.6 - Hypokalemia TSH reflex Free T4 12/08/24 E03.9 - Hypothyroidism, unspecified, E87.6 - Hypokalemia UA CC w/rflx Micro + Cult 01/02/25 R63.4 - Abnormal weight loss Hemoglobin A1c 01/02/25 R63.4 - Abnormal weight loss Blood Urea Nitrogen 01/02/25 R10.9 - Unspecified abdominal pain, R63.4 - Abnormal weight loss CT abdomen pelvis w IV con 01/02/25 R63.4 - Abnormal weight loss Creatinine 01/02/25 R10.9 - Unspecified abdominal pain, R63.4 - Abnormal weight loss Medications: Refilled omeprazole 40 mg PO DAILY 30 caps 6RF 30 days Coding Level of Care Code Est Pt Level 4 (44433) Diagnoses Weight loss, abnormal R63.4 Alcohol use disorder F10.90 GERD (gastroesophageal reflux disease) K21.9 Irritable bowel syndrome with diarrhea K58.0 Fatty liver due to alcoholism K70.0 Hypokalemia E87.6 Abdominal pain R10.9 Time Spent (min) 35
[2025-01-02 10:52] VITALS: BP 96/56; PULSE 80; O2SAT 97; BMI 32.6
--- OUTSIDE RECORDS SUMMARY | 2025-01-02 11:15 | XMS_ITS ---
Author Organization [employer] Address [address] [place] [address] Care Team Providers Care Salon Receptionist Name Role Phone Silva Light MD Primary Care Provider [phone] Rossy Louie [facility] Status:Enrolled (Active) Start date:12/09/2024 Enrollment date:12/12/2024 Enrollment reason:Referred by provider Overview PCP Referral Case Team Name Relationship Phone Rossy Louie(Responsible Staff) [phone] Continued Care and Services Coordination
== END 2025-01-02 11:58 | disposition home or self-care (01) ==
LOC: HO.HGI 10:28
PROVIDERS: PCP Student in an Organized Health Care Education/Training Program; Visit Provider Nurse Practitioner
DX: R63.4 Abnormal weight loss (principal); F10.90 Alcohol use, unspecified, uncomplicated; K21.9 Gastro-esophageal reflux disease without esophagitis; K58.0 Irritable bowel syndrome with diarrhea; K70.0 Alcoholic fatty liver; E87.6 Hypokalemia; R10.9 Unspecified abdominal pain
CPT/HCPCS: 99214

== ENCOUNTER → 2025-01-02 10:27 | Outpatient (BNVA) | payer MEDICAID, SELFPAY | PROVIDERS: PCP Student in an Organized Health Care Education/Training Program; Visit Provider Nurse Practitioner | DX: R63.4 Abnormal weight loss (principal); F10.90 Alcohol use, unspecified, uncomplicated; K21.9 Gastro-esophageal reflux disease without esophagitis; K58.0 Irritable bowel syndrome with diarrhea; K70.0 Alcoholic fatty liver; E87.6 Hypokalemia; R10.9 Unspecified abdominal pain | CPT/HCPCS: 99212 ==

== ENCOUNTER 2025-01-03 02:06 | Emergency (ER) | payer MEDICAID, SELFPAY ==
[2025-01-03 02:10] VITALS: BP 138/86; PULSE 95; O2SAT 98
[2025-01-03 02:17] VITALS: BP 101/51; PULSE 79; RESP 12; TEMP 36.4; O2SAT 96; BMI 34.8
[2025-01-03 02:24] VITALS: BP 101/51; PULSE 79; RESP 12; TEMP 36.4; O2SAT 96
--- NOTE | 2025-01-03 02:25 | PC.NURSE ---
Pt a&ox4, no signs of distress. Pt denies pain at this time Pt reports has not had a bowel movement in 2 wks. Plan of care ongoing.
--- OUTSIDE RECORDS SUMMARY | 2025-01-03 02:37 | XMS_ITS ---
Author Organization [employer] Address [address] [place] [address] Care Team Providers Care Credit Authorizer Name Role Phone Silva Light MD Primary Care Provider [phone] Rossy Louie [facility] Status:Enrolled (Active) Start date:12/09/2024 Enrollment date:12/12/2024 Enrollment reason:Referred by provider Overview PCP Referral Case Team Name Relationship Phone Rossy Louie(Responsible Staff) [phone] Continued Care and Services Coordination
--- NOTE | 2025-01-03 03:29 | ECG_ITS ---
Test Reason : DIZZY Blood Pressure : */* mmHG Vent. Rate : 76 BPM Atrial Rate : 76 BPM P-R Int : 138 ms QRS Dur : 96 ms QT Int : 410 ms P-R-T Axes : 59 13 41 degrees QTcB Int : 461 ms Normal sinus rhythm Normal ECG When compared with ECG of 05-Dec-2024 03:57, No significant changes seen Referred By: Lizzie Boogie Electronically Signed By: DORIAN SYLVESTER
[2025-01-03 04:07] LABS: Basophils Percent Auto 0.5 % (0-2); Eosinophils Absolute Auto 0.1 X10*3/uL (0.0-0.4); Eosinophils Percent Auto 1.7 % (0-4); Hematocrit 41.3 % (37.0-47.0); Hemoglobin 14.1 g/dl (12.0-16.0); Imm Gran Abs Auto 0.01 X10*3/uL (0.00-0.03); Imm Gran Pct Auto 0.2 % (0.0-0.4); Lymphocytes Absolute Auto 2.6 X10*3/uL (1.2-4.9); Lymphocytes Percent Auto 40.3 % (20-40); MANUAL DIFF FLAG NO; Mean Corpuscular HGB Conc 34.1 g/dl (31.0-35.0); Mean Corpuscular Hemoglobin 29.9 pg (27.0-33.0); Mean Corpuscular Volume 87.5 fL (80.0-98.0); Mean Platelet Volume 10.6 fL (9.4-12.3); Monocytes Absolute Auto 0.5 X10*3/uL (0.1-1.2); Monocytes Percent Auto 8.4 % (2-11); Neutrophils Absolute Auto 3.1 x10*3/uL (2.0-8.3); Neutrophils Percent Auto 48.9 % (45-73); Platelet Count 195 X10*3/uL (160-400); Red Blood Count 4.72 X10*6/uL (4.20-5.50); Red Cell Distribution Width 15.5 % (11.0-16.0); White Blood Count 6.4 X10*3/uL (4.8-10.8)
[2025-01-03 04:27] LABS: Alkaline Phosphatase 81 U/L (39-117)
[2025-01-03 04:30] LABS: Troponin-I High Sensitivity < 2.7 ng/L (<3.5-17.0)
[2025-01-03 04:32] LABS: Alanine Aminotransferase 16 U/L (0-31); Albumin Level 4.2 g/dL (3.5-5.0); Anion Gap 12 (12-20); Aspartate Amino Transferase 32 U/L (5-31); Bilirubin Total 2.2 mg/dL (0.0-1.0); Blood Urea Nitrogen 10 mg/dL (9-16); Calcium 9.5 mg/dL (8.4-10.2); Carbon Dioxide 29 mmol/L (22-29); Chloride 106 mmol/L (96-108); Creatinine Clr Calc Pharmacy 64.4; Estimated Glomerular Filt Rate 55; Glucose Random 57 mg/dL (60-115); Magnesium 2.1 mg/dL (1.6-2.6); Potassium 3.8 mmol/L (3.3-5.1); Sodium 143 mmol/L (135-145); Total Protein 6.9 g/dL (6.5-8.0)
--- NOTE | 2025-01-03 04:37 | PC.NURSE ---
Pt a&ox4, no signs of distress Pt given and drank 8 ox of OJ Pt given warm blanket Plan of care ongoing Plan of care ongoing.
[2025-01-03 05:41] VITALS: BP 111/67; PULSE 82; RESP 16; TEMP 36.1; O2SAT 98
[2025-01-03 05:46] LABS: Appearance Urine Cloudy; Color Urine Dark Yellow; Glucose Urine UA Negative (Negative); Leukocyte Esterase Urine Negative (Negative); Nitrite Urine Negative (Negative); PH 5.5 (5.0-9.0); Specific Gravity - Urine 1.025 (1.005-1.025); Urine Blood Negative (Negative); Urine Ketones Trace mg/dL (Negative); Urine Protein Trace mg/dL (Neg-Trace)
--- NOTE | 2025-01-03 06:13 | PC.NURSE ---
Pt ambulates to restroom with steady gait. Plan of care ongoing.
[2025-01-03 06:26] LABS: Glucose, Whole Blood 79 mg/dL (60-115)
--- NOTE | 2025-01-03 07:23 | ED_ITS ---
HPI - General Adult General Chief complaint: General Medical Stated complaint: DIZZINESS/NAUSEA Time Seen by Provider: 01/03/25 07:23 Source: patient and EMS Mode of arrival: ambulatory Limitations: no limitations History of Present Illness ED Provider: HPI narrative: 59-year-old female presenting with overall not feeling well, she had ice cream and then tested her glucose it was registering 185, she was using her blood pressure monitor and was not able to get blood pressure on herself I was nervous about that, called EMS, EMS noted that her blood pressure is normal, when she arrived to emergency department she was also hypoglycemic 257. Patient states she has been eating on a regular basis, and she also quit drinking alcohol some months ago. She reports seeing her PCP and she states because she has not been eating regular basis she is has been dropping weight as well. No fevers or chills no nausea no vomiting no diarrhea no chest pain or shortness of breath reported. Related Data Home Medications ?Medication ?Instructions ?Recorded ?Confirmed carbidopa 25 mg-levodopa 100 mg 1 tab PO BID 01/14/21 01/09/24 tablet clonazepam 1 mg tablet 1 mg PO BID anxiety 01/14/21 11/09/23 risperidone 2 mg tablet 2 mg PO BEDTIME 01/14/21 01/09/24 ropinirole 0.5 mg tablet 0.5 mg PO BEDTIME 01/14/21 01/09/24 gabapentin 300 mg capsule 300 mg PO BID 04/17/23 01/09/24 levothyroxine 100 mcg tablet 100 mcg PO QAM 04/17/23 01/09/24 cetirizine 10 mg tablet 10 mg PO BEDTIME 11/09/23 01/09/24 cyanocobalamin (vitamin B-12) 1,000 mcg PO DAILY 11/09/23 11/09/23 1,000 mcg tablet fluoxetine 10 mg capsule 10 mg PO QAM 11/09/23 01/09/24 multivitamin 1 tab PO DAILY 11/09/23 01/09/24 nystatin 100,000 unit/gram topical 1 appl topical TID PRN Rash 11/09/23 01/09/24 powder prazosin 2 mg capsule 1 mg PO BEDTIME 01/09/24 01/09/24 vitamin B complex-folic acid 0.4 1 tab PO QAM 01/02/25 mg tablet (B Complex 1 (with folic acid)) Previous Rx's ?Medication ?Instructions ?Recorded naltrexone 50 mg tablet 50 mg PO DAILY #30 tabs 11/11/23 ibuprofen 600 mg tablet 600 mg PO QID PRN pain #20 tabs 12/13/23 alosetron 0.5 mg tablet (Lotronex) 0.5 mg PO BID #60 tabs 10/31/24 potassium chloride 20 mEq 20 meq PO DAILY #30 tabs 12/05/24 tablet,extended release(part/cryst) omeprazole 40 mg capsule,delayed 40 mg PO DAILY 30 days #30 caps 01/02/25 release Allergies Allergy/AdvReac Type Severity Reaction Status Date / Time azithromycin [From ZITHROMAX] Allergy Intermediate SWELLING Verified 01/03/25 02:20 Penicillins [PENICILLINS] Allergy Intermediate SWELLING Verified 01/03/25 02:20 Sulfa (Sulfonamide Allergy Intermediate SWELLING Verified 01/03/25 02:20 Antibiotics) [SULFA(SULFONAMIDE ANTIBIOTICS)] dicyclomine AdvReac Unknown Itching Verified 01/03/25 02:20 Blue capsule for abd pain AdvReac Unknown urinary Uncoded 01/03/25 02:20 discomfort Review of Systems 2 Constitutional: Constitutional: Reports as per [facility] Past Medical History Medical History Jesi albicans infection Preop examination Right upper quadrant abdominal pain Alcohol use disorder Recovering alcoholic Bipolar disorder Depression Anxiety Parkinson disease Surgical History H/O colonoscopy History of right breast biopsy Family History Family History Father Stage 4 lung cancer Alzheimer disease Dementia Mother Hypothyroid Diabetes Dementia Kidney failure A-fib Sister Breast cancer Colon cancer Social History Social History Household Members: Spouse Housing: Condominium Alcohol intake: former Patient Tobacco Use Status: Never used Tobacco Smoked in Last 30 Days: No Use of substances other than those prescribed or required for medical reasons: No Substance Use Type: Marijuana Advance Directives: Yes Advance Directives on File: Yes Advance Directives Date on File: 11/13/23 service: No Physical Exam ED Vital Signs: Vital Signs - 24 hr 01/03/25 02:17 01/03/25 02:24 01/03/25 05:41 Temperature 97.5 F 97.5 F 97 F Pulse Rate 79 79 82 Respiratory Rate 12 12 16 Blood Pressure 101/51 L 101/51 L 111/67 Pulse Oximetry 96 96 98 Oxygen Delivery Method Room Air Room Air Room Air BMI result Body Mass Index 34.8 Const Other: * Gen: ?Overall well-appearing patient * HEENT: PERRLA, EOMI, MMM, * Neck: Supple, no LAD * CV: RRR, no obvious murmurs appreciated * Resp: ?No wheezing rales rhonchi no stridor moving air well * Abd: ?Bowel sounds are present, no tenderness no rebound no rigidity * MSK: FROM, strength 5/5 all extremities * Skin: Warm, dry, intact, * Neuro: ?Alert and oriented x3, moving upper and lower extremities symmetrically, no obvious facial asymmetry noted Medical Decision Making Medical Decision Making [facility] Narrative: Some of the considerations for her presentation is listed below, she was hypoglycemic, currently nondrinker of alcohol has been drinking for many years, and is not eating on regular basis, we discussed making sure she has complex meals throughout the day, continue with sobriety, her blood work without any electrolyte derangements, acute kidney injury, ECG without any dysrhythmia she is otherwise safe for home, has primary care follow-up. Differential Diagnosis Differential Diagnoses: The differential diagnosis associated with the presentation includes ACS, dehydration, electrolyte derangements, alcoholic ketosis, DKA, medication misuse Admission/Observation Consideration of admission/observation: Escalation of care including admission/observation considered Lab Data [facility] Lab Attestation statement: I reviewed the patient's lab results. 01/03/25 04:02 01/03/25 04:02 Labs: Lab Results 01/03/25 01/03/25 01/03/25 Range/Units 04:02 05:40 06:22 WBC 6.4 (4.8-10.8) X10*3/uL RBC 4.72 (4.20-5.50) X10*6/uL Hgb 14.1 (12.0-16.0) g/dl Hct 41.3 (37.0-47.0) % MCV 87.5 (80.0-98.0) fL MCH 29.9 (27.0-33.0) pg MCHC 34.1 (31.0-35.0) g/dl RDW 15.5 (11.0-16.0) % Plt Count 195 (160-400) X10*3/uL MPV 10.6 (9.4-12.3) fL Immature Gran % (Auto) 0.2 (0.0-0.4) % Neut % (Auto) 48.9 (45-73) % Lymph % (Auto) 40.3 H (20-40) % [place] % (Auto) 8.4 (2-11) % Eos % (Auto) 1.7 (0-4) % Baso % (Auto) 0.5 (0-2) % Lymph # (Auto) 2.6 (1.2-4.9) X10*3/uL [place] # (Auto) 0.5 (0.1-1.2) X10*3/uL Eos # (Auto) 0.1 (0.0-0.4) X10*3/uL Baso # (Auto) 0.0 (0.0-0.2) X10*3/uL Abs Immat Gran (auto) 0.01 (0.00-0.03) X10*3/uL Absolute Neuts (auto) 3.1 (2.0-8.3) x10*3/uL Absolute Nucleated RBC 0.000 (0.0-0.012) X10*3/uL Nucleated RBC % (auto) 0.0 (0.0-0.2) /100WBC Sodium 143 (135-145) mmol/L Potassium 3.8 D (3.3-5.1) mmol/L Chloride 106 (96-108) mmol/L Carbon Dioxide 29 (22-29) mmol/L Anion Gap 12 (12-20) BUN 10 (9-16) mg/dL Creatinine 1.02 (0.5-1.4) mg/dL Estim Creat Clear Calc 64.4 Estimated GFR 55 POC Glucose 79 (60-115) mg/dL Random Glucose 57 L* (60-115) mg/dL Calcium 9.5 (8.4-10.2) mg/dL Magnesium 2.1 (1.6-2.6) mg/dL Total Bilirubin 2.2 H (0.0-1.0) mg/dL AST 32 H (5-31) U/L ALT 16 (0-31) U/L Alkaline Phosphatase 81 (39-117) U/L Troponin I High Sens < 2.7 (<3.5-17.0) ng/L Total Protein 6.9 (6.5-8.0) g/dL Albumin 4.2 (3.5-5.0) g/dL Urine Color Dark Yellow Urine Appearance Cloudy Urine pH 5.5 (5.0-9.0) Ur Specific [place] 1.025 (1.005-1.025) Urine Protein Trace (Neg-Trace) mg/dL Urine Glucose (UA) Negative (Negative) mg/dL Urine Ketones Trace (Negative) mg/dL Urine Blood Negative (Negative) Urine Nitrite Negative (Negative) Ur Leukocyte Esterase Negative (Negative) Independent Interpretation I performed an independent interpretation of an: EKG (76 beats per minute, otherwise normal ECG without dysrhythmia, AV christi blocks or ST-T changes to suspect underlying ACS, my independent interpretation) Discharge Plan Discharge Clinical Impression: Hypoglycemia, Dizziness Patient Disposition: Home, Self-Care Additional Instructions: As discussed with your your blood work otherwise reassuring specifically you were concerned about your potassium it is normal, the kidney function is unremarkable, the rest of blood work and EKG has been reassuring, you did have an episode of low glucose, please eat complex meals throughout the day evenly spaced apart so every 6-8 hours so you do not become hypoglycemic again, take all your other medications on regular basis, any other issues concerns come back to the ER Prescriptions: No Action alosetron [Lotronex] 0.5 mg tablet 0.5 mg PO BID Qty: 60 3RF cetirizine 10 mg tablet 10 mg PO BEDTIME nystatin 100,000 unit/gram powder 1 appl topical TID PRN (Reason: Rash) fluoxetine 10 mg capsule 10 mg PO QAM multivitamin Tablet 1 tab PO DAILY cyanocobalamin (vitamin B-12) 1,000 mcg Tablet 1,000 mcg PO DAILY naltrexone 50 mg tablet 50 mg PO DAILY Qty: 30 0RF Rx Instructions: take 1/2 tab daily for 3 days then increase to one tab daily ibuprofen 600 mg tablet 600 mg PO QID PRN (Reason: pain) Qty: 20 0RF potassium chloride 20 mEq tablet,ER particles/crystals 20 meq PO DAILY Qty: 30 0RF carbidopa-levodopa 25-100 mg tablet 1 tab PO BID clonazepam 1 mg tablet 1 mg PO BID risperidone 2 mg tablet 2 mg PO BEDTIME ropinirole 0.5 mg tablet 0.5 mg PO BEDTIME Rx Instructions: administer 1-3 hours before bedtime vitamin B complex-folic acid [B Complex 1 (with folic acid)] 0.4 mg tablet 1 tab PO QAM omeprazole 40 mg capsule,delayed release(DR/EC) 40 mg PO DAILY 30 Days Qty: 30 6RF gabapentin 300 mg capsule 300 mg PO BID levothyroxine 100 mcg tablet 100 mcg PO QAM prazosin 2 mg capsule 1 mg PO BEDTIME Print Language: Ghanaian
[2025-01-03 08:00] VITALS: BP 105/62; PULSE 74; RESP 16; TEMP 36.5; O2SAT 98
[2025-01-03 08:18] VITALS: BP 105/62; PULSE 74; RESP 16; TEMP 36.5; O2SAT 98
== END 2025-01-03 08:40 | disposition home or self-care (01) ==
PROVIDERS: Physician Assistant Medical; Emergency Provider Emergency Medicine
DX: E16.2 Hypoglycemia, unspecified (principal); R42 Dizziness and giddiness; G20.A1 Parkinson's disease without dyskinesia, without mention of fluctuations
CPT/HCPCS: 36415; 80053; 81003; 82947; 83735; 84484; 85025; 93005; 99283; 99285

== ENCOUNTER → 2025-01-03 03:29 | Outpatient (BNV) | payer MEDICAID, SELFPAY | PROVIDERS: Emergency Provider Emergency Medicine; Visit Provider Internal Medicine | DX: R42 Dizziness and giddiness (principal) | CPT/HCPCS: 93010 ==

== ENCOUNTER 2025-02-02 11:02 | Outpatient (REF) | payer MEDICAID, SELFPAY ==
--- OUTSIDE RECORDS SUMMARY | 2025-02-02 12:00 | XMS_ITS ---
Author Organization [employer] Address [address] [place] [id number] Care Team Providers Care Security And Compliance Project Manager Name Role Phone Silva Light MD Primary Care Provider [phone] Rossy Louie [facility] Status:Enrolled (Active) Start date:12/09/2024 Enrollment date:12/12/2024 Enrollment reason:Referred by provider Overview PCP Referral Case Team Name Relationship Phone Rossy Louie(Responsible Staff) [phone] Continued Care and Services Coordination
[2025-02-02 14:38] LABS: Appearance Urine Turbid; Glucose Urine UA Negative (Negative); PH 6.0 (5.0-9.0); Specific Gravity - Urine >= 1.030 (1.005-1.025); UMIC TRIGGER UACC YES
[2025-02-02 14:51] LABS: UACC Culture Trigger YES
[2025-02-02 15:08] LABS: Blood Urea Nitrogen 13 mg/dL (9-16)
[2025-02-02 15:15] LABS: Hemoglobin A1C 123.1419 umol/L; Total Hemoglobin (HGBA1C) 4008.2794 umol/L
[2025-02-02 15:17] LABS: Anion Gap 13 (12-20); Blood Urea Nitrogen 13 mg/dL (9-16); Calcium 9.5 mg/dL (8.4-10.2); Carbon Dioxide 24 mmol/L (22-29); Chloride 109 mmol/L (96-108); Estimated Glomerular Filt Rate > 60; Potassium 3.6 mmol/L (3.3-5.1); Sodium 142 mmol/L (135-145)
[2025-02-02 16:01] LABS: Free T4 (Free Thyroxine) 0.94 ng/dL (0.71-1.85)
== END 2025-02-02 11:03 | disposition home or self-care (01) ==
LOC: HO.CHCLDS 11:02
PROVIDERS: PCP Student in an Organized Health Care Education/Training Program; Visit Provider Nurse Practitioner
DX: E87.6 Hypokalemia (principal); R63.4 Abnormal weight loss; E03.9 Hypothyroidism, unspecified; I47.10 Supraventricular tachycardia, unspecified; R10.9 Unspecified abdominal pain
CPT/HCPCS: 36415; 80048; 81001; 83036; 84439; 84443; 84520; 87086

== ENCOUNTER 2025-02-06 15:15 | Emergency (ER) | payer MEDICAID, SELFPAY ==
--- NOTE | 2025-02-06 15:21 | ECG_ITS ---
Test Reason : dizziness Blood Pressure : */* mmHG Vent. Rate : 73 BPM Atrial Rate : 73 BPM P-R Int : 160 ms QRS Dur : 98 ms QT Int : 426 ms P-R-T Axes : 64 6 38 degrees QTcB Int : 469 ms Normal sinus rhythm Normal ECG When compared with ECG of 03-Jan-2025 03:54, No significant change was found Referred By: Lizzie Boogie Electronically Signed By: Dougie Zapata
[2025-02-06 15:22] VITALS: BP 130/70; BP 141/67; PULSE 73; PULSE 80; RESP 18; TEMP 36.7; O2SAT 100; O2SAT 98; BMI 31.9
--- NOTE | 2025-02-06 15:25 | ED.GENADULT ---
HPI - General Adult General Chief complaint: Dizziness Stated complaint: DIZZINESS Time Seen by Provider: 02/06/25 15:21 Source: patient Limitations: no limitations History of Present Illness ED Provider: Lizzie Boogie PA-C HPI narrative: 59-year-old female with a history of SVT, prior alcohol use disorder, fatty liver secondary to alcohol abuse, bipolar disorder, depression, anxiety, Parkinson's disease, IBS, GERD, who presents with lightheadedness x3 days. Patient states she has been attending physical therapy for a right shoulder injury. While at physical therapy, she felt lightheaded and nauseous. Associated bilateral ear pressure, nasal congestion and palpitations. Denies fever, chest pain, shortness of breath, diaphoresis. Patient states she has been also struggling with depression, she sees a therapy as an outpatient. She states that this past year she is suffering from the loss of her , her house and her car. Related Data Home Medications ?Medication ?Instructions ?Recorded ?Confirmed carbidopa 25 mg-levodopa 100 mg 1 tab PO BID 01/14/21 01/09/24 tablet clonazepam 1 mg tablet 1 mg PO BID anxiety 01/14/21 11/09/23 risperidone 2 mg tablet 2 mg PO BEDTIME 01/14/21 01/09/24 ropinirole 0.5 mg tablet 0.5 mg PO BEDTIME 01/14/21 01/09/24 gabapentin 300 mg capsule 300 mg PO BID 04/17/23 01/09/24 levothyroxine 100 mcg tablet 100 mcg PO QAM 04/17/23 01/09/24 cetirizine 10 mg tablet 10 mg PO BEDTIME 11/09/23 01/09/24 cyanocobalamin (vitamin B-12) 1,000 mcg PO DAILY 11/09/23 11/09/23 1,000 mcg tablet fluoxetine 10 mg capsule 10 mg PO QAM 11/09/23 01/09/24 multivitamin 1 tab PO DAILY 11/09/23 01/09/24 nystatin 100,000 unit/gram topical 1 appl topical TID PRN Rash 11/09/23 01/09/24 powder prazosin 2 mg capsule 1 mg PO BEDTIME 01/09/24 01/09/24 vitamin B complex-folic acid 0.4 1 tab PO QAM 01/02/25 mg tablet (B Complex 1 (with folic acid)) Previous Rx's ?Medication ?Instructions ?Recorded naltrexone 50 mg tablet 50 mg PO DAILY #30 tabs 11/11/23 ibuprofen 600 mg tablet 600 mg PO QID PRN pain #20 tabs 12/13/23 alosetron 0.5 mg tablet (Lotronex) 0.5 mg PO BID #60 tabs 10/31/24 potassium chloride 20 mEq 20 meq PO DAILY #30 tabs 12/05/24 tablet,extended release(part/cryst) omeprazole 40 mg capsule,delayed 40 mg PO DAILY 30 days #30 caps 01/02/25 release barium sulfate 2 % (w/v) oral 150 ml PO ONCE 1 day #300 mL 01/16/25 suspension (Readi-Cat 2) ondansetron HCl 4 mg tablet 4 mg PO Q8H PRN nausea and 02/06/25 vomiting #10 tabs Allergies Allergy/AdvReac Type Severity Reaction Status Date / Time azithromycin (From ZITHROMAX) Allergy Intermediate SWELLING Verified 02/06/25 15:25 Penicillins (PENICILLINS) Allergy Intermediate SWELLING Verified 02/06/25 15:25 Sulfa (Sulfonamide Allergy Intermediate SWELLING Verified 02/06/25 15:25 Antibiotics) (SULFA(SULFONAMIDE ANTIBIOTICS)) dicyclomine AdvReac Unknown Itching Verified 02/06/25 15:25 Blue capsule for abd pain AdvReac Unknown urinary Uncoded 02/06/25 15:25 discomfort PMFSH Past Medical History Medical History Jesi albicans infection Preop examination Right upper quadrant abdominal pain Alcohol use disorder Recovering alcoholic Bipolar disorder Depression Anxiety Parkinson disease Surgical History H/O colonoscopy History of right breast biopsy Family History Family History Father Stage 4 lung cancer Alzheimer disease Dementia Mother Hypothyroid Diabetes Dementia Kidney failure A-fib Sister Breast cancer Colon cancer Social History Social History Household Members: [facility] Alcohol intake: former Patient Tobacco Use Status: Never used Tobacco Smoked in Last 30 Days: No Use of substances other than those prescribed or required for medical reasons: No Substance Use Type: Marijuana Advance Directives: Yes Advance Directives on File: Yes Advance Directives Date on File: 11/13/23 Do you have a plan to hurt others: No Plan service: No Physical Exam ED Vital Signs: Vital Signs - 24 hr 02/06/25 15:22 02/06/25 16:00 Temperature 98.1 F 96.1 F L Pulse Rate 73 89 Respiratory Rate 18 18 Blood Pressure 141/67 H 121/68 Pulse Oximetry 100 97 Oxygen Delivery Method Room Air Room Air BMI result Body Mass Index 31.9 HENMT Other: No tragal tenderness bilaterally, right TM was opaque without erythema, left TM was normal Medical Decision Making Medical Decision Making MDM Narrative: 59-year-old female with a history of SVT, prior alcohol use disorder, fatty liver secondary to alcohol abuse, bipolar disorder, depression, anxiety, Parkinson's disease, IBS, GERD, who presents with lightheadedness x3 days. Patient states she has been attending physical therapy for a right shoulder injury. While at physical therapy, she felt lightheaded and nauseous. Associated bilateral ear pressure, nasal congestion and palpitations. Denies recent cough or cold symptoms fever, chest pain, shortness of breath, diaphoresis. Patient states she has been also struggling with depression, she sees a therapy as an outpatient. She states that this past year she is suffering from the loss of her , her house and her car. Problem: SVT, prior alcohol abuse, psychiatric illness History: Per patient I have considered the following differential diagnoses: Arrhythmia, anemia, dehydration, electrolyte abnormality, decompensated psychiatric illness, intoxication, panic attack, vasovagal near-syncope , viral syndrome Plan: We will be screening basic labs to rule out underlying organic causes for her lightheadedness; anemia, dehydration, electrolyte abnormality. She does have a history of SVT, she was having palpitations, perhaps she was having episodes, adding an EKG. The patient has numerous complaints, she is also complaining of new psychosocial stressors, she could be having vasovagal near syncope in the setting of emotional distress, she may require care team consult. We will add on drug screen and ethanol. Lastly, the patient does have some congestive symptoms, perhaps she has seasonal allergies versus viral syndrome adding a viral panel. I have independently reviewed the following tests: Labs: No leukocytosis, not anemic, no electrolyte abnormality noted, ethanol less than 10, drug screen negative, urine negative, viral panel neg EKG: Normal sinus rhythm, rate of 73, no ischemic changes no ectopy QTC 469 Lab Data 02/06/25 15:48 02/06/25 15:48 Labs: Lab Results 02/06/25 02/06/25 Range/Units 15:48 16:19 WBC 6.7 (4.8-10.8) X10*3/uL RBC 4.54 (4.20-5.50) X10*6/uL Hgb 13.8 (12.0-16.0) g/dl Hct 39.5 (37.0-47.0) % MCV 87.0 (80.0-98.0) fL MCH 30.4 (27.0-33.0) pg MCHC 34.9 (31.0-35.0) g/dl RDW 15.5 (11.0-16.0) % Plt Count 207 (160-400) X10*3/uL MPV 10.7 (9.4-12.3) fL Immature Gran % (Auto) 0.3 (0.0-0.4) % Neut % (Auto) 58.0 (45-73) % Lymph % (Auto) 35.0 (20-40) % [place] % (Auto) 5.1 (2-11) % Eos % (Auto) 1.3 (0-4) % Baso % (Auto) 0.3 (0-2) % Lymph # (Auto) 2.4 (1.2-4.9) X10*3/uL [place] # (Auto) 0.3 (0.1-1.2) X10*3/uL Eos # (Auto) 0.1 (0.0-0.4) X10*3/uL Baso # (Auto) 0.0 (0.0-0.2) X10*3/uL Abs Immat Gran (auto) 0.02 (0.00-0.03) X10*3/uL Absolute Neuts (auto) 3.9 (2.0-8.3) x10*3/uL Absolute Nucleated RBC 0.000 (0.0-0.012) X10*3/uL Nucleated RBC % (auto) 0.0 (0.0-0.2) /100WBC Sodium 141 (135-145) mmol/L Potassium 3.5 (3.3-5.1) mmol/L Chloride 109 H (96-108) mmol/L Carbon Dioxide 25 (22-29) mmol/L Anion Gap 11 L (12-20) BUN 10 (9-16) mg/dL Creatinine 0.81 (0.5-1.4) mg/dL Estim Creat Clear Calc 77.6 Estimated GFR > 60 Random Glucose 112 (60-115) mg/dL Calcium 9.2 (8.4-10.2) mg/dL Magnesium 1.9 (1.6-2.6) mg/dL Total Bilirubin 1.7 H (0.0-1.0) mg/dL AST 30 (5-31) U/L ALT 8 (0-31) U/L Alkaline Phosphatase 90 (39-117) U/L Total Protein 6.7 (6.5-8.0) g/dL Albumin 3.9 (3.5-5.0) g/dL Lipase 66 (8-78) U/L Urine Color Dark Yellow Urine Appearance Cloudy Urine pH 6.5 (5.0-9.0) Ur Specific [place] 1.025 (1.005-1.025) Urine Protein Trace (Neg-Trace) mg/dL Urine Glucose (UA) Negative (Negative) mg/dL Urine Ketones Trace (Negative) mg/dL Urine Blood Negative (Negative) Urine Nitrite Negative (Negative) Ur Leukocyte Esterase Negative (Negative) Salicylates < 5.0 L (15-30) mg/dL Urine Opiates Screen Not Detected (Not Detect) Ur Buprenorphine Scrn Not Detected (Not Detect) ng/mL Ur Oxycodone Screen Not Detected (Not Detect) ng/mL Urine Methadone Screen Not Detected (Not Detect) ng/mL Urine Fentanyl Screen Not Detected (Not Detect) Acetaminophen < 3 (<30) mcg/mL Ur Barbiturates Screen Not Detected (Not Detect) Ur Phencyclidine Scrn Not Detected (Not Detect) Ur Amphetamines Screen Not Detected (Not Detect) U Benzodiazepines Scrn Not Detected (Not Detect) Urine Cocaine Screen Not Detected (Not Detect) U Marijuana (THC) Screen Not Detected (Not Detect) Ethyl Alcohol < 10 mg/dL Influenza Type A (PCR) NEGATIVE (Negative) Influenza Type B (PCR) NEGATIVE (Negative) RSV RNA Qual (PCR) NEGATIVE (Negative) SARS-CoV-2 RNA (RT-PCR) NEGATIVE (Negative) Discharge Plan Discharge Clinical Impression: Acute serous otitis media, right ear, Dizziness, Acute viral syndrome Patient Disposition: Home, Self-Care Instructions: Viral Syndrome (ED), Dizziness (ED), Fluid In The Ear (Serous Otitis Media) (ED) Additional Instructions: All of your screening labs were normal, you were tested for influenza RSV and COVID, the viral panel was negative. Your urine is not infected. There were no concerning changes on your EKG. I do believe your dizziness is secondary to fluid within the inner ear; this is due to congestion. This is likely viral related. Take the Zyrtec daily for a month. Uses Zofran as needed for nausea. Follow up with your primary care provider as needed. Prescriptions: New ondansetron HCl 4 mg tablet 4 mg PO Q8H PRN (Reason: nausea and vomiting) Qty: 10 0RF No Action alosetron [Lotronex] 0.5 mg tablet 0.5 mg PO BID Qty: 60 3RF Readi-Cat 2 2 % (w/v) suspension 150 ml PO ONCE 1 Days Qty: 300 0RF cetirizine 10 mg tablet 10 mg PO BEDTIME nystatin 100,000 unit/gram powder 1 appl topical TID PRN (Reason: Rash) fluoxetine 10 mg capsule 10 mg PO QAM multivitamin Tablet 1 tab PO DAILY cyanocobalamin (vitamin B-12) 1,000 mcg Tablet 1,000 mcg PO DAILY naltrexone 50 mg tablet 50 mg PO DAILY Qty: 30 0RF Rx Instructions: take 1/2 tab daily for 3 days then increase to one tab daily ibuprofen 600 mg tablet 600 mg PO QID PRN (Reason: pain) Qty: 20 0RF potassium chloride 20 mEq tablet,ER particles/crystals 20 meq PO DAILY Qty: 30 0RF carbidopa-levodopa 25-100 mg tablet 1 tab PO BID clonazepam 1 mg tablet 1 mg PO BID risperidone 2 mg tablet 2 mg PO BEDTIME ropinirole 0.5 mg tablet 0.5 mg PO BEDTIME Rx Instructions: administer 1-3 hours before bedtime vitamin B complex-folic acid [B Complex 1 (with folic acid)] 0.4 mg tablet 1 tab PO QAM omeprazole 40 mg capsule,delayed release(DR/EC) 40 mg PO DAILY 30 Days Qty: 30 6RF gabapentin 300 mg capsule 300 mg PO BID levothyroxine 100 mcg tablet 100 mcg PO QAM prazosin 2 mg capsule 1 mg PO BEDTIME Print Language: Armenian
[2025-02-06 15:52] LABS: MANUAL DIFF FLAG NO
[2025-02-06 15:53] LABS: Hematocrit 39.5 % (37.0-47.0); Hemoglobin 13.8 g/dl (12.0-16.0); Imm Gran Abs Auto 0.02 X10*3/uL (0.00-0.03); Imm Gran Pct Auto 0.3 % (0.0-0.4); Lymphocytes Absolute Auto 2.4 X10*3/uL (1.2-4.9); Mean Corpuscular HGB Conc 34.9 g/dl (31.0-35.0); Mean Corpuscular Hemoglobin 30.4 pg (27.0-33.0); Mean Corpuscular Volume 87.0 fL (80.0-98.0); NRBC Abs Auto 0.000 X10*3/uL (0.0-0.012); NRBC Pct Auto 0.0 /100WBC (0.0-0.2); Platelet Count 207 X10*3/uL (160-400); Red Blood Count 4.54 X10*6/uL (4.20-5.50); White Blood Count 6.7 X10*3/uL (4.8-10.8)
[2025-02-06 16:00] VITALS: BP 121/68; PULSE 89; RESP 18; TEMP 35.6; O2SAT 97
[2025-02-06 16:08] LABS: Alanine Aminotransferase 8 U/L (0-31); Albumin Level 3.9 g/dL (3.5-5.0); Alkaline Phosphatase 90 U/L (39-117); Anion Gap 11 (12-20); Aspartate Amino Transferase 30 U/L (5-31); Blood Urea Nitrogen 10 mg/dL (9-16); Calcium 9.2 mg/dL (8.4-10.2); Carbon Dioxide 25 mmol/L (22-29); Chloride 109 mmol/L (96-108); Creatinine Clr Calc Pharmacy 77.6; Estimated Glomerular Filt Rate > 60; Lipase 66 U/L (8-78); Magnesium 1.9 mg/dL (1.6-2.6); Potassium 3.5 mmol/L (3.3-5.1); Sodium 141 mmol/L (135-145); Total Protein 6.7 g/dL (6.5-8.0)
[2025-02-06 16:16] LABS: Acetaminophen LAB < 3 mcg/mL (<30); Salicylate < 5.0 mg/dL (15-30)
--- NOTE | 2025-02-06 16:19 | PC.NURSE ---
Patient is a 59-year-old female with a history of SVT, prior alcohol use disorder, fatty liver secondary to alcohol abuse, bipolar disorder, depression, anxiety, Parkinson's disease, IBS, GERD, who presents with lightheadedness x3 days. While at physical therapy, she felt lightheaded and nauseous. Associated palpitations. Patient states she has been also struggling with depression, she sees a therapy as an outpatient. She states that this past year she is suffering from the loss of her , her house and her car. Patient alert and oriented. Appears to have a multitude of complaints. Lungs clear bilat. Respirations even and non-labored. Abdomen soft, non-tender with positive bowel sounds. Positive pedal pulses with trace LE edema.
[2025-02-06 16:37] LABS: Appearance Urine Cloudy; Glucose Urine UA Negative (Negative); PH 6.5 (5.0-9.0); Specific Gravity - Urine 1.025 (1.005-1.025)
[2025-02-06 16:38] LABS: Cannabinoid Screen Urine Not Detected (Not Detect)
[2025-02-06 17:01] LABS: Resp Syncy Virus RNA Qual PCR NEGATIVE (Negative); SARS COV2 PCR INHOUSE NEGATIVE (Negative)
[2025-02-06 17:52] VITALS: BP 121/68; PULSE 89; RESP 18; TEMP 35.6; O2SAT 97
== END 2025-02-06 17:53 | disposition home or self-care (01) ==
PROVIDERS: Physician Assistant Medical; Emergency Provider Emergency Medicine; PCP Student in an Organized Health Care Education/Training Program
DX: B34.9 Viral infection, unspecified (principal); H65.01 Acute serous otitis media, right ear; R42 Dizziness and giddiness; Z03.818 Encounter for observation for suspected exposure to other biological agents ruled out; F10.10 Alcohol abuse, uncomplicated; Y90.0 Blood alcohol level of less than 20 mg/100 ml; K70.0 Alcoholic fatty liver; J45.909 Unspecified asthma, uncomplicated; G20.A1 Parkinson's disease without dyskinesia, without mention of fluctuations; Z79.899 Other long term (current) drug therapy
CPT/HCPCS: 36415; 80053; 80143; 80179; 80307; 81003; 83690; 83735; 85025; 87637; 93005; 99285

== ENCOUNTER → 2025-02-06 15:21 | Outpatient (BNV) | payer MEDICAID, SELFPAY | PROVIDERS: Emergency Provider Emergency Medicine; PCP Student in an Organized Health Care Education/Training Program; Visit Provider Internal Medicine Cardiovascular Disease | DX: R42 Dizziness and giddiness (principal) | CPT/HCPCS: 93010 ==

== ENCOUNTER 2025-03-19 09:28 | Outpatient (REF) | payer MEDICAID, SELFPAY ==
--- NOTE | ~2025-03-19 | CT_ITS ---
CLINICAL HISTORY: R63.4 - Abnormal weight loss CT abdomen and pelvis with contrast Comparison: 11/24/2019 06:59 PM EDT: CT Findings: There is trace right pleural effusion. Unremarkable gallbladder and solid organs. No urolithiasis. No bowel obstruction, pneumoperitoneum, or pneumatosis. The stomach is decompressed with a questionable gastric wall thickening. Appropriate further evaluation likely in consultation with gastroenterology, recommended. Pelvic contents unremarkable. The appendix is not visualized with no imaging evidence of appendicitis. No acute fracture. IMPRESSION: Questionable gastric wall thickening. Appropriate follow-up recommended likely in consultation with gastroenterology. This document has been electronically signed by: Enoc Valiente MD on 03/20/2025 09:06:22
--- NOTE | ~2025-03-19 | XR_ITS ---
EXAMINATION: XR KNEE, RIGHT CLINICAL INFORMATION: right knee pain COMPARISON: None available. TECHNIQUE: Three views of the right knee. FINDINGS: There is mild narrowing of the medial joint space. Lateral joint spaces preserved. There are marginal osteophytes involving the medial femoral condyle and tibial plateau as well as the tibial spines and patella. Trochlear osteophytes are also present. There is no joint effusion. No abnormal soft tissue calcification are present. XR/XR knee RT 3V IMPRESSION: Mild degenerative changes consistent with osteoarthritis. Electronically signed by: Danial Peralta MD 03/19/2025 11:58 AM EDT
--- OUTSIDE RECORDS SUMMARY | 2025-03-19 10:36 | XMS_ITS | Encounter Summary ---
Author Organization [employer] Address [address] [place] [address] 7 [place] [address] Care Team Providers Care [facility] Name Role Phone Silva Light MD Primary Care Provider [phone] Donn Ravi Unavailable Edu Ravi RN Unavailable [phone] Reason for Visit * Reason Onset Date Comments Care Coordination 03/16/2025 ICP Care Plan Encounter Details Date Type Department Care Team ([facility] Contact Info) Description 03/16/2025 Telephone [facility] MED & PEDS [address], [place] [phone] Silva Light MD [address], [place] [phone] Care Coordination (ICP Care Plan) Social History Tobacco Use Types Packs/Day Years Used Date Smoking Tobacco: Never Smokeless Tobacco: Never Alcohol Use Standard Drinks/Week Comments Yes 21 (1 standard drink = 0.6 oz pu re alcohol) Depression Answer Date Recorded Patient Health Questionnaire-9 Score 0 12/09/2024 Patient Health Questionnaire-9 Score 0 12/09/2024 Last PHQ-9: Questionnaire Data Not on file 0 12/09/2024 Housing Stability Answer Date Recorded What is your housing situation today? I have yasemin soriaon 12/09/[address] you li ve. Do you have problems with any of the following? None of the above 12/09/2024 Food Insecurity Answer Date Recorded Within the past 12 months, y ou worried that your food would run out before you got money to buy more: Often true 12/09/2024 Within the past 12 months,th e food you bought just didn't last and you didn't have enough money to get more: Often true Transportation Answer Date Recorded In the past 12 months, has l ack of transportation kept you from medical appts, meetings, work or from getting things needed for daily living? Yes, it has kept me from medical appointments or getting medications. 12/09/2024 Utilities Answer Date Recorded In the past 12 months, has t he electric, gas, oil or water company threatened to shut off services in your home? No 12/09/2024 Depression Answer Date Recorded Patient Health Questionnaire-2 Score 0 12/09/2024 Internet Access Answer Date Recorded Internet Access [...] encounter Miscellaneous Notes * Telephone Encounter - Georgia Vazquez - 03/16/2025 10:22 AM EDT PCP Designee has received and reviewed Care Plan from [facility]: Endorsement Clerk: Goldie Alonso Contact Information: [phone] Care Plan scanned into patient???s EHR and notification sent to PCP. documented in this encounter Plan of Treatment Upcoming Encounters Date Type Department Care Team ([facility] st Contact Info) Description 04/03/2025 11:30 AM EDT Office Visit [facility] MED [facility] PEDS [address] [place] [address] Silva Light MD [address] [place] [address] 05/04/2025 10:45 AM EDT Office Visit [facility] MED [facility]EDS [address] [place] [address] Walter Bar MD [address] [place] [phone] documented as of this encounter Visit Diagnoses Not on filedocumented in this encounter Additional Health Concerns Assessment Noted Time PHQ-9 Depression Total Score: 0 12/10/19 10:46 AM EDT documented as of this encounter Care Teams [facility] Relationship Specialty Start Date End Date Silva Light MD [address] [place] [address] PCP - General Family Medicine 08/06/13 Donn Ravi 02/09/25 Edu Ravi RN [address] [place] [id number] Registered Nurse Family Medicine 02/18/25 Goldie Alonso Retail Team MemberWindows Systems Engineer 03/16/25 documented as of this encounter
[2025-03-19 14:33] LABS: Appearance Urine Turbid; Glucose Urine UA Negative (Negative); PH 6.0 (5.0-9.0); Specific Gravity - Urine >= 1.030 (1.005-1.025); UMIC TRIGGER UACC YES
[2025-03-19 14:45] LABS: Anion Gap 14 (12-20); Carbon Dioxide 22 mmol/L (22-29); Chloride 109 mmol/L (96-108); Estimated Glomerular Filt Rate > 60; Potassium 3.6 mmol/L (3.3-5.1); Sodium 141 mmol/L (135-145)
[2025-03-19] MEDS: Barium Sulfate Oral (Vanilla) 450 ML ORAL.SUSP 900 ML PO (14:46)
[2025-03-19] MEDS: iohexoL 350 MG/ML 100 ML INFUS..BTL IV (14:47)
[2025-03-20 11:44] LABS: Creatinine POC 0.7 mg/dL (0.5-1.4); GFR POC > 60
== END 2025-03-19 09:29 | disposition home or self-care (01) ==
LOC: HO.CHCLDS 09:28
PROVIDERS: Absent Provider Internal Medicine; PCP Student in an Organized Health Care Education/Training Program; Visit Provider Nurse Practitioner
DX: M25.561 Pain in right knee (principal); R10.9 Unspecified abdominal pain; E87.6 Hypokalemia; R63.4 Abnormal weight loss
CPT/HCPCS: 36415; 73562; 74177; 80051; 81001; 82565

== ENCOUNTER → 2025-03-19 11:25 | Outpatient (BNV) | payer MEDICAID, SELFPAY | PROVIDERS: Absent Provider Internal Medicine; PCP Student in an Organized Health Care Education/Training Program; Visit Provider Radiology Diagnostic Radiology | DX: M17.11 Unilateral primary osteoarthritis, right knee (principal) | CPT/HCPCS: 73562 ==

== ENCOUNTER 2025-04-01 14:33 | Outpatient (AMB) | payer MEDICAID, SELFPAY ==
--- NOTE | 2025-04-01 14:57 | A.OFFVIS_ITS ---
Vital Signs 04/01/25 14:58 Height 5 ft 4 in Weight 203 lb 11.314 oz BMI 35.0 BP 128/93 H Comment PT FEELS WT IS R/T METAL LEG BRACE Intake Visit Reasons: Follow up GERD, CIC, CAO Intake Note: Judy presents to in office follow up of CT and labs. CC: The patient states that the last times she's had a BM it is moist and she needs to take a shower after having a BM. She states that her acid reflux was really bad last night. Urban Anthropologist Required: No Accompanied by: Self / Same As Patient Allergies azithromycin (From ZITHROMAX) Allergy (Intermediate, Verified 04/01/25 15:10) SWELLING Penicillins (PENICILLINS) Allergy (Intermediate, Verified 04/01/25 15:10) SWELLING Sulfa (Sulfonamide Antibiotics) (SULFA(SULFONAMIDE ANTIBIOTICS)) Allergy (Intermediate, Verified 04/01/25 15:10) SWELLING dicyclomine Adverse Reaction (Unknown, Verified 04/01/25 15:10) Itching Blue capsule for abd pain Adverse Reaction (Unknown, Uncoded 02/06/25 15:25) urinary discomfort HPI HPI Follow up GERD, CIC, CAO: Details: Assessment & Plan (1) Weight loss, abnormal: Code(s): R63.4 - Abnormal weight loss Category: Medical (2) Alcohol use disorder: Code(s): F10.90 - Alcohol use, unspecified, uncomplicated Category: Medical (3) GERD (gastroesophageal reflux disease): Code(s): K21.9 - Gastro-esophageal reflux disease without esophagitis Category: Medical (4) Irritable bowel syndrome with diarrhea: Code(s): K58.0 - Irritable bowel syndrome with diarrhea Category: Medical (5) Fatty liver due to alcoholism: Comment: Baseline Laboratory Tests 04/16/2401/ 12:0312:1512:18 Total Bilirubin 2.6 H 3.0 H 2.7 H Direct Bilirubin 0.8 H 0.8 H 0.8 H AST 89 H 62 H 43 H ALT 41 H 27 12 Alkaline Phosphatase 137 H 104 93 11/2024 KETTY Screen POSITIVE A KETTY Titer 1:80 H Anti-Mitochondrial Ab NEGATIVE Anti-Smooth Muscle Ab <20 PEth 16:0/18.1 (POPEth) NEGATIVE PEth 16:0/18.2 (PLPEth) NEGATIVE Hepatitis A IgG Ab Nonreactive Hep Bs Antigen Negative Hepatitis C Ab (EIA) Nonreactive HIV 1&2 Ab/P24 Ag 4thGn Nonreactive Current labs Laboratory Tests 08/25/250309/2504 12:1517:0504:21 WBC Hgb Hct Plt Count Potassium 2.7 L* D Estimated GFR > 60 Total Bilirubin Direct Bilirubin AST ALT Alkaline Phosphatase KETTY Screen POSITIVE A KETTY Titer 1:80 H Anti-Mitochondrial Ab NEGATIVE Anti-Smooth Muscle Ab <20 PEth 16:0/18.1 (POPEth) NEGATIVE PEth 16:0/18.2 (PLPEth) NEGATIVE Hepatitis A IgG Ab Nonreactive Hep Bs Antigen Negative Hepatitis C Ab (EIA) Nonreactive HIV 1&2 Ab/P24 Ag 4thGn Nonreactive 12/08/24 11:32 WBC 6.2 Hgb 13.7 Hct 41.4 Plt Count 192 Total Bilirubin 1.8 H Direct Bilirubin 0.4 AST 39 H ALT 28 Alkaline Phosphatase 80 ULTRASOUND OF THE ABDOMEN -09/09/2024 Findings: The visualized pancreas, aorta, and inferior vena cava are unremarkable. Liver normal size and diffusely echogenic. Right lobe 16.6 cm length. No focal hepatic masses. Common duct 7.2 mm diameter. Physiologic distention of the gallbladder. No gallstones or sludge. Mild adenomyomatosis. No pericholecystic fluid. No sonographic Hickey sign. Main portal vein antegrade. Right kidney normal size, 9.9 cm in length. Normal cortical width and echotexture. No solid or cystic renal masses. No nephrolithiasis or hydronephrosis. Left kidney normal, 12.0 cm in length. Normal cortical width and echotexture. No solid or cystic renal masses. Nephrolithiasis or hydronephrosis. Spleen measures 11.4 cm. No splenic masses. No ascites. No lymphadenopathy. Impression: 1. Normal-sized liver mildly echogenic reflecting hepatic steatosis or diffuse hepatocellular disease. 2. No gallstones or evidence of cholecystitis. Subtle gallbladder adenomyomatosis may be present. 3. Mild dilatation of the common bile duct no sonographic evidence of choledocholithiasis. MRCP would be confirmatory. Code(s): K70.0 - Alcoholic fatty liver Category: Medical (6) Hypokalemia: Code(s): E87.6 - Hypokalemia Category: Medical (7) Abdominal pain: Code(s): R10.9 - Unspecified abdominal pain Category: Medical Plan She had the low k+ in the ER and she was given a month of replacement only w/o any other follow up yet, but will be seeing her PCP 01/19. I will order lytes to help out. She has lost a lot of weight, no appetite, only 1 meal a day, lost, about 80#. This is over the past month (stopped drinking 7-8 mos ago, drank Vodka). She also endorses depression since her 's . She has lower abd pain randomly, no BM in a week. May not have much fiber in the diet eats a lot of hard boiled eggs. No N/V, has not been getting omeprazole in her box (? refill turf issue? ). ROV 8 weeks. Orders: Orders Electrolytes 01/02/25 E87.6 - Hypokalemia TSH reflex Free T4 12/08/24 E03.9 - Hypothyroidism, unspecified, E87.6 - Hy pokalemia UA CC w/rflx Micro + Cult 01/02/25 R63.4 - Abnormal weight loss Hemoglobin A1c 01/02/25 R63.4 - Abnormal weight loss Blood Urea Nitrogen 01/02/25 R10.9 - Unspecified abdominal pain, R63.4 - Abnormal weight loss CT abdomen pelvis w IV con 01/02/25 R63.4 - Abnormal weight loss Creatinine 01/02/25 R10.9 - Unspecified abdominal pain, R63.4 - Abnormal weight loss Medications: Refilled omeprazole 40 mg PO DAILY 30 caps 6RF 30 days LABS: Laboratory Tests 02/06/25 15:48 Sodium 141 Potassium 3.5 Chloride 109 H TSH 5.91 H A1c % 5.0 01/03/25-[address]: Physician,Unknown ORDERED: Ua Clean Catch QUERIES: Collection Time: 529 Source: Urine, Clean Catch Test Result Flag Reference Ur Color Dark Yellow Ur Appear Cloudy PH 5.5 5.0-9.0 Ur Glu Negative Negative mg/dL Urine Blood Negative Negative Spec [place] Ur 1.025 1.005-1.025 Urine Protein Trace Neg-Trace mg/dL Urine Ketones Trace Negative mg/dL Ur Nitrite Negative Negative Ur Flavia Esterase Negative Negative CT ABDOMEN AND PELVIS 03/20/25 Findings: There is trace right pleural effusion. Unremarkable gallbladder and solid organs. No urolithiasis. No bowel obstruction, pneumoperitoneum, or pneumatosis. The stomach is decompressed with a questionable gastric wall thickening. Appropriate further evaluation likely in consultation with gastroenterology, recommended. Pelvic contents unremarkable. The appendix is not visualized with no imaging evidence of appendicitis. No acute fracture. IMPRESSION: Questionable gastric wall thickening. Appropriate follow-up recommended likely in consultation with gastroenterology. TODAY'S VISIT COUNT INCLUDES THE [facility] Medical History Ejsi albicans infection Preop examination Right upper quadrant abdominal pain Alcohol use disorder Recovering alcoholic Bipolar disorder Depression Anxiety Parkinson disease Surgical History H/O colonoscopy History of right breast biopsy Family History Father Stage 4 lung cancer Alzheimer disease Dementia Mother Hypothyroid Diabetes Dementia Kidney failure A-fib Sister Breast cancer Colon cancer Social History Household Members: Spouse Housing: Condominium Alcohol intake: former Patient Tobacco Use Status: Never used Tobacco Substance Use Type: Marijuana Advance Directives Date on File: 11/13/23 service: No Review of Systems Const Denies fatigue, Denies fever(s), Denies night sweats, Denies poor appetite, Reports weight gain and Denies weight loss Eyes Details: glasses Reports requires corrective lenses ENT Reports Normal hearing present, Denies dental pain, Denies dysphagia, Denies hearing loss, Denies mouth pain, Denies odynophagia, Denies throat swelling, Denies tongue swelling and Reports other (Dentition adequate) Card Reports dyspnea on exertion Resp Reports dyspnea on exertion GI Details: Denies abdominal pain, Denies melena, Denies bloating, Denies hematochezia, Denies constipation, Denies GI cramping, Denies dysphagia, Denies excessive flatus, Denies early satiety, Reports heartburn, Denies diarrhea, Reports loose stools, Denies nausea, Denies odynophagia, Denies vomiting and Denies hematemesis Musc Reports arthralgias (Shoulders) Skin/Breast Denies pruritus, Denies lesions, Denies rash and Denies jaundice Neuro Reports Normal hearing present and Denies Abnormal speech present Psych Reports visual hallucinations and Reports hallucinations Endo Denies fatigue Aller/Immun Denies throat swelling and Denies tongue swelling Physical Exam Vital Signs: Last Vital Signs BP 128/93 H 04/01/25 14:58 BMI result Body Mass Index 35.0 Const General: cooperative, no acute distress, well developed and well groomed Nutritional Appearance: well nourished and obese Orientation/consciousness: oriented to person, oriented to place and oriented to time Limitations: No language barrier HEENT Head: Yes normocephalic and Yes atraumatic Eyes General: appearance normal, both eyes and all related structures Pupils: Equal, round and reactive pupils present Neck Neck: Yes normal visual inspection and Yes no lymphadenopathy Thyroid: Thyroid normal Resp Effort & Inspection: normal respiratory effort and able to speak in complete sentences Auscultation: clear to auscultation bilaterally Cardio Rate: regular rate Rhythm: regular rhythm Heart sounds: Normal, physiologic split S2 sound present Peripheral pulses: radial pulses present and posterior tibial pulses present GI Inspection: No distended, Yes Abdominal panniculus present and Yes obesity Palpation (GI): Soft to palpation, nontender, no guarding, not rigid and No hepatosplenomegaly present Percussion: Yes normal to percussion Auscultation: normal bowel sounds Rectal Exam - Female: deferred Skin General skin exam: no rashes or lesions noted, turgor normal, skin not dry, no jaundice, No spider nevi and no striae Rashes: no rashes Nails: normal Neuro General: oriented to person, oriented to place and oriented to time Cranial nerves: Yes Equal, round and reactive pupils present and Yes Normal hearing present Speech: No Abnormal speech present Extrem General: Yes normal to inspection, No clubbing, No cyanosis and No edema Psych Appearance: grossly normal and well kempt Mental Status: mental status grossly normal Speech and movement: Normal speech and movement present Affect: normal affect Attitude: cooperative Thought process: not confabulating and Tangential thought process present Thought content: Normal thought content present Insight: Limited insight present (Psych) Judgement: Limited judgement present (Psych) Results Reviewed Results Reviewed: Laboratory Tests 02/06/25 15:48 Sodium 141 Potassium 3.5 Chloride 109 H TSH 5.91 H A1c % 5.0 01/03/25-[address]: Physician,Unknown ORDERED: Ua Clean Catch QUERIES: Collection Time: 529 Source: Urine, Clean Catch Test Result Flag Reference Ur Color Dark Yellow Ur Appear Cloudy PH 5.5 5.0-9.0 Ur Glu Negative Negative mg/dL Urine Blood Negative Negative Spec [place] Ur 1.025 1.005-1.025 Urine Protein Trace Neg-Trace mg/dL Urine Ketones Trace Negative mg/dL Ur Nitrite Negative Negative Ur Flavia Esterase Negative Negative CT ABDOMEN AND PELVIS 03/20/25 Findings: There is trace right pleural effusion. Unremarkable gallbladder and solid organs. No urolithiasis. No bowel obstruction, pneumoperitoneum, or pneumatosis. The stomach is decompressed with a questionable gastric wall thickening. Appropriate further evaluation likely in consultation with gastroenterology, recommended. Pelvic contents unremarkable. The appendix is not visualized with no imaging evidence of appendicitis. No acute fracture. IMPRESSION: Questionable gastric wall thickening. Appropriate follow-up recommended likely in consultation with gastroenterology. Assessment & Plan Assessment & Plan (1) GERD (gastroesophageal reflux disease): Code(s): K21.9 - Gastro-esophageal reflux disease without esophagitis Category: Medical (2) Irritable bowel syndrome with diarrhea: Code(s): K58.0 - Irritable bowel syndrome with diarrhea Category: Medical (3) Fatty liver due to alcoholism: Comment: Baseline Laboratory Tests 04/16/2401/ 12:0312:1512:18 Total Bilirubin 2.6 H 3.0 H 2.7 H Direct Bilirubin 0.8 H 0.8 H 0.8 H AST 89 H 62 H 43 H ALT 41 H 27 12 Alkaline Phosphatase 137 H 104 93 11/2024 KETTY Screen POSITIVE A KETTY Titer 1:80 H Anti-Mitochondrial Ab NEGATIVE Anti-Smooth Muscle Ab <20 PEth 16:0/18.1 (POPEth) NEGATIVE PEth 16:0/18.2 (PLPEth) NEGATIVE Hepatitis A IgG Ab Nonreactive Hep Bs Antigen Negative Hepatitis C Ab (EIA) Nonreactive HIV 1&2 Ab/P24 Ag 4thGn Nonreactive Current labs Laboratory Tests 08/25/250309/2504 12:1517:0504:21 WBC Hgb Hct Plt Count Potassium 2.7 L* D Estimated GFR > 60 Total Bilirubin Direct Bilirubin AST ALT Alkaline Phosphatase KETTY Screen POSITIVE A KETTY Titer 1:80 H Anti-Mitochondrial Ab NEGATIVE Anti-Smooth Muscle Ab <20 PEth 16:0/18.1 (POPEth) NEGATIVE PEth 16:0/18.2 (PLPEth) NEGATIVE Hepatitis A IgG Ab Nonreactive Hep Bs Antigen Negative Hepatitis C Ab (EIA) Nonreactive HIV 1&2 Ab/P24 Ag 4thGn Nonreactive 12/08/24 11:32 WBC 6.2 Hgb 13.7 Hct 41.4 Plt Count 192 Total Bilirubin 1.8 H Direct Bilirubin 0.4 AST 39 H ALT 28 Alkaline Phosphatase 80 ULTRASOUND OF THE ABDOMEN -09/09/2024 Findings: The visualized pancreas, aorta, and inferior vena cava are unremarkable. Liver normal size and diffusely echogenic. Right lobe 16.6 cm length. No focal hepatic masses. Common duct 7.2 mm diameter. Physiologic distention of the gallbladder. No gallstones or sludge. Mild adenomyomatosis. No pericholecystic fluid. No sonographic Hickey sign. Main portal vein antegrade. Right kidney normal size, 9.9 cm in length. Normal cortical width and echotexture. No solid or cystic renal masses. No nephrolithiasis or hydronephrosis. Left kidney normal, 12.0 cm in length. Normal cortical width and echotexture. No solid or cystic renal masses. Nephrolithiasis or hydronephrosis. Spleen measures 11.4 cm. No splenic masses. No ascites. No lymphadenopathy. Impression: 1. Normal-sized liver mildly echogenic reflecting hepatic steatosis or diffuse hepatocellular disease. 2. No gallstones or evidence of cholecystitis. Subtle gallbladder adenomyomatosis may be present. 3. Mild dilatation of the common bile duct no sonographic evidence of choledocholithiasis. MRCP would be confirmatory. Code(s): K70.0 - Alcoholic fatty liver Category: Medical (4) Weight loss: Code(s): R63.4 - Abnormal weight loss Category: Medical (5) Hypothyroid: Code(s): E03.9 - Hypothyroidism, unspecified Category: Medical (6) Pleural effusion: Code(s): J90 - Pleural effusion, not elsewhere classified Category: Medical Plan She reports today that she is living close to her sister who is cooking meals for her. With this she is eating better and her appetite has returned and she has gained 10 lb! She really feels that her lack of appetite was emotional and related to her boyfriend's passing. The only problem she is having now is a return of less formed looser stools. This is quite bothersome to her because when she does have the she will have fecal incontinence which is quite MS for her to clean up. She is on her Lotronex 0.5 mg twice a day, and although multiple factors including an increase fiber load could be contributing to the change I suggest that we simply increase the dose to 1 mg twice a day. If she becomes constipated she is aware that she can go down to once a day or skip a day until she moves her bowels. She tried treating this with the Imodium but it did not offer any relief. One of the labs showed a possibly elevated TSH and she is on levothyroxine for hypothyroid. I suggest that we repeat this value to see if she simply was fighting off a viral infection before we postulate that her thyroid medicine may need adjusting. I did not notice the trace pleural effusion as I was concentrating on the GI organs during the initial read but I did let her know this and she denies any cough or fevers although she does report shortness of breath going upstairs. I think we will get a chest CT to try to clarify this diagnosis. She also tells me she spoke with her therapist who is going to speak with her psychiatric provider because she has a history of hearing voices in the past. Although she continues on her risperidone she had an episode of hearing voices recently and she feels quite certain that they will need to either adjust her add her current psychiatric medications. Apparently she heard some calling her name when no one else was home, and at 1 point she saw her CAT on the couch when he really was not there. Return office visit in 6 weeks Orders: Orders TSH reflex Free T4 Today E03.9 - Hypothyroidism, unspecified CT chest wo con - High Res Today J90 - Pleural effusion, not elsewhere classified Medications: New pantoprazole (Protonix) 40 mg PO DAILY 30 tabs 6RF 30 days alosetron (Lotronex) 1 mg PO BID 60 tabs 6RF K58.0 - Irritable bowel syndrome with diarrhea Discontinued omeprazole Discontinued Reason: Doctor's Order 40 mg PO DAILY 30 days 30 caps 6RF barium sulfate 2%(w/v) (Readi-Cat 2) Discontinued Reason: Patient Completed Course 150 mL PO ONCE 1 day 300 mL 0RF nitrofurantoin macrocrystal must administer with a meal/food Discontinued Reason: Patient Completed Course 100 mg PO BID 14 caps 0RF N39.0 - Urinary tract infection, site not specified alosetron (Lotronex) Discontinued Reason: Doctor's Order 0.5 mg PO BID 60 tabs 3RF K21.9 - Gastro-esophageal reflux disease without esophagitis, K58.0 - Irritable bowel syndrome with diarrhea Coding Level of Care Code Est Pt Level 4 (43226) Diagnoses GERD (gastroesophageal reflux disease) K21.9 Irritable bowel syndrome with diarrhea K58.0 Fatty liver due to alcoholism K70.0 Weight loss R63.4 Hypothyroid E03.9 Pleural effusion J90 Time Spent (min) 37
[2025-04-01 14:58] VITALS: BP 128/93; BMI 35.0
--- OUTSIDE RECORDS SUMMARY | 2025-04-01 16:50 | XMS_ITS | Encounter Summary ---
Author Organization [employer] Address [address] [facility] [facility] [address] [place] [address] Care Team Providers Care Dish Up Person Name Role Phone Silva Lgiht MD Primary Care Provider [phone] Rossy Louie Unavailable Tamy Gonzalez RN Unavailable [phone] Donn Ravi Unavailable Edu Ravi RN Unavailable [phone] Encounter Details Date Type Department Care Team (Late st Contact Info) Description 11/08/2022 Orders Only [facility] [address] [place], [place] [phone] Sanju Mcgee MD [address] [place], [place] [phone] Primary osteoarthritis of left knee (Primary Dx) [...] Care Team (Late st Contact Info) Description 04/03/2025 11:30 AM EDT Office Visit [facility] [address] [facility] [place] [address] Silva Light MD [address] [place] [address] 05/04/2025 10:45 AM EDT Office Visit [facility] [address] [place], [place] [phone] Walter Bar MD [address] [place] [address] documented as of this encounter Visit Diagnoses Diagnosis Primary osteoarthritis of left knee- Primary documented in this encounter Care Teams Dish Up Person Relationship Specialty Start Date End Date Silva Light MD [address] [place] [address] PCP - General Family Medicine 08/06/13 Rossy Louie 12/09/24 02/06/25 Tamy Gonzalez, CORNELIA [address] [facility] [place] [address] Registered Nurse Family Medicine 02/09/25 02/18/25 Donn Ravi 02/09/25 03/24/25 Edu Ravi, RN [address] [place] [address] Registered Nurse Family Medicine 02/18/25 03/24/25 Goldie Alonso Consumer LenderSeismograph Helper 03/16/25 documented as of this encounter
--- OUTSIDE RECORDS SUMMARY | 2025-04-01 16:50 | XMS_ITS | Encounter Summary ---
Author Organization [employer] Address [address] [place] [address] Care Team Providers Care Order Takers Supervisor Name Role Phone Silva Light MD Primary Care Provider Rossy Louie Unavailable Tamy Gonzalez RN Unavailable [phone] Donn Ravi Unavailable Edu Ravi RN Unavailable [phone] Reason for Visit * Reason Onset Date Comments Call Back Request 09/23/2024 Encounter Details Date Type Department Care Team (Late st Contact Info) Description 09/23/2024 Telephone [facility] [address] [place] [address] Silva Light MD [address] [place], [place] [phone] Call Back Request Social History Tobacco Use [...] 9:51 AM EST Tc from Alice from [facility] calling in requesting a status on prior message. * Telephone Encounter - Teresa Leal - 09/23/2024 11:54 AM EST Tc from Alice with [facility] to clarify information. If the patient has capacity, was complained about medications or if the pcp has any concerns about the patient. documented in this encounter Plan of Treatment Upcoming Encounters Date Type Department Care Team (Late st Contact Info) Description 04/03/2025 11:30 AM EDT Office Visit [facility] MED & PEDS [address] [place] [address] Silva Light MD [address] [place] [address] 05/04/2025 10:45 AM EDT Office Visit [facility] [address] [place] [address] Walter Bar MD [address] [place] [address] documented as of this encounter Visit Diagnoses Not on filedocumented in this encounter Care Teams Order Takers Supervisor Relationship Specialty Start Date End Date Silva Light MD [address] [place] [address] PCP - General Family Medicine 08/06/13 Rossy Louie 12/09/24 02/06/25 Tamy Gonzalez, CORNELIA [address] [place] [address] Registered Nurse Family Medicine 02/09/25 02/18/25 Donn Ravi 02/09/25 03/24/25 Edu Ravi, RN [address] [place] [address] Registered Nurse Family Medicine 02/18/25 03/24/25 Goldie Alonso Paint And Table EdgerBall Mill Operator 03/16/25 documented as of this encounter
--- OUTSIDE RECORDS SUMMARY | 2025-04-01 16:50 | XMS_ITS | Clinical Summary ---
Author Organization [employer] Address [address] [facility] [address] [place] [address] Care Team Providers Care Sprayer Operator Name Role Phone Silva Light MD Primary Care Provider [phone] Allergies Active Allergy Reactions Criticality Noted Date Comments Azithromycin Rash Low 03/09/2022 Latex 04/25/2022 Penicillins 02/19/2013 Sulfa Antibiotics 02/19/2013 Medications hydrOXYzine HCl (Atarax) 10 MG tablet TAKE ONE TABLET BY MOUTH EVERY TWELVE HOURS NEEDED FOR ANXIETY. 11/04/19 22 Active omeprazole (PriLOSEC) [address] capsule Take 40 mg by mouth in the morning. 09/08/19 23 Active prazosin (Minipress) 2 MG capsuleIndication s:Post-traumatic stress disorder, unspecified TAKE ONE CAPSULE AT BEDTIME 90 capsule 1 01/18/20 23 Active FLUoxetine (PROzac) 40 MG capsuleIndication s:Menopausal and female climacteric states TAKE ONE CAPSULE EVERY MORNING 30 capsule 6 04/17/20 23 Active clonazePAM (KlonoPIN) 1 MG tabletIndications :Post-traumatic stress disorder, unspecified TAKE ONE TABLET TWICE DAILY IN THE MORNING AND AT BEDTIME NEEDED 60 tablet 05/28/20 23 Active amitriptyline (Elavil) 25 MG tabletIndications :Major depressive disorder, recurrent, mild (CMS/HCC) TAKE ONE TABLET EVERY NIGHT AT BEDTIME 30 tablet 3 06/19/20 23 Active risperiDONE (RisperDAL) 2 MG tabletIndications :Post-traumatic stress disorder, unspecified TAKE ONE TABLET EVERY NIGHT AT BEDTIME 30 tablet 07/31/19 24 Active meclizine (Antivert) 25 MG tablet [...] daily. 30 tablet 3 11/30/19 24 Active bacitracin-polymy isaac b (Polysporin) ointment Apply topically 2 times daily. 15 g 09/10/19 25 Active gabapentin (Neurontin) 300 MG capsuleIndication s:Post-traumatic stress disorder, unspecified TAKE ONE CAPSULE TWICE DAILY IN THE MORNING AND AT BEDTIME 60 capsule 11 11/01/19 25 Active rOPINIRole (Requip) 0.5 MG tablet TAKE 1 TABLET EVERY NIGHT AT BEDTIME 30 tablet 11 11/01/19 25 Active Blood Pressure kit Check BP daily 1 kit 11/05/19 25 Active Blood Pressure kit Check blood pressure daily 1 kit 11/20/19 25 Active Vitamins-Lipotrop ics (B Complex Formula 1, Lipotrop,) tablet TAKE ONE TABLET EVERY MORNING 30 tablet 11 11/28/19 25 Active cetirizine (ZyrTEC) 10 MG tabletIndications :Allergy, sequela TAKE 1 TABLET EVERY NIGHT AT BEDTIME 30 tablet 11 01/06/20 25 Active carbidopa-levodop a (Sinemet) 25-100 MG tablet Take 1 tablet by mouth 2 times daily. 60 tablet 01/06/20 25 Active cetirizine (ZyrTEC) 10 MG tabletIndications :Allergy, sequela Take 1 tablet (10 mg) by mouth at bedtime. 30 tablet 11 01/06/20 25 Active naltrexone (Depade) 50 MG tabletIndications :Alcohol use disorder, severe, dependence (CMS/HCC) Take 1 tablet (50 mg) by mouth Once per day. 90 tablet 1 02/03/20 25 026 Active levothyroxine (Synthroid, Levoxyl) 100 MCG tabletIndications :Hypothyroidism, unspecified type TAKE 1 TABLET EVERY MORNING 90 tablet 1 02/27/20 25 Active capsaicin (Zostrix) 0.025 % creamIndications: Acute pain of right knee,Primary osteoarthritis of right knee Apply topically 2 times daily. 56.6 g 2 03/19/20 25 026 Active carbidopa-levodop a (Sinemet) 25-100 MG tablet TAKE ONE TABLET TWICE DAILY IN THE MORNING AND AT BEDTIME 60 tablet 03/26/20 25 Active carbidopa-levodop a (Sinemet) 25-100 MG tablet TAKE ONE TABLET TWICE DAILY IN THE MORNING AND AT BEDTIME 60 tablet 02/03/20 25 025 Discontinued Active Problems Problem Noted Date Diagnosed Date Primary parkinsonism 12/08/2024 Alcohol abuse 11/30/2023 Menopausal and female climacteric states 023 Cobalamin deficiency 02/03/2016 Paroxysmal supraventricular tachycardia 06/09/20 13 Schizophrenia 04/29/2013 Hypothyroidism 02/19/2013 Obesity 02/19/2013 Encounters Date Type Department Care Team Description 03/25/2025 Refill [facility] [address] [place] [address] Silva Light MD 03/24/2025 Patient Outreach [address] [address] Silva Light MD Care Coordination (C3CM/CHW Donn Ravi, reschedule missed assessment appt_closed ) 03/20/[address] [address] Silva Light MD Referral 03/19/2025 9:30 AM EDT Office Visit [facility] [address] [place] [address] Sanju Mcgee MD Acute pain of right knee (Primary Dx); Primary osteoarthritis of right knee; Chronic right shoulder pain 03/19/2025 Orders Only [facility] External Provider, [facility] 03/19/2025 Travel 03/18/2025 Telephone [facility] [address] [place], [place] [phone] Silva Light MD Nurse Triage 03/17/2025 Patient Outreach [address] [address] Silva Light MD Care Coordination (C3CM/CHW Donn Ravi, TC #2 RS missed assessment appt_lvm) 03/16/2025 Telephone [facility] [address] [place], [place] [phone] Silva Light MD Care Coordination (ICP Care Plan) 03/16/2025 Telephone [facility] [address] [place], [place] [phone] Silva Light MD 03/10/2025 Patient Outreach [address] [phone] Silva Light MD Care Coordination ( C3CM/Nya Ravi, Reschedule missed assessment_lvm ) 02/25/2025 Patient Outreach [address] [address] Silva Light MD Care Management (C3CM- initial assessment/ enrollment. lvm) 02/24/2025 Refill [facility] [address] [place], [place] [phone] Silva Light MD Hypothyroidism, unspecified type 02/23/2025 Patient Outreach [address] [phone] Silva Light MD 02/19/2025 Telephone [facility] [address] [place], [place] [phone] Silva Light MD No Show 02/18/2025 Patient Outreach [address] [address] Silva Light MD Care Coordination (C3/TRACY Ravi, Initial assessment scheduled ) 02/13/2025 Patient Outreach [address] [address] Silva Light MD 02/11/2025 Patient Outreach [address] [phone] Silva Light MD Pre-visit Planning (Pre visit planning LVM ) 02/09/2025 Patient Outreach [address] [address] Silva Light MD Care Coordination ([facility]/W Donn Ravi, Initial outreach attempt_lvm ) 02/09/2025 Patient Outreach [address] [address] Silva Light MD Care Coordination ([facility]/W Donn Ravi, Chart review) 02/09/2025 Patient Outreach [facility] [address] [place] [address] Silva Light MD Care Coordination ([facility] chart review) 02/09/2025 Patient Outreach [address] [address] Silva Light MD 02/06/2025 Orders Only GENERIC EXTERNAL DATA DEPARTMENT Provider, Generic External Data 02/06/2025 Telephone [facility] [address] [place] [address] Silva Light MD Nurse Triage 02/06/2025 Patient Outreach [address] [address] Silva Light MD Care Coordination ([facility] f/u) 02/06/2025 Patient Outreach [facility] [address] [place] [address] Silva Light MD Care Coordination ([facility] f/u call#3- Unable to reach pt. Case closure due to lost of contact) 02/02/2025 10:45 AM EDT Office Visit [facility] [address] [place] [address] Walter Bar MD Alcohol use disorder, severe, dependence (CMS/HCC) (Primary Dx) 02/02/2025 Orders Only GENERIC EXTERNAL DATA DEPARTMENT Provider, Generic External Data 02/02/2025 Travel 01/29/2025 Refill [facility] [address] [place] [address] Silva Light MD 01/22/2025 Patient Outreach [address] [address] Silva Light MD Care Coordination ([facility] f/u) 01/22/2025 Patient Outreach [facility] [address] [place] [address] Silva Light MD Care Coordination ([facility] f/u call #2- LVM) 01/07/2025 Patient Outreach [facility] [address] [place] [address] Silva Light MD Care Coordination (F/u call- LVM) 01/02/2025 Refill [facility] [address] [place] [address] Silva Light MD Allergy, sequela 01/02/2025 Patient Outreach [facility] [address] [place] [address] Silva Light MD Care Coordination ([facility] f/u) 01/01/2025 Refill [facility] [address] [place] [address] Silva Light MD Allergy, sequela from Last 3 Months Immunizations Immunization Administration Dates Next Due Hep A, Adult [...] housing situation today? I have yasemin soriano 12/09/[address] you li [...] Sign Reading Time Taken Comments Blood Pressure 134/76 03/19/2025 9:43 AM EDT Pulse 88 03/19/2025 9:43 AM EDT Temperature 36.8 C (98.3 F) 03/19/2025 9:43 AM EDT Respiratory Rate 20 03/19/2025 9:43 AM EDT Oxygen Saturation 97% 03/19/2025 9:43 AM EDT Inhaled Oxygen Concentration - - Weight 88.5 kg (195 lb) 03/19/2025 9:43 AM EDT Height 167.6 cm (5' 6 ) 03/19/2025 9:43 AM EDT Body Mass Index 31.47 03/19/2025 9:43 AM EDT Plan of Treatment Upcoming Encounters Date Type Department Care Team (Late st Contact Info) Description 04/03/2025 11:30 AM EDT Office Visit [facility] [address] [place] [address] Silva Light MD [address] [place] [address] 05/04/2025 10:45 AM EDT Office Visit [facility] [address] [place] [address] Walter Bar MD [address] [place] [address] Health Maintenance Due Date Last Done Comments CT Colonography 1965 FIT DNA/Cologuard 1965 FIT 1965 FOBT 1965 Sigmoidoscopy 1965 Disability Screening 1965 Dental X-Ray: Bitewings 09/09/2010 09/08/2009 Dental [...] 12/20/2024 12/20/2021, 11/28, 12/30/2019, Additional history exists Influenza Vaccine (#1) 2025 , 07/11/2023, 04/25/2022, Additional history exists Hepatitis A Vaccines (2 of 2 - Risk 2-dose series) 05/05/2025 11/03/2024 Alcohol/Substance Use Screening 10/28/2025 10/28/2024 Depression Screening 12/09/2025 12/09/2024, 12/10/19 SDOH Screening 12/09/2025 12/09/2024 Tobacco Screening 03/19/2026 03/19/2025 Dental X-Ray: Full Mouth 05/22/2027 05/21/2024, 08/30 Colonoscopy 07/10/2027 07/10/2022 Colorectal Cancer Screening 07/10/2027 Lipid Panel 04/16/2029 04/16/2024, 11/18/2021 DTaP/Tdap/Td Vaccines (3 - Td or Tdap) 12/01/2031 11/30/2021, 07/11/2011 Zoster Vaccines Completed 12/05/2021, 04/02/2021 COVID-19 Vaccine Completed 09/10/2024, , 01/16/2022, Additional [...] patient's age to complete this topic Meningococcal B Vaccine Aged Out No l onger eligible based on patient's age to complete [...] Procedure Name Priority Date/Time Associated Diagnosis Comments CT ABDOMEN PELVIS W CONTRAST Routine 03/20/2025 9:06 AM EDT POCT CREATININE GFR Routine 03/19/2025 1 :46 PM EDT XR KNEE 3 VIEWS RIGHT Routine 03/19/2025 11:37 AM EDT Acute pain of right knee URINALYSIS WITH REFLEX MICROSCOPIC Routine 02/06/2025 4:19 PM EDT DRUG MONITOR, PANEL 1, SCREEN, URINE Routine 02/06/2025 4:19 PM EDT ACETAMINOPHEN LEVEL Routine 02/06/2025 3 :48 PM EDT SALICYLATE Routine 02/06/2025 3:48 PM EDT URINALYSIS, COMPLETE, WITH REFLEX TO CULTURE Routine 02/02/2025 11:10 AM EDT T4, FREE Routine 02/02/2025 11:05 AM EDT TSH W/REFLEX TO FT4 Routine 02/02/2025 1 1:05 AM EDT HEMOGLOBIN A1C Routine 02/02/2025 11:05 AM EDT UREA NITROGEN (BUN) Routine 02/02/2025 1 1:05 AM EDT BASIC METABOLIC PANEL Routine 02/02/2025 11:05 AM EDT Hypothyroidism, unspecified type Paroxysmal supraventricular tachycardia (CMS/HCC) Hypokalemia CULTURE, URINE, ROUTINE Routine 02/02/2025 12:00 AM EDT HEPATITIS PANEL, GENERAL Routine 10/30/2024 5:05 PM EDT HIV 1/2 ANTIGEN/ANTIBODY, FOURTH GENERATION W/RFL Routine 10/30/2024 5:05 PM EDT PANORAMIC RADIOGRAPHIC IMAGE Routine 05/21/2024 [...] Recently Relevant to Health Maintenance Results * CT Abdomen Pelvis w/ Contrast (03/20/2025 9:06 AM EDT) Anatomical Region Laterality Modality Body, Pelvis, Abdomen Computed T omography 03/20/2025 9:06 AM EDT Narrative 03/20/2025 9:07 AM EDT [place] [address] CT Scan Report Signed Patient: Judy Alexander MR#: [id number] : 1965 Acct:[id number] Age/Sex: 59 / F ADM Date: 03/19/25 Loc: [facility] Attending Dr: Maritza ASHFORD Ordering Physician: Maritza Culver Date of Service: 03/19/25 Procedure(s): CT abdomen pelvis w IV con Accession Number(s): [id number] cc: Maritza Culver; Silva Light MD Report Number: [id number]: Total DLP = 633.00 mGy-cm CLINICAL HISTORY: R63.4 - Abnormal weight loss CT abdomen and pelvis with contrast Comparison: 11/24/2019 06:59 PM EDT: CT Findings: There is trace right pleural effusion. Unremarkable gallbladder and solid organs. No urolithiasis. No bowel obstruction, pneumoperitoneum, or pneumatosis. The stomach is decompressed with a questionable gastric wall thickening. Appropriate further evaluation likely in consultation with gastroenterology, recommended. Pelvic contents unremarkable. The appendix is not visualized with no imaging evidence of appendicitis. No acute fracture. IMPRESSION: Questionable gastric wall thickening. Appropriate follow-up recommended likely in consultation with gastroenterology. This document has been electronically signed by: Enoc Valiente MD on 03/20/2025 09:06:22 Dictated By: Enoc Valiente MD Signed By: <Electronically signed by Enoc Valiente MD in OV> 03/20/25906 DD/ 5 TD/TT: 03/20/25905 Septic Pump Truck Driver: Procedure Note Donotuseinterpreter, Image - 03/20/[address] [place] [address] [address] Scan Report Signed Patient: Judy Alexander LMR#: [id number] : 1965Acct:[id number] Age/Sex: 59 / FADM Date: 03/19/25 Loc: [facility] Attending Dr: Maritza ASHFORD Ordering Physician: Maritza Culver Date of Service: 03/19/25 Procedure(s): CT abdomen pelvis w IV con Accession Number(s): [id number] cc: Maritza Culver; Silva Light MD Report Number: [id number]: Total DLP = 633.00 mGy-cm CLINICAL HISTORY: R63.4 - Abnormal weight loss CT abdomen and pelvis with contrast Comparison: 11/24/2019 06:59 PM EDT: CT Findings: There is trace right pleural effusion. Unremarkable gallbladder and solid organs. No urolithiasis. No bowel obstruction, pneumoperitoneum, or pneumatosis. The stomach is decompressed with a questionable gastric wall thickening. Appropriate further evaluation likely in consultation with gastroenterology, recommended. Pelvic contents unremarkable. The appendix is not visualized with no imaging evidence of appendicitis. No acute fracture. IMPRESSION: Questionable gastric wall thickening. Appropriate follow-up recommended likely in consultation with gastroenterology. This document has been electronically signed by: Enoc Valiente MD on 03/20/2025 09:06:22 Dictated By: Enoc Valiente MD Signed By: <Electronically signed by Enoc Valiente MD in OV> 03/20/25906 DD/ 5 TD/TT: 03/20/25905 Septic Pump Truck Driver: [facility] External Provider IMG CT PROCEDURES Final Result * POCT Creatinine GFR (03/19/2025 1:46 PM EDT) POCT Creatinine 0.7 0.5 - 1.4 mg/dL [facility] GFR POC >60 [facility] Comment:Chronic Kidney Disea se: Estimated GFR < 60 mL/min/[id number] Kidney Disease: Estimated GFR < 15 mL/min/1.73m2 03/19/2025 1:46 PM EDT 03/20/2025 11:41 AM EDT Narrative [facility] - 03/20/2025 11:44 AM EDT [id number] Generic External Data Provider LAB POINT OF CARE TEST DOCKED DEVICE ORDERABLES Final Result Performing Organization Address City/State/[facility] Co de Phone Number [facility] [address] [place] [phone] * XR Knee 3 Views Right (03/19/2025 11:37 AM EDT) Anatomical Region Laterality Modality Lower Extremities, Knee Right Radiogra phic Imaging 03/19/2025 11:3 7 AM EDT Narrative 03/19/2025 12:01 PM EDT [address] [address] XRay Report Signed Patient: Judy Alexander MR#: [id number] : 1965 Acct:[id number] Age/Sex: 59 / F ADM Date: 03/19/25 Loc: [facility] Attending Dr: Maritza Culver ANP-C Ordering Physician: Sanju Mcgee MD Date of Service: 03/19/25 Procedure(s): XR knee RT 3V Accession Number(s): [id number] cc: Sanju Mcgee MD; Silva Light MD EXAMINATION: XR KNEE, RIGHT CLINICAL INFORMATION: right knee pain COMPARISON: None available. TECHNIQUE: Three views of the right knee. FINDINGS: There is mild narrowing of the medial joint space. Lateral joint spaces preserved. There are marginal osteophytes involving the medial femoral condyle and tibial plateau as well as the tibial spines and patella. Trochlear osteophytes are also present. There is no joint effusion. No abnormal soft tissue calcification are present. XR/XR knee RT 3V IMPRESSION: Mild degenerative changes consistent with osteoarthritis. Electronically signed by: Danial Peralta MD 03/19/2025 11:58 AM EDT RP Dictated By: Danial Peralta MD Signed By: <Electronically signed by Danial Peralta MD in OV> 03/19/25 1158 DD/ 1137 TD/TT: 03/19/25 1147 Septic Pump Truck Driver: Procedure Note Donotuseinterpreter, Image - 03/19/2025 [place] [address] XRay Report Signed Patient: Judy Alexander LMR#: [id number] : 1965Acct:[id number] Age/Sex: 59 / FADM Date: 03/19/25 Loc: [facility] Attending Dr: Maritza HERRERA-C Ordering Physician: Sanju Mcgee MD Date of Service: 03/19/25 Procedure(s): XR knee RT 3V Accession Number(s): [id number] cc: Sanju Mcgee MD; Silva Light MD EXAMINATION: XR KNEE, RIGHT CLINICAL INFORMATION: right knee pain COMPARISON: None available. TECHNIQUE: Three views of the right knee. FINDINGS: There is mild narrowing of the medial joint space. Lateral joint spaces preserved. There are marginal osteophytes involving the medial femoral condyle and tibial plateau as well as the tibial spines and patella. Trochlear osteophytes are also present. There is no joint effusion. No abnormal soft tissue calcification are present. XR/XR knee RT 3V IMPRESSION: Mild degenerative changes consistent with osteoarthritis. Electronically signed by: Danial Peralta MD 03/19/2025 11:58 AM EDT RP Dictated By: Danial Peralta MD Signed By: <Electronically signed by Danial Peralta MD in OV> 03/19/25 1158 DD/ 1137 TD/TT: 03/19/25 1147 Septic Pump Truck Driver: us Sanju Mcgee MD IMG XR PROCEDURES Final Res ult * Drug Monitoring, Panel 1, Screen, Urine (02/06/2025 4:19 PM EDT) Opiate Screen Urine Not Detected Not Detect [facility] Comment:Opiate cut-off is 30 0 ng/mL.Positive results are unconfirmed and should not be used fornon-medical purposes. Barbiturates, Urine Not Detected Not Detect [facility] Comment:Barbiturate cut-off is 200 ng/mL.Positive results are unconfirmed and should not be used fornon-medical purposes. Phencyclidine Screen Urine Not Detected Not Detect [facility] Comment:Phencyclidine cut-of f is 25 ng/mL.Positive results are unconfirmed and should not be used fornon-medical purposes. Amphetamine Screen Urine Not Detected Not Detect [facility] Comment:Amphetamine cut-off is 1000 ng/mL.Positive results are unconfirmed and should not be used fornon-medical purposes. Benzodiazepines Screen Urine Not Detected Not Detect [facility] Comment:Benzodiazepine cut-o ff is 200 ng/mL.Positive results are unconfirmed and should not be used fornon-medical purposes. Cocaine Screen Urine Not Detected Not Detect [facility] Comment:Cocaine cut-off is 3 00 ng/mL.Positive results are unconfirmed and should not be used fornon-medical purposes. Cannabinoid Screen Urine Not Detected Not Detect [facility] Comment:Cannabinoid cut-off is 50 ng/mL.Positive results are unconfirmed and should not be used fornon-medical purposes. Methadone Screen, Urine Not Detected Not Detect ng/mL [facility] Comment:Methadone cut-off is 300 ng/mL.Positive results are unconfirmed and should not be used fornon-medical purposes. FENTANYL URINE Not Detected Not Detect [facility] Comment:Fentanyl cut-off is 1 ng/mL.Positive results are unconfirmed and should not be used fornon-medical purposes. Oxycodone Urine Screen Not Detected Not Detect ng/mL [facility] Comment:Oxycodone cut-off is 100 ng/mL.Positive results are unconfirmed and should not be used fornon-medical purposes. Buprenorphine Screen Not Detected Not Detect ng/mL [facility] Comment:Buprenorphine cut-of f is 5 ng/mL.Positive results are unconfirmed and should not be used fornon-medical purposes. 02/06/2025 4:19 PM EDT 02/06/2025 4:22 PM EDT us Generic External Data Provider LAB URINE ORDERAB LES Final Result [facility] [address] [place] [phone] * Urinalysis w/reflex microscopic (02/06/2025 4:19 PM EDT) Color Urine Dark Yellow [facility] Appearance Urine Cloudy [facility] PH 6.5 5.0 - 9.0 [facility] Glucose Urine UA Negative Negative mg/dL [facility] Urine Blood Negative Negative [facility] Specific [place] - Urine 1.025 1.005 - 1.025 [facility] Urine Protein Trace Neg-Trace mg/dL [facility] Urine Ketones Trace Negative mg/dL [facility] Nitrite Urine Negative Negative [facility] Leukocyte Esterase Urine Negative Negative [facility] 02/06/2025 4:19 PM EDT 02/06/2025 4:22 PM EDT Narrative [facility] - 02/06/2025 4:38 PM EDT [id number], Clean Catch Generic External Data Provider LAB URINE ORDERAB LES Final Result Performing Organization Address [facility] Co de Phone Number [facility] [address] [place] [phone] * Acetaminophen level (02/06/2025 3:48 PM EDT) [facility] Acetaminophen LAB <3 <30 mcg/mL [facility] 02/06/2025 3:48 PM EDT 02/06/2025 3:50 PM EDT Generic External Data Provider LAB BLOOD ORDERAB LES Final Result Performing Organization Address [facility] Co de Phone Number [facility] [address] [place] [phone] * (ABNORMAL) Salicylate (02/06/2025 3:48 PM EDT) [facility] Salicylate <5.0(L) 15 - 30 mg/dL [facility] 02/06/2025 3:48 PM EDT 02/06/2025 3:50 PM EDT Generic External Data Provider LAB BLOOD ORDERAB LES Final Result Performing Organization Address [facility] de Phone Number [facility] [address] [place] [phone] * (ABNORMAL) Urinalysis, Complete, with Reflex to Culture (02/02/2025 11:10 AM EDT) Pathologist [facility] Color Urine Dark Yellow [facility] Appearance Urine Turbid [facility] PH 6.0 5.0 - 9.0 [facility] Glucose Urine UA Negative Negative mg/dL [facility] Urine Blood Negative Negative [facility] Specific [place] - Urine >=1.030(H) 1.005 - 1.025 [facility] Urine Protein 30 (1+)(A) Neg-Trace mg/dL [facility] Urine Ketones Trace Negative mg/dL [facility] Nitrite Urine Positive(A) Negative [facility] Leukocyte Esterase Urine Small (1+)(A) Negative [facility] RBC Urine 0-2 0 - 2 /HPF [facility] Urine WBC 0-5 0 - 5 /HPF [facility] Urine Squamous Epithelial Cell >20 0 - 2 /HPF [facility] Urine Bacteria 2+ None Seen [facility] Hyaline Casts, Urine 0-2 0 - 2 /LPF [facility] 02/02/2025 11:1 0 AM EDT 02/02/2025 2:28 PM EDT Narrative [facility] - 02/02/2025 2:52 PM EDT Urine, Clean Catch Generic External Data Provider LAB URINE ORDERAB LES Final Result Performing Organization Address City/[facility] Co de Phone Number [facility] [address] [place] [address] [phone] * (ABNORMAL) TSH with Reflex to Free T4 (02/02/2025 11:05 AM EDT) TSH reflex Free T4 5.91(H) 0.32 - 4.0 uIU/mL [facility] 02/02/2025 11:0 5 AM EDT 02/02/2025 2:29 PM EDT Generic External Data Provider LAB BLOOD ORDERAB LES Final Result Performing Organization Address [facility] Co de Phone Number [facility] [address] [place] [phone] * BUN (Blood Urea Nitrogen) (02/02/2025 11:05 AM EDT) Urea Nitrogen (BUN) 13 9 - 16 mg/dL [facility] 02/02/2025 11:0 5 AM EDT 02/02/2025 2:29 PM EDT Generic External Data Provider LAB BLOOD ORDERAB LES Final Result Performing Organization Address City/[facility]/ZIP Co de Phone Number [facility] [address] [place] [phone] * T4, Free (02/02/2025 11:05 AM EDT) Free T4 (Free Thyroxine) 0.94 0.71 - 1.85 ng/dL [facility] 02/02/2025 11:0 5 AM EDT 02/02/2025 2:29 PM EDT Generic External Data Provider LAB BLOOD ORDERAB LES Final Result Performing Organization Address [facility] de Phone Number [facility] [address] [place] [phone] * Hemoglobin A1c (02/02/2025 11:05 AM EDT) Hemoglobin A1c 5.0 <6.0 % [facility] Comment:Hemoglobin A1C Refer ence Range Adults: 4.8 - 6.0 % Non diabetic: < 6.0 % Goal: < 7.0 %Additional Action Suggested: > 8.0 %Note: Hemoglobin A1c results are invalid for patients with abnormal amounts of HbF. Blood transfusions may impact the HbA1c concentration in the patient sample. Estimated Average Glucose 97 mg/dL [facility] Comment:eAG = Estimated ave rage glucose which is %A1C expressed asaverage glucose, using the formula of the G5L-KmbyiypGsjmkjl Glucose study (ADAG), Diabetes Care, Vol.31,#8,Feb. 2007 02/02/2025 11:0 5 AM EDT 02/02/2025 2:29 PM EDT Generic External Data Provider LAB BLOOD ORDERAB LES Final Result Performing Organization Address City/[facility]/ZIP Co de Phone Number [facility] [address] [place] [phone] * (ABNORMAL) Basic Metabolic Panel (02/02/2025 11:05 AM EDT) Sodium 142 135 - 145 mmol/L [facility] Potassium 3.6 3.3 - 5.1 mmol/L [facility] Chloride 109(H) 96 - 108 mmol/L [facility] Carbon Dioxide 24 22 - 29 mmol/L [facility] Anion Gap 13 12 - 20 [facility] Urea Nitrogen (BUN) 13 9 - 16 mg/dL [facility] Creatinine, Serum 0.87 0.5 - 1.4 mg/dL [facility] Estimated Glomerular Filt Rate >60 [facility] Comment:Chronic Kidney Disea se: Estimated GFR < 60 mL/min/1.52z4Rglhag Kidney Disease: Estimated GFR < 15 mL/min/1.73m2 Glucose 90 60 - 115 mg/dL [facility] Calcium 9.5 8.4 - 10.2 mg/dL [facility] Blood Venous blood specimen / Unknown 02/02/2025 11:05 AM EDT 02/02/2025 2:29 PM EDT Sanju Mcgee MD LAB BLOOD ORDERABLES Final Result Performing Organization Address [facility]/ZIP Co de Phone Number [facility] [address] [place] [phone] * Culture, Urine, Routine (02/02/2025 12:00 AM EDT) Urine Urine specimen obtained by clean catch procedure / Unknown 02/02/2025 02/02/2025 Comment:UACC Narrative [facility] - 02/03/2025 8:06 AM EDT Urine Culture Report Result Urine Culture > 100,000 cfu/ml Urine Culture Mixed bacterial romi characteristic of Urine Culture urogenital contamination. Specimen Source: Urine clean catch Generic External Data Provider LAB MICROBIOLOGY - GENERAL ORDERABLES Final Result Performing Organization Address [facility]/ZIP Co de Phone Number [facility] [address] [place] [phone] * Hepatitis Panel, General (10/30/2024 5:05 PM EDT) Hepatitis A IgM Nonreactive Nonreactive [facility] Comment:IgM antibodies to ZAMORA V not detected; does not exclude earlyacute or recovered HAV infection. ~Hepatitis B Surface Antibody NONREACTIVE Nonreactive [facility] Comment:Nonreactive: < 8.00 mIU/mL Hepatitis B Core Antibody Nonreactive Nonreactive [facility] Hepatitis C Antibody Nonreactive Nonreactive [facility] Comment:Antibodies to HCV no t detected; does not exclude early acuteHCV infection. Hepatitis B Surface Ag Negative Negative [facility] 10/30/2024 5:05 PM EDT 10/30/2024 5:08 PM EDT Generic External Data Provider LAB BLOOD ORDERAB LES Final Result Performing Organization Address [facility]/ZIP Co de Phone Number [facility] [address] [place] [phone] * HIV-1/2 Antigen and Antibodies, Fourth Generation, with Reflexes (10/30/2024 5:05 PM EDT) HIV AB/AG Nonreactive Nonreactive [facility] Comment:HIV-1 p24 Ag and/or HIV-1/HIV-2 Ab not detected.A test result that is nonreactive does not exclude thepossibility of exposure to or infection with HIV-1 and/orHIV-2. Nonreactive results in this assay for individualswith prior exposure to HIV-1 and/or HIV-2 may be due toantigen and antibody levels that are below the limit ofdetection of this assay.The [employer] HIV Ag/Ab Combo assay result andsupplemental assay results should be interpreted inconjunction with the patient's clinical presentation,history and other laboratory results. If the results areinconsistent with clinical evidence, additional testing issuggested to confirm the result. 10/30/2024 5:05 PM EDT 10/30/2024 5:08 PM EDT us Generic External Data Provider LAB BLOOD ORDERAB LES Final Result Performing Organization Address [facility]/ZIP Co de Phone Number [facility] [address] [place] [phone] * (ABNORMAL) Lipid Panel, Standard (04/16/2024 12:03 PM EDT) Triglycerides 195(H) <150 mg/dL [facility] Comment:Desirable Triglyceri de: less than 150 mg/dLBorderline High Triglyceride 150-199 mg/dLHigh Triglyceride: 200-499 mg/dLVery High Triglyceride: greater than or equal to 5OO mg/dL Cholesterol 232(H) <200 mg/dL [facility] Comment:Desirable Cholestero l: less than 200 mg/dLBorderline High Cholesterol: 200-239 mg/dLHigh Cholesterol: greater than 239 mg/dL LDL Cholesterol Calculated 160(H) <100 mg/dL [facility] Comment:Desirable LDL: less than 100 mg/dLNear Optimal/Above Optimal LDL: 110- 129 mg/dLBorderline High LDL: 130-159 mg/dLHigh LDL: 160-189 mg/dLVery High LDL: greater than or equal to 190 mg/dL HDL Cholesterol 33(L) >40 mg/dL [facility] Comment:Desirable HDL: great er than 40 mg/dL Note: This HDL assay may give artificially low results in patients with liver disease. Blood Venous blood specimen / Unknown 04/16/2024 12:03 PM EDT 04/16/2024 2:13 PM EDT us Silva Light MD LAB BLOOD ORDERABLES Final Resul t Performing Organization Address [facility]/ZIP Co de Phone Number [facility] [address] [place] [phone] * Hm Colonoscopy (07/10/2022) Colonoscopy Normal Normal us Historical Provider HEALTH MAINTENANCE Final Result * THINPREP TIS PAP AND HPV mRNA E6/E7 WITH REFLEX TO HPV 16,18/45 (12/20/2021 2:15 PM EDT) Clinical Information: None given [facility] COMMENT SEE COMMENT [facility] Comment: EXPLANATORY NOTE: The Pap is a screening test for cervical cancer. It is not a diagnostic test and is subject to false negative and false positive results. It is most reliable when a satisfactory sample, regularly obtained, is submitted with relevant clinical findings and history, and when the Pap result is evaluated along with historic and current clinical information. COMMENT: This Pap test has been evaluated with computer assisted technology. [facility] Coiled Tubing Supervisor: SEE COMMENT [facility] Comment: DMM, CT(ASCP) CT screening location: [place] [address] HPV nRNA E6/E7 Not Detected Not Detected [facility] Comment: Methodology: Textile Artist-Mediated Amplification This assay detects E6/E7 viral messenger RNA (mRNA) from 14 high-risk HPV types (16,18,31,33,35,39,45,51,52,56,58,59,66,68). The analytical performance characteristics of this assay have been determined by [employer]. The modifications have not been cleared or approved by the FDA. This assay has been validated pursuant to the CLIA regulations and is used for clinical purposes. For additional information, please refer to http://education.[employer].Mobimedia/faq/ENP421v1 (This link if provided for information/ educational purposes only.) Interpretation/Re sult: Negative for intraepithelial lesion or malignancy. [facility] LMP: NONE GIVEN [facility] Prev. BX: COLP NEG 2018/2019 [facility] Prev. PAP: ASCUS HPV NEG 2019 LSIL HPV NEG 2018 [facility] Review Coiled Tubing Supervisor: SEE COMMENT [facility] Comment: MAA, CT(ASCP) CT screening location: [place] [address] SOURCE: None given [facility] Statement Of Adequacy: SEE COMMENT [facility] Comment: Satisfactory for evaluation. Endocervical/transformation zone component present. 12/20/2021 2:15 PM EDT [facility] PATH[facility]Y ORDERABLES Final Result [facility] [address] [place] [address], * Pap Smear (12/20/2021 12:00 AM EDT) Swab [place] [facility] CYTOLOGY ORDERABLES F inal Result Performing Organization Address City/[facility]/ZIP Co de Phone Number [address], [place] [phone] * Mammography Report 1 (12/05/2021 8:42 AM [...] Most Recently Relevant to Health Maintenance Insurance [facility] AD[place] Care Teams Sprayer Operator Relationship Specialty Start Date End Date Silva Light MD [address] [place] [phone] PCP - General Family Medicine 08/06/13 Goldie Alonso Technical Sales ManagerMedical Record Transcriber 03/16/25
--- OUTSIDE RECORDS SUMMARY | 2025-04-01 16:50 | XMS_ITS | Encounter Summary ---
Author Organization [employer] Address [address] [place] [address] [address] [place] [address] Care Team Providers Care Back Up Machine Operator Name Role Phone Silva Light MD Primary Care Provider Rossy Louie Unavailable Tamy Gonzalez RN Unavailable [phone] Donn Ravi Unavailable Edu Ravi RN Unavailable [phone] Reason for Visit * Reason Onset Date Comments Nurse Triage 11/14/2023 Encounter Details Date Type Department Care Team (Late st Contact Info) Description 11/14/2023 Telephone [facility] [address] [place] [address] Silva Light MD [address] [place], [place] [phone] Nurse Triage Social History Tobacco Use Types [...] Triage call Pt reports was discharged from [facility] 11/09/23 with prescription for doxycycline 100mg 2x/ daily for left leg cellulitis. Pt reports every time Pt takes the medication even with food Pt vomits. Pt is requesting a different medication. Pt has apt with PCP 11/30/23. Advised Pt will send this request to PCP and nursing staff at [facility] for follow up. Pt agreed with this [...] Description 04/03/2025 11:30 AM EDT Office Visit [facility] [address] [place] [address] Silva Light MD [address] [place], [place] [phone] 05/04/2025 10:45 AM EDT Office Visit [facility] [address] [place], [place] [phone] Walter Bar MD [address] [place] [address] documented as of this encounter Visit Diagnoses Not on filedocumented in this encounter Care Teams Back Up Machine Operator Relationship Specialty Start Date End Date Silva Light MD [address] [place] [address] PCP - General Family Medicine 08/06/13 Rossy Louie 12/09/24 02/06/25 Tamy Gonzalez, CORNELIA [address] [place] [address] Registered Nurse Family Medicine 02/09/25 02/18/25 Donn Ravi 02/09/25 03/24/25 Edu Ravi, CORNELIA [address] [place] [address] Registered Nurse Family Medicine 02/18/25 03/24/25 Goldie Alonso Store Management TraineePlant Culture Manager 03/16/25 documented as of this encounter
--- OUTSIDE RECORDS SUMMARY | 2025-04-01 16:50 | XMS_ITS | Encounter Summary ---
Author Organization [employer] Address [address] [facility] 7 [place] [address] Care Team Providers Care Concrete Vibrator Operator Name Role Phone Silva Light MD Primary Care Provider Rossy Louie Unavailable Tamy Gonzalez RN Unavailable [phone] Donn Ravi Unavailable Edu Ravi RN Unavailable [phone] Reason for Visit * Reason Onset Date Comments Nurse Triage 10/20/2024 Encounter Details Date Type Department Care Team (Late st Contact Info) Description 10/20/2024 Telephone [facility] [address] [place] [address] Silva Light MD [address] [place], [place] [phone] Nurse Triage Social History Tobacco Use Types [...] in [facility] today. Offered to come [address] take a look at lump. Pt agreed with disposition and will come to [facility] today. Insurance is verified as active. Protocol [...] caller accepted this outcome. Contact pt at [phone] documented in this encounter Plan of Treatment Upcoming Encounters Date Type Department Care Team (Late st Contact Info) Description 04/03/2025 11:30 AM EDT Office Visit [facility] PEDS [address] [place] [address] Silva Light MD [address] [place] [address] 05/04/2025 10:45 AM EDT Office Visit [facility] [address] [place], [place] [phone] Walter aBr MD [address] [place] [address] documented as of this encounter Visit Diagnoses Not on filedocumented in this encounter Care Teams Concrete Vibrator Operator Relationship Specialty Start Date End Date Silva Light MD [address] [place] [address] PCP - General Family Medicine 08/06/13 Rossy Louie 12/09/24 02/06/25 Tamy Gonzalez, CORNELIA [address] [place] [address] Registered Nurse Family Medicine 02/09/25 02/18/25 Donn Ravi 02/09/25 03/24/25 Edu Ravi, RN [address] [place] [address] Registered Nurse Family Medicine 02/18/25 03/24/25 Goldie Alonso Differential TesterStock Checkerer 03/16/25 documented as of this encounter
--- OUTSIDE RECORDS SUMMARY | 2025-04-01 16:50 | XMS_ITS | Encounter Summary ---
Author Organization [employer] Address [address] [place] [address] [address] [place] [address] Care Team Providers Care Cash Management Officer Name Role Phone Silva Light MD Primary Care Provider Rossy Louie Unavailable Tamy Gonzalez RN Unavailable [phone] Donn Ravi Unavailable Edu Ravi RN Unavailable [phone] Reason for Visit * Reason Comments Med Refill Encounter Details Date Type Department Care Team (Late st Contact Info) Description 03/26/2023 Refill [facility] P[facility]S [address] [place], [place] [phone] Silva Light MD [address] [place] [address] Post-traumatic stress disorder, unspecified Social History Tobacco [...] Department Care Team (Late Contact Info) Description 04/03/2025 11:30 AM EDT Office Visit [facility] [address] [place] [address] Silva Light MD [address] [place] [address] 05/04/2025 10:45 AM EDT Office Visit [facility] [address] [place] [address] Walter Bar MD [address] [place] [address] documented as of this encounter Visit Diagnoses Diagnosis Post-traumatic stress disorder, unspecified documented in this encounter Care Teams Cash Management Officer Relationship Specialty Start Date End Date Silva iLght MD [address] [place] [address] PCP - General Family Medicine 08/06/13 Rossy Louie 12/09/24 02/06/25 Tamy Gonzalez, CORNELIA [address] [place] [address] Registered Nurse Family Medicine 02/09/25 02/18/25 Donn Ravi 02/09/25 03/24/25 Edu Ravi, RN [address] [place] [address] Registered Nurse Family Medicine 02/18/25 03/24/25 Goldie Alonso Silverware CleanerEntry Level Machine Operator 03/16/25 documented as of this encounter
== END 2025-04-01 15:50 | disposition home or self-care (01) ==
LOC: HO.HGI 14:34
PROVIDERS: PCP Student in an Organized Health Care Education/Training Program; Visit Provider Nurse Practitioner
DX: K21.9 Gastro-esophageal reflux disease without esophagitis (principal); K58.0 Irritable bowel syndrome with diarrhea; K70.0 Alcoholic fatty liver; R63.4 Abnormal weight loss; E03.9 Hypothyroidism, unspecified; J90 Pleural effusion, not elsewhere classified
CPT/HCPCS: 99214

== ENCOUNTER → 2025-04-01 14:33 | Outpatient (BNVA) | payer MEDICAID, SELFPAY | PROVIDERS: PCP Student in an Organized Health Care Education/Training Program; Visit Provider Nurse Practitioner | DX: K21.9 Gastro-esophageal reflux disease without esophagitis (principal); K58.0 Irritable bowel syndrome with diarrhea; K70.0 Alcoholic fatty liver; E03.9 Hypothyroidism, unspecified; R63.4 Abnormal weight loss; J90 Pleural effusion, not elsewhere classified | CPT/HCPCS: 99212 ==

== ENCOUNTER 2025-04-03 12:00 | Outpatient (REF) | payer MEDICAID, SELFPAY ==
--- OUTSIDE RECORDS SUMMARY | 2025-04-03 11:30 | XMS_ITS | Encounter Summary ---
Author Organization [employer] Address [address] [place] [address] Care Team Providers Care Keno Terminal Operator Name Role Phone Holly Light MD Primary Care Provider [phone] Reason for Referral * Consultation (Urgent) - Pending Review Specialty Diagnoses / Procedures Referred By Andre lópez Referred To Contact Neurology Diagnoses Primary parkinsonism (CMS/HCC) Holly Light MD [address] [place] [address] Phone: tel: fax: Referral ID Status Reason Start Date Expiration Date Visits Requested Visits Authorized [id number] Pending Review Specialty Services Required 04/03/2025 04/03/2026 1 1 * Imaging (Routine) - Authorized Specialty Diagnoses / Procedures Referred By Andre lópez Referred To Contact Radiology Diagnoses Encounter for screening mammogram for breast cancer Procedures BI Mammogram Screening Tomosynthesis Bilateral Holly Light MD [address] [place] [address] Phone: tel: fax: [address] Phone: tel: fax: Referral ID Status Reason Start Date Expiration Date V isits Requested Visits Authorized [id number] Authorized 04/03/2025 04/03/2026 1 1 Reason for Visit * Reason Comments Hypertension fu Encounter Details Date Type Department Care Team ([facility] st Contact Info) Description 04/03/2025 11:30 AM EDT Office Visit [facility]S [address] [place] [address] Holly Light MD [address] [place], [place] Hypothyroidism, unspecified type (Primary Dx); Pleural effusion; Chronic right shoulder pain; Encounter for screening mammogram for breast cancer; Primary parkinsonism (CMS/HCC); Edema, unspecified type Social History Tobacco Use Types [...] housing situation today? I have yaseminjinny soriano 12/09/[address] you [...] Sign Reading Time Taken Comments Blood Pressure 129/68 04/03/2025 11:32 AM EDT Pulse 78 04/03/2025 11:32 AM EDT Temperature 36.1 C (96.9 F) 04/03/2025 11:32 AM EDT Respiratory Rate 18 04/03/2025 11:32 AM EDT Oxygen Saturation - - Inhaled Oxygen Concentration - - Weight 92.1 kg (203 lb) 04/03/2025 11:32 AM EDT Height 167.6 cm (5' 6 ) 04/03/2025 11:32 AM EDT Body Mass Index 32.77 04/03/2025 11:32 AM EDT documented in this encounter Progress Notes * Holly Light MD - 04/03/2025 11:30 AM EDT Subjective Patient ID: Judy Alexander is a 59 y.o. female who presents for Hypertension (fu). Edema Presents with chronic edema. The onset of the episode was gradual. The problem presents itself constantly. The problem has been gradually improving. The edema is present on the both side(s). Pertinent negative symptoms include no abdominal pain, no abdominal swelling, no chest pain, no cough, no decreased urine volume, no fatigue, no hemoptysis, no nausea, no nocturia, no orthopnea, no presyncope, no syncope and no vomiting. Treatments tried include diuretics. There has been significant improvement on treatment(s). Review of Systems Constitutional: Negative. Negative for fatigue. Respiratory: Negative. Negative for cough and hemoptysis. Cardiovascular: Negative for chest pain and syncope. Gastrointestinal: Negative. Negative for abdominal pain, nausea and vomiting. Genitourinary: Negative. Negative for decreased urine volume and nocturia. Objective Physical Exam Constitutional: Appearance: Normal appearance. Cardiovascular: Rate and Rhythm: Normal rate and regular rhythm. Pulses: Normal pulses. Heart sounds: Normal heart sounds. Pulmonary: Effort: Pulmonary effort is normal. Abdominal: General: Abdomen is flat. Neurological: Mental Status: She is alert. Assessment/Plan Diagnoses and all orders for this visit: Hypothyroidism, unspecified type Comments: Labs ordered Cont Levothyroxine Orders: - TSH with Reflex to Free T4; Future Pleural effusion Comments: ? hepatic origin CT reviewed .Awaiting xray Chronic right shoulder pain Comments: xray ordered Started On voltaren gel Encounter for screening mammogram for breast cancer - BI Mammogram Screening Tomosynthesis Bilateral; Future Primary parkinsonism (CMS/HCC) Comments: Stable No changes in meds Follows with [facility] Edema, unspecified type Comments: Cont Lasix Labs ordered Orders: - Basic Metabolic Panel; Future Other orders - Diclofenac Sodium (Voltaren) 1 % gel; Use topical BID documented in this encounter Miscellaneous Notes * Addendum Note - Holly Light MD - 04/03/2025 11:30 AM EDTAddended by: HOLLY LIGHT on: 04/03/2025 11:42 AM Modules accepted: Orders documented in this encounter Plan of Treatment Upcoming Encounters Date Type Department Care Team (Late st Contact Info) Description 05/04/2025 10:45 AM EDT Office Visit [facility]S [address] [place] [address] Walter Bar MD [address] [place] [phone] Scheduled Orders Name Type Priority Associated Diagnoses Orde r Schedule TSH with Reflex to Free T4 Lab Routine Hypothyroidism, unspecified type Expected: 04/03/2025 (Approximate), Expires: 04/03/2026 BI Mammogram Screening Tomosynthesis Bilateral Imaging Routine Encounter for screening mammogram for breast cancer Expected: 04/03/2025, Expires: 06/03/2026 Basic Metabolic Panel Lab Routine Edema, unspecified type Expected: 04/03/2025 (Approximate), Expires: 04/03/2026 Scheduled Referrals Name Type Priority Associated Diagnoses Orde r Schedule Referral to Neurology Outpatient Referral Urgent Primary parkinsonism (CMS/HCC) Expected: 04/03/2025 (Approximate), Expires: 04/03/2026 documented as of this encounter Visit Diagnoses Diagnosis Hypothyroidism, unspecified type- Primary Pleural effusion Unspecified pleural effusion Chronic right shoulder pain Pain in joint, shoulder region Encounter for screening mammogram for breast cancer Primary parkinsonism (CMS/HCC) Paralysis agitans Edema, unspecified type documented in this encounter Additional Health Concerns Assessment Noted Time PHQ-9 Depression Total Score: 0 12/10/19 25 10:46 AM EDT documented as of this encounter Care Teams Keno Terminal Operator Relationship Specialty Start Date End Date Holly Light MD [address] [place] [address] PCP - General Family Medicine 08/06/13 Goldie Alonso Correspondence DictatorFolder Stitcher Operator 03/16/25 documented as of this encounter
--- OUTSIDE RECORDS SUMMARY | 2025-04-03 12:41 | XMS_ITS | Encounter Summary ---
Author Organization [employer] Address [address] [place] [address] 7 [place] [address] Care Team Providers Care Social Media Content Specialist Name Role Phone Silva Light MD Primary Care Provider Rossy Louie Unavailable Tamy Gonzalez RN Unavailable [phone] Donn Ravi Unavailable Edu Ravi RN Unavailable [phone] Reason for Visit * Reason Onset Date Comments Nurse Triage 11/14/2023 Encounter Details Date Type Department Care Team (Late st Contact Info) Description 11/14/2023 Telephone [facility] MEDICINE [address] [place] [address] Silva Light MD [address] [place], [place] [phone] Nurse Triage Social History Tobacco Use Types [...] Triage call Pt reports was discharged from [facility] 11/09/23 with prescription for doxycycline 100mg 2x/ daily for left leg cellulitis. Pt reports every time Pt takes the medication even with food Pt vomits. Pt is requesting a different medication. Pt has apt with PCP 11/30/23. Advised Pt will send this request to PCP and nursing staff at [facility] for follow up. Pt agreed [facility] Info) Description 05/04/2025 10:45 AM EDT Office Visit [facility] MED & PEDS [address] [place] [address] Walter Bar MD [address] [place], [place] [phone] documented as of this encounter Visit Diagnoses Not on filedocumented in this encounter Care Teams Social Media Content Specialist Relationship Specialty Start Date End Date Silva Light MD [address] [place] [address] PCP - General Family Medicine 08/06/13 Rossy Louie 12/09/24 02/06/25 Tamy Gonzalez, CORNELIA [address] [place] [address] Registered Nurse Family Medicine 02/09/25 02/18/25 Donn Ravi 02/09/25 03/24/25 Edu Ravi, CORNELIA [address] [place] [address] Registered Nurse Family Medicine 02/18/25 03/24/25 Goldie Alonso Envelope FolderPrecision Dancer 03/16/25 documented as of this encounter
--- OUTSIDE RECORDS SUMMARY | 2025-04-03 12:41 | XMS_ITS | Encounter Summary ---
Author Organization [employer] Address [address] [facility] [address] [place] [address] Care Team Providers Care Housekeeper/Custodian/Laundry Worker Name Role Phone Silva Light MD Primary Care Provider Rossy Louie Unavailable Tamy Gonzalez RN Unavailable [phone] Donn Ravi Unavailable Edu Ravi RN Unavailable [phone] Encounter Details Date Type Department Care Team (Late st Contact Info) Description 11/08/2022 Orders Only [facility] MED & PEDS [address] [place], [place] [phone] Sanju Mcgee MD [address] [place], [place] [phone] Primary osteoarthritis of left knee (Primary Dx) [...] Description 05/04/2025 10:45 AM EDT Office Visit [facility] MED [facility]EDS [address] [place] [address] Walter Bar MD [address] [place] [address] documented as of this encounter Visit Diagnoses Diagnosis Primary osteoarthritis of left knee- Primary documented in this encounter Care Teams Housekeeper/Custodian/Laundry Worker Relationship Specialty Start Date End Date Silva Light MD [address] [place] [address] PCP - General Family Medicine 08/06/13 Rossy Louie 12/09/24 02/06/25 Tamy Gonzalez RN [address] [place] [address] Registered Nurse Family Medicine 02/09/25 02/18/25 Donn Ravi 02/09/25 03/24/25 Edu Ravi, CORNELIA [address] [place] [address] Registered Nurse Family Medicine 02/18/25 03/24/25 Goldie Alonso Plexiglas FormerCrm Dynamics Developer 03/16/25 documented as of this encounter
--- OUTSIDE RECORDS SUMMARY | 2025-04-03 12:41 | XMS_ITS | Encounter Summary ---
Author Organization [employer] Address [address] [facility] 7 [place] [address] Care Team Providers Care Skydiving Instructor Name Role Phone Silva Light MD Primary Care Provider Rossy Louie Unavailable Tamy Gonzalez RN Unavailable [phone] Donn Ravi Unavailable Edu Ravi RN Unavailable [phone] Reason for Visit * Reason Onset Date Comments Nurse Triage 10/20/2024 Encounter Details Date Type Department Care Team (Late st Contact Info) Description 10/20/2024 Telephone [facility] MEDICINE [address] [place] [address] Silva Light MD [address] [place], [place] [phone] Nurse Triage Social History Tobacco Use Types [...] in [facility] today. Offered to come [address] to take a look at lump. Pt agreed with disposition and will come to [facility] today. Insurance is verified as active. Protocol [...] caller accepted this outcome. Contact pt at [phone] documented in this encounter Plan of Treatment Upcoming Encounters Date Type Department Care Team ([facility] st Contact Info) Description 05/04/2025 10:45 AM EDT Office Visit [facility] MED & PEDS [address] [place] [address] Walter Bar MD [address] [place], [place] [phone] documented as of this encounter Visit Diagnoses Not on filedocumented in this encounter Care Teams Skydiving Instructor Relationship Specialty Start Date End Date Silva Light MD [address] [place] [address] PCP - General Family Medicine 08/06/13 Rossy Louie 12/09/24 02/06/25 Tamy Gonzalez, CORNELIA [address] [place] [address] Registered Nurse Family Medicine 02/09/25 02/18/25 Donn Ravi 02/09/25 03/24/25 Edu Ravi, RN [address] [place] [address] Registered Nurse Family Medicine 02/18/25 03/24/25 Goldie Alonso Shrub GrowerJigger Artisan 03/16/25 documented as of this encounter
--- OUTSIDE RECORDS SUMMARY | 2025-04-03 12:41 | XMS_ITS | Encounter Summary ---
Author Organization [employer] Address [address] [facility] 7 [place] [address] Care Team Providers Care Slitter And Cutter Operator Name Role Phone Silva Light MD Primary Care Provider [phone] Rossy Louie Unavailable Tamy Gonzalez RN Unavailable [phone] Donn Ravi Unavailable Edu Ravi RN Unavailable [phone] Reason for Visit * Reason Onset Date Comments Call Back Request 09/23/2024 Encounter Details Date Type Department Care Team (Late st Contact Info) Description 09/23/[address] [facility] MEDICINE [address] [place] [address] Silva Light MD [address] [place], [place] [phone] Call Back Request Social History Tobacco Use [...] 9:51 AM EST Tc from Alice from [facility] calling in requesting a status on prior message. * Telephone Encounter - Teresa Leal - 09/23/2024 11:54 AM EST Tc from Alice with [facility] to clarify information. If the patient has capacity, was complained about medications or if the pcp has any concerns about the patient. documented in this encounter Plan of Treatment Upcoming Encounters Date Type Department Care Team (Late st Contact Info) Description 05/04/2025 10:45 AM EDT Office Visit [facility] MED & PEDS [address] [place] [address] Walter Bar MD [address] [place], [place] [phone] documented as of this encounter Visit Diagnoses Not on filedocumented in this encounter Care Teams Slitter And Cutter Operator Relationship Specialty Start Date End Date Silva Light MD [address] [place] [address] PCP - General Family Medicine 08/06/13 Rossy Louie 12/09/24 02/06/25 Tamy Gonzalez, CORNELIA [address] [place] [address] Registered Nurse Family Medicine 02/09/25 02/18/25 Donn Ravi 02/09/25 03/24/25 Edu Ravi, CORNELIA [address] [place] [address] Registered Nurse Family Medicine 02/18/25 03/24/25 Goldie Alonso Data Analytics DeveloperBrick Pointer 03/16/25 documented as of this encounter
--- OUTSIDE RECORDS SUMMARY | 2025-04-03 12:41 | XMS_ITS | Encounter Summary ---
Author Organization [employer] Address [address] [place] [address] 7 [place] [address] Care Team Providers Care Refrigeration Specialist Name Role Phone Silva Light MD Primary Care Provider Rossy Louie Unavailable Tamy Gonzalez RN Unavailable [phone] Donn Ravi Unavailable Edu Ravi RN Unavailable [phone] Reason for Visit * Reason Comments Med Refill Encounter Details Date Type Department Care Team (Late st Contact Info) Description 03/26/2023 Refill [facility] MED & PEDS [address] [place], [place] [phone] Silva Light MD 505 [place] [address] Post-traumatic stress disorder, unspecified Social History Tobacco [...] Department Care Team (Late Contact Info) Description 05/04/2025 10:45 AM EDT Office Visit [facility] MED & PEDS [address] [place] [address] Walter Bar MD [address] [place], [place] [phone] documented as of this encounter Visit Diagnoses Diagnosis Post-traumatic stress disorder, unspecified documented in this encounter Care Teams Refrigeration Specialist Relationship Specialty Start Date End Date Silva Light MD [address] [place] [address] PCP - General Family Medicine 08/06/13 Rossy Louie 12/09/24 02/06/25 Tamy Gonzalez, CORNELIA [address] [place] [address] Registered Nurse Family Medicine 02/09/25 02/18/25 Donn aRvi 02/09/25 03/24/25 Edu Ravi, CORNELIA [address] [place] [address] Registered Nurse Family Medicine 02/18/25 03/24/25 Goldie Alonso Label Machine OperatorAccount Information Clerk 03/16/25 documented as of this encounter
--- OUTSIDE RECORDS SUMMARY | 2025-04-03 12:42 | XMS_ITS | Clinical Summary ---
Author Organization [employer] Address [address] [place] [address] Care Team Providers Care Sequins Stringer Name Role Phone Silva Light MD Primary Care Provider [phone] Allergies Active Allergy Reactions Criticality Noted Date [...] AT BEDTIME 60 tablet 03/26/20 25 Active Diclofenac Sodium (Voltaren) 1 % gel Use topical BID 100 g 3 04/03/20 25 Active carbidopa-levodop a (Sinemet) 25-100 MG [...] Encounters Date Type Department Care Team Description 04/03/2025 11:30 AM EDT Office Visit [facility] [address] [place] [address] Silva Light MD Hypothyroidism, unspecified type (Primary Dx); Pleural effusion; Chronic right shoulder pain; Encounter for screening mammogram for breast cancer; Primary parkinsonism (CMS/HCC); Edema, unspecified type 04/03/2025 Travel 04/02/2025 Travel 04/02/2025 Telephone [facility] [address] [place] [address] Silva Light MD Chart Prep 03/25/2025 Refill [facility] [address] [place] [address] Silva Light MD 03/24/2025 Patient Outreach [facility] [address] [place] [address] Silva Light MD Care Coordination (C3/CHW Jarely Trav, reschedule missed assessment appt_closed ) 03/20/[address] [address] Silva Light MD Referral 03/19/2025 9:30 AM EDT Office Visit [facility] [address] [place] [address] Sanju Mcgee MD Acute pain of right knee (Primary Dx); Primary osteoarthritis of right knee; Chronic right shoulder pain 03/19/2025 Orders Only [facility] External Provider, [facility] 03/19/2025 Travel 03/18/2025 Telephone [facility] [address] [place] [address] Silva Light MD Nurse Triage 03/17/2025 Patient Outreach [address] [address] Silva Light MD Care Coordination ([facility]/W Donn Ravi, TC #2 RS missed assessment appt_lvm) 03/16/2025 Telephone [facility] [address] [place] [address] Silva Light MD Care Coordination (ICP Care Plan) 03/16/2025 Telephone [facility] [address] [place] [address] Silva Light MD 03/10/2025 Patient Outreach [address] [address] Silva Light MD Care Coordination ( [facility]/Tyson Mariehedule missed assessment_lvm ) 02/25/2025 Patient Outreach [address] [address] Silva Light MD Care Management (C3- initial assessment/ enrollment. lvm) 02/24/2025 Refill [facility] [address] [place] [address] Silva Light MD Hypothyroidism, unspecified type 02/23/2025 Patient Outreach [address] [address] Silva Light MD 02/19/2025 Telephone [facility] [address] [place] [address] Silva Light MD No Show 02/18/2025 Patient Outreach [address] [address] Silva Light MD Care Coordination ([facility]/W Donn Ravi, Initial assessment scheduled ) 02/13/2025 Patient Outreach [address] [address] Silva Ligth MD 02/11/2025 Patient Outreach [address] [address] Silva Light MD Pre-visit Planning (Pre visit planning LVM ) 02/09/2025 Patient Outreach [address] [address] Silva Light MD Care Coordination ([facility]/W Donn Ravi, Initial outreach attempt_lvm ) 02/09/2025 Patient Outreach [address] [address] Silva Light MD Care Coordination (C3/Nya Ravi, Chart review) 02/09/2025 Patient Outreach [facility] [address] [place] [address] Silva Light MD Care Coordination (C3 chart review) 02/09/2025 Patient Outreach [address] [address] Silva Light MD 02/06/2025 Orders Only GENERIC EXTERNAL DATA DEPARTMENT Provider, Generic External Data 02/06/2025 Telephone [facility] [address] [place], [place] [phone] Silva Light MD Nurse Triage 02/06/2025 Patient Outreach [address] [address] Silva Light MD Care Coordination ([facility] f/u) 02/06/2025 Patient Outreach [facility] [address] [place], [place] [phone] Silva Light MD Care Coordination (C3 f/u call#3- Unable to reach pt. Case closure due to lost of contact) 02/02/2025 10:45 AM EDT Office Visit [facility] [address] [place] [address] Walter Bar MD Alcohol use disorder, severe, dependence (CMS/HCC) (Primary Dx) 02/02/2025 Orders Only GENERIC EXTERNAL DATA DEPARTMENT Provider, Generic External Data 02/02/2025 Travel 01/29/2025 Refill [facility] [address] [place] [address] Silva Light MD 01/22/2025 Patient Outreach [facility] [address] [place] [phone] Silva Light MD Care Coordination ([facility] f/u) 01/22/2025 Patient Outreach [facility] [address] [place] [address] Silva Light MD Care Coordination ([facility] f/u call #2- LVM) 01/07/2025 Patient Outreach [facility] [address] [place] [address] Silva Light MD Care Coordination (F/u call- LVM) 01/02/2025 Refill [facility] [address] [place] [address] Silva Light MD Allergy, sequela 01/02/2025 Patient Outreach [facility] [address] [place] [phone] Silva Light MD Care Coordination (SD[facility] f/u) 01/01/2025 Refill [facility] [address] [place] [address] Silva Light MD Allergy, sequela from Last [...] housing situation today? I have yasemin christie 12/09/[address] you li [...] 18 04/03/2025 11:32 AM EDT Oxygen Saturation 97% 03/19/2025 9:43 AM EDT Inhaled Oxygen Concentration - - Weight 92.1 kg (203 lb) 04/03/2025 11:32 AM EDT Height 167.6 cm (5' 6 ) 04/03/2025 11:32 AM EDT Body Mass Index 32.77 04/03/2025 11:32 AM EDT Plan of Treatment Upcoming Encounters Date Type Department Care Team (Late st Contact Info) Description 05/04/2025 10:45 AM EDT Office Visit [facility] [address] [place] [address] Walter Bar MD [address] [place] [address] Health Maintenance Due Date Last Done Comments [...] 12/09/2025 12/09/2024, 12/10/19 SDOH Screening 12/09/2025 12/09/2024 Disability Screening 04/02/2026 04/02/2025 Tobacco Screening 04/03/2026 04/03/2025 Dental X-Ray: Full Mouth 05/22/2027 05/21/2024, 08/30 [...] AM EDT Narrative 03/20/2025 9:07 AM EDT [address] [address] [address] Scan Report Signed Patient: Judy Alexander MR#: [id number] : 1965 Acct:[id number] Age/Sex: 59 / F ADM Date: 03/19/25 [facility]: Maritza ASHFORD Ordering Physician: Maritza Culver Date of Service: 03/19/25 Procedure(s): CT abdomen pelvis w IV con Accession Number(s): [id number] cc: Maritza Culver; Silva Light MD Report Number: [id number]: Total DLP = 633.00 mGy-cm CLINICAL HISTORY: [...] in OV> 03/20/25906 DD/ 5 TD/TT: 03/20/25905 Offline Cutter: Procedure Note Donotuseinterpreter, Image - 03/20/[address] [place] [address] [address] Scan Report Signed Patient: Judy Alexander LMR#: [id number] : 1965Acct:[id number] Age/Sex: 59 / FADM Date: 03/19/25 [facility] Dr: Maritza ASHFORD Ordering Physician: Maritza Culver Date of Service: 03/19/25 Procedure(s): CT abdomen pelvis w IV con Accession Number(s): [id number] cc: Maritza Culver; Silva Light MD Report Number: [id number]: Total DLP = 633.00 mGy-cm CLINICAL HISTORY: [...] in OV> 03/20/25906 DD/ 5 TD/TT: 03/20/25905 Offline Cutter: [facility] External Provider IMG CT PROCEDURES Final Result * POCT Creatinine GFR (03/19/2025 1:46 PM EDT) POCT Creatinine 0.7 0.5 - 1.4 mg/dL [facility] GFR POC >60 [facility] Comment:Chronic Kidney Disea se: Estimated GFR < 60 mL/min/1.56e0Pjlwbx Kidney Disease: Estimated GFR < 15 mL/min/1.73m2 03/19/2025 1:46 PM EDT 03/20/2025 11:41 AM EDT Narrative [facility] - 03/20/2025 11:44 AM EDT [id number] Generic External Data Provider LAB POINT OF CARE TEST DOCKED DEVICE ORDERABLES Final Result [facility] [address] [place] [address] [phone] * XR Knee 3 Views Right (03/19/2025 11:37 AM EDT) Anatomical Region Laterality Modality Lower Extremities, Knee Right Radiogra phic Imaging 03/19/2025 11:3 7 AM EDT Narrative 03/19/2025 12:01 PM EDT [address] [address] XRay Report Signed Patient: Judy Alexander MR#: [id number] : 1965 Acct:[id number] Age/Sex: 59 / F ADM Date: 03/19/25 [facility]: [facility] Attending Dr: Maritza ASHFORD Ordering Physician: Sanju Mcgee MD Date of Service: 03/19/25 Procedure(s): XR knee RT 3V Accession Number(s): [id number] cc: Sanju Mcgee MD; Silva Light MD [...] Danial Peralta MD 03/19/2025 11:58 AM EDT Dictated By: Danial Peralta MD Signed By: <Electronically signed by Danial Peralta MD in OV> 03/19/25 1158 DD/ 1137 TD/TT: 03/19/25 1147 Offline Cutter: Procedure Note Donotuseinterpreter, Image - 03/19/[address] [address] XRay Report Signed Patient: Judy lAexander LMR#: [id number] : 1965Acct:[id number] Age/Sex: 59 / FADM Date: 03/19/25 Loc: [facility] Attending Dr: Maritza ASHFORD Ordering Physician: Sanju Mcgee MD Date of Service: 03/19/25 Procedure(s): XR knee RT 3V Accession Number(s): [id number] cc: Sanju Mcgee MD; Silva Light MD [...] 03/19/25 1158 DD/ 1137 TD/TT: 03/19/25 1147 Offline Cutter: us Sanju Mcgee MD IMG XR PROCEDURES Final Res ult * Drug Monitoring, Panel 1, Screen, Urine (02/06/2025 4:19 PM EDT) Opiate Screen Urine Not Detected Not Detect [facility] Comment:Opiate cut-off is 30 0 ng/mL.Positive results are unconfirmed and should not be used fornon-medical purposes. Barbiturates, Urine Not Detected Not Detect [facility] Comment:Barbiturate cut-off is 200 ng/mL.Positive results are unconfirmed and should not be used fornon-medical purposes. Phencyclidine Screen Urine Not Detected Not Detect [facility] Comment:Phencyclidine cut-of f is 25 ng/mL.Positive results are unconfirmed and should not be used fornon-medical purposes. Amphetamine Screen Urine Not Detected Not Detect [facility] Comment:Amphetamine cut-off is 1000 ng/mL.Positive results are unconfirmed and should not be used fornon-medical purposes. Benzodiazepines Screen Urine Not Detected Not Detect [facility] Comment:Benzodiazepine cut-o ff is 200 ng/mL.Positive results are unconfirmed and should not be used fornon-medical purposes. Cocaine Screen Urine Not Detected Not Detect [facility] Comment:Cocaine cut-off is 3 00 ng/mL.Positive results are unconfirmed and should not be used fornon-medical purposes. Cannabinoid Screen Urine Not Detected Not Detect [facility] Comment:Cannabinoid cut-off is 50 ng/mL.Positive results are unconfirmed and should not be used fornon-medical purposes. Methadone Screen, Urine Not Detected Not Detect ng/mL [facility] Comment:Methadone cut-off is 300 ng/mL.Positive results are unconfirmed and should not be used fornon-medical purposes. FENTANYL URINE Not Detected Not Detect [facility] Comment:Fentanyl cut-off is 1 ng/mL.Positive results are unconfirmed and should not be used fornon-medical purposes. Oxycodone Urine Screen Not Detected Not Detect ng/mL [facility] Comment:Oxycodone cut-off is 100 ng/mL.Positive results are unconfirmed and should not be used fornon-medical purposes. Buprenorphine Screen Not Detected Not Detect ng/mL [facility] Comment:Buprenorphine cut-of f is 5 ng/mL.Positive results are unconfirmed and should not be used fornon-medical purposes. 02/06/2025 4:19 PM EDT 02/06/2025 4:22 PM EDT Generic External Data Provider LAB URINE ORDERAB LES Final Result [facility] [address] [place] [address] [phone] * Urinalysis w/reflex microscopic (02/06/2025 4:19 PM EDT) Color Urine Dark Yellow [facility] Appearance Urine Cloudy [facility] PH 6.5 5.0 - 9.0 [facility] Glucose Urine UA Negative Negative mg/dL [facility] Urine Blood Negative Negative [facility] Specific Freedom - Urine 1.025 1.005 - 1.025 [facility] Urine Protein Trace Neg-Trace mg/dL [facility] Urine Ketones Trace Negative mg/dL [facility] Nitrite Urine Negative Negative [facility] Leukocyte Esterase Urine Negative Negative [facility] 02/06/2025 4:19 PM EDT 02/06/2025 4:22 PM EDT Narrative [facility] - 02/06/2025 4:38 PM EDT [id number], Clean Catch us Generic External Data Provider LAB URINE ORDERAB LES Final Result Performing Organization Address [facility] Co de Phone Number [facility] [address] [place] [phone] * Acetaminophen level (02/06/2025 3:48 PM EDT) Acetaminophen LAB <3 <30 mcg/mL [facility] 02/06/2025 3:48 PM EDT 02/06/2025 3:50 PM EDT us Generic External Data Provider LAB BLOOD ORDERAB LES Final Result Performing Organization Address [facility] de Phone Number [facility] [address] [place] [phone] * (ABNORMAL) Salicylate (02/06/2025 3:48 PM EDT) Salicylate <5.0(L) 15 - 30 mg/dL [facility] 02/06/2025 3:48 PM EDT 02/06/2025 3:50 PM EDT us Generic External Data Provider LAB BLOOD ORDERAB LES Final Result Performing Organization Address [facility] Co de Phone Number [facility] [address] [place] [phone] * (ABNORMAL) Urinalysis, Complete, with Reflex to Culture (02/02/2025 11:10 AM EDT) Color Urine Dark Yellow [facility] Appearance Urine Turbid [facility] PH 6.0 5.0 - 9.0 [facility] Glucose Urine UA Negative Negative mg/dL [facility] Urine Blood Negative Negative [facility] Specific Freedom - Urine >=1.030(H) 1.005 - 1.025 [facility] Urine Protein 30 (1+)(A) Neg-Trace mg/dL [facility] Urine Ketones Trace Negative mg/dL [facility] Nitrite Urine Positive(A) Negative [facility] Leukocyte Esterase Urine Small (1+)(A) Negative [facility] RBC Urine 0-2 0 - 2 /HPF [facility] Urine WBC 0-5 0 - 5 /HPF [facility] Urine Squamous Epithelial Cell >20 0 - 2 /HPF [facility] Urine Bacteria 2+ None Seen [facility] Hyaline Casts, Urine 0-2 0 - 2 /LPF [facility] 02/02/2025 11:1 0 AM EDT 02/02/2025 2:28 PM EDT Narrative [facility] - 02/02/2025 2:52 PM EDT Urine, Clean Catch us Generic External Data Provider LAB URINE ORDERAB LES Final Result [facility] [address] [place] [phone] * (ABNORMAL) TSH with Reflex to Free T4 (02/02/2025 11:05 AM EDT) TSH reflex Free T4 5.91(H) 0.32 - 4.0 uIU/mL [facility] 02/02/2025 11:0 5 AM EDT 02/02/2025 2:29 PM EDT us Generic External Data Provider LAB BLOOD ORDERAB LES Final Result Performing Organization Address [facility] Co de Phone Number [facility] [address] [place] [phone] * BUN (Blood Urea Nitrogen) (02/02/2025 11:05 AM EDT) Urea Nitrogen (BUN) 13 9 - 16 mg/dL [facility] 02/02/2025 11:0 5 AM EDT 02/02/2025 2:29 PM EDT Generic External Data Provider LAB BLOOD ORDERAB LES Final Result Performing Organization Address [facility] de Phone Number [facility] [address] [place] [phone] * T4, Free (02/02/2025 11:05 AM EDT) Free T4 (Free Thyroxine) 0.94 0.71 - 1.85 ng/dL [facility] 02/02/2025 11:0 5 AM EDT 02/02/2025 2:29 PM EDT Generic External Data Provider LAB BLOOD ORDERAB LES Final Result Performing Organization Address [facility] Co de Phone Number [facility] [address] [place] [phone] * Hemoglobin A1c (02/02/2025 11:05 AM EDT) Hemoglobin A1c 5.0 <6.0 % [facility] Comment:Hemoglobin A1C Refer ence Range Adults: 4.8 - 6.0 % Non diabetic: < 6.0 % Goal: < 7.0 %Additional Action Suggested: > 8.0 %Note: Hemoglobin A1c results are invalid for patients with abnormal amounts of HbF. Blood transfusions may impact the HbA1c concentration in the patient sample. Estimated Average Glucose 97 mg/dL [facility] Comment:eAG = Estimated ave rage glucose which is %A1C expressed asaverage glucose, using the formula of the A8K-JzyaalfNuoddnf Glucose study (ADAG), Diabetes Care, Vol.31,#8,Feb. 2007 02/02/2025 11:0 5 AM EDT 02/02/2025 2:29 PM EDT us Generic External Data Provider LAB BLOOD ORDERAB LES Final Result Performing Organization Address [facility]/ZIP Co de Phone Number [facility] [address] [place] [phone] * (ABNORMAL) Basic Metabolic Panel (02/02/2025 11:05 AM EDT) Sodium 142 135 - 145 mmol/L [facility] Potassium 3.6 3.3 - 5.1 mmol/L [facility] Chloride 109(H) 96 - 108 mmol/L [facility] Carbon Dioxide 24 22 - 29 mmol/L [facility] Anion Gap 13 12 - 20 [facility] Urea Nitrogen (BUN) 13 9 - 16 mg/dL [facility] Creatinine, Serum 0.87 0.5 - 1.4 mg/dL [facility] Estimated Glomerular Filt Rate >60 [facility] Comment:Chronic Kidney Disea se: Estimated GFR < 60 mL/min/1.84x3Wuptwc Kidney Disease: Estimated GFR < 15 mL/min/1.73m2 Glucose 90 60 - 115 mg/dL [facility] Calcium 9.5 8.4 - 10.2 mg/dL [facility] Blood Venous blood specimen / Unknown 02/02/2025 11:05 AM EDT 02/02/2025 2:29 PM EDT us Sanju Mcgee MD LAB BLOOD ORDERABLES Final Result Performing Organization Address [facility]/ZIP Co de Phone Number [facility] [address] [place] [phone] * Culture, Urine, Routine (02/02/2025 12:00 AM EDT) Urine Urine specimen obtained by clean catch procedure / Unknown 02/02/2025 02/02/2025 Comment:UACC Narrative [facility] - 02/03/2025 8:06 AM EDT Urine Culture Report Result Urine Culture > 100,000 cfu/ml Urine Culture Mixed bacterial romi characteristic of Urine Culture urogenital contamination. Specimen Source: Urine clean catch Generic External Data Provider LAB MICROBIOLOGY - GENERAL ORDERABLES Final Result Performing Organization Address [facility] Co de Phone Number [facility] [address] [place] [phone] * Hepatitis Panel, General (10/30/2024 5:05 PM EDT) Hepatitis A IgM Nonreactive Nonreactive [facility] Comment:IgM antibodies to ZAMORA V not detected; does not exclude earlyacute or recovered HAV infection. ~Hepatitis B Surface Antibody NONREACTIVE Nonreactive [facility] Comment:Nonreactive: < 8.00 mIU/mL Hepatitis B Core Antibody Nonreactive Nonreactive [facility] Hepatitis C Antibody Nonreactive Nonreactive [facility] Comment:Antibodies to HCV no t detected; does not exclude early acuteHCV infection. Hepatitis B Surface Ag Negative Negative [facility] 10/30/2024 5:05 PM EDT 10/30/2024 5:08 PM EDT Generic External Data Provider LAB BLOOD ORDERAB LES Final Result Performing Organization Address [facility] de Phone Number [facility] [address] [place] [phone] * HIV-1/2 Antigen and Antibodies, Fourth Generation, with Reflexes (10/30/2024 5:05 PM EDT) HIV AB/AG Nonreactive Nonreactive [facility] Comment:HIV-1 p24 Ag and/or HIV-1/HIV-2 Ab not detected.A test result that is nonreactive does not exclude thepossibility of exposure to or infection with HIV-1 and/orHIV-2. Nonreactive results in this assay for individualswith prior exposure to HIV-1 and/or HIV-2 may be due toantigen and antibody levels that are below the limit ofdetection of this assay.The [employer] HIV Ag/Ab Combo assay result andsupplemental assay results should be interpreted inconjunction with the patient's clinical presentation,history and other laboratory results. If the results areinconsistent with clinical evidence, additional testing issuggested to confirm the result. 10/30/2024 5:05 PM EDT 10/30/2024 5:08 PM EDT us Generic External Data Provider LAB BLOOD ORDERAB LES Final Result [facility] [address] [place] [phone] * (ABNORMAL) Lipid Panel, Standard (04/16/2024 12:03 PM EDT) Triglycerides 195(H) <150 mg/dL [facility] Comment:Desirable Triglyceri de: less than 150 mg/dLBorderline High Triglyceride 150-199 mg/dLHigh Triglyceride: 200-499 mg/dLVery High Triglyceride: greater than or equal to 5OO mg/dL Cholesterol 232(H) <200 mg/dL [facility] Comment:Desirable Cholestero l: less than 200 mg/dLBorderline High Cholesterol: 200-239 mg/dLHigh Cholesterol: greater than 239 mg/dL LDL Cholesterol Calculated 160(H) <100 mg/dL [facility] Comment:Desirable LDL: less than 100 mg/dLNear Optimal/Above Optimal LDL: 110- 129 mg/dLBorderline High LDL: 130-159 mg/dLHigh LDL: 160-189 mg/dLVery High LDL: greater than or equal to 190 mg/dL HDL Cholesterol 33(L) >40 mg/dL [facility] Comment:Desirable HDL: great er than 40 mg/dL Note: This HDL assay may give artificially low results in patients with liver disease. Blood Venous blood specimen / Unknown 04/16/2024 12:03 PM EDT 04/16/2024 2:13 PM EDT Silva Light MD LAB BLOOD ORDERABLES Final Resul t [facility] [address] [place] [phone] * Hm Colonoscopy (07/10/2022) Colonoscopy Normal Normal Historical Provider HEALTH MAINTENANCE Final Result * THINPREP TIS PAP AND HPV mRNA E6/E7 WITH REFLEX TO HPV 16,18/45 (12/20/2021 2:15 PM EDT) Clinical Information: None given [facility] COMMENT SEE COMMENT [employer] ON [...] has been evaluated with computer assisted technology. [facility] Materials Management Supervisor: SEE COMMENT [facility] Comment: CHAD CT(ASCP) CT screening location: [place] [address] HPV nRNA E6/E7 Not Detected Not Detected [facility] Comment: Methodology: [employer] Engineer-Mediated Amplification This assay detects E6/E7 viral messenger RNA (mRNA) from 14 high-risk HPV types (16,18,31,33,35,39,45,51,52,56,58,59,66,68). The analytical performance characteristics of this assay have been determined by [employer]. The modifications have not been cleared or approved by the FDA. This assay has been validated pursuant to the CLIA regulations and is used for clinical purposes. For additional information, please refer to http://education.Soum.Amplidata/faq/YBV621a6 (This link if provided for information/ educational purposes only.) Interpretation/Re sult: Negative for intraepithelial lesion or malignancy. [facility] LMP: NONE GIVEN [facility] Prev. BX: COLP NEG 2018/2019 [facility] Prev. PAP: ASCUS HPV NEG 2019 LSIL HPV NEG 2019 [facility] Review Materials Management Supervisor: SEE COMMENT [facility] Comment: KHUSHBU MARIA(ASCP) CT screening location: [address] [address] SOURCE: None given [facility] Statement Of Adequacy: SEE COMMENT [facility] Comment: Satisfactory for evaluation. Endocervical/transformation zone component present. 12/20/2021 2:15 PM EDT [facility] ORDER[facility] Final Result Performing Organization Address City/[facility]/ZIP Co de Phone Number [facility] [address] * Pap Smear (12/20/2021 12:00 AM EDT) Swab [facility] CYT[facility] ORDER[facility] F inal Result [address], [place] [address] * Mammography Report 1 (12/05/2021 8:42 AM [...] Most Recently Relevant to Health Maintenance Insurance [facility] C3 DENTAL-[facility] MEDICAID STAND ADULT Care Teams Sequins Stringer Relationship Specialty Start Date End Date Silva Light MD [address] [place] [id number] PCP - General Family Medicine 08/06/13 Goldie Alonso Spiritual Care CoordinatorTailings Dam Pumper 03/16/25
--- OUTSIDE RECORDS SUMMARY | 2025-04-03 12:42 | XMS_ITS | Encounter Summary ---
Author Organization [employer] Address [address] [place] [address] Care Team Providers Care Electrician Helper Name Role Phone Silva Light MD Primary Care Provider [phone] Encounter Details Date Type Department Care Team (Latest Contact Info) Description 04/03/2025 Travel Social History Tobacco Use Types Packs/Day [...] Description 05/04/2025 10:45 AM EDT Office Visit [facility] MED & PEDS [address] [place] [address] Walter Bar MD [address] [place] [address] documented as of this encounter Visit Diagnoses Not on filedocumented in this encounter Additional Health Concerns Assessment Noted Time PHQ-9 Depression Total Score: 0 12/10/19 10:46 AM EDT documented as of this encounter Care Teams Electrician Helper Relationship Specialty Start Date End Date Silva Light MD [address] [place] [address] PCP - General Family Medicine 08/06/13 Goldie Alonso Marketing Sales SupervisorShuttle Filler 03/16/25 documented as of this encounter
--- OUTSIDE RECORDS SUMMARY | 2025-04-03 12:42 | XMS_ITS | Encounter Summary ---
Author Organization [employer] Address [address] [place] [address] Care Team Providers Care Finish Machine Tender Name Role Phone Silva Light MD Primary Care Provider [phone] Encounter Details Date Type Department Care Team (Latest Contact Info) Description 04/02/2025 Travel Social History Tobacco Use Types Packs/Day [...] Description 05/04/2025 10:45 AM EDT Office Visit [facility] CH[facility] MED & PEDS [address] [place] [address] Walter Bar MD [address] [place] [address] documented as of this encounter Visit Diagnoses Not on filedocumented in this encounter Additional Health Concerns Assessment Noted Time PHQ-9 Depression Total Score: 0 12/10/19 10:46 AM EDT documented as of this encounter Care Teams Finish Machine Tender Relationship Specialty Start Date End Date Silva Light MD [address] [place] [address] PCP - General Family Medicine 08/06/13 Goldie Alonso Fulfillment CoordinatorPower Cutting Machine Operator 03/16/25 documented as of this encounter
--- OUTSIDE RECORDS SUMMARY | 2025-04-03 12:42 | XMS_ITS | Encounter Summary ---
Author Organization [employer] Address [address] [place] [address] [address] [place] [address] Care Team Providers Care Slubber Machine Operator Name Role Phone Silva Light MD Primary Care Provider [phone] Reason for Visit * Reason Onset Date Comments Chart Prep 04/02/2025 Encounter Details Date Type Department Care Team ([facility] Contact Info) Description 04/02/2025 Telephone [facility] CHC MED & PEDS [address] [place], [place] [phone] Silva Light MD [address] [place] [address] Chart Prep Social History Tobacco Use Types [...] is your housing situation today? I have yaseimn soriano 12/09/[address] you [...] Telephone Encounter - Tanisha Martínez MA - 04/02/2025 11:55 AM EDT Chart Prep Labs: done Images: done Referrals: complete Vaccines due: due Screenings: mammogram and pap smear Overdue care gaps: Disability screen documented in this encounter Plan of Treatment Upcoming Encounters Date Type Department Care Team (Late st Contact Info) Description 05/04/2025 10:45 AM EDT Office Visit [facility] MED & PEDS [address] [place] [address] Walter Bar MD [address] [place] [address] documented as of this encounter Visit Diagnoses Not on filedocumented in this encounter Additional Health Concerns Assessment Noted Time PHQ-9 Depression Total Score: 0 12/10/19 25 10:46 AM EDT documented as of this encounter Care Teams Slubber Machine Operator Relationship Specialty Start Date End Date Silva Light MD [address] [place] [address] PCP - General Family Medicine 08/06/13 Goldie Alonso Doctor Of Dental MedicinePattern Changer And Repairer 03/16/25 documented as of this encounter
[2025-04-03 14:59] LABS: Anion Gap 12 (12-20); Blood Urea Nitrogen 12 mg/dL (9-16); Calcium 9.2 mg/dL (8.4-10.2); Carbon Dioxide 25 mmol/L (22-29); Chloride 108 mmol/L (96-108); Estimated Glomerular Filt Rate > 60; Potassium 4.1 mmol/L (3.3-5.1); Sodium 141 mmol/L (135-145)
== END 2025-04-03 12:01 | disposition home or self-care (01) ==
LOC: HO.CHCLDS 12:00
PROVIDERS: Visit Provider Student in an Organized Health Care Education/Training Program
DX: E03.9 Hypothyroidism, unspecified (principal); R60.9 Edema, unspecified
CPT/HCPCS: 36415; 80048; 84443

== ENCOUNTER 2025-05-06 16:19 | Outpatient (REF) | payer MEDICAID, SELFPAY ==
--- NOTE | ~2025-05-06 | CT_ITS ---
Exam: CT chest without contrast-high resolution INDICATION:J90 - Pleural effusion, not elsewhere classified Prior: Chest x-ray performed 11/09/2023 TECHNIQUE: Axial CT was performed through the chest without contrast. Coronal and sagittal reformatted images were generated from the original axial data set. ALARA: The examination used one or more of the following radiation dose reduction techniques: Automated exposure control, iterative reconstruction, and/or adjustment of mA and/or KV. FINDINGS: Linear high attenuation in the right lower lobe is consistent with atelectasis and/or scarring. Lungs are clear otherwise. Small right pleural effusion and trace left pleural fluid is layering in the dependent lung bases. There is no adenopathy. No coronary artery calcifications are identified. There is a deep concavity of the right humeral head with marginal osteophytes. There is also irregular cavity of the glenoid CT/CT chest wo con - High Res IMPRESSION: Small layering right and trace left layering pleural effusions. Linear atelectasis and/or scarring is noted in the right lower lobe. End-stage degenerative changes of the right shoulder joint with irregular deep concavity of the right humeral head that could be posttraumatic, related to AVN, or septic arthritis. There is also deformity with increased concavity of the glenoid surface. Electronically signed by: Danial Peralta MD 05/06/2025 05:00 PM EDT
== END 2025-05-06 16:20 | disposition home or self-care (01) ==
LOC: HO.CT 16:19
PROVIDERS: PCP Student in an Organized Health Care Education/Training Program; Visit Provider Nurse Practitioner
DX: J90 Pleural effusion, not elsewhere classified (principal)
CPT/HCPCS: 71250

== ENCOUNTER → 2025-05-06 16:22 | Outpatient (BNV) | payer MEDICAID, SELFPAY | PROVIDERS: PCP Student in an Organized Health Care Education/Training Program; Visit Provider Radiology Diagnostic Radiology | DX: J90 Pleural effusion, not elsewhere classified (principal); J98.11 Atelectasis | CPT/HCPCS: 71250 ==

== ENCOUNTER 2025-05-12 16:06 | Outpatient (REF) | payer MEDICAID, SELFPAY ==
--- OUTSIDE RECORDS SUMMARY | 2025-05-12 18:35 | XMS_ITS | Encounter Summary ---
Author Organization [employer] Address [address] [facility] [address] [place] [address] Care Team Providers Care Patient Account Liaison Name Role Phone Silva Light MD Primary Care Provider [phone] Encounter Details Date Type Department Care Team (Late st Contact Info) Description 05/12/2025 Orders Only GENERIC EXTERNAL DATA DEPARTMENT Provider, [...] the past 12 months, has t he [employer], [employer], oil or water [employer] threatened to shut off services in your home? No 12/09/2024 Depression Answer Date Recorded Patient Health Questionnaire-2 Score 0 12/09/2024 Internet Access Answer Date Recorded Internet Access Q1 Yes 04/20/2025 Internet Access Q2 Not on file 04/20/2025 Comments Unknown Sex and Gender Information Value Date Recorded Sex Assigned at Female 05/29/2022 10:20 AM EDT Legal Sex Female 10:20 AM EDT Gender Identity Female 05/29/2022 10:20 AM EDT Sexual Orientation Straight 05/29/2022 10 :20 AM EDT documented as of this encounter Plan of Treatment Upcoming Encounters Date Type Department Care Team (Late st Contact Info) Description 08/03/2025 1:00 PM EST Office Visit [facility] MED & PEDS [address] [place] [address] Walter Bar MD [address] [place] [address] documented as of this encounter Procedures Procedure Name Priority Date/Time Associated Diagnosis Comments TSH W/REFLEX TO FT4 Routine 05/12/2025 4 :24 PM EDT documented in this encounter Results * TSH with Reflex to Free T4 (05/12/2025 4:24 PM EDT) TSH reflex Free T4 2.70 0.32 - 4.0 uIU/mL [facility] 05/12/2025 4:24 PM EDT 05/12/2025 4:24 PM EDT us Generic External Data Provider LAB BLOOD ORDERAB LES Final Result [facility] [address] [place] [address] [phone] documented in this encounter Visit Diagnoses Not on filedocumented in this encounter Additional Health Concerns Assessment Noted Time PHQ-9 Depression Total Score: 0 12/10/19 25 10:46 AM EDT documented as of this encounter Care Teams Patient Account Liaison Relationship Specialty Start Date End Date Silva Light MD [address] [place] [address] PCP - General Family Medicine 08/06/13 Goldie Alonso Medical Office AsstTrimmer Sorter 03/16/25 documented as of this encounter
--- OUTSIDE RECORDS SUMMARY | 2025-05-12 18:35 | XMS_ITS | Encounter Summary ---
Author Organization [employer] Address [address] [facility] [address] [place] [address] Care Team Providers Care Superintendent Stations Name Role Phone Silva Light MD Primary Care Provider Rossy Louie Unavailable Tamy Gonzalez RN Unavailable [phone] Donn Ravi Unavailable Edu Ravi RN Unavailable [phone] Reason for Visit * Reason Onset Date Comments Call Back Request 09/23/2024 Encounter Details Date Type Department Care Team (Late st Contact Info) Description 09/23/2024 Telephone [facility] MEDICINE [address] [place] [address] Silva Light MD [address] [place], [place] [phone] Call Back Request Social History Tobacco Use [...] 9:51 AM EST Tc from Alice from [facility] calling in requesting a status on prior message. * Telephone Encounter - Teresa Leal - 09/23/2024 11:54 AM EST Tc from Alice with [facility] to clarify information. If the patient has capacity, was complained about medications or if the pcp has any concerns about the patient. documented in this encounter Plan of Treatment Upcoming Encounters Date Type Department Care Team (Late st Contact Info) Description 08/03/2025 1:00 PM EST Office Visit [facility] MED & PEDS [address] [place] [address] Walter Bar MD [address] [place], [place] [phone] documented as of this encounter Visit Diagnoses Not on filedocumented in this encounter Care Teams Superintendent Stations Relationship Specialty Start Date End Date Silva Light MD [address] [place] [address] PCP - General Family Medicine 08/06/13 Rossy Louie 12/09/24 02/06/25 Tamy Gonzalez, CORNELIA [address] [place] [address] Registered Nurse Family Medicine 02/09/25 02/18/25 Donn Ravi 02/09/25 03/24/25 Edu Ravi, CORNELIA [address] [place] [address] Registered Nurse Family Medicine 02/18/25 03/24/25 Goldie Alonso Electrician TelephoneRailroad Inspector 03/16/25 documented as of this encounter
--- OUTSIDE RECORDS SUMMARY | 2025-05-12 18:35 | XMS_ITS | Clinical Summary ---
Author Organization [employer] Address [address] [facility] [address] [place] [address] Care Team Providers Care Decorating Inspector Name Role Phone Silva Light MD Primary Care Provider Allergies Active Allergy Reactions Criticality Noted Date [...] bedtime. 30 tablet 11 01/06/20 25 Active levothyroxine (Synthroid, Levoxyl) 100 MCG tabletIndications :Hypothyroidism, unspecified type TAKE 1 TABLET EVERY MORNING 90 tablet 1 02/27/20 25 Active capsaicin (Zostrix) 0.025 % creamIndications: Acute pain of right knee,Primary osteoarthritis of right knee Apply topically 2 times daily. 56.6 g 2 03/19/20 25 2025 Active carbidopa-levodop a (Sinemet) 25-100 MG tablet TAKE ONE TABLET TWICE DAILY IN THE MORNING AND AT BEDTIME 60 tablet 03/26/20 25 Active Diclofenac Sodium (Voltaren) 1 % gel Use topical BID 100 g 3 04/03/20 25 Active naltrexone (Depade) 50 MG tabletIndications :Alcohol use disorder, severe, dependence (CMS/HCC) (HCC) Take 1 tablet (50 mg) by mouth Once per day. 90 tablet 1 05/04/20 25 2025 Active naltrexone (Depade) 50 MG tabletIndications :Alcohol use disorder, severe, dependence (CMS/HCC) (HCC) Take 1 tablet (50 mg) by mouth Once per day. 90 tablet 1 02/03/20 25 2024 Discontinued(R eorder (will not trigger notification to Pharmacy)) Active Problems Problem Noted Date Diagnosed Date Primary parkinsonism (CMS/HCC) 12/08/2024 Alcohol abuse 11/30/2023 Menopausal and female climacteric states 023 Cobalamin deficiency 02/03/2016 Paroxysmal supraventricular tachycardia 06/09/20 13 Schizophrenia 04/29/2013 Hypothyroidism 02/19/2013 Obesity 02/19/2013 Encounters Date Type Department Care Team Description 05/12/2025 Orders Only GENERIC EXTERNAL DATA DEPARTMENT Provider, Generic External Data 05/04/2025 10:45 AM EDT Telemedicine [facility] [address] [place] [address] Walter Bar MD Alcohol use disorder, severe, dependence (CMS/HCC) (HCC) (Primary Dx) 05/04/2025 Travel 05/03/2025 Travel 04/20/2025 Telephone [facility] [address] [place] [address] Silva Light MD Immunizations 04/07/2025 Orders Only [facility] [address] [place] [address] Silva Light MD 04/06/2025 Telephone [facility] [address] [place] [address] Silva Light MD Immunizations 04/06/2025 Telephone [facility] [address] [place] [phone] Silva Light MD 04/03/2025 11:30 AM EDT Office Visit [facility] [address] [place] [address] Silva Lgiht MD Hypothyroidism, unspecified type (Primary Dx); Pleural effusion; Chronic right shoulder pain; Encounter for screening mammogram for breast cancer; Primary parkinsonism ([facility]/HCC); Edema, unspecified type 04/03/2025 Travel 04/02/2025 Travel 04/02/2025 Telephone [facility] [address] [place] [address] Silva Light MD Chart Prep 03/25/2025 Refill [facility] [address] [place] [address] Silva Light MD 03/24/2025 Patient Outreach [address] [address] Silva Light MD Care Coordination (C3KAYKAY/rebecca Marie missed assessment appt_closed ) 03/20/[address] [address] Silva Light MD Referral 03/19/2025 9:30 AM EDT Office Visit [facility] [address] [place] [address] Sanju Mcgee MD Acute pain of right knee (Primary Dx); Primary osteoarthritis of right knee; Chronic right shoulder pain 03/19/2025 Orders Only [facility] External Provider, [facility] 03/19/2025 Travel 03/18/2025 Telephone [facility] [address] [place] [address] Silva Light MD Nurse Triage 03/17/2025 Patient Outreach [address] [address] Silva Light MD Care Coordination (C3CM/CHW Jarely Trav, TC #2 RS missed assessment appt_lvm) 03/16/2025 Telephone [facility] [address] [place] [address] Silva Light MD Care Coordination (ICP Care Plan) 03/16/2025 Telephone [facility] [address] [place] [address] Silva iLght MD 03/10/2025 Patient Outreach [address] [address] Silva Light MD Care Coordination ( C3CM/TRACY Ravi, Reschedule missed assessment_lvm ) 02/25/2025 Patient Outreach [address] [address] Silva Light MD Care Management (C3CM- initial assessment/ enrollment. lvm) 02/24/2025 Refill [facility] [address] [place] [address] Silva Light MD Hypothyroidism, unspecified type 02/23/2025 Patient Outreach [address] [address] Silva Light MD 02/19/2025 Telephone [facility] [address] [place] [address] Silva Light MD No Show 02/18/2025 Patient Outreach [address] [address] Silva Light MD Care Coordination ([facility]/TRACY Ravi, Initial assessment scheduled ) 02/13/2025 Patient Outreach [address] [address] Silva Light MD 02/11/2025 Patient Outreach [address] [address] Silva Light MD Pre-visit Planning (Pre visit planning LVM ) 02/09/2025 Patient Outreach [address] [address] Silva Light MD Care Coordination (C3/TRACY Ravi, Initial outreach attempt_lvm ) 02/09/2025 Patient Outreach [facility] [address] [place] [address] Silva Light MD Care Coordination (C3/CHW Donn Ravi, Chart review) 02/09/2025 Patient Outreach [facility] [address] [place] [address] Silva Light MD Care Coordination (C3 chart review) 02/09/2025 Patient Outreach [facility] [address] [place] [address] Silva Light MD from Last 3 Months Immunizations Immunization Administration [...] Description 08/03/2025 1:00 PM EST Office Visit [facility] [address] [place] [address] Walter Bar MD [address] [place] [address] Health Maintenance Due Date Last Done Comments CT Colonography 1965 FIT DNA/Cologuard 1965 FIT 1965 FOBT 1965 Sigmoidoscopy 1965 Dental X-Ray: Bitewings 09/09/2010 09/08/2009 Dental Oral Exam 03/07/2011 09/06/2010, 11/26/2009 Dental Prophylaxis 03/07/2011 09/06/2010 Mammogram 12/06/2023 12/05/2021, 12/29, 04/23/2018 RSV Patients and Patients Aged 60 years or older (1 - Risk 60-74 years 1-dose series) 2024 Hepatitis B Vaccines (2 of 3 - 19+ 3-dose series) 12/01/2024 11/03/2024 Cervical Cancer Screening 12/20/2024 HPV/Cotest 12/20/2024 12/20/2021, 12/31/2018 Pap Smear 12/20/2024 12/20/2021, 11/28, 12/30/2019, Additional history exists Influenza Vaccine (#1) 2025 , 07/11/2023, 04/25/2022, Additional history exists Alcohol/Substance Use Screening 10/28/2025 10/28/2024 Depression Screening 12/09/2025 12/09/2024, 12/10/19 25 SDOH Screening 12/09/2025 12/09/2024 Disability Screening 04/02/2026 [...] C Screening Completed 10/30/2024 , 08/25/2024, 11/18/2021 Hepatitis A Vaccines Aged Out 11/03/2024 No long er eligible based on patient's age to complete this topic HIB Vaccines Aged Out No longer eligi [...] FT4 Routine 05/12/2025 4 :[address] CHEST WO CON - HIGH RES Routine 05/06/2025 4:24 PM EDT BASIC METABOLIC PANEL Routine 04/03/2025 12:01 PM EDT Edema, unspecified type TSH W/REFLEX TO FT4 Routine 04/03/2025 1 2:01 PM EDT Hypothyroidism, unspecified type CT ABDOMEN PELVIS W CONTRAST Routine 03/20/2025 9:06 AM EDT POCT CREATININE GFR Routine 03/19/2025 1 :46 PM EDT XR KNEE 3 VIEWS RIGHT Routine 03/19/2025 11:37 AM EDT Acute pain of right knee HEPATITIS PANEL, GENERAL Routine 10/30/2024 5:05 PM [...] Recently Relevant to Health Maintenance Results * TSH with Reflex to Free T4 (05/12/2025 4:24 PM EDT) Only the most recent of2 resultswithin the time period is included. TSH reflex Free T4 2.70 0.32 - 4.0 uIU/mL [facility] 05/12/2025 4:24 PM EDT 05/12/2025 4:24 PM EDT us Generic External Data Provider LAB BLOOD ORDERAB LES Final Result [facility] [address] [place] [phone] * CT chest wo con - High Res (05/06/2025 4:24 PM EDT) Anatomical Region Laterality Modality Body, Chest Computed Tomogra phy 05/06/2025 4:24 PM EDT Narrative 05/06/2025 5:03 PM EDT [address] [address] [address] Scan Report Signed Patient: Judy Alexander MR#: [id number] : 1965 Acct:[id number] Age/Sex: 60 / F ADM Date: 05/06/25 Loc: HO.CT Attending Dr: Maritza ASHFORD Ordering Physician: Maritza Culver Date of Service: 05/06/25 Procedure(s): CT chest wo con - High Res Accession Number(s): [id number] cc: Maritza Culver; Silva Light MD Report Number: [id number]: Total DLP = 216.00 mGy-cm Reason for Exam: J90 - Pleural effusion, not elsewhere classified Exam: CT chest without contrast-high resolution INDICATION:J90 - Pleural effusion, not elsewhere classified Prior: Chest x-ray performed 11/09/2023 TECHNIQUE: Axial CT was performed through the chest without contrast. Coronal and sagittal reformatted images were generated from the original axial data set. ALARA: The examination used one or more of the following radiation dose reduction techniques: Automated exposure control, iterative reconstruction, and/or adjustment of mA and/or KV. FINDINGS: Linear high attenuation in the right lower lobe is consistent with atelectasis and/or scarring. Lungs are clear otherwise. Small right pleural effusion and trace left pleural fluid is layering in the dependent lung bases. There is no adenopathy. No coronary artery calcifications are identified. There is a deep concavity of the right humeral head with marginal osteophytes. There is also irregular cavity of the glenoid CT/CT chest wo con - High Res IMPRESSION: Small layering right and trace left layering pleural effusions. Linear atelectasis and/or scarring is noted in the right lower lobe. End-stage degenerative changes of the right shoulder joint with irregular deep concavity of the right humeral head that could be posttraumatic, related to AVN, or septic arthritis. There is also deformity with increased concavity of the glenoid surface. Electronically signed by: Danial Peralta MD 05/06/2025 05:00 PM EDT RP Dictated By: Danial Peralta MD Signed By: <Electronically signed by Danial Peralta MD in OV> 05/06/25 1700 DD/ 1624 TD/TT: 05/06/25 1644 Operator Vacuum: Procedure Note Donotuseinterpreter, Image - 05/06/[address] [address] [address] Scan Report Signed Patient: Judy Alexander LMR#: [id number] : 1965Acct:[id number] Age/Sex: 60 / FADM Date: 05/06/25 Loc: HO.CT Attending Dr: Maritza ASHFORD Ordering Physician: Maritza Culver Date of Service: 05/06/25 Procedure(s): CT chest wo con - High Res Accession Number(s): [id number] cc: Maritza Culver; Silva Light MD Report Number: [id number]: Total DLP = 216.00 mGy-cm Reason for Exam: J90 - Pleural effusion, not elsewhere classified Exam: CT chest without contrast-high resolution INDICATION:J90 - Pleural effusion, not elsewhere classified Prior: Chest x-ray performed 11/09/2023 TECHNIQUE: Axial CT was performed through the chest without contrast. Coronal and sagittal reformatted images were generated from the original axial data set. ALARA: The examination used one or more of the following radiation dose reduction techniques: Automated exposure control, iterative reconstruction, and/or adjustment of mA and/or KV. FINDINGS: Linear high attenuation in the right lower lobe is consistent with atelectasis and/or scarring. Lungs are clear otherwise. Small right pleural effusion and trace left pleural fluid is layering in the dependent lung bases. There is no adenopathy. No coronary artery calcifications are identified. There is a deep concavity of the right humeral head with marginal osteophytes. There is also irregular cavity of the glenoid CT/CT chest wo con - High Res IMPRESSION: Small layering right and trace left layering pleural effusions. Linear atelectasis and/or scarring is noted in the right lower lobe. End-stage degenerative changes of the right shoulder joint with irregular deep concavity of the right humeral head that could be posttraumatic, related to AVN, or septic arthritis. There is also deformity with increased concavity of the glenoid surface. Electronically signed by: Danial Peralta MD 05/06/2025 05:00 PM EDT RP Dictated By: Danial Peralta MD Signed By: <Electronically signed by Danial Peralta MD in OV> 05/06/25 1700 DD/ 1624 TD/TT: 05/06/25 1644 Operator Vacuum: [facility] External Provider IMG CT PROCEDURES Final Result * Basic Metabolic Panel (04/03/2025 12:01 PM EDT) Sodium 141 135 - 145 mmol/L [facility] Potassium 4.1 3.3 - 5.1 mmol/L [facility] Chloride 108 96 - 108 mmol/L [facility] Carbon Dioxide 25 22 - 29 mmol/L [facility] Anion Gap 12 12 - 20 [facility] Urea Nitrogen (BUN) 12 9 - 16 mg/dL [facility] Creatinine, Serum 0.83 0.5 - 1.4 mg/dL [facility] Estimated Glomerular Filt Rate >60 [facility] Comment:Chronic Kidney Disea se: Estimated GFR < 60 mL/min/1.13m1Qvmvod Kidney Disease: Estimated GFR < 15 mL/min/1.73m2 Glucose 101 60 - 115 mg/dL [facility] Calcium 9.2 8.4 - 10.2 mg/dL [facility] Blood Venous blood specimen / Unknown 04/03/2025 12:01 PM EDT 04/03/2025 2:21 PM EDT Silva Light MD LAB BLOOD ORDERABLES Final Resul t [facility] [address] [place] [phone] * CT Abdomen Pelvis w/ Contrast (03/20/2025 9:06 AM EDT) Anatomical Region Laterality Modality Body, Pelvis, Abdomen Computed T omography 03/20/2025 9:06 AM EDT Narrative 03/20/2025 9:07 AM EDT [place] [address] CT Scan Report Signed Patient: Judy Alexander MR#: [id number] : 1965 Acct:[id number] Age/Sex: 59 / F ADM Date: 03/19/25 [facility]: Maritza ASHFORD Ordering Physician: Maritza Culver Date of Service: 03/19/25 Procedure(s): CT abdomen pelvis w IV con Accession Number(s): [id number] cc: Maritza Culver; Silva Light MD Report Number: [id number]: Total DLP = 633.00 mGy-cm CLINICAL HISTORY: [...] in OV> 03/20/25906 DD/ 5 TD/TT: 03/20/25905 Operator Vacuum: Procedure Note Donotuseinterpreter, Image - 03/20/[address] [address] [address] Scan Report Signed Patient: Judy Alexander LMR#: [id number] : 1965Acct:[id number] Age/Sex: 59 / FADM Date: 03/19/25 Loc: HO[facility] Attending Dr: Maritza ASHFORD Ordering Physician: Maritza Culver Date of Service: 03/19/25 Procedure(s): CT abdomen pelvis w IV con Accession Number(s): [id number] cc: Maritza Culver; Silva Light MD Report Number: [id number]: Total DLP = 633.00 mGy-cm CLINICAL HISTORY: [...] signed by Enoc Valiente MD in OV> 03/20/25 0907 DD/ 09 TD/TT: 03/20/25 09 Operator Vacuum: us [facility] External Provider IMG CT PROCEDURES Final Result * POCT Creatinine GFR (03/19/2025 1:46 PM EDT) POCT Creatinine 0.7 0.5 - 1.4 mg/dL [facility] GFR POC >60 [facility] Comment:Chronic Kidney Disea se: Estimated GFR < 60 mL/min/1.66d5Horyum Kidney Disease: Estimated GFR < 15 mL/min/1.73m2 03/19/2025 1:46 PM EDT 03/20/2025 11:41 AM EDT Narrative [facility] - 03/20/2025 11:44 AM EDT [id number] us Generic External Data Provider LAB POINT OF CARE TEST DOCKED DEVICE ORDERABLES Final Result [facility] [address] [place] [phone] * XR Knee 3 Views Right (03/19/2025 11:37 AM EDT) Anatomical Region Laterality Modality Lower Extremities, Knee Right Radiogra phic Imaging 03/19/2025 11:3 7 AM EDT Narrative 03/19/2025 12:01 PM EDT [address] [address] XRay Report Signed Patient: Judy Alexander MR#: [id number] : 1965 Acct:[id number] Age/Sex: 59 / F ADM Date: 03/19/25 [facility]: Maritza ABREUC Ordering Physician: Sanju Mcgee MD Date of Service: 03/19/25 Procedure(s): XR knee RT 3V Accession Number(s): [id number] cc: Sanju Mcgee MD; Silva Light MD [...] changes consistent with osteoarthritis. Electronically signed by: Dnaial Peralta MD 03/19/2025 11:58 AM EDT RP Dictated By: Danial Peralta MD Signed By: <Electronically signed by Danial Peralta MD in OV> 03/19/25 1158 DD/ 1137 TD/TT: 03/19/25 1147 Operator Vacuum: Procedure Note Donotuseinterpreter, Image - 03/19/[address] [address] XRay Report Signed Patient: Judy Alexander LMR#: [id number] : 1965Acct:[id number] Age/Sex: 59 / FADM Date: 03/19/25 Loc: [facility] Attending Dr: Maritza Culver ANP-C Ordering Physician: Sanju Mcgee MD Date of Service: 03/19/25 Procedure(s): XR knee RT 3V Accession Number(s): [id number] cc: Sanju Mcgee MD; Silva Light MD [...] 03/19/25 1158 DD/ 1137 TD/TT: 03/19/25 1147 Operator Vacuum: us Sanju Mcgee MD IMG XR PROCEDURES Final Res ult * Hepatitis Panel, General (10/30/2024 5:05 PM EDT) Pathologist [facility] Hepatitis A IgM Nonreactive Nonreactive [facility] Comment:IgM antibodies to ZAMORA V not detected; does not exclude earlyacute or recovered HAV infection. ~Hepatitis B Surface Antibody NONREACTIVE Nonreactive [facility] Comment:Nonreactive: < 8.00 mIU/mL Hepatitis B Core Antibody Nonreactive Nonreactive [facility] Hepatitis C Antibody Nonreactive Nonreactive [facility] Comment:Antibodies to HCV no t detected; does not exclude early acuteHCV infection. Hepatitis B Surface Ag Negative Negative [facility] 10/30/2024 5:05 PM EDT 10/30/2024 5:08 PM EDT us Generic External Data Provider LAB BLOOD ORDERAB LES Final Result [facility] [address] [place] [phone] * HIV-1/2 Antigen and Antibodies, Fourth Generation, with Reflexes (10/30/2024 5:05 PM EDT) Pathologist [facility] HIV AB/AG Nonreactive Nonreactive [facility] Comment:HIV-1 p24 Ag and/or HIV-1/HIV-2 Ab not detected.A test result that is nonreactive does not exclude thepossibility of exposure to or infection with HIV-1 and/orHIV-2. Nonreactive results in this assay for individualswith prior exposure to HIV-1 and/or HIV-2 may be due toantigen and antibody levels that are below the limit ofdetection of this assay.The [employer] HIV Ag/Ab Combo assay result andsupplemental assay results should be interpreted inconjunction with the patient's clinical presentation,history and other laboratory results. If the results areinconsistent with clinical evidence, additional testing issuggested to confirm the result. 10/30/2024 5:05 PM EDT 10/30/2024 5:08 PM EDT us Generic External Data Provider LAB BLOOD ORDERAB LES Final Result Performing Organization Address City/[facility]/ZIP Co de Phone Number [facility] [address] [place] [phone] * (ABNORMAL) Lipid Panel, Standard (04/16/2024 12:03 PM EDT) Triglycerides 195(H) <150 mg/dL [facility] Comment:Desirable Triglyceri de: less than 150 mg/dLBorderline High Triglyceride 150-199 mg/dLHigh Triglyceride: 200-499 mg/dLVery High Triglyceride: greater than or equal to 5OO mg/dL Cholesterol 232(H) <200 mg/dL [facility] Comment:Desirable Cholestero l: less than 200 mg/dLBorderline High Cholesterol: 200-239 mg/dLHigh Cholesterol: greater than 239 mg/dL LDL Cholesterol Calculated 160(H) <100 mg/dL [facility] Comment:Desirable LDL: less than 100 mg/dLNear Optimal/Above Optimal LDL: 110- 129 mg/dLBorderline High LDL: 130-159 mg/dLHigh LDL: 160-189 mg/dLVery High LDL: greater than or equal to 190 mg/dL HDL Cholesterol 33(L) >40 mg/dL [facility] Comment:Desirable HDL: great er than 40 mg/dL Note: This HDL assay may give artificially low results in patients with liver disease. Blood Venous blood specimen / Unknown 04/16/2024 12:03 PM EDT 04/16/2024 2:13 PM EDT us Silva Light MD LAB BLOOD ORDERABLES Final Resul t [facility] [address] [place] [phone] * Hm Colonoscopy (07/10/2022) Colonoscopy Normal [...] has been evaluated with computer assisted technology. [facility] Quality Control Scientist: SEE COMMENT [facility] Comment: KHUSHBU BONILLA(ASCP) CT screening location: [place] [address] HPV nRNA E6/E7 Not Detected Not Detected [facility] Comment: Methodology: Ophthalmology Technician-Mediated Amplification This assay detects E6/E7 viral messenger RNA (mRNA) from 14 high-risk HPV types (16,18,31,33,35,39,45,51,52,56,58,59,66,68). The analytical performance characteristics of this assay have been determined by [facility]. The modifications have not been cleared or approved by the FDA. This assay has been validated pursuant to the CLIA regulations and is used for clinical purposes. For additional information, please refer to http://education.DataSift/faq/AJI570j3 (This link if provided for information/ educational purposes only.) Interpretation/Re sult: Negative for intraepithelial lesion or malignancy. [facility] LMP: NONE GIVEN [facility] Prev. BX: COLP NEG 2018/2019 [facility] Prev. PAP: ASCUS HPV NEG 2019 LSIL HPV NEG 2019 [facility] Review Quality Control Scientist: SEE COMMENT [facility] Comment: KHUSHBU MARIA(ASCP) CT screening location: [place] [address] SOURCE: None given [facility] Statement Of Adequacy: SEE COMMENT [facility] Comment: Satisfactory for evaluation. Endocervical/transformation zone component present. 12/20/2021 2:15 PM EDT [facility] ORDERABLES Final Result [facility] [address] [place] [address], * Pap Smear (12/20/2021 12:00 AM EDT) Swab [facility] CYTOLOG[facility] ORDERABLES F inal Result [facility] [address] [facility] [place] [address] * Mammography Report 1 (12/05/2021 8:42 AM [...] Health Maintenance Insurance [facility] C[place] * Guarantor: Judy Alexander Account Type Relation to Patient Date of Phone Billing Address Personal/Family Self [address] [place] Care Teams Decorating Inspector Relationship Specialty Start Date End Date Silva Light MD [address] [place] [phone] PCP - General Family Medicine 08/06/13 Goldie Alonso Release SpecialistCourt Abstractor 03/16/25
--- OUTSIDE RECORDS SUMMARY | 2025-05-12 18:35 | XMS_ITS | Encounter Summary ---
Author Organization [employer] Address [address] [facility] 7t [place] [address] Care Team Providers Care Care Coordination Manager Name Role Phone Silva Light MD Primary Care Provider [phone] Encounter Details Date Type Department Care Team ([facility] st Contact Info) Description 04/07/2025 Orders Only [facility] MED & PEDS [address] [place], [place] [phone] Silva Light MD [address] [place], [place] [phone] Social History Tobacco Use Types Packs/Day Years [...] [facility] MED & PEDS [address] [place], [place] [phone] Walter Bar MD [address] [place] [address] documented as of this encounter Procedures Procedure Name Priority Date/Time Associated Diagnosis Comments CT CHEST WO CON - HIGH RES Routine 05/06/2025 4:24 PM EDT documented in this encounter Results * CT chest wo con - High Res (05/06/2025 4:24 PM EDT) Anatomical Region Laterality Modality Body, Chest Computed Tomogra phy 05/06/2025 4:24 PM EDT Narrative 05/06/2025 5:03 PM EDT [facility] [address] [place] [address] [address] Scan Report Signed Patient: Judy Alexander MR#: [id number] : 1965 Acct:[id number] Age/Sex: 60 / F ADM Date: 05/06/25 Loc: HO.CT Attending Dr: Maritza ABREUC Ordering Physician: Maritza Culver Date of Service: 05/06/25 Procedure(s): CT chest wo con - High Res Accession Number(s): [id number] cc: Maritza Culver; Silva Light MD Report Number: [id number]: Total DLP = 216.00 mGy-cm Reason for [...] Danial Peralta MD 05/06/2025 05:00 PM EDT Dictated By: Danial Peralta MD Signed By: <Electronically signed by Danial Peralta MD in OV> 05/06/25 1700 DD/ 1624 TD/TT: 05/06/25 1644 Supervisor Refractory Products: Procedure Note Donotuseinterpreter, Image - 05/06/[address] [place] [address] [address] Scan Report Signed Patient: Jduy Alexander LMR#: [id number] : 1965Acct:[id number] Age/Sex: 60 / FADM Date: 05/06/25 Loc: HO.CT Attending Dr: Maritza ASHFORD Ordering Physician: Maritza Culver Date of Service: 05/06/25 Procedure(s): CT chest wo con - High Res Accession Number(s): [id number] cc: Maritza Culver; Silva Light MD Report Number: [id number]: Total DLP = 216.00 mGy-cm Reason for [...] Danial Peralta MD 05/06/2025 05:00 PM EDT Dictated By: Danial Peralta MD Signed By: <Electronically signed by Danial Peralta MD in OV> 05/06/25 1700 DD/ 1624 TD/TT: 05/06/25 1644 Supervisor Refractory Products: [facility] External Provider IMG CT PROCEDURES Final Result documented in this encounter Visit Diagnoses Not on filedocumented in this encounter Additional Health Concerns Assessment Noted Time PHQ-9 Depression Total Score: 0 12/10/19 10:46 AM EDT documented as of this encounter Care Teams Care Coordination Manager Relationship Specialty Start Date End Date Silva Light MD [address] [place] [address] PCP - General Family Medicine 08/06/13 Goldie Alonso Inside Steward/StewardessShirt Turner 03/16/25 documented as of this encounter
--- OUTSIDE RECORDS SUMMARY | 2025-05-12 18:35 | XMS_ITS | Encounter Summary ---
Author Organization [employer] Address [address] [facility] 7 [place] [address] Care Team Providers Care Water Restoration Technician Name Role Phone Silva Light MD Primary Care Provider Rossy Louie Unavailable Tamy Gonzalez RN Unavailable [phone] Donn Ravi Unavailable Edu Ravi RN Unavailable [phone] Reason for Visit * Reason Onset Date Comments Nurse Triage 10/20/2024 Encounter Details Date Type Department Care Team (Late st Contact Info) Description 10/20/2024 Telephone [facility] MEDICINE [address] [place] [address] Silva Light MD [address] [place], [place] [phone] Nurse Triage Social History Tobacco Use Types [...] in [facility] today. Offered to come [address] to take a look at lump. Pt agreed with disposition and will come to [facility] today. Insurance is verified as active. [...] caller accepted this outcome. Contact pt at [phone] documented in this encounter Plan of Treatment Upcoming Encounters Date Type Department Care Team ([facility] st Contact Info) Description 08/03/2025 1:00 PM EST Office Visit [facility] MED & PEDS [address] [place] [address] Walter Bar MD [address] [place], [place] [phone] documented as of this encounter Visit Diagnoses Not on filedocumented in this encounter Care Teams Water Restoration Technician Relationship Specialty Start Date End Date Silva Light MD [address] [place], [place] [phone] PCP - General Family Medicine 08/06/13 Rossy Louie 12/09/24 02/06/25 Tamy Gonzalez, CORNELIA [address] [place] [address] Registered Nurse Family Medicine 02/09/25 02/18/25 Donn Ravi 02/09/25 03/24/25 Edu Ravi, RN [address] [place] [address] Registered Nurse Family Medicine 02/18/25 03/24/25 Goldie Alonso Grid CasterProcurement Cost Coordinator 03/16/25 documented as of this encounter
--- OUTSIDE RECORDS SUMMARY | 2025-05-12 18:35 | XMS_ITS | Encounter Summary ---
Author Organization [employer] Address [address] [facility] 7t [place] [address] Care Team Providers Care Catcher Plug Name Role Phone Silva Light MD Primary Care Provider [phone] Rossy Louie Unavailable Tamy Gonzalez RN Unavailable Donn Ravi Unavailable Edu Ravi RN Unavailable [phone] Encounter Details Date Type Department Care Team (Late st Contact Info) Description 11/08/2022 Orders Only [facility] CHC MED & PEDS [address] [place], [place] [phone] Sanju Mcgee MD [address] [place], [place] [phone] Primary osteoarthritis of left knee (Primary Dx) [...] Description 08/03/2025 1:00 PM EST Office Visit [facility] CHC MED & PEDS [address] [place] [address] Walter Bar MD [address] [place] [address] documented as of this encounter Visit Diagnoses Diagnosis Primary osteoarthritis of left knee- Primary documented in this encounter Care Teams Catcher Plug Relationship Specialty Start Date End Date Silva Light MD [address] [place] [address] PCP - General Family Medicine 08/06/13 Rossy Louie 12/09/24 02/06/25 Tamy Gonzalez RN [address] [place] [address] Registered Nurse Family Medicine 02/09/25 02/18/25 Donn Ravi 02/09/25 03/24/25 Edu Ravi, CORNELIA [address] [place] [address] Registered Nurse Family Medicine 02/18/25 03/24/25 Goldie Alonso Americanization TeacherBusiness Support Professional 03/16/25 documented as of this encounter
--- OUTSIDE RECORDS SUMMARY | 2025-05-12 18:35 | XMS_ITS | Encounter Summary ---
Author Organization [employer] Address [address] [place] [address] [address] [place] [address] Care Team Providers Care Rubber And Plastics Worker Name Role Phone Silva Light MD Primary Care Provider Rossy Louie Unavailable Tamy Gonzalez RN Unavailable [phone] Donn Ravi Unavailable Edu Ravi RN Unavailable [phone] Reason for Visit * Reason Onset Date Comments Nurse Triage 11/14/2023 Encounter Details Date Type Department Care Team (Late st Contact Info) Description 11/14/2023 Telephone [facility] MEDICINE [address] [place] [address] Silva Light MD [address] [place], [place] [phone] Nurse Triage Social History Tobacco Use Types [...] Triage call Pt reports was discharged from [facility] 11/09/23 with prescription for doxycycline 100mg 2x/ [...] Upcoming Encounters Date Type Department Care Team ([facility] st Contact Info) Description 08/03/2025 1:00 PM EST Office Visit [facility] MED & PEDS [address] [place] [address] Walter Bar MD [address] [place], [place] [phone] documented as of this encounter Visit Diagnoses Not on filedocumented in this encounter Care Teams Rubber And Plastics Worker Relationship Specialty Start Date End Date Silva Light MD [address] [place] [address] PCP - General Family Medicine 08/06/13 Rossy Louie 12/09/24 02/06/25 Tamy Gonzalez, CORNELIA [address] [place] [address] Registered Nurse Family Medicine 02/09/25 02/18/25 Donn Ravi 02/09/25 03/24/25 Edu Ravi, CORNELIA [address] [place] [address] Registered Nurse Family Medicine 02/18/25 03/24/25 Goldie Alonso Tight CooperClaim Processor 03/16/25 documented as of this encounter
--- OUTSIDE RECORDS SUMMARY | 2025-05-12 18:35 | XMS_ITS | Encounter Summary ---
Author Organization [employer] Address [address] [place] [address] [address] [place] [address] Care Team Providers Care Fish Agent Name Role Phone Silva Light MD Primary Care Provider Rossy Louie Unavailable Tamy Gonzalez RN Unavailable [phone] Donn Ravi Unavailable Edu Ravi RN Unavailable [phone] Reason for Visit * Reason Comments Med Refill Encounter Details Date Type Department Care Team (Late st Contact Info) Description 03/26/2023 Refill [facility] MED & PEDS [address] [place], [place] [phone] Silva Light MD [address] [place], [place] [phone] Post-traumatic stress disorder, unspecified Social History Tobacco [...] Department Care Team (Late Contact Info) Description 08/03/2025 1:00 PM EST Office Visit [facility] MED & PEDS [address] [place] [address] Walter Bar MD [address] [place], [place] [phone] documented as of this encounter Visit Diagnoses Diagnosis Post-traumatic stress disorder, unspecified documented in this encounter Care Teams Fish Agent Relationship Specialty Start Date End Date Silva Light MD [address] [place] [address] PCP - General Family Medicine 08/06/13 Rossy Louie 12/09/24 02/06/25 Tamy Gonzalez, CORNELIA [address] [place] [address] Registered Nurse Family Medicine 02/09/25 02/18/25 Donn Ravi 02/09/25 03/24/25 Edu Ravi, CORNELIA [address] [place] [address] Registered Nurse Family Medicine 02/18/25 03/24/25 Goldie Alonso Horticultural Technical OfficerVamp Marker 03/16/25 documented as of this encounter
== END 2025-05-12 16:07 | disposition home or self-care (01) ==
LOC: HO.LAB 16:06
PROVIDERS: PCP Student in an Organized Health Care Education/Training Program; Visit Provider Nurse Practitioner
DX: E03.9 Hypothyroidism, unspecified (principal)
CPT/HCPCS: 36415; 84443

== ENCOUNTER 2025-05-13 12:29 | Outpatient (AMB) | payer MEDICAID, SELFPAY ==
--- NOTE | 2025-05-13 12:32 | A.OFFVIS_ITS ---
Vital Signs 05/13/25 13:08 Height 5 ft 4 in Weight 196 lb BMI 33.6 BP 116/56 L Blood Pressure Location Rt brachial Position Sitting Pulse 74 Pulse Source Pulse Oximeter Pulse Oximetry (%) 97 Oxygen Delivery Method Room Air Intake Visit Reasons: 6W Intake Note: Est pt for mgmt of GERD sx. CC; C.O. worsening GERD sx despite the new medication. Pt states that she was better managed while taking the omeprazole rather than the pantoprazole. No additional sx. Pt does have concerns she would like to address regarding her [address]. Equipment Maintenance Supervisor Required: No Accompanied by: Self / Same As Patient Allergies azithromycin (From ZITHROMAX) Allergy (Intermediate, Verified 05/13/25 13:08) SWELLING Penicillins (PENICILLINS) Allergy (Intermediate, Verified 05/13/25 13:08) SWELLING Sulfa (Sulfonamide Antibiotics) (SULFA(SULFONAMIDE ANTIBIOTICS)) Allergy (Intermediate, Verified 05/13/25 13:08) SWELLING dicyclomine Adverse Reaction (Unknown, Verified 05/13/25 13:08) Itching Blue capsule for abd pain Adverse Reaction (Unknown, Uncoded 05/13/25 13:08) urinary discomfort HPI HPI 6W: Details: Assessment & Plan (1) GERD (gastroesophageal reflux disease): Code(s): K21.9 - Gastro-esophageal reflux disease without esophagitis Category: Medical (2) Irritable bowel syndrome with diarrhea: Code(s): K58.0 - Irritable bowel syndrome with diarrhea Category: Medical (3) Fatty liver due to alcoholism: Comment: Baseline Laboratory Tests 04/16/2401/ 12:0312:1512:18 Total Bilirubin 2.6 H 3.0 H 2.7 H Direct Bilirubin 0.8 H 0.8 H 0.8 H AST 89 H 62 H 43 H ALT 41 H 27 12 Alkaline Phosphatase 137 H 104 93 11/2024 KETTY Screen POSITIVE A KETTY Titer 1:80 H Anti-Mitochondrial Ab NEGATIVE Anti-Smooth Muscle Ab <20 PEth 16:0/18.1 (POPEth) NEGATIVE PEth 16:0/18.2 (PLPEth) NEGATIVE Hepatitis A IgG Ab Nonreactive Hep Bs Antigen Negative Hepatitis C Ab (EIA) Nonreactive HIV 1&2 Ab/P24 Ag 4thGn Nonreactive Current labs Laboratory Tests 08/25/2503/09/2504 12:1517:0504:21 WBC Hgb Hct Plt Count Potassium 2.7 L* D Estimated GFR > 60 Total Bilirubin Direct Bilirubin AST ALT Alkaline Phosphatase KETTY Screen POSITIVE A KETTY Titer 1:80 H Anti-Mitochondrial Ab NEGATIVE Anti-Smooth Muscle Ab <20 PEth 16:0/18.1 (POPEth) NEGATIVE PEth 16:0/18.2 (PLPEth) NEGATIVE Hepatitis A IgG Ab Nonreactive Hep Bs Antigen Negative Hepatitis C Ab (EIA) Nonreactive HIV 1&2 Ab/P24 Ag 4thGn Nonreactive 12/08/24 11:32 WBC 6.2 Hgb 13.7 Hct 41.4 Plt Count 192 Total Bilirubin 1.8 H Direct Bilirubin 0.4 AST 39 H ALT 28 Alkaline Phosphatase 80 ULTRASOUND OF THE ABDOMEN -09/09/2024 Findings: The visualized pancreas, aorta, and inferior vena cava are unremarkable. Liver normal size and diffusely echogenic. Right lobe 16.6 cm length. No focal hepatic masses. Common duct 7.2 mm diameter. Physiologic distention of the gallbladder. No gallstones or sludge. Mild adenomyomatosis. No pericholecystic fluid. No sonographic Hickey sign. Main portal vein antegrade. Right kidney normal size, 9.9 cm in length. Normal cortical width and echotexture. No solid or cystic renal masses. No nephrolithiasis or hydronephrosis. Left kidney normal, 12.0 cm in length. Normal cortical width and echotexture. No solid or cystic renal masses. Nephrolithiasis or hydronephrosis. Spleen measures 11.4 cm. No splenic masses. No ascites. No lymphadenopathy. Impression: 1. Normal-sized liver mildly echogenic reflecting hepatic steatosis or diffuse hepatocellular disease. 2. No gallstones or evidence of cholecystitis. Subtle gallbladder adenomyomatosis may be present. 3. Mild dilatation of the common bile duct no sonographic evidence of choledocholithiasis. MRCP would be confirmatory. Code(s): K70.0 - Alcoholic fatty liver Category: Medical (4) Weight loss: Code(s): R63.4 - Abnormal weight loss Category: Medical (5) Hypothyroid: Code(s): E03.9 - Hypothyroidism, unspecified Category: Medical (6) Pleural effusion: Code(s): J90 - Pleural effusion, not elsewhere classified Category: Medical Plan She reports today that she is living close to her sister who is cooking meals for her. With this she is eating better and her appetite has returned and she has gained 10 lb! She really feels that her lack of appetite was emotional and related to her boyfriend's passing. The only problem she is having now is a return of less formed looser stools. This is quite bothersome to her because when she does have the she will have fecal incontinence which is quite MS for her to clean up. She is on her Lotronex 0.5 mg twice a day, and although multiple factors including an increase fiber load could be contributing to the change I suggest that we simply increase the dose to 1 mg twice a day. If she becomes constipated she is aware that she can go down to once a day or skip a day until she moves her bowels. She tried treating this with the Imodium but it did not offer any relief. One of the labs showed a possibly elevated TSH and she is on levothyroxine for hypothyroid. I suggest that we repeat this value to see if she simply was fighting off a viral infection before we postulate that her thyroid medicine may need adjusting. I did not notice the trace pleural effusion as I was concentrating on the GI organs during the initial read but I did let her know this and she denies any cough or fevers although she does report shortness of breath going upstairs. I think we will get a chest CT to try to clarify this diagnosis. She also tells me she spoke with her therapist who is going to speak with her psychiatric provider because she has a history of hearing voices in the past. Although she continues on her risperidone she had an episode of hearing voices recently and she feels quite certain that they will need to either adjust her add her current psychiatric medications. Apparently she heard some calling her name when no one else was home, and at 1 point she saw her CAT on the couch when he really was not there. Return office visit in 6 weeks Orders: Orders TSH reflex Free T4 Today E03.9 - Hypothyroidism, unspecified CT chest wo con - High Res Today J90 - Pleural effusion, not elsewhere classified Medications: New pantoprazole (Protonix) 40 mg PO DAILY 30 tabs 6RF 30 days alosetron (Lotronex) 1 mg PO BID 60 tabs 6RF K58.0 - Irritable bowel syndrome with diarrhea Discontinued omeprazole Discontinued Reason: Doctor's Order 40 mg PO DAILY 30 days 30 caps 6RF barium sulfate 2%(w/v) (Readi-Cat 2) Discontinued Reason: Patient Completed Course 150 mL PO ONCE 1 day 300 mL 0RF nitrofurantoin macrocrystal must administer with a meal/food Discontinued Reason: Patient Completed Course 100 mg PO BID 14 caps 0RF N39.0 - Urinary tract infection, site not specified alosetron (Lotronex) Discontinued Reason: Doctor's Order 0.5 mg PO BID 60 tabs 3RF K21.9 - Gastro-esophageal reflux disease without esophagitis, K58.0 - Irritable bowel syndrome with diarrhea 8 LABS; Laboratory Tests 05/12/25 16:[address] CHEST 05/06/2025 FINDINGS: Linear high attenuation in the right lower lobe is consistent with atelectasis and/or scarring. Lungs are clear otherwise. Small right pleural effusion and trace left pleural fluid is layering in the dependent lung bases. There is no adenopathy. No coronary artery calcifications are identified. There is a deep concavity of the right humeral head with marginal osteophytes. There is also irregular cavity of the glenoid CT/CT chest wo con - High Res IMPRESSION: Small layering right and trace left layering pleural effusions. Linear atelectasis and/or scarring is noted in the right lower lobe. End-stage degenerative changes of the right shoulder joint with irregular deep concavity of the right humeral head that could be posttraumatic, related to AVN, or septic arthritis. There is also deformity with increased concavity of the glenoid surface. 8 TODAYS VISIT [facility] Medical History Jesi albicans infection Preop examination Right upper quadrant abdominal pain Alcohol use disorder Recovering alcoholic Bipolar disorder Depression Anxiety Parkinson disease Surgical History H/O colonoscopy History of right breast biopsy Family History Father Stage 4 lung cancer Alzheimer disease Dementia Mother Hypothyroid Diabetes Dementia Kidney failure A-fib Sister Breast cancer Colon cancer Social History Household Members: Spouse Housing: Condominium Alcohol intake: former Patient Tobacco Use Status: Never used Tobacco Substance Use Type: Marijuana Advance Directives Date on File: 11/13/23 service: No Review of Systems Const Denies fatigue, Denies fever(s), Denies night sweats, Denies poor appetite and Denies weight loss ENT Reports Normal hearing present, Denies dental pain, Denies dysphagia, Denies hearing loss, Denies mouth pain, Denies odynophagia, Denies throat swelling, Denies tongue swelling and Reports other (Dentition adequate) Card Reports no additional complaints Resp Reports no additional complaints GI Details: Denies abdominal pain, Denies melena, Denies bloating, Denies hematochezia, Denies constipation, Denies GI cramping, Denies dysphagia, Denies excessive flatus, Denies early satiety, Reports heartburn, Reports diarrhea, Denies nausea, Denies odynophagia, Denies vomiting and Denies hematemesis Musc Reports arthralgias Skin/Breast Denies pruritus, Denies lesions, Denies rash and Denies jaundice Neuro Reports Normal hearing present and Denies Abnormal speech present Psych Reports anxiety Endo Denies fatigue Aller/Immun Denies throat swelling and Denies tongue swelling Physical Exam Vital Signs: Last Vital Signs Pulse 74 05/13/25 13:08 BP 116/56 L 05/13/25 13:08 Pulse Ox 97 05/13/25 13:08 Oxygen Delivery Method Room Air 05/13/25 13:08 BMI result Body Mass Index 33.6 Const General: cooperative, no acute distress, well developed and well groomed Nutritional Appearance: well nourished and obese Orientation/consciousness: oriented to person, oriented to place and oriented to time Limitations: No language barrier HEENT Head: Yes normocephalic and Yes atraumatic Eyes General: appearance normal, both eyes and all related structures Pupils: Equal, round and reactive pupils present Neck Neck: Yes normal visual inspection and Yes no lymphadenopathy Thyroid: Thyroid normal Resp Effort & Inspection: normal respiratory effort and able to speak in complete sentences Auscultation: clear to auscultation bilaterally Cardio Rate: regular rate Rhythm: regular rhythm Heart sounds: Normal, physiologic split S2 sound present Peripheral pulses: radial pulses present and posterior tibial pulses present GI Inspection: No distended, No Abdominal panniculus present and Yes obesity Palpation (GI): Soft to palpation, nontender, no guarding, not rigid and No hepatosplenomegaly present Percussion: Yes normal to percussion Auscultation: normal bowel sounds Rectal Exam - Female: deferred Skin General skin exam: no rashes or lesions noted, turgor normal, skin not dry, no jaundice, No spider nevi and no striae Rashes: no rashes Nails: normal Neuro General: oriented to person, oriented to place and oriented to time Cranial nerves: Yes Equal, round and reactive pupils present and Yes Normal hearing present Speech: No Abnormal speech present Extrem General: Yes normal to inspection, No clubbing, No cyanosis and No edema Psych Appearance: grossly normal and well kempt Mental Status: mental status grossly normal Speech and movement: Normal speech and movement present Affect: normal affect Attitude: cooperative Thought process: Normal thought process present and not confabulating Thought content: Normal thought content present Insight: Fair insight present (Psych) Judgement: Fair judgement present (Psych) Results Reviewed Results Reviewed: Laboratory Tests 05/12/25 16:[address] CHEST 05/06/2025 FINDINGS: Linear high attenuation in the right lower lobe is consistent with atelectasis and/or scarring. Lungs are clear otherwise. Small right pleural effusion and trace left pleural fluid is layering in the dependent lung bases. There is no adenopathy. No coronary artery calcifications are identified. There is a deep concavity of the right humeral head with marginal osteophytes. There is also irregular cavity of the glenoid CT/CT chest wo con - High Res IMPRESSION: Small layering right and trace left layering pleural effusions. Linear atelectasis and/or scarring is noted in the right lower lobe. End-stage degenerative changes of the right shoulder joint with irregular deep concavity of the right humeral head that could be posttraumatic, related to AVN, or septic arthritis. There is also deformity with increased concavity of the glenoid surface. Assessment & Plan Assessment & Plan (1) GERD (gastroesophageal reflux disease): Code(s): K21.9 - Gastro-esophageal reflux disease without esophagitis Category: Medical Plan Her current GI regimen consists of pantoprazole, and Lotronex 1 mg twice a day. - The patient is a 60-year-old female presenting with concerns regarding imaging results, IBS-D management and GERD management. - The patient received incorrect information from a oxygen therapy technician, causing undue stress about possible lung cancer, clarified that the scan was ordered because of some pleural effusion seen on an abdominal study. The CAT scan continues to so a trace of pleural effusion but given that she is asymptomatic I do not think further investigation is necessary. 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 - There is notable end-stage degenerative arthritis in the right shoulder, leading to substantial discomfort, she has an upcoming appointment with orthopedic surgery. - Recent change in GERD management from omeprazole to pantoprazole resulted in exacerbated symptoms such as burning and vomiting, which improved with antacid gummies. She would like to go back on her omeprazole which I will facilitate. - Diarrhea control improved after increasing her from Lotronex 0.5 mg twice a day to 1 mg twice a day and she is now happy with this.. Return office visit in 6 months Medications: New omeprazole 40 mg PO DAILY 30 caps 6RF 30 days K21.9 - Gastro-esophageal reflux disease without esophagitis Discontinued pantoprazole (Protonix) Discontinued Reason: Doctor's Order 40 mg PO DAILY 30 days 30 tabs 6RF Coding Level of Care Code Est Pt Level 3 (56373) Diagnoses GERD (gastroesophageal reflux disease) K21.9
[2025-05-13 13:08] VITALS: BP 116/56; PULSE 74; O2SAT 97; BMI 33.6
--- OUTSIDE RECORDS SUMMARY | 2025-05-13 15:47 | XMS_ITS | Encounter Summary ---
Author Organization [employer] Address [address] [place] [address] [address] [place] [address] Care Team Providers Care Territory Account Executive Name Role Phone Silva Light MD Primary Care Provider [phone] Rossy Louie Unavailable Tamy Gonzalez RN Unavailable [phone] Donn Ravi Unavailable Edu Ravi RN Unavailable [phone] Reason for Visit * Reason Comments Med Refill Encounter Details Date Type Department Care Team (Late st Contact Info) Description 03/26/2023 Refill [facility] [address] [place], [place] [phone] Silva Light MD [address] [place], [place] [phone] Post-traumatic stress disorder, unspecified Social History Tobacco [...] Description 08/03/2025 1:00 PM EST Office Visit [facility] [address] [place] [address] Walter Bar MD [address] [place], [place] [phone] documented as of this encounter Visit Diagnoses Diagnosis Post-traumatic stress disorder, unspecified documented in this encounter Care Teams Territory Account Executive Relationship Specialty Start Date End Date Silva Light MD [address] [place] [address] PCP - General Family Medicine 08/06/13 Rossy Louie 12/09/24 02/06/25 Tamy Gonzalez, CORNELIA [address] [place] [address] Registered Nurse Family Medicine 02/09/25 02/18/25 Donn Ravi 02/09/25 03/24/25 Edu Ravi, CORNELIA [address] [place] [address] Registered Nurse Family Medicine 02/18/25 03/24/25 Goldie Alonso Plant Operations ManagerOpen Soaper Tender 03/16/25 documented as of this encounter
--- OUTSIDE RECORDS SUMMARY | 2025-05-13 15:47 | XMS_ITS | Encounter Summary ---
Author Organization [employer] Address [address] [place] [address] [address] [place] [address] Care Team Providers Care Container Washer Machine Name Role Phone Silva Light MD Primary Care Provider Rossy Louie Unavailable Tamy Gonzalez RN Unavailable [phone] Donn Ravi Unavailable Edu Ravi RN Unavailable [phone] Reason for Visit * Reason Onset Date Comments Nurse Triage 11/14/2023 Encounter Details Date Type Department Care Team (Late st Contact Info) Description 11/14/2023 Telephone [facility] [address] [place] [address] Silva Light MD [address] [place], [place] [phone] Nurse Triage Social History Tobacco Use Types [...] Triage call Pt reports was [place] [facility] [place] with prescription for doxycycline 100mg 2x/ daily for left leg cellulitis. Pt reports every time Pt takes the medication even with food Pt vomits. Pt is requesting a different medication. Pt has apt with PCP 11/30/23. Advised Pt will send this request to PCP and nursing staff at [facility] for follow up. Pt agreed with this [...] Upcoming Encounters Date Type Department Care Team ([facility] st Contact Info) Description 08/03/2025 1:00 PM EST Office Visit [facility] [address] [place] [address] Walter Bar MD [address] [place], [place] [phone] documented as of this encounter Visit Diagnoses Not on filedocumented in this encounter Care Teams Container Washer Machine Relationship Specialty Start Date End Date Silva Light MD [address] [place] [address] PCP - General Family Medicine 08/06/13 Rossy Louie 12/09/24 02/06/25 Tamy Gonzalez, CORNELIA [address] [place] [address] Registered Nurse Family Medicine 02/09/25 02/18/25 Donn Ravi 02/09/25 03/24/25 Edu Ravi, CORNELIA [address] [place] [address] Registered Nurse Family Medicine 02/18/25 03/24/25 Goldie Alonso Nurse Licensed PracticalCotton Gin Yard Supervisor 03/16/25 documented as of this encounter
--- OUTSIDE RECORDS SUMMARY | 2025-05-13 15:47 | XMS_ITS | Encounter Summary ---
Author Organization [email or web address] Address [address] [facility] [address] [place] [address] Care Team Providers Care Dentofacial Orthopedics Dentist Name Role Phone Silva Light MD Primary Care Provider Rossy Louie Unavailable Tamy Gonzalez RN Unavailable [phone] Donn Ravi Unavailable Edu Ravi RN Unavailable [phone] Reason for Visit * Reason Onset Date Comments Call Back Request 09/23/2024 Encounter Details Date Type Department Care Team (Late st Contact Info) Description 09/23/2024 Telephone [facility] [address] [place] [address] Silva Light MD [address] [place], [place] [phone] Call Back Request Social History Tobacco Use [...] 9:51 AM EST Tc from Alice from [facility] calling in requesting a status [...] [facility] [address] [place] [address] Walter Bar MD [address] [place], [place] [phone] documented as of this encounter Visit Diagnoses Not on filedocumented in this encounter Care Teams Dentofacial Orthopedics Dentist Relationship Specialty Start Date End Date Silva Light MD [address] [place] [address] PCP - General Family Medicine 08/06/13 Rossy Louie 12/09/24 02/06/25 Tamy Gonzalez, CORNELIA [address] [place] [address] Registered Nurse Family Medicine 02/09/25 02/18/25 Donn Ravi 02/09/25 03/24/25 Edu Ravi, CORNELIA [address] [place] [address] Registered Nurse Family Medicine 02/18/25 03/24/25 Goldie Alonso Tile And Mottle SupervisorCubing Machine Tender 03/16/25 documented as of this encounter
--- OUTSIDE RECORDS SUMMARY | 2025-05-13 15:47 | XMS_ITS | Encounter Summary ---
Author Organization [employer] Address [address] [facility] [address] [place] [address] Care Team Providers Care Sterilizer Machine Operator Name Role Phone Silva Light MD Primary Care Provider Encounter Details Date Type Department Care Team ([facility] st Contact Info) Description 04/07/2025 Orders Only [facility] [address] [place], [place] [phone] Silva Light MD [address] [place], [place] [phone] Social History Tobacco Use Types Packs/Day Years [...] 08/03/2025 1:00 PM EST Office Visit [facility] [address] [place], [place] [phone] Walter Bar MD [address] [place] [address] documented as of this encounter Procedures Procedure Name Priority Date/Time Associated Diagnosis Comments CT CHEST WO CON - HIGH RES Routine 05/06/2025 4:24 PM EDT documented in this encounter Results * CT chest wo con - High Res (05/06/2025 4:24 PM EDT) Anatomical Region Laterality Modality Body, Chest Computed Tomogra phy 05/06/2025 4:24 PM EDT Narrative 05/06/2025 5:03 PM EDT [facility] [address] [place] [address] [address] Scan Report Signed Patient: Judy Alexander MR#: [id number] : 1965 Acct:[id number] Age/Sex: 60 / F ADM Date: 05/06/25 Loc: HO.CT Attending Dr: Maritza ABREUC Ordering Physician: Maritza Culver Date of Service: 05/06/25 Procedure(s): CT chest wo con - High Res Accession Number(s): [id number] cc: Maritza Culver; Silva Light MD Report Number: [id number]: Total DLP = 216.00 mGy-cm Reason for [...] 05/06/25 1700 DD/ 1624 TD/TT: 05/06/25 1644 Java J2Ee Lead: Procedure Note Donotuseinterpreter, Image - 05/06/[address] [address] [address] Scan Report Signed Patient: Judy Alexander LMR#: [id number] : 1965Acct:[id number] Age/Sex: 60 / FADM Date: 05/06/25 Loc: HO.CT Attending Dr: Maritza ASHFORD Ordering Physician: Maritza Culver Date of Service: 05/06/25 Procedure(s): CT chest wo con - High Res Accession Number(s): [id number] cc: Maritza Culver; Silva Light MD Report Number: [id number]: Total DLP = 216.00 mGy-cm Reason for [...] 05/06/25 1700 DD/ 1624 TD/TT: 05/06/25 1644 Java J2Ee Lead: [facility] External Provider IMG CT PROCEDURES Final Result documented in this encounter Visit Diagnoses Not on filedocumented in this encounter Additional Health Concerns Assessment Noted Time PHQ-9 Depression Total Score: 0 12/10/19 10:46 AM EDT documented as of this encounter Care Teams Sterilizer Machine Operator Relationship Specialty Start Date End Date Silva Light MD [address] [place] [address] PCP - General Family Medicine 08/06/13 Goldie Alonso Blood Bank Calendar Control ClerkAccounting Administrator 03/16/25 documented as of this encounter
--- OUTSIDE RECORDS SUMMARY | 2025-05-13 15:47 | XMS_ITS | Encounter Summary ---
Author Organization [employer] Address [address] [facility] 7t [place] [address] Care Team Providers Care Clinical Dental Technician Name Role Phone Silva Light MD Primary Care Provider [phone] Encounter Details Date Type Department Care Team [...] the past 12 months, has t he [employer], [employer], oil or water [employer] threatened to shut off services in your [...] [facility] [address] [place] [address] Walter Bar MD [address] [place] [address] documented as of this encounter Procedures Procedure Name Priority Date/Time Associated Diagnosis Comments TSH W/REFLEX TO FT4 Routine 05/12/2025 4 :24 PM EDT documented in this encounter Results * TSH with Reflex to Free T4 (05/12/2025 4:24 PM EDT) TSH reflex Free T4 2.70 0.32 - 4.0 uIU/mL [facility] 05/12/2025 4:24 PM EDT 05/12/2025 4:24 PM EDT us Generic External Data Provider LAB BLOOD ORDERAB LES Final Result [facility] [address] [place] [address] [phone] documented in this encounter Visit Diagnoses Not on filedocumented in this encounter Additional Health Concerns Assessment Noted Time PHQ-9 Depression Total Score: 0 12/10/19 25 10:46 AM EDT documented as of this encounter Care Teams Clinical Dental Technician Relationship Specialty Start Date End Date Silva Light MD [address] [place] [address] PCP - General Family Medicine 08/06/13 Goldie Alonso Railroad PoliceDedicated Truck Driver 03/16/25 documented as of this encounter
--- OUTSIDE RECORDS SUMMARY | 2025-05-13 15:47 | XMS_ITS | Clinical Summary ---
Author Organization [employer] Address [address] [facility] 7t [place] [address] Care Team Providers Care Stockroom Coordinator Name Role Phone Silva Light MD Primary Care Provider [phone] Allergies Active Allergy Reactions Criticality Noted Date [...] External Data 05/04/2025 10:45 AM EDT Telemedicine [facility] [address] [place] [address] Walter Bar MD Alcohol use disorder, severe, dependence (CMS/HCC) (HCC) (Primary Dx) 05/04/2025 Travel 05/03/2025 Travel 04/20/2025 Telephone [facility] MEDICINE [address] [place] [address] Silva Light MD Immunizations 04/07/2025 Orders Only [facility] MED & PEDS [address] [place] [address] Silva Light MD 04/06/2025 Telephone [facility] [address] [place] [address] Silva Light MD Immunizations 04/06/2025 Telephone [facility] [address] [place] [address] Silva Light MD 04/03/2025 11:30 AM EDT Office Visit [facility] [address] [place] [address] Silva Light MD Hypothyroidism, unspecified type (Primary Dx); Pleural effusion; Chronic right shoulder pain; Encounter for screening mammogram for breast cancer; Primary parkinsonism ([facility]/HCC); Edema, unspecified type 04/03/2025 Travel 04/02/2025 Travel 04/02/2025 Telephone [facility] [address] [place] [address] Silva Light MD Chart Prep 03/25/2025 Refill [facility] [address] [place] [address] Silva Light MD 03/24/2025 Patient Outreach [address] [address] Silva Lihgt MD Care Coordination (C3KAYKAY/rebecca Marie missed assessment appt_closed ) 03/20/[address] [address] Silva Light MD Referral 03/19/2025 9:30 AM EDT Office Visit [facility] [address] [place] [address] Sanju Mcgee MD Acute pain of right knee (Primary Dx); Primary osteoarthritis of right knee; Chronic right shoulder pain 03/19/2025 Orders Only [facility] External Provider, [facility] 03/19/2025 Travel 03/18/2025 Telephone [facility] [address] [place] [address] Silva Light MD Nurse Triage 03/17/2025 Patient Outreach [address] [address] Silva Light MD Care Coordination (C3CM/CHW Jarely Trav, TC #2 RS missed assessment appt_lvm) 03/16/2025 Telephone [facility] [address] [place] [address] Silva Light MD Care Coordination (ICP Care Plan) 03/16/2025 Telephone [facility] [address] [place] [address] Silva Light MD 03/10/2025 Patient Outreach [address] [address] Silva Light MD Care Coordination ( C3CM/CHW Donn Ravi, Reschedule missed assessment_lvm ) 02/25/2025 Patient Outreach [address] [address] Silva Light MD Care Management (C3CM- initial assessment/ enrollment. lvm) 02/24/2025 Refill [facility] [address] [place] [address] Silva Light MD Hypothyroidism, unspecified type 02/23/2025 Patient Outreach [address] [address] Silva Light MD 02/19/2025 Telephone [facility] [address] [place] [address] Silva Light MD No Show 02/18/2025 Patient Outreach [address] [address] Silva Light MD Care Coordination ([facility]/TRACY Ravi, Initial assessment scheduled ) 02/13/2025 Patient Outreach [address] [address] Silva Light MD 02/11/2025 Patient Outreach [address] [address] Silva Light MD Pre-visit Planning (Pre visit planning LVM ) from Last 3 Months Immunizations Immunization Administration [...] [facility] [address] [place] [address] Walter Bar MD [address] [place] [address] Health Maintenance Due Date Last Done Comments [...] Free T4 2.70 0.32 - 4.0 uIU/mL [facility] 05/12/2025 4:24 PM EDT 05/12/2025 4:24 PM EDT us Generic External Data Provider LAB BLOOD ORDERAB LES Final Result [facility] [address] [place] [address] [phone] * CT chest wo con - High Res (05/06/2025 4:24 PM EDT) Anatomical Region Laterality Modality Body, Chest Computed Tomogra phy 05/06/2025 4:24 PM EDT Narrative 05/06/2025 5:03 PM EDT [address] [address] [address] Scan Report Signed Patient: Judy Alexander MR#: [id number] : 1965 Acct:[id number] Age/Sex: 60 / F ADM Date: 05/06/25 Loc: HO.CT Attending Dr: Maritza ASHFORD Ordering Physician: Maritza Culver Date of Service: 05/06/25 Procedure(s): CT chest wo con - High Res Accession Number(s): [id number] cc: Maritza Culver; Silva Light MD Report Number: [id number]: Total DLP = 216.00 mGy-cm Reason for [...] 05/06/25 1700 DD/ 1624 TD/TT: 05/06/25 1644 Can Piler: Procedure Note Donotuseinterpreter, Image - 05/06/[address] [address] [address] Scan Report Signed Patient: Judy Alexander LMR#: [id number] : 1965Acct:[id number] Age/Sex: 60 / FADM Date: 05/06/25 Loc: HO.CT Attending Dr: Maritza ASHFORD Ordering Physician: Maritza Culver Date of Service: 05/06/25 Procedure(s): CT chest wo con - High Res Accession Number(s): [id number] cc: Maritza Culver; Silva Light MD Report Number: [id number]: Total DLP = 216.00 mGy-cm Reason for [...] 05/06/25 1700 DD/ 1624 TD/TT: 05/06/25 1644 Can Piler: us [facility] External Provider IMG CT PROCEDURES Final Result * Basic Metabolic Panel (04/03/2025 12:01 PM EDT) Sodium 141 135 - 145 mmol/L [facility] Potassium 4.1 3.3 - 5.1 mmol/L [facility] Chloride 108 96 - 108 mmol/L [facility] Carbon Dioxide 25 22 - 29 mmol/L [facility] Anion Gap 12 12 - 20 [facility] Urea Nitrogen (BUN) 12 9 - 16 mg/dL [facility] Creatinine, Serum 0.83 0.5 - 1.4 mg/dL [facility] Estimated Glomerular Filt Rate >60 [facility] Comment:Chronic Kidney Disea se: Estimated GFR < 60 mL/min/1.69k7Rvtion Kidney Disease: Estimated GFR < 15 mL/min/1.73m2 Glucose 101 60 - 115 mg/dL [facility] Calcium 9.2 8.4 - 10.2 mg/dL [facility] Blood Venous blood specimen / Unknown 04/03/2025 12:01 PM EDT 04/03/2025 2:21 PM EDT Silva Light MD LAB BLOOD ORDERABLES Final Resul t [facility] [address] [place] [phone] [phone] * CT Abdomen Pelvis w/ Contrast (03/20/2025 9:06 AM EDT) Anatomical Region Laterality Modality Body, Pelvis, Abdomen Computed T omography 03/20/2025 9:06 AM EDT Narrative 03/20/2025 9:07 AM EDT [address] [address] [address] Scan Report Signed Patient: Judy Alexander MR#: [id number] : 1965 Acct:[id number] Age/Sex: 59 / F ADM Date: 03/19/25 Loc: ANNETTE Attending Dr: Maritza ASHFORD Ordering Physician: Maritza Culver Date of Service: 03/19/25 Procedure(s): CT abdomen pelvis w IV con Accession Number(s): [id number] cc: Maritza Culver; Silva Light MD Report Number: [id number]: Total DLP = 633.00 mGy-cm CLINICAL HISTORY: [...] by Enoc Valiente MD in OV> 03/20/25 09 DD/ 09 TD/TT: 03/20/25 09 Can Piler: Procedure Note Donotuseinterpreter, Image - 03/20/[address] [place] [address] [address] Scan Report Signed Patient: Judy Alexander LMR#: [id number] : 1965Acct:[id number] Age/Sex: 59 / FADM Date: 03/19/25 Loc: ANNETTE Attending Dr: Maritza ASHFORD Ordering Physician: Maritza Culver Date of Service: 03/19/25 Procedure(s): CT abdomen pelvis w IV con Accession Number(s): [id number] cc: Maritza Culver; Silva Light MD Report Number: [id number]: Total DLP = 633.00 mGy-cm CLINICAL HISTORY: [...] in OV> 03/20/25906 DD/ 5 TD/TT: 03/20/25905 Can Piler: [facility] External Provider IMG CT PROCEDURES Final Result * POCT Creatinine GFR (03/19/2025 1:46 PM EDT) POCT Creatinine 0.7 0.5 - 1.4 mg/dL [facility] GFR POC >60 [facility] Comment:Chronic Kidney Disea se: Estimated GFR < 60 mL/min/1.43j6Reniml Kidney Disease: Estimated GFR < 15 mL/min/1.73m2 03/19/2025 1:46 PM EDT 03/20/2025 11:41 AM EDT Narrative [facility] - 03/20/2025 11:44 AM EDT [id number] Generic External Data Provider LAB POINT OF CARE TEST DOCKED DEVICE ORDERABLES Final Result [facility] [address] [place] [address] [phone] * XR Knee 3 Views Right (03/19/2025 11:37 AM EDT) Anatomical Region Laterality Modality Lower Extremities, Knee Right Radiogra [facility] 03/19/2025 11:3 7 AM EDT Narrative 03/19/2025 12:01 PM EDT [address] [address] XRay Report Signed Patient: Judy Alexander MR#: [id number] : 1965 Acct:[id number] Age/Sex: 59 / F ADM Date: 03/19/25 [facility]: Maritza Culver ANP-C Ordering Physician: Sanju Mcgee MD Date of Service: 03/19/25 Procedure(s): XR knee RT 3V Accession Number(s): [id number] cc: Sanju Mcgee MD; Silva Light MD [...] 03/19/25 1158 DD/ 1137 TD/TT: 03/19/25 1147 Can Piler: Procedure Note Donotuseinterpreter, Image - 03/19/[address] [address] XRay Report Signed Patient: Judy Alexander LMR#: [id number] : 1965Acct:[id number] Age/Sex: 59 / FADM Date: 03/19/25 Loc: HO.[facility] Attending Dr: Maritza Culver ANP-C Ordering Physician: Sanju Mcgee MD Date of Service: 03/19/25 Procedure(s): XR knee RT 3V Accession Number(s): [id number] cc: Sanju Mcgee MD; Silva Light MD [...] 03/19/25 1158 DD/ 1137 TD/TT: 03/19/25 1147 Can Piler: us Sanju Mcgee MD IMG XR PROCEDURES Final Res ult * Hepatitis Panel, General (10/30/2024 5:05 PM EDT) Hepatitis A IgM Nonreactive Nonreactive [facility] Comment:IgM antibodies to ZAMORA V not detected; does not exclude earlyacute or recovered HAV infection. ~Hepatitis B Surface Antibody NONREACTIVE Nonreactive [facility] Comment:Nonreactive: < 8.00 mIU/mL Hepatitis B Core Antibody Nonreactive Nonreactive [facility] Hepatitis C Antibody Nonreactive Nonreactive [facility] Comment:Antibodies to HCV no t detected; does not exclude early acuteHCV infection. Hepatitis B Surface Ag Negative Negative [facility] 10/30/2024 5:05 PM EDT 10/30/2024 5:08 PM EDT us Generic External Data Provider LAB BLOOD ORDERAB LES Final Result Performing Organization Address City/[facility]/ZIP Co de Phone Number [facility] [address] [place] [address] [phone] * HIV-1/2 Antigen and Antibodies, Fourth Generation, with Reflexes (10/30/2024 5:05 PM EDT) HIV AB/AG Nonreactive Nonreactive [facility] Comment:HIV-1 p24 Ag and/or HIV-1/HIV-2 Ab not detected.A test result that is nonreactive does not exclude thepossibility of exposure to or infection with HIV-1 and/orHIV-2. Nonreactive results in this assay for individualswith prior exposure to HIV-1 and/or HIV-2 may be due toantigen and antibody levels that are below the limit ofdetection of this assay.The [employer] Prep HIV Ag/Ab Combo assay result andsupplemental assay results should be interpreted inconjunction with the patient's clinical presentation,history and other laboratory results. If the results areinconsistent with clinical evidence, additional testing issuggested to confirm the result. 10/30/2024 5:05 PM EDT 10/30/2024 5:08 PM EDT us Generic External Data Provider LAB BLOOD ORDERAB LES Final Result Performing Organization Address City/[facility]/ZIP Co de Phone Number [facility] [address] [place] [address] [phone] * (ABNORMAL) Lipid Panel, Standard (04/16/2024 12:03 PM EDT) Triglycerides 195(H) <150 mg/dL [facility] Comment:Desirable Triglyceri de: less than 150 mg/dLBorderline High Triglyceride 150-199 mg/dLHigh Triglyceride: 200-499 mg/dLVery High Triglyceride: greater than or equal to 5OO mg/dL Cholesterol 232(H) <200 mg/dL [facility] Comment:Desirable Cholestero l: less than 200 mg/dLBorderline High Cholesterol: 200-239 mg/dLHigh Cholesterol: greater than 239 mg/dL LDL Cholesterol Calculated 160(H) <100 mg/dL [facility] Comment:Desirable LDL: less than 100 mg/dLNear Optimal/Above Optimal LDL: 110- 129 mg/dLBorderline High LDL: 130-159 mg/dLHigh LDL: 160-189 mg/dLVery High LDL: greater than or equal to 190 mg/dL HDL Cholesterol 33(L) >40 mg/dL [facility] Comment:Desirable HDL: great er than 40 mg/dL Note: This HDL assay may give artificially low results in patients with liver disease. Blood Venous blood specimen / Unknown 04/16/2024 12:03 PM EDT 04/16/2024 2:13 PM EDT Silva Light MD LAB BLOOD ORDERABLES Final Resul t [facility] [address] [place] [phone] * Hm Colonoscopy (07/10/2022) Colonoscopy Normal Normal Historical Provider HEALTH MAINTENANCE Final Result * THINPREP TIS PAP AND HPV mRNA E6/E7 WITH REFLEX TO HPV 16,18/45 (12/20/2021 2:15 PM EDT) Clinical Information: None given [facility] COMMENT SEE COMMENT [facility] [...] has been evaluated with computer assisted technology. [facility] Electronics Engineering Manager: SEE COMMENT [facility] Comment: DMM, CT(ASCP) CT screening location: [address] [address] HPV nRNA E6/E7 Not Detected Not Detected [facility] Comment: Methodology: Strap Buckler-Mediated Amplification This assay detects E6/E7 viral messenger RNA (mRNA) from 14 high-risk HPV types (16,18,31,33,35,39,45,51,52,56,58,59,66,68). The analytical performance characteristics of this assay have been determined by [employer]. The modifications have not been cleared or approved by the FDA. This assay has been validated pursuant to the CLIA regulations and is used for clinical purposes. For additional information, please refer to http://education.[employer]/faq/GBU323x8 (This link if provided for information/ educational purposes only.) Interpretation/Re sult: Negative for intraepithelial lesion or malignancy. [facility] LMP: NONE GIVEN [facility] Prev. BX: COLP NEG 2018/2019 [facility] Prev. PAP: ASCUS HPV NEG 2019 LSIL HPV NEG 2018 [facility] Review Electronics Engineering Manager: SEE COMMENT [facility] Comment: KHUSHBU MARIA(ASCP) CT screening location: [address] [address] SOURCE: None given [facility] Statement Of Adequacy: SEE COMMENT [facility] Comment: Satisfactory for evaluation. Endocervical/transformation zone component present. 12/20/2021 2:15 PM EDT [place] [facility] PATHOLOGY ORDERABLES Final Result Performing Organization Address City/[facility]/ZIP Co de Phone Number [facility] [address] * Pap Smear (12/20/2021 12:00 AM EDT) Swab [place] [facility] CYTOLOGY ORDERABLES F inal Result Performing Organization Address City/[facility]/ZIP Co de Phone Number [address], [place] [address] * Mammography Report 1 (12/05/2021 8:42 AM [...] Most Recently Relevant to Health Maintenance Insurance [place] [facility] MEDICAID STAND ADULT Care Teams Stockroom Coordinator Relationship Specialty Start Date End Date Silva Light MD [address] [place] [address] PCP - General Family Medicine 08/06/13 Goldie Alonso Senior Web ArchitectDrill Punch Operator 03/16/25
--- OUTSIDE RECORDS SUMMARY | 2025-05-13 15:47 | XMS_ITS | Encounter Summary ---
Author Organization [employer] Address [address] [facility] 7 [place] [address] Care Team Providers Care Property Caretaker Name Role Phone Silva Light MD Primary Care Provider Rossy Louie Unavailable Tamy Gonzalez RN Unavailable [phone] Donn Ravi Unavailable Edu Ravi RN Unavailable [phone] Reason for Visit * Reason Onset Date Comments Nurse Triage 10/20/2024 Encounter Details Date Type Department Care Team (Late st Contact Info) Description 10/20/2024 Telephone [facility] [address] [place] [address] Silva Light MD [address] [place], [place] [phone] Nurse Triage Social History Tobacco Use Types [...] in [facility] today. Offered to come [address] to take a look at lump. Pt agreed with disposition and will come to [facility] today. Insurance is verified as [...] caller accepted this outcome. Contact pt at [phone] documented in this encounter Plan of Treatment Upcoming Encounters Date Type Department Care Team ([facility] st Contact Info) Description 08/03/2025 1:00 PM EST Office Visit [facility] [address] [place] [address] Walter Bar MD [address] [place], [place] [phone] documented as of this encounter Visit Diagnoses Not on filedocumented in this encounter Care Teams Property Caretaker Relationship Specialty Start Date End Date Silva Light MD [address] [place], [place] [phone] PCP - General Family Medicine 08/06/13 Rossy Louie 12/09/24 02/06/25 Tamy Gonzalez, CORNELIA [address] [place] [address] Registered Nurse Family Medicine 02/09/25 02/18/25 Donn Ravi 02/09/25 03/24/25 Edu Ravi, RN [address] [place] [address] Registered Nurse Family Medicine 02/18/25 03/24/25 Goldie Alonso Police Reserves CommanderProduct Support Specialist 03/16/25 documented as of this encounter
--- OUTSIDE RECORDS SUMMARY | 2025-05-13 15:47 | XMS_ITS | Encounter Summary ---
Author Organization [employer] Address [address] [facility] [address] [place] [address] Care Team Providers Care Crystal Inspector Name Role Phone Silva Light MD Primary Care Provider Rossy Louie Unavailable Tamy Gonzalez RN Unavailable [phone] Donn Ravi Unavailable Edu Ravi RN Unavailable [phone] Encounter Details Date Type Department Care Team (Late st Contact Info) Description 11/08/2022 Orders Only [facility] & PEDS [address] [place], [place] [phone] Sanju Mcgee MD [address] [place], [place] [phone] Primary osteoarthritis of left knee (Primary Dx) [...] Description 08/03/2025 1:00 PM EST Office Visit [facility] MED & PEDS [address] [place] [address] Walter Bar MD [address] [place] [address] documented as of this encounter Visit Diagnoses Diagnosis Primary osteoarthritis of left knee- Primary documented in this encounter Care Teams Crystal Inspector Relationship Specialty Start Date End Date Silva Light MD [address] [place] [address] PCP - General Family Medicine 08/06/13 Rossy Louie 12/09/24 02/06/25 Tamy Gonzalez RN [address] [place] [address] Registered Nurse Family Medicine 02/09/25 02/18/25 Donn Ravi 02/09/25 03/24/25 Edu Ravi, CORNELIA [address] [place] [address] Registered Nurse Family Medicine 02/18/25 03/24/25 Goldie Alonso Chef De CuisineStretching Machine Operator 03/16/25 documented as of this encounter
== END 2025-05-13 13:46 | disposition home or self-care (01) ==
LOC: HO.HGI 12:30
PROVIDERS: PCP Student in an Organized Health Care Education/Training Program; Visit Provider Nurse Practitioner
DX: K21.9 Gastro-esophageal reflux disease without esophagitis (principal)
CPT/HCPCS: 99213

== ENCOUNTER → 2025-05-13 12:29 | Outpatient (BNVA) | payer MEDICAID, SELFPAY | PROVIDERS: PCP Student in an Organized Health Care Education/Training Program; Visit Provider Nurse Practitioner | DX: K21.9 Gastro-esophageal reflux disease without esophagitis (principal) | CPT/HCPCS: 99212 ==